=== PATIENT | female | born 1970 | race Caucasian/White ===

== ENCOUNTER 2017-01-01 22:05 | Inpatient (IN) | payer MEDICAID ==
[~2017-01-01] VITALS: Ht 149.9 cm; Wt 127.9 kg
[~2017-01-01 22:05] MED LIST: ALBU0.0912 IH; AMOX-842 PO; BENA20TA PO; HYDR-4452 PO; LEVO0.083 PO; SACC250C4 PO
[2017-01-01 22:11] VITALS: BP 152/76
--- NOTE | 2017-01-01 22:40 | NUR ---
PATIENT AMBULATED TO ER BED 3.
--- NOTE | 2017-01-01 22:57 | NUR ---
Patient being evaluated by physician at bedside.
--- NOTE | 2017-01-01 22:59 | NUR ---
46Y F BIB FAMILY C/O OF SOB. ALSO C/O OF BURNING PAIN TO CHEST THAT RADIATES TO BACK. PAIN 8/10 IN SCALE. NO DISTRESS NOTED. PT OBESE.
[2017-01-01] MEDS ORDERED: NACL 0.9% 1,000 ML IV ONE (23:05)
[2017-01-01] MEDS ORDERED: NITROGLYCERIN 2% 1 GM PKT TP ONE (23:05)
[2017-01-01] MEDS ORDERED: FUROSEMIDE 40 MG/4 ML VIAL IVP ONE (23:05)
[2017-01-01 23:40] LABS: BASOPHILS % (AUTO) 0.6 % (0.0-2.0); EOSINOPHILS # (AUTO) 0.2 K/uL (0-0.4); EOSINOPHILS % (AUTO) 2.6 % (0.0-4.0); HEMATOCRIT 31.8 % (36-48); LYMPHOCYTES # (AUTO) 1.2 K/uL (2.5-16.5); LYMPHOCYTES % (AUTO) 14.2 % (20.5-51.1); MEAN CORPUSCULAR HEMOGLOBIN 24 pg (27-31); MEAN CORPUSCULAR HGB CONC 31 g/dL (33-37); MEAN CORPUSCULAR VOLUME 76 fL (80-94); MONOCYTES # (AUTO) 0.3 K/uL (0.8-1.0); MONOCYTES % (AUTO) 3.8 % (1.7-9.3); NEUTROPHILS # (AUTO) 6.4 K/uL (1.8-7.7); NEUTROPHILS % (AUTO) 78.8 % (42.2-75.2); PLATELET COUNT (AUTO) 235 K/uL (140-450); RED BLOOD CELL COUNT(AUTO) 4.17 MIL/uL (4.20-5.40); RED CELL DISTRIBUTION WIDTH 15.9 % (11.6-13.7); WHITE BLOOD COUNT (AUTO) 8.1 K/uL (4.8-10.8)
[2017-01-01 23:48] LABS: ANION GAP 8.6 (8-16); CALCIUM 9.1 mg/dL (8.5-10.1); CARBON DIOXIDE 31.6 mmol/L (21-32); CREATININE 0.7 mg/dL (0.6-1.3); POTASSIUM 4.2 mmol/L (3.5-5.1)
[2017-01-01 23:54] LABS: ALBUMIN 3.2 g/dL (3.4-5.0); TOTAL BILIRUBIN 0.3 mg/dL (0.0-1.0); TOTAL PROTEIN, SERUM 7.7 g/dL (6.4-8.2)
[2017-01-02] VITALS (7 sets, daily range): BP systolic 113–143; BP diastolic 58–90
[2017-01-02] MEDS ORDERED: ALBUTEROL SULFATE/IPRATROPIU 3 ML SOL IH ONE
[2017-01-02 00:01] LABS: INR 1.1 (0.8-1.2); PARTIAL THROMBOPLASTIN TIME 24.4 secs (22-35.6); PROTHROMBIN TIME 10.4 secs (10.8-13.4)
[2017-01-02 00:03] LABS: LACTIC ACID 1.3 mmol/L (0.4-2.0)
[2017-01-02 01:15] LABS: APPEARANCE,URINE CLEAR (CLEAR); BILIRUBIN,URINE NEGATIVE (NEGATIVE); BLOOD, URINE NEGATIVE (NEGATIVE); COLOR,URINE YELLOW (YELLOW); LEUKOCYTE ESTERASE ,URINE NEGATIVE (NEGATIVE); NITRITE, URINE NEGATIVE (NEGATIVE); PH,URINE 6.5 (5.0-9.0); PROTEIN,URINE NEGATIVE (NEGATIVE); UGLUCOSE NEGATIVE (NEGATIVE); UROBILINOGEN,URINE 0.2 EU/dL (0.2 - 1)
[2017-01-02 01:23] LABS: BACTERIA,URINE OCCASSIONAL /HPF (None Seen); RBC,URINE 0-5 (RARE) /HPF (0-5); SQUAMOUS EPITHELIAL CELL,UR 4-10 (MOD) /LPF (0-3 (FEW)); WBC,URINE 0-5 (RARE) /HPF (0-5)
[2017-01-02] MEDS ORDERED: NACL 0.9% 1,000 ML IV SCH (01:47)
[2017-01-02] MEDS ORDERED: LORazepam 1 MG TAB PO PRN (01:50)
[2017-01-02] MEDS ORDERED: HYDROcodone/APAP 5/325 MG 1 TAB TAB PO PRN (01:50)
[2017-01-02] MEDS ORDERED: ALBUTEROL SULFATE/IPRATROPIU 3 ML SOL IH PRN (02:00)
[2017-01-02 02:36] LABS: FREE T4 (FREE THYROXINE) 1.22 ng/dL (0.76-1.46); MAGNESIUM 2.1 mg/dL (1.8-2.4); PHOSPHORUS 3.8 mg/dL (2.5-4.9); THYROID STIMULATING HORMONE 4.37 uIU/mL (0.34-3.76)
[2017-01-02 02:37] LABS: CREATINE KINASE MB 0.5 ng/mL (0-3.6)
--- NOTE | 2017-01-02 02:49 | NUR ---
Patient will be admitted to care of DR VALDEZ. Admited to TELE . Will go to room ICU ROOM. Belongings list completed. Report to EARLE RICKS.
--- NOTE | 2017-01-02 02:55 | NUR ---
RECEIVED PT FROM ER VIA [facility] ACCOMPANIED BY RN AND EMT. PT AAOX4, ABLE TO MOVE FROM GURNEY TO BED WITH ASSIST. ON O2 AT 3LPM VIA NASAL CANNULA, ATTACHED TO CARE ASSISTANT AND PULSE OXIMETER. IV ACCESS AT RIGHT HAND 22G, PATENT AND INTACT, ON SALINE LOCK AT THIS TIME. PT ABLE TO VOID FREELY. MRSA SWAB DONE. NOTED TO HAVE PITTING EDEMA +1 BOTH LOWER EXTREMITIES. PT PLACED COMFORTABLY ON BED, RESTING COMFORTABLY, BED IN LOW POSITION. SAFETY MEASURE ENSURE. WILL CONTINUE TO MONITOR.
[2017-01-02] MEDS: ONDANSETRON 4 MG/2 ML VIAL IVP PRN ×2 (03:26→09:11)
[2017-01-02] MEDS: MORPHINE SULFATE 2 MG/ML SYR IVP PRN ×3 (03:26→21:39)
--- NOTE | 2017-01-02 04:10 | NUR ---
PT RESTING, ASLEEP AT THIS TIME. NO SIGNS OF DISTRESS/ SOB NOTED. WILL CONTINUE TO MONITOR.
[2017-01-02] MEDS: ALBUTEROL SULFATE/IPRATROPIU 3 ML SOL IH SCH ×3 (06:00→19:30)
--- NOTE | 2017-01-02 07:02 | NUR ---
PATIENT HAS BEEN SCREENED AND CATEGORIZED HIGH NUTRITION RISK. PATIENT WILL BE SEEN WITHIN 1-2 DAYS OF ADMISSION. 01/02/17-01/03/17 ANNIA SALES MS, RDN
--- NOTE | 2017-01-02 07:30 | NUR ---
REPORT GIVEN TO MILLICENT MICHAELS FOR CONTINUITY OF CARE. STABLE CONDITION AT THIS TIME.
--- NOTE | 2017-01-02 07:55 | NUR ---
PT ALERT AND ORIENTED X4. VERBALLY RESPONSIVE. NO C/O PAIN. NO C/O SOB. REPORT GIVEN BY MILLICENT OG TO TELEMETRY NURSE ADELAIDE. TRANSPORT PT ON MONITOR AND ON O2 3 L. PT AMBULATE FROM RCREEDE TO BED. ECG PORTABLE IN PLACE. O2 STARTED. CONTINUED IV FLUID. NO S/SX OF DISTRESS NOTED. RESIDENT IS STABLE.
--- NOTE | 2017-01-02 08:05 | NUR ---
RECEIVED PT AWAKE ON A GURNEY AAOX4 WITH O2 AT 3LPM VIA NC, NO S/S OF DISTRESS NOTED, PT WITH CANE, ABLE TO AMBULATE WITH CANE AND ASSISTANCE. SKIN IS INTACT. WITH IV ACCESS AT RIGHT HAND 22G INFUSING FLUIDS WELL. DISCUSSED PLAN OF CARE, PT VERBALIZED UNDERSTANDING. CALL LIGHT WITHIN REACH, WILL CONTINUE TO MONITOR.
--- NOTE | 2017-01-02 09:22 | NUR ---
ABG WAS ATTEMPTED TWICE UNABLE TO GET DRAW AT THIS TIME, PT IS IN PAIN AND WANTED HER PAIN MEDS WILL TRY LATER MILLICENT BRYSON NOTIFIED
[2017-01-02] MEDS ORDERED: HYDROcodone/APAP 10/325 MG 1 TAB TAB PO PRN (09:50)
[2017-01-02] MEDS ORDERED: methylPREDNISolone SS 125 MG/2 ML VIAL IVP SCH (09:55)
[2017-01-02] MEDS ORDERED: LEVOTHYROXINE 0.088 MG TAB PO SCH (10:00)
[2017-01-02] MEDS ORDERED: FAMOTIDINE 20 MG TAB PO SCH (10:00)
[2017-01-02] MEDS ORDERED: LORATADINE 10 MG TAB PO SCH (10:00)
[2017-01-02] MEDS ORDERED: BENAZEPRIL 20 MG TAB PO SCH (10:00)
--- NOTE | 2017-01-02 10:18 | NUR ---
PT ASLEEP, STILL WITH O2 AT 3LPM. ALL NEEDS ATTENDED, WILL CONTINUE TO MONITOR.
--- NOTE | 2017-01-02 10:38 | NUR ---
01/02/17 RD INITIAL ASSESSMENT COMPLETED PLEASE REFER TO NUTRITION ASSESSMENT UNDER CARE ACTIVITY FOR ESTIMATED NUTRITIONAL NEEDS. RD RECOMMENDATIONS: 1. CONTINUE CARDIAC DIET APPROPRIATE. 2. RD WILL F/U 5-7 DAYS; LOW RISK. ANNIA SALES MS, RDN
[2017-01-02] MEDS: methylPREDNISolone SS 125 MG/2 ML VIAL IVP SCH ×2 (10:44→18:01)
[2017-01-02 11:29] LABS: AMYLASE 16 U/L (25-115); LIPASE 68 U/L (73-393)
--- NOTE | 2017-01-02 12:30 | NUR ---
ASSISTED PT IN GETTING UP, ABLE TO AMBULATE TO RESTROOM WITH CANE. GOOD APPETITE FOR LUNCH. WITH DAUGHTER AT BEDSIDE. WILL CONTINUE TO MONITOR.
[2017-01-02 14:42] LABS: BLOOD GAS PH 7.299 (7.35-7.45)
[2017-01-02 14:43] LABS: BLOOD GAS BASE EXCESS 0.3 mmol/L (-2.0-2.0); BLOOD GAS HCO3 27.5 mmol/L; BLOOD GAS PCO2 57.4 mmHg (20-50); BLOOD GAS PO2 78.1 mmHg
[2017-01-02 14:44] LABS: BLOOD GAS O2 SAT% 94.2 % (92.0-98.5)
--- NOTE | 2017-01-02 14:50 | NUR ---
ABG REPORTED TO DR MANJEET GÓMEZ TO BE ORDERED
--- NOTE | 2017-01-02 15:01 | NUR ---
PLACED PT ON V60 ON ST 12\5 RR14 FIO2 28 ALARMS ARE ON AND FUNCTIONAL PT WEARING F\F MASK SIZE LG GEL UNDER MASK BS DIMINISHED CARDIO CONT. POX PLACED BIPAP AND POX PLUGGED INTO RED OUTLET PT IS AWAKE\SLEEPY
--- NOTE | 2017-01-02 15:09 | NUR ---
PT PUT ON BIPAP MACHINE PRN D/T INCREASED CO2 LEVELS,WITH THE FOLLOWING SETTINGS: IPAP 12, EPAP 5, O2 CONCENTRATION 28%, RATE 14BPM
--- NOTE | 2017-01-02 15:15 | NUR ---
PT COMPLAINED OF BEING SUFFOCATED WHILE ON BIPAP, REQUESTED FOR IT TO BE REMOVED. RT AND DR BURROUGHS NOTIFIED.
--- NOTE | 2017-01-02 15:20 | NUR ---
DR BURROUGHS AT BEDSIDE TALKING TO PT RE: BIPAP. PER PT SHE WILL BRING HER OWN MACHINE WHERE SHE USES NASAL CPAP INSTEAD SO SHE WOULD NOT FEEL AGITATED. PER DR BURROUGHS, OK FOR PT TO BRING OWN CPAP MACHINE BUT HAS TO USE BIPAP UNTIL IT ARRIVES. PT AGREED AND IS NOW ON BIPAP AGAIN WHILE SITTING ON THE CHAIR
--- NOTE | 2017-01-02 15:30 | NUR ---
DR BURROUGHS INFORMED RE: PT REQUEST FOR INFORMATION ON ADVANCE DIRECTIVE. PER MD HE WILL PUT IN SS REQUEST BUT WILL NOT BE SEEN BY SS TILL WEDNESDAY. PT INFORMED, VERBALIZED UNDERSTANDING.
--- NOTE | 2017-01-02 15:50 | NUR ---
PT HAD REMOVED BIPAP PLACED ON N/C BY RN RT BIPAP CHECK 1550 BS DIMINISHED PT BENJAMÍN OMALLEY ORDER FOR PT TO BRING HOME CPAP
--- NOTE | 2017-01-02 17:09 | NUR ---
BIPAP CHECK BS DIMINISHED ABG DRAWN WITHOUT INCIDENT
[2017-01-02] MEDS: MONTELUKAST SODIUM 10 MG TAB PO SCH (17:16)
[2017-01-02 17:25] LABS: BLOOD GAS PH 7.312 (7.35-7.45)
[2017-01-02 17:26] LABS: BLOOD GAS BASE EXCESS -0.1 mmol/L (-2.0-2.0); BLOOD GAS HCO3 26.7 mmol/L; BLOOD GAS PO2 66.9 mmHg
--- NOTE | 2017-01-02 17:29 | NUR ---
PT SITTING ON CHAIR WITH BIPAP ON WHILE WATCHING TV. ALL NEEDS ATTENDED. SPOKE TO DAUGHTER ON THE PHONE TO BRING CPAP OVER.
--- NOTE | 2017-01-02 17:41 | NUR ---
G REPORTED TO DR BURROUGHS NO CHANGES MADE
--- NOTE | 2017-01-02 17:55 | NUR ---
REMOVED BIPAP TO FACILITATE EATING DINNER. PT SITTING ON CHAIR. O2 2LPM APPLIED VIA NC. SPO2 AT 97%
--- NOTE | 2017-01-02 18:44 | NUR ---
DR MATHEW AT BEDSIDE, PER MD PT NEEDS TO USE FACILITY BIPAP MACHINE AND NOT OWN CPAP MACHINE. PT VERBALIZED UNDERSTANDING. IV FLUIDS DISCONTINUED.
[2017-01-02] MEDS ORDERED: LEVOFLOXACIN 500 MG/D5W PREMIX 100 ML IV SCH (18:50)
[2017-01-02] MEDS ORDERED: FUROSEMIDE 20 MG/2 ML VIAL IVP SCH (18:55)
--- NOTE | 2017-01-02 19:37 | NUR ---
PT ENDORSED TO NIGHT NURSE IN STABLE CONDITION FOR CONTINUITY OF CARE
--- NOTE | 2017-01-02 19:38 | NUR ---
RECEIVED REPORT FROM ADELAIDE RICKS FOR CONTINUITY OF CARE. PATIENT IS A&OX4, DISCUSSED PLAN OF CARE WITH PT, VERBALIZED UNDERSTANDING. SHIFT ASSESSMENT DONE, VS TAKEN , IN STABLE CONDITION. PT ON BIPAP, O2 SAT 97%, DENIES SHORTNESS OF BREATH. PATIENT DENIES PAIN AT THIS TIME. IV TO RT HAND 22 GAUGE PATENT AND INFUSING ANTIBIOTICS. PT SITTING IN CHAIR AT BEDSIDE, AMBULATED TO RESTROOM. PROVIDED BEDSIDE COMMODE PER PT REQUEST. SAFETY/ FALL PRECAUTIONS ENFORCED. CALL LIGHT WITHIN REACH. WILL CONTINUE TO MONITOR.
--- NOTE | 2017-01-02 21:39 | NUR ---
PT RETURNED TO BED AND MADE COMFORTABLE. PT C/O PAIN, MEDICATED PER MD ORDER. CALL LIGHT PLACED WITHIN REACH.
[2017-01-02] MEDS: LORazepam 2 MG/ML VIAL IVP PRN (22:52)
--- NOTE | 2017-01-02 22:52 | NUR ---
PT STATES SHE IS ANXIOUS HAVING THE BIPAP ON, EDUCATED OF IMPORTANCE TO KEEP ON. REQUESTED ANXIETY MEDICATION, MEDICATED PER MD ORDER. VS STABLE. WILL CONTINUE TO MONITOR.
[2017-01-03] VITALS: BP 102/59
--- NOTE | 2017-01-03 01:32 | NUR ---
ASSISTED PT TO CHAIR AT BEDSIDE. BIPAP IN PLACE. CALL LIGHT PLACED WITHIN REACH.
[2017-01-03 02:34] LABS: CREATINE KINASE MB 0.6 ng/mL (0-3.6)
[2017-01-03] MEDS: methylPREDNISolone SS 125 MG/2 ML VIAL IVP SCH ×3 (03:45→18:25)
[2017-01-03 04:00] VITALS: BP 118/70
--- NOTE | 2017-01-03 04:05 | NUR ---
VS TAKEN, STABLE. PT IS NOW ASLEEP, NO S/S OF DISTRESS NOTED.
[2017-01-03] MEDS: LEVOTHYROXINE 0.088 MG TAB PO SCH (05:52)
--- NOTE | 2017-01-03 05:52 | NUR ---
DUE MEDICATIONS ADMINISTERED, TOLERATED WELL. PATIENT ASSISTED TO BEDSIDE COMMODE, VOIDED.
[2017-01-03] MEDS: ALBUTEROL SULFATE/IPRATROPIU 3 ML SOL IH SCH ×3 (06:43→18:45)
--- NOTE | 2017-01-03 06:43 | NUR ---
RECEIVED PT ON PHILLI[S V60 ON ST 12\5 RR 14 FIO2 28 ALARMS ARE ON AND FUNCTIONAL PT WEARING F\F MASK SIZE LG IN HF ASLEEP BS DIMINISHED CONT. POX IN PLACE BIPAP POX PLUGGED INTO RED OUTLET HHN GIVEN I\L WITH 3 MG DUONEB
[2017-01-03 06:50] LABS: BASOPHILS % (AUTO) 0.3 % (0.0-2.0); EOSINOPHILS # (AUTO) 0.2 K/uL (0-0.4); EOSINOPHILS % (AUTO) 1.4 % (0.0-4.0); HEMATOCRIT 32.8 % (36-48); HEMOGLOBIN 10.4 g/dL (12.0-16.0); LYMPHOCYTES # (AUTO) 0.7 K/uL (2.5-16.5); LYMPHOCYTES % (AUTO) 6.5 % (20.5-51.1); MEAN CORPUSCULAR HEMOGLOBIN 24 pg (27-31); MEAN CORPUSCULAR HGB CONC 32 g/dL (33-37); MEAN CORPUSCULAR VOLUME 77 fL (80-94); MONOCYTES # (AUTO) 0.3 K/uL (0.8-1.0); MONOCYTES % (AUTO) 2.8 % (1.7-9.3); NEUTROPHILS # (AUTO) 10.2 K/uL (1.8-7.7); PLATELET COUNT (AUTO) 274 K/uL (140-450); RED BLOOD CELL COUNT(AUTO) 4.25 MIL/uL (4.20-5.40); RED CELL DISTRIBUTION WIDTH 15.6 % (11.6-13.7); WHITE BLOOD COUNT (AUTO) 11.4 K/uL (4.8-10.8)
[2017-01-03 07:15] LABS: ALBUMIN 3.4 g/dL (3.4-5.0); CALCIUM 8.8 mg/dL (8.5-10.1); CARBON DIOXIDE 33.5 mmol/L (21-32); CREATININE 0.8 mg/dL (0.6-1.3); MAGNESIUM 2.2 mg/dL (1.8-2.4); PHOSPHORUS 3.9 mg/dL (2.5-4.9); POTASSIUM 4.5 mmol/L (3.5-5.1); TOTAL BILIRUBIN 0.3 mg/dL (0.0-1.0); TOTAL PROTEIN, SERUM 8.2 g/dL (6.4-8.2)
--- NOTE | 2017-01-03 07:16 | NUR ---
ENDORSED PATIENT TO DAY RN FOR CONTINUITY OF CARE, PATIENT IS IN STABLE CONDITION.
[2017-01-03 07:17] LABS: ANION GAP 9.1 (8-16); CALCIUM 8.9 mg/dL (8.5-10.1); CARBON DIOXIDE 33.4 mmol/L (21-32); CREATININE 0.7 mg/dL (0.6-1.3); POTASSIUM 4.5 mmol/L (3.5-5.1)
--- NOTE | 2017-01-03 07:20 | NUR ---
RECEIVED REPORT FROM MILLICENT KANG. PT IS A/OX4, PT IS ON BIPAP, SKIN IS INTACT, IV ON RT HAND, SL, PATENT, INTACT, FLUSHING WELL, NO S/S OF RESPIRATORY DISTRESS OR DISCOMFORT NOTED, SAFETY/FALL PRECAUTIONS ARE IN REACH, DISCUSSED PLAN OF CARE WITH PT, PT VERBALIZED UNDERSTANDING, CALL LIGHT IS WITHIN REACH, WILL CONTINUE TO MONITOR.
[2017-01-03 08:00] VITALS: BP 146/85
[2017-01-03] MEDS: FAMOTIDINE 20 MG TAB PO SCH (08:57)
[2017-01-03] MEDS: BENAZEPRIL 20 MG TAB PO SCH (08:57)
[2017-01-03] MEDS: LORATADINE 10 MG TAB PO SCH (08:58)
[2017-01-03] MEDS: FUROSEMIDE 40 MG/4 ML VIAL IVP SCH (08:59)
[2017-01-03 09:06] LABS: T4 (THYROXINE) 9.3 ug/dL (4.5-12.0)
[2017-01-03] MEDS: LORazepam 2 MG/ML VIAL IVP PRN ×2 (09:31→19:49)
[2017-01-03 10:03] LABS: BLOOD GAS PH 7.338 (7.35-7.45)
[2017-01-03 10:04] LABS: BLOOD GAS BASE EXCESS 1.8 mmol/L (-2.0-2.0); BLOOD GAS HCO3 28.4 mmol/L; BLOOD GAS O2 SAT% 92.7 % (92.0-98.5); BLOOD GAS PCO2 54.1 mmHg (20-50); BLOOD GAS PO2 68.6 mmHg
--- NOTE | 2017-01-03 10:05 | NUR ---
ABG REPORTED TO DR BURROUGHS PT SITTING IN CHAIR ALERT WEARING 2L N/C
[2017-01-03] MEDS ORDERED: NACL 0.9% 1,000 ML IV SCH (10:25)
[2017-01-03] MEDS: ONDANSETRON 4 MG/2 ML VIAL IVP PRN (11:46)
[2017-01-03] MEDS: MORPHINE SULFATE 2 MG/ML SYR IVP PRN ×2 (11:47→22:22)
[2017-01-03 12:00] VITALS: BP 123/71
[2017-01-03] MEDS ORDERED: APAP/BUTAL/CAFF 325/50/40 MG 1 TAB PO SCH (12:00)
[2017-01-03 13:04] LABS: HEMOGLOBIN A1C 6.1 % (4.8-5.6)
[2017-01-03 16:00] VITALS: BP 106/59
[2017-01-03] MEDS: MONTELUKAST SODIUM 10 MG TAB PO SCH (17:24)
--- NOTE | 2017-01-03 19:15 | NUR ---
ENDORSED PT TO MILLICENT HOFFMAN. FOR CONTINUITY OF CARE, PT STABLE AT THIS TIME.
--- NOTE | 2017-01-03 19:16 | NUR ---
RECEIVED PT IN STABLE CONDITION FROM MILLICENT DONALDSON. NO SOB, NO SIGNS OF DISTRESS. PT IS AOX4, AMBULATES WITH CANE ASSIST. PT ON 3L O2 NC. VS STABLE. IV TO RT HAND 22G PATENT, ASYMPTOMATIC, INTACT, SALINE LOCKED. PT C/O ANXIETY, WILL MEDICATE PER MD ORDER. PT STATES PAIN IS TOLERABLE AT THIS TIME. SKIN IS INTACT. PLAN OF CARE DISCUSSED WITH PT. SAFETY MEASURES IN PLACE. CALL LIGHT WITHIN REACH. WILL CONTINUE TO MONITOR.
[2017-01-03] MEDS: APAP/BUTAL/CAFF 325/50/40 MG 1 TAB PO PRN (19:49)
[2017-01-03 20:00] VITALS: BP 128/64
[2017-01-03] MEDS: LEVOFLOXACIN 500 MG/D5W PREMIX 100 ML IV SCH (20:02)
--- NOTE | 2017-01-03 20:02 | NUR ---
PT TOLERATED MEDS WELL, MEDICATED PT FOR C/O HEADACHE AND ANXIETY PER MD ORDER. PT TOLERATED WELL. NO SOB, NO SIGNS OF DISTRESS. PT ON 3L O2 NC. IV SITE ASYMPTOMATIC, INTACT, PATENT, IVPB RUNNING. PLAN OF CARE DISCUSSED WITH PT. SAFETY MEASURES IN PLACE. CALL LIGHT WITHIN REACH. WILL CONTINUE TO MONITOR.
--- NOTE | 2017-01-03 22:22 | NUR ---
PT C/O PAIN, VS STABLE. MEDICATED PER MD ORDER. PT TOLERATED WELL. NO SOB, NO SIGNS OF DISTRESS. PT ON 3L O2 NC. IV SITE ASYMPTOMATIC, INTACT, PATENT, SALINE LOCKED. PLAN OF CARE DISCUSSED WITH PT. SAFETY MEASURES IN PLACE. CALL LIGHT WITHIN REACH. WILL CONTINUE TO MONITOR.
--- NOTE | 2017-01-03 22:55 | NUR ---
PATIENT WANTS TO HOLD OFF BEING ON BIPAP AT THIS TIME HR-74, SAO2-95% RR-20BPM, NO RESP. DISTRESS NOTED.
[2017-01-04] VITALS: BP 117/58
--- NOTE | 2017-01-04 00:13 | NUR ---
VS STABLE. NO SOB, NO SIGNS OF DISTRESS. PT ON 3L O2 NC. IV SITE ASYMPTOMATIC, INTACT, PATENT, SALINE LOCKED. PT DENIES PAIN AT THIS TIME. PLAN OF CARE DISCUSSED WITH PT. SAFETY MEASURES IN PLACE. CALL LIGHT WITHIN REACH. WILL CONTINUE TO MONITOR.
--- NOTE | 2017-01-04 02:48 | NUR ---
PT ASLEEP IN BED. NO SOB, NO SIGNS OF DISTRESS. IV SITE ASYMPTOMATIC, INTACT, SALINE LOCKED. PT ON 3L O2 NC. SAFETY MEASURES IN PLACE. CALL LIGHT WITHIN REACH. WILL CONTINUE TO MONITOR.
[2017-01-04] MEDS: methylPREDNISolone SS 125 MG/2 ML VIAL IVP SCH ×3 (03:20→18:36)
[2017-01-04 04:00] VITALS: BP 121/74
[2017-01-04 05:23] LABS: BASOPHILS % (AUTO) 0.3 % (0.0-2.0); EOSINOPHILS # (AUTO) 0.2 K/uL (0-0.4); EOSINOPHILS % (AUTO) 1.5 % (0.0-4.0); HEMATOCRIT 32.9 % (36-48); HEMOGLOBIN 10.4 g/dL (12.0-16.0); LYMPHOCYTES # (AUTO) 0.7 K/uL (2.5-16.5); LYMPHOCYTES % (AUTO) 4.9 % (20.5-51.1); MEAN CORPUSCULAR HEMOGLOBIN 25 pg (27-31); MEAN CORPUSCULAR HGB CONC 31 g/dL (33-37); MEAN CORPUSCULAR VOLUME 78 fL (80-94); MONOCYTES # (AUTO) 0.6 K/uL (0.8-1.0); MONOCYTES % (AUTO) 4.2 % (1.7-9.3); NEUTROPHILS # (AUTO) 12.6 K/uL (1.8-7.7); NEUTROPHILS % (AUTO) 89.1 % (42.2-75.2); PLATELET COUNT (AUTO) 284 K/uL (140-450); RED BLOOD CELL COUNT(AUTO) 4.22 MIL/uL (4.20-5.40); RED CELL DISTRIBUTION WIDTH 15.8 % (11.6-13.7)
[2017-01-04] MEDS: LEVOTHYROXINE 0.088 MG TAB PO SCH (05:52)
[2017-01-04] MEDS: APAP/BUTAL/CAFF 325/50/40 MG 1 TAB PO PRN (06:13)
--- NOTE | 2017-01-04 06:13 | NUR ---
PT C/O HEADACHE, MEDICATED PER MD ORDER. PT TOLERATED WELL. NO SOB, NO SIGNS OF DISTRESS. IV ISTE ASYMPTOMATIC, INTACT, SALINE LOCKED. SAFETY MEASURES IN PLACE PT ON 3L O2 NC. CALL LIGHT WITHIN REACH. WILL CONTINUE TO MONITOR.
[2017-01-04] MEDS: ALBUTEROL SULFATE/IPRATROPIU 3 ML SOL IH SCH ×3 (06:22→19:59)
[2017-01-04 06:37] LABS: ANION GAP 7.1 (8-16); CARBON DIOXIDE 34.5 mmol/L (21-32); CREATININE 0.7 mg/dL (0.6-1.3); POTASSIUM 4.6 mmol/L (3.5-5.1)
[2017-01-04 06:41] LABS: MAGNESIUM 2.3 mg/dL (1.8-2.4)
[2017-01-04 07:23] LABS: WHITE BLOOD COUNT (AUTO) 14.1 K/uL (4.8-10.8)
--- NOTE | 2017-01-04 07:30 | NUR ---
RECEIVED ON BED AAOX4. NO SOB NOTED. NO C/O PAIN AT THIS TIME. IV TO RT HAND PATENT AND INTACT. CHEST DIMINISHED AIR ENTRY TO THE BASES, RHONCHI HEARD BILATERALLY. ABDOMEN SOFT, BOWEL SOUNDS PRESENT. BLE SWELLING, +2 PITTING NOTED. INSTRUCTED PT TO CALL FOR ASSISTANCE, CALL LIGHT WITHIN REACH. PT VERBALIZED UNDERSTANDING.
--- NOTE | 2017-01-04 07:32 | NUR ---
ENDORSED PT IN STABLE CONDITION TO MILLICENT BARBOZA. ALL NEEDS HAVE BEEN MET AT THIS TIME.
[2017-01-04 08:00] VITALS: BP 107/58
[2017-01-04] MEDS: MORPHINE SULFATE 2 MG/ML SYR IVP PRN ×3 (08:13→23:33)
[2017-01-04] MEDS: LORazepam 2 MG/ML VIAL IVP PRN (08:17)
[2017-01-04] MEDS: LORATADINE 10 MG TAB PO SCH (08:20)
[2017-01-04] MEDS: FAMOTIDINE 20 MG TAB PO SCH (08:20)
[2017-01-04] MEDS: BENAZEPRIL 20 MG TAB PO SCH (09:00)
[2017-01-04] MEDS: FUROSEMIDE 40 MG/4 ML VIAL IVP SCH ×2 (09:00→13:32)
--- NOTE | 2017-01-04 09:30 | NUR ---
pt able to transfer from bed to bedside commode with minimal assist. activity tolerated well. no SOB noted.
--- NOTE | 2017-01-04 10:25 | NUR ---
CM NOTE PER LOAN REVIEWER KARYNA EXT [phone], REVIEWS SHOULD BE SENT TO [facility] AND [facility]. INITIAL REVEIW SENT TO [facility] FAX# [phone] PH# [phone] AND TO [facility] FAX# [phone] PH# [phone] ANGELA EXT [phone]
[2017-01-04 12:00] VITALS: BP 130/77
--- NOTE | 2017-01-04 12:20 | NUR ---
PT TOLERATED FULL LIQUID DIET WELL. NO C/O NAUSEA AND VOMITING.
[2017-01-04 16:00] VITALS: BP 127/68
[2017-01-04] MEDS: MONTELUKAST SODIUM 10 MG TAB PO SCH (17:33)
--- NOTE | 2017-01-04 18:30 | NUR ---
PT TOLERATED CARDIAC DIET WELL. NO N&V NOTED.
--- NOTE | 2017-01-04 19:20 | NUR ---
RECEIVED REPORT FROM MILLICENT BARBOZA AT BEDSIDE. INITIAL ASSESSMENT COMPLETED. PT AAOX4. PT'S SKIN IS INTACT. PT IS RECEIVING O2 3L NC. PT HAS IV TO RIGHT HAND G22 INFUSING FLUIDS WELL. ORIENTED PT TO ROOM AND SURROUNDINGS AND USE OF CALL LIGHT. EXPLAINED PLAN OF CARE TO PT AND SHE VERBALIZES UNDERSTANDING. WILL CONTINUE TO MONITOR PT.
--- NOTE | 2017-01-04 19:23 | NUR ---
PT RESTING, NO SOB NOTED. NO COMPLAINTS MADE. WILL ENDORSE TO NEXT SHIFT NURSE FOR CONTINUITY OF CARE.
[2017-01-04 20:00] VITALS: BP 138/78
[2017-01-04] MEDS: LEVOFLOXACIN 500 MG/D5W PREMIX 100 ML IV SCH (21:08)
--- NOTE | 2017-01-04 21:09 | NUR ---
2100 LEVAQUIN INFUSING AT THIS TIME. PT STABLE, RESTING IN BED. CALL LIGHT WITHIN REACH.
--- NOTE | 2017-01-04 22:05 | NUR ---
PT COMPLAINING OF IV HURTING. IV DISCONTINUED WITH TIP INTACT. NEW IV STARTED ON LEFT HAND G 22; ASYMPTOMATIC, PATENT AND INTACT INFUSING FLUIDS WELL. PT TOLERATED IT WELL. CALL LIGHT WITHIN REACH.
--- NOTE | 2017-01-04 23:31 | NUR ---
PT COMPLAINING OF BACK PAIN 04/15. VS STABLE, WILL MEDICATE ORDERED.
[2017-01-05] VITALS: BP 131/75
--- NOTE | 2017-01-05 01:40 | NUR ---
PT SLEEPING AT THIS TIME, NO SIGNS OF DISTRESS OR DISCOMFORT NOTED. WILL CONTINUE TO MONITOR PT.
[2017-01-05] MEDS: methylPREDNISolone SS 125 MG/2 ML VIAL IVP SCH ×2 (03:18→10:26)
--- NOTE | 2017-01-05 03:22 | NUR ---
PT TOLERATED 0300 MED WELL. PT STABLE, WILL CONTINUE TO MONITOR PT.
[2017-01-05 04:00] VITALS: BP 138/77
--- NOTE | 2017-01-05 04:42 | NUR ---
PT AMBULATED TO THE RESTROOM. PT BACK IN BED IN STABLE CONDITION. PT TOLERATING OXYGEN WELL.WILL CONTINUE TO MONITOR PT.
[2017-01-05 06:08] LABS: BASOPHILS % (AUTO) 0.1 % (0.0-2.0); EOSINOPHILS # (AUTO) 0.2 K/uL (0-0.4); EOSINOPHILS % (AUTO) 1.4 % (0.0-4.0); HEMATOCRIT 31.9 % (36-48); HEMOGLOBIN 9.9 g/dL (12.0-16.0); LYMPHOCYTES # (AUTO) 0.6 K/uL (2.5-16.5); LYMPHOCYTES % (AUTO) 5.4 % (20.5-51.1); MEAN CORPUSCULAR HEMOGLOBIN 24 pg (27-31); MEAN CORPUSCULAR HGB CONC 31 g/dL (33-37); MEAN CORPUSCULAR VOLUME 77 fL (80-94); MONOCYTES # (AUTO) 0.5 K/uL (0.8-1.0); MONOCYTES % (AUTO) 4.2 % (1.7-9.3); NEUTROPHILS # (AUTO) 9.6 K/uL (1.8-7.7); NEUTROPHILS % (AUTO) 88.9 % (42.2-75.2); PLATELET COUNT (AUTO) 273 K/uL (140-450); RED BLOOD CELL COUNT(AUTO) 4.12 MIL/uL (4.20-5.40); RED CELL DISTRIBUTION WIDTH 15.5 % (11.6-13.7); WHITE BLOOD COUNT (AUTO) 10.9 K/uL (4.8-10.8)
[2017-01-05 06:21] LABS: FOLIC ACID 6.7 ng/mL (>3.0)
[2017-01-05] MEDS: LEVOTHYROXINE 0.088 MG TAB PO SCH (06:25)
--- NOTE | 2017-01-05 06:32 | NUR ---
PT TOLERATED 0630MED WELL. PT STABLE, WILL CONTINUE TO MONITOR PT.
[2017-01-05 06:34] LABS: ANION GAP 11.1 (8-16); CALCIUM 8.9 mg/dL (8.5-10.1); CARBON DIOXIDE 33.5 mmol/L (21-32); CREATININE 0.8 mg/dL (0.6-1.3); POTASSIUM 4.6 mmol/L (3.5-5.1)
[2017-01-05 06:38] LABS: MAGNESIUM 2.3 mg/dL (1.8-2.4); PHOSPHORUS 3.5 mg/dL (2.5-4.9)
[2017-01-05] MEDS: ALBUTEROL SULFATE/IPRATROPIU 3 ML SOL IH SCH ×2 (06:45→13:19)
--- NOTE | 2017-01-05 07:15 | NUR ---
ENDORSED PLAN OF CARE TO DAY SHIFT NURSE. PT IN STABLE CONDITION.
[2017-01-05 08:00] VITALS: BP 144/71
--- NOTE | 2017-01-05 08:47 | NUR ---
CM NOTE CONCURRENT REVIEW SENT TO [facility] FAX# [phone] PH# [phone] AND TO [facility], [place] FAX# [phone] PH# [phone] ANGELA HARRISON 6895
[2017-01-05] MEDS ORDERED: FUROSEMIDE 40 MG/4 ML VIAL IVP SCH (09:00)
[2017-01-05] MEDS: FUROSEMIDE 40 MG/4 ML VIAL IVP SCH ×2 (09:00→10:17)
[2017-01-05] MEDS ORDERED: ESCITALOPRAM 20 MG TAB PO SCH (09:00)
[2017-01-05] MEDS: LORATADINE 10 MG TAB PO SCH (09:03)
[2017-01-05] MEDS: FAMOTIDINE 20 MG TAB PO SCH (09:03)
[2017-01-05] MEDS: MORPHINE SULFATE 2 MG/ML SYR IVP PRN (09:04)
[2017-01-05] MEDS: BENAZEPRIL 20 MG TAB PO SCH (09:04)
--- NOTE | 2017-01-05 09:17 | NUR ---
PT REQUESTED TO TAKE LASIX LATER IN THE DAY BECAUSE PT "DOES NOT WANT TO PEE AT LOT WHILE ON MORPHINE BECAUSE I GET DIZZY." CONDITION STABLE. PT DENIES SOB, OR S/S OF ACUTE DISTRESS. REMAINING DUE MEDICATIONS ADMINISTERED WITH EDUCATION. PT C/O PAIN. SEE PAIN ASSESSMENT. SAFETY MEASURES ENSURED. CALL LIGHT WITHIN REACH. WILL CONTINUE TO MONITOR.
--- NOTE | 2017-01-05 10:13 | NUR ---
DECREASED FIO2 TO 2L SPO2 93
--- NOTE | 2017-01-05 10:27 | NUR ---
PT REQUESTING LASIX NOW. ADMINISTERED DUE MEDICATIONS WITH EDUCATION, PT VERBALIZES UNDERSTANDING. PT TOLERATED WELL.
[2017-01-05 12:00] VITALS: BP 144/70
[2017-01-05] MEDS ORDERED: FAMO20TA13 PO (12:51)
[2017-01-05] MEDS ORDERED: MONT10TA35 PO (12:51)
[2017-01-05] MEDS ORDERED: LORA10TA19 PO (12:51)
[2017-01-05] MEDS ORDERED: ESCI20TA47 PO (12:51)
[2017-01-05] MEDS ORDERED: ROB PO (12:56)
[2017-01-05] MEDS ORDERED: METH4TAB1 PO (13:09)
[2017-01-05] MEDS ORDERED: ALBU0.0912 IH (13:21)
[2017-01-05] MEDS ORDERED: FURO-572 PO (13:29)
[2017-01-05 13:32] VITALS: BP 144/70
--- NOTE | 2017-01-05 15:28 | NUR ---
REVIEWED AND DISCUSSED DISCHARGE INSTRUCTIONS WITH PT AND PT'S CAREGIVER AT BEDSIDE. PT VERBALIZES UNDERSTANDING. IV ACCESS REMOVED, CANNULA INTACT. PT TOLERATED WELL. PUBLISHING MANAGER REMOVED. PT REQUESTING A DOCTOR'S NOTE REGARDING PT'S ACTIVITY RESTRICTION. WILL CONTACT
--- NOTE | 2017-01-05 15:42 | NUR ---
PT DISCHARGED THROUGH WHEELCHAIR BY ELECTRIC FAN ASSEMBLER, ACCOMPANIED BY PT'S CAREGIVER. BELONGINGS CHECKED. CONDITION STABLE.
--- NOTE | 2017-01-05 16:17 | NUR ---
DR SOTOMAYOR IN TO SEE PT. DOCTOR'S NOTE FOR ACTIVITY RESTRICTION GIVEN TO PT. PT VERBALIZES UNDERSTANDING. Addendum: 01/05/17 at 1618 by Zoltan Osorio RN WRONG TIME CORRECT TIME: 01/05/17 1534
== END 2017-01-05 15:47 | disposition home or self-care (01) | DRG 137 ==
LOC: MED 22:05 → MIC 01-02 02:00 → MTU 01-02 08:28
PROVIDERS: ADMIT Family Medicine; ATTEND Family Medicine
PROC: 5A09357 Assistance with Respiratory Ventilation, Less than 24 Consecutive Hours, Continuous Positive Airway Pressure (ICD-10-PCS; principal; 2017-01-02)
DX: J69.0 Pneumonitis due to inhalation of food and vomit (principal); J96.21 Acute and chronic respiratory failure with hypoxia; E43 Unspecified severe protein-calorie malnutrition; I50.43 Acute on chronic combined systolic (congestive) and diastolic (congestive) heart failure; E66.2 Morbid (severe) obesity with alveolar hypoventilation; E03.9 Hypothyroidism, unspecified; J96.22 Acute and chronic respiratory failure with hypercapnia; I11.0 Hypertensive heart disease with heart failure; D50.9 Iron deficiency anemia, unspecified; Z79.899 Other long term (current) drug therapy; Z90.49 Acquired absence of other specified parts of digestive tract; Z83.3 Family history of diabetes mellitus; Z82.5 Family history of asthma and other chronic lower respiratory diseases; Z68.43 Body mass index [BMI] 50.0-59.9, adult; Z71.3 Dietary counseling and surveillance; Z82.3 Family history of stroke; Z82.49 Family history of ischemic heart disease and other diseases of the circulatory system
CPT/HCPCS: 36415; 36600; 71010; 71020; 80048; 80053; 81001; 82150; 82550; 82553; 82607; 82728; 82746; 82803; 83036; 83540; 83605; 83690; 83735; 83880; 84100; 84436; 84439; 84443; 84479; 84484; 85025; 85045; 85379; 85610; 85730; 87040; 87081; 87086; 93005; 94640; 94660; 96374; 99285; J1940; J1956; J2060; J2270; J2405; J2930; J7030; J7620; Q0092

== ENCOUNTER 2017-02-21 21:56 | Inpatient (IN) | payer MEDICAID ==
[~2017-02-21] VITALS: Ht 149.9 cm; Wt 167.4 kg
[~2017-02-21 21:56] MED LIST changes: -AMOX-842 PO; +ESCI20TA47 PO; +FAMO20TA13 PO; +FURO-572 PO; +LORA10TA19 PO; +METH4TAB1 PO; +MONT10TA35 PO; +ROB PO
[2017-02-21 22:01] VITALS: BP 132/66
--- NOTE | 2017-02-21 22:28 | NUR ---
PT TAKEN TO OF2
--- NOTE | 2017-02-21 22:34 | NUR ---
Dr. Radford evaluating patient
--- NOTE | 2017-02-21 22:39 | NUR ---
PT TAKEN TO BED 8
[2017-02-21] MEDS ORDERED: IPRATROPIUM 0.02% 0.5 MG/2.5 ML NEBU INH ONE (22:50)
[2017-02-21] MEDS ORDERED: methylPREDNISolone SS 125 MG in WATER STERILE 2 ML IV ONE (22:50)
--- NOTE | 2017-02-21 23:04 | NUR ---
RT AT BEDSIDE.
[2017-02-21] MEDS ORDERED: ALBUTEROL 0.083% 2.5 MG/3 ML NEBU INH ONE (23:11)
[2017-02-21] MEDS ORDERED: FUROSEMIDE 100 MG/10 ML VIAL IVP ONE (23:15)
[2017-02-21] MEDS ORDERED: ONDANSETRON 4 MG/2 ML VIAL IVP ONE (23:25)
[2017-02-21 23:29] LABS: BLOOD GAS BASE EXCESS 4.2 mmol/L (-2.0-2.0); BLOOD GAS HCO3 29.8 mmol/L; BLOOD GAS O2 SAT% 96.9 % (92.0-98.5); BLOOD GAS PCO2 49.2 mmHg (20-50); BLOOD GAS PO2 88.8 mmHg
[2017-02-21 23:46] LABS: APPEARANCE,URINE HAZY (CLEAR); BILIRUBIN,URINE NEGATIVE (NEGATIVE); BLOOD, URINE NEGATIVE (NEGATIVE); COLOR,URINE YELLOW (YELLOW); LEUKOCYTE ESTERASE ,URINE TRACE (NEGATIVE); NITRITE, URINE NEGATIVE (NEGATIVE); PROTEIN,URINE TRACE (NEGATIVE); UGLUCOSE NEGATIVE (NEGATIVE)
[2017-02-21 23:53] LABS: BASOPHILS % (AUTO) 0.2 % (0.0-2.0); EOSINOPHILS # (AUTO) 0.2 K/uL (0-0.4); EOSINOPHILS % (AUTO) 1.8 % (0.0-4.0); HEMATOCRIT 31.6 % (36-48); LYMPHOCYTES # (AUTO) 1.1 K/uL (2.5-16.5); LYMPHOCYTES % (AUTO) 9.1 % (20.5-51.1); MEAN CORPUSCULAR HEMOGLOBIN 25 pg (27-31); MEAN CORPUSCULAR HGB CONC 32 g/dL (33-37); MEAN CORPUSCULAR VOLUME 78 fL (80-94); MONOCYTES # (AUTO) 0.7 K/uL (0.8-1.0); MONOCYTES % (AUTO) 5.6 % (1.7-9.3); PLATELET COUNT (AUTO) 257 K/uL (140-450); RED BLOOD CELL COUNT(AUTO) 4.06 MIL/uL (4.20-5.40); RED CELL DISTRIBUTION WIDTH 15.1 % (11.6-13.7)
[2017-02-21 23:55] LABS: ANION GAP 10.3 (8-16); CALCIUM 8.7 mg/dL (8.5-10.1); CARBON DIOXIDE 31.5 mmol/L (21-32); CREATININE 0.6 mg/dL (0.6-1.3); POTASSIUM 3.8 mmol/L (3.5-5.1)
[2017-02-21 23:59] LABS: BACTERIA,URINE OCCASSIONAL /HPF (None Seen); RBC,URINE 0-5 (RARE) /HPF (0-5)
[2017-02-22] LABS: ALBUMIN 3.3 g/dL (3.4-5.0); TOTAL BILIRUBIN 0.4 mg/dL (0.0-1.0); TOTAL PROTEIN, SERUM 7.9 g/dL (6.4-8.2)
[2017-02-22 00:04] LABS: NEUTROPHILS % (AUTO) 83.3 % (42.2-75.2)
[2017-02-22] MEDS ORDERED: cefTRIAXone 2,000 MG in DEXTROSE 5% 100 ML IV ONE (00:20)
[2017-02-22] MEDS ORDERED: cefTRIAXone 2,000 MG VIAL ONE (00:29)
[2017-02-22] MEDS ORDERED: MORPHINE SULFATE 4 MG/ML SYR IVP ONE (00:40)
[2017-02-22] MEDS ORDERED: ACETAMINOPHEN 325 MG TAB PO PRN ×2 (00:45→10:00)
[2017-02-22] MEDS ORDERED: DOCUSATE SODIUM 100 MG GELCAP PO PRN (00:45)
[2017-02-22] MEDS ORDERED: MORPHINE SULFATE 2 MG/ML SYR IVP PRN ×2 (00:45→10:00)
[2017-02-22] MEDS ORDERED: guaiFENesin 20 MG/ML UDC PO SCH (00:50)
[2017-02-22] MEDS ORDERED: HYDROcodone/APAP 10/325 MG 1 TAB TAB PO PRN (00:50)
[2017-02-22] MEDS ORDERED: ALBUTEROL HFA MDI 90 MCG/ACTUATION 8 GM INH SCH ×2 (00:50)
--- NOTE | 2017-02-22 00:54 | NUR ---
PT MOVED TO BED 4
[2017-02-22] MEDS: LEVOFLOXACIN 500 MG/D5W PREMIX 100 ML IV SCH ×2 (00:55→09:06)
[2017-02-22 01:09] LABS: INR 1.1 (0.8-1.2); PARTIAL THROMBOPLASTIN TIME 27.6 secs (22-35.6); PROTHROMBIN TIME 10.7 secs (10.8-13.4)
[2017-02-22 01:10] LABS: AMPHETAMINE, URINE NEGATIVE ng/ml (NEG <=1000); BARBITURATE, URINE NEGATIVE ng/ml (NEG <=200); BENZODIAZEPINE, URINE NEGATIVE ng/mL (NEG <=200); CANNABINOID, URINE NEGATIVE ng/mL (NEG <=50); COCAINE, URINE NEGATIVE ng/mL (NEG <=300); OPIATE, URINE NEGATIVE ng/mL (NEG <=2000); PHENCYCLIDINE SCREEN,URINE NEGATIVE ng/mL (NEG <=25)
[2017-02-22 01:31] LABS: CHOL/HDL RATIO 3.3 (1-4.5); THYROID STIMULATING HORMONE 1.75 uIU/mL (0.34-3.76)
--- NOTE | 2017-02-22 02:00 | NUR ---
NEW ORDER RECIEVED FROM DR. SULLIVAN ; LEVAQUIN 750 MG IV QD, MADE AWARE, NOT TO ADMINISTERED LEVAQUIN AT THIS TIME.
--- NOTE | 2017-02-22 03:05 | NUR ---
Patient appears to be resting comfortably in bed. Vital Signs within normal limits. Respirations even and unlabored.
[2017-02-22] MEDS: ONDANSETRON 4 MG/2 ML VIAL IVP PRN ×2 (05:22→09:09)
[2017-02-22 06:05] LABS: BASOPHILS % (AUTO) 0.2 % (0.0-2.0); EOSINOPHILS # (AUTO) 0.2 K/uL (0-0.4); EOSINOPHILS % (AUTO) 1.4 % (0.0-4.0); HEMATOCRIT 31.6 % (36-48); LYMPHOCYTES # (AUTO) 0.6 K/uL (2.5-16.5); LYMPHOCYTES % (AUTO) 4.6 % (20.5-51.1); MEAN CORPUSCULAR HEMOGLOBIN 24 pg (27-31); MEAN CORPUSCULAR HGB CONC 32 g/dL (33-37); MEAN CORPUSCULAR VOLUME 77 fL (80-94); MONOCYTES # (AUTO) 0.1 K/uL (0.8-1.0); MONOCYTES % (AUTO) 1.2 % (1.7-9.3); NEUTROPHILS # (AUTO) 11.5 K/uL (1.8-7.7); NEUTROPHILS % (AUTO) 92.6 % (42.2-75.2); PLATELET COUNT (AUTO) 240 K/uL (140-450); RED BLOOD CELL COUNT(AUTO) 4.11 MIL/uL (4.20-5.40); RED CELL DISTRIBUTION WIDTH 14.9 % (11.6-13.7); WHITE BLOOD COUNT (AUTO) 12.4 K/uL (4.8-10.8)
[2017-02-22 06:35] LABS: ANION GAP 9.8 (8-16); CALCIUM 8.6 mg/dL (8.5-10.1); CARBON DIOXIDE 32.4 mmol/L (21-32); CREATININE 0.7 mg/dL (0.6-1.3); POTASSIUM 4.2 mmol/L (3.5-5.1)
--- NOTE | 2017-02-22 07:15 | NUR ---
REPORT GIVEN TO ERYN, PT. RESTING IN BED, NO S/SX OF THIS TIME.
--- NOTE | 2017-02-22 07:48 | NUR ---
Patient will be admitted to care of DR SULLIVAN. Admited to TELE. Will go to room 120B. Belongings list completed. Report to MILLICENT BERRIOS.
--- NOTE | 2017-02-22 08:20 | NUR ---
PT BROUGHT IN FROM ER IN [facility], REPORT RECEIVED FROM RN, PT AAOX4 RESP EVEN UNLABORED ON 3L NC O2, BREATH SOUNDS DIMINISHED, NO SOB AT REST BUT REPORTS GETS SOB WITH MOVEMENTS, PT REPORTS SLIGHT NAUSEA, DENIES PAIN, MOVES ALL EXT X4, SMALL ABRASION TO RIGHT LOWER ANTERIOR EXT, AND SMALL HEALING ABRASION TO LEFT POSTERIOR LOWER EXT, NOTED OTHER SKIN INTACT, MRSA COLLECTED, PT ORIENTED TO ROOM AND FLOOR, CALL JEFFERSON WITHIN REACH, SIDE RAILS UP, BED LOCKED IN LOW POSITION, PLAN OF CARE DISCUSSED, ALL QUESTIONS ASKED AND ANSWERED, WILL CONTINUE TO MONITOR.
[2017-02-22] MEDS ORDERED: FUROSEMIDE 20 MG TAB PO SCH (09:00)
[2017-02-22] MEDS ORDERED: methylPREDNISolone 4 MG TAB PO SCH (09:00)
[2017-02-22] MEDS ORDERED: LORATADINE 10 MG TAB PO SCH (09:00)
[2017-02-22] MEDS ORDERED: BENAZEPRIL 20 MG TAB PO SCH (09:00)
[2017-02-22] MEDS ORDERED: LEVOTHYROXINE 0.088 MG TAB PO SCH (09:00)
[2017-02-22] MEDS ORDERED: FAMOTIDINE 20 MG TAB PO SCH (09:00)
[2017-02-22] MEDS ORDERED: FUROSEMIDE 40 MG/4 ML VIAL IVP SCH (09:00)
[2017-02-22] MEDS ORDERED: ESCITALOPRAM 20 MG TAB PO SCH (09:00)
--- NOTE | 2017-02-22 09:00 | NUR ---
PHARMACY IS AWARE ON RESPIRATORY DRUG (HFA LEE JOAQUINI) CORRECTION REQUIRED PER KATHI/PHARMACIST DR. EDGARD PATRICK CONTACTED
[2017-02-22] MEDS: LACTOBACILLUS RHAMNOSUS GG 1 EACH CAP PO SCH (09:09)
--- NOTE | 2017-02-22 09:15 | NUR ---
PATIENT HAS BEEN SCREENED AND CATEGORIZED HIGH NUTRITION RISK. PATIENT WILL BE SEEN WITHIN 1-2 DAYS OF ADMISSION. 02/22/17-02/23/[address]
--- NOTE | 2017-02-22 09:50 | NUR ---
AWAKE AND ALERT OBESE RESPONSIVE TO FOUNDER CEO & PRESIDENT VERBAL COMMANDS TOLERATED INCENTIVE SPIROMETRY (IS) WELL WITHOUT INCIDENT ENCOURAGED PATIENT TO USE IS EVERY 2 HOURS WHILE AWAKE
[2017-02-22] MEDS ORDERED: ALBUTEROL SULFATE/IPRATROPIU 3 ML SOL IH PRN (10:00)
[2017-02-22] MEDS ORDERED: guaiFENesin DM 200/20 MG-10 ML 10 ML UDC PO PRN (10:00)
[2017-02-22] MEDS ORDERED: HYDROcodone/APAP 5/325 MG 1 TAB TAB PO PRN (10:00)
[2017-02-22] MEDS ORDERED: BUDESONIDE 0.5 MG/2 ML NEBU INH SCH (10:20)
[2017-02-22] MEDS ORDERED: DOCUSATE SODIUM 100 MG GELCAP PO SCH (10:20)
[2017-02-22] MEDS ORDERED: MONTELUKAST SODIUM 10 MG TAB PO SCH ×2 (10:22→17:00)
[2017-02-22] MEDS: ALBUTEROL SULFATE/IPRATROPIU 3 ML SOL IH SCH ×4 (10:42→22:55)
[2017-02-22] MEDS: MORPHINE SULFATE 2 MG/ML SYR IVP PRN ×2 (11:20→20:46)
[2017-02-22 12:00] VITALS: BP 118/76
[2017-02-22] MEDS ORDERED: methylPREDNISolone SS 125 MG/2 ML VIAL IVP SCH ×2 (12:00→23:00)
[2017-02-22] MEDS: PIPER/TAZO 3.375GM/D5W PREMIX 50 ML IV SCH ×2 (12:45→17:12)
--- NOTE | 2017-02-22 12:53 | NUR ---
PT STATES PAIN IS BETTER AFTER MORPHINE, SPEAKING ON ZEINAB PHONE WITH SON/FAMILY IN NAD, PT REMAINS ON 3L NC, REMAINS ON FRAMING MILL OPERATOR HELPER, BEDSIDE COMMODE AT BEDSIDE, CALL JEFFERSON WITHIN REACH, WILL CONTINUE TO MONITOR.
--- NOTE | 2017-02-22 14:05 | NUR ---
SPOKE WITH GENTRY FROM [facility]. REVIEWS TO GO TO [facility]. FAXED INITIAL REVIEW TO [facility] [phone] PHONE XENIA [phone]
--- NOTE | 2017-02-22 15:11 | NUR ---
02/22/17 RD INITIAL ASSESSMENT COMPLETED PLEASE REFER TO NUTRITION ASSESSMENT UNDER CARE ACTIVITY FOR ESTIMATED NUTRITIONAL NEEDS. 1. CONTINUE REGULAR DIET 2. RD TO FOLLOW-UP 3-5 DAYS; MODERATE RISK SEAMUS ECHAVARRIA RD
--- NOTE | 2017-02-22 15:38 | NUR ---
AWAKE AND ALERT SITTING UP ON SIDE OF BED PATIENT C/O SOB WITH SUPPLEMEMTAL OXYGEN T 3 LPM VIA NC POST HHN THERAPY INCREASED FIO2 TO 4 LPM Addendum: 02/22/17 at 1603 by Antonio Pimentel RT YASH/MILLICENT SINGH
[2017-02-22 16:00] VITALS: BP 128/78
--- NOTE | 2017-02-22 16:19 | NUR ---
SPOKE WITH AND REGARDING ORDER FOR PT TO WEAR OWN HOME CPAP MACHINE AND THAT PER PROTOCOL PT HAS TO WEAR FACILITY MACHINE. PHYSICIANS HAVE PULMONARY CONSULT SINCE PT DOES NOT KNOW HER CPAP SETTING.
--- NOTE | 2017-02-22 17:16 | NUR ---
PT SLEEPING COMFORTABLY, RESP EVEN UNLABORED ON 4L NC, APPEARS COMFORTABLE, NO APNEA NOTED AT THIS TIME, IV ANTIBIOTIC STARTED PER ORDER, IV SITE CLEAR. WILL CONTINUE TO MONITOR.
--- NOTE | 2017-02-22 18:37 | NUR ---
PT UP TO BEDSIDE COMMODE WITHOUT ASSIST, SLIGHT SOB WITH GETTING UP, RESOLVED WHEN RETURNED TO BED, PT REMAINS ON 3L NC O2, REMAINS ON SIDE SPLITTER, DENIES PAIN, DENIES ANY IMMEDIATE NEEDS AT THIS TIME, WILL CONTINUE TO MONITOR.
[2017-02-22] MEDS: BUDESONIDE 0.5 MG/2 ML NEBU INH SCH (19:18)
--- NOTE | 2017-02-22 19:43 | NUR ---
REPORT GIVEN TO TESTING SPECIALIST, PT IN STABLE CONDITION.
--- NOTE | 2017-02-22 19:45 | NUR ---
RECEIVED REPORTS FROM DAY RN. PATIENT SITTING UP IN BED, ALERT AWAKE ORIENTED X4. IV PATENT AND INTACT. NO S/S OF ACUTE DISTRESS NOTED. PATIENT ON O2 4L NC, DENIES PAIN AT TIME. PLAN OF CARE DISCUSSED, VERBALIZED UNDERSTANDING, CALL LIGHT WITHIN REACH, SAFETY MEASURE ENSURED, WILL CONTINUE TO MONITOR
[2017-02-22 20:00] VITALS: BP 114/63
[2017-02-22] MEDS: DOCUSATE SODIUM 100 MG GELCAP PO SCH (20:46)
--- NOTE | 2017-02-22 21:00 | NUR ---
FAXED REQUEST FOR RECORDS FROM [facility] LAST WEDNESDAY.
--- NOTE | 2017-02-22 21:50 | NUR ---
DR. MATHEW WAS PAGED FOR BIPAP ORDER. MADE AWARE THAT RT GOT THE SETTING ON PT OWN CPAP MACHINE THAT DAUGHTER BROUGHT HERE. CALLED BACK AND SAID PT CAN HAVE THE SAME SETTING OF CPAP AT HOME.
--- NOTE | 2017-02-22 23:54 | NUR ---
ABLE TO TALKED TO DR. SOTOMAYOR. MADE HIM AWARE THAT THE US ARTERIAL BLE, US VENOUS BLE AND US LLE NOT DONE YET . WILL BE DONE IN AM.
[2017-02-23] VITALS: BP 105/51
[2017-02-23] MEDS: PIPER/TAZO 3.375GM/D5W PREMIX 50 ML IV SCH ×4 (00:26→18:28)
--- NOTE | 2017-02-23 01:00 | NUR ---
MADE ROUNDS. PT WANTS TO GET UP TO USE BSC. BUT AT THIS TIME PT IS ON BIPAP. PT USED BEDPAN. VOIDED . CLEANED AND KEPT DRY.
[2017-02-23] MEDS: ALBUTEROL SULFATE/IPRATROPIU 3 ML SOL IH SCH ×6 (02:31→23:32)
--- NOTE | 2017-02-23 02:44 | NUR ---
PATIENT WANTED BIPAP TO BE TAKEN OFF POST HHN AND PLACED ON 4LPM N/C. PATIENT SITTING UP IN BED AND WANT TO BRUSH HER TEETH
[2017-02-23 04:28] VITALS: BP 117/71
[2017-02-23] MEDS: ONDANSETRON 4 MG/2 ML VIAL IVP PRN ×2 (04:31→21:45)
[2017-02-23] MEDS: MORPHINE SULFATE 2 MG/ML SYR IVP PRN ×4 (04:32→21:45)
--- NOTE | 2017-02-23 04:32 | NUR ---
MORPHINE 2MG GIVEN FOR PAIN 05/16. NO S/S OF ACUTE DISTRESS NOTED, RESPIRATION EVEN AND UNLABORED, CALL LIGHT WITHIN REACH, SAFETY MEASURE ENSURED, WILL CONTINUE TO MONITOR
[2017-02-23] MEDS: LEVOTHYROXINE 0.088 MG TAB PO SCH (05:50)
[2017-02-23] MEDS: methylPREDNISolone SS 125 MG/2 ML VIAL IVP SCH ×3 (05:50→21:10)
--- NOTE | 2017-02-23 06:00 | NUR ---
SITTING ON SIDE OF BED. WITH O23-4 L/NC. NO DISTRESS NOTED. CALL LIGHT PLACED WITHIN EASY REACH.
--- NOTE | 2017-02-23 06:25 | NUR ---
PATIENT SITTING UP IN BED, NO S/S OF DISCOMFORT NOTED, CALL LIGHT WITHIN REACH , SAFETY MEASURE ENSURED, WILL CONTINUE TO MONITOR
[2017-02-23 06:28] LABS: BASOPHILS % (AUTO) 0.1 % (0.0-2.0); EOSINOPHILS # (AUTO) 0.2 K/uL (0-0.4); EOSINOPHILS % (AUTO) 1.6 % (0.0-4.0); HEMATOCRIT 31.3 % (36-48); HEMOGLOBIN 9.9 g/dL (12.0-16.0); LYMPHOCYTES # (AUTO) 0.6 K/uL (2.5-16.5); LYMPHOCYTES % (AUTO) 4.7 % (20.5-51.1); MEAN CORPUSCULAR HEMOGLOBIN 25 pg (27-31); MEAN CORPUSCULAR HGB CONC 32 g/dL (33-37); MEAN CORPUSCULAR VOLUME 78 fL (80-94); MONOCYTES # (AUTO) 0.4 K/uL (0.8-1.0); MONOCYTES % (AUTO) 3.4 % (1.7-9.3); NEUTROPHILS % (AUTO) 90.2 % (42.2-75.2); PLATELET COUNT (AUTO) 293 K/uL (140-450); RED BLOOD CELL COUNT(AUTO) 4.02 MIL/uL (4.20-5.40); RED CELL DISTRIBUTION WIDTH 15.3 % (11.6-13.7)
[2017-02-23 06:38] LABS: ANION GAP 10.8 (8-16); CALCIUM 8.9 mg/dL (8.5-10.1); CARBON DIOXIDE 32.4 mmol/L (21-32); CREATININE 0.9 mg/dL (0.6-1.3); POTASSIUM 4.2 mmol/L (3.5-5.1)
[2017-02-23 06:45] LABS: MAGNESIUM 2.1 mg/dL (1.8-2.4); PHOSPHORUS 3.1 mg/dL (2.5-4.9)
[2017-02-23] MEDS: BUDESONIDE 0.5 MG/2 ML NEBU INH SCH ×2 (06:45→19:20)
--- NOTE | 2017-02-23 07:10 | NUR ---
ENDORSED PLAN OF CARE TO DAY RN. PATIENT IS STABLE.
--- NOTE | 2017-02-23 07:20 | NUR ---
REPORT RECEIVED FROM FOOD ANALYST, PT AWAKE SITTING UP AT SIDE OF BED, RESP EVEN UNLABORED ON 4L NC O2 IN NAD, SKIN WARM DRY COLOR WNL, IVF INFUSING WELL, SITE CLEAR, PT DENIES PAIN OR DISCOMFORT, DENIES ANY IMMEDIATE NEEDS, PLAN OF CARE REVIEWED, PT REMAINS ON RECRUITMENT DIRECTOR, , CALL JEFFERSON WITHIN REACH, SIDE RAILS UP, BED LOCKED IN LOW POSITION, WILL CONTINUE TO MONITOR.
[2017-02-23 08:00] VITALS: BP 109/65
[2017-02-23 08:29] LABS: WHITE BLOOD COUNT (AUTO) 12.2 K/uL (4.8-10.8)
[2017-02-23] MEDS: FUROSEMIDE 40 MG/4 ML VIAL IVP SCH ×2 (08:29→16:40)
[2017-02-23] MEDS: DOCUSATE SODIUM 100 MG GELCAP PO SCH ×2 (08:30→21:00)
[2017-02-23] MEDS: FAMOTIDINE 20 MG TAB PO SCH (08:30)
[2017-02-23] MEDS: ESCITALOPRAM 20 MG TAB PO SCH (08:30)
[2017-02-23] MEDS: LORATADINE 10 MG TAB PO SCH (08:31)
[2017-02-23] MEDS: BENAZEPRIL 20 MG TAB PO SCH (08:31)
[2017-02-23] MEDS: LACTOBACILLUS RHAMNOSUS GG 1 EACH CAP PO SCH (08:32)
[2017-02-23] MEDS: MONTELUKAST SODIUM 10 MG TAB PO SCH (08:40)
[2017-02-23] MEDS ORDERED: LACTOBACILLUS RHAMNOSUS GG 1 EACH CAP PO SCH (09:00)
--- NOTE | 2017-02-23 09:09 | NUR ---
US AT BEDSIDE
[2017-02-23 12:00] VITALS: BP 130/76
--- NOTE | 2017-02-23 12:35 | NUR ---
PT C/O LEFT AC IV SITE, SWELING NOTED AT SIDE, IV INFILTRATED, IV DC'D, NEW IV STARTED TO LEFT POSTERIOR FA, ZOSYN INFUSION RESUMED.
--- NOTE | 2017-02-23 15:17 | NUR ---
FAXED CONCURRENT REVIEW TO [facility] [phone] PHONE XENIA [phone]
[2017-02-23 16:00] VITALS: BP 117/55
--- NOTE | 2017-02-23 16:41 | NUR ---
PT C/O LEFT LOWER ABD PAIN 05/16, MEDICATED WITH MORPHINE PER PRN ORDER, PT TALKING ON THE PHONE, RESP EVEN UNLABORED, APPEARS IN NAD, PT REMAINS ON 3L NC O2, CALL JEFFERSON AT BEDSIDE, SIDE RAILS UP, BED LOCKED IN LOW POSITION, WILL CONTINUE TO MONITOR.
--- NOTE | 2017-02-23 19:30 | NUR ---
Patient's Plan of Care was discussed and reviewed with MANUFACTURING LAB TECHNICIAN: DANILO.
--- NOTE | 2017-02-23 19:31 | NUR ---
PT WANTS TO PLACE ON BIPAP AT 2300, SHE LIKE TO WATCH TV UNTIL THEN
--- NOTE | 2017-02-23 19:46 | NUR ---
REPORT GIVEN TO VENEER SORTER NURSE, PT IN STABLE CONDITION.
--- NOTE | 2017-02-23 19:47 | NUR ---
RECD. RESTING IN BED, AWAKE, A/OX4, OBESE. NO RESPIRATORY DISTRESS NOTED BUT WITH SOB ON EXERTION. O 02 AT 4 LITERS BY N/C, 02 SAT - 93 - 94%. IV OF NS AT TKO INFUSING, LEFT FOREARM G 22. USES BSC WITH ASSISTANCE, WITH CANE AT THE BEDSIDE. PLAN OF CARE FOR THE SHIFT DISCUSSED. VERBALIZED UNDERSTANDING. DENIES PAIN 0/10.
--- NOTE | 2017-02-23 20:30 | NUR ---
COMPLAINT OF NO BM FOR 4 DAYS NOW. OFFERED PRUNE JUICE, AGREED TO TAKE IT.
--- NOTE | 2017-02-23 21:00 | NUR ---
SPONGE BATH GIVEN. AMBULATED TO BR, HAD A LARGE BM. REFUSED TO TAKE COLACE AND PRUNE JUICE.
--- NOTE | 2017-02-23 21:30 | NUR ---
COMPLAINED OF ABDOMINAL PAIN, REFUSED TO BE MEDICATED WITH NORCO. EXPLAINED SHE MIGHT HAVE MORE SOB, INSISTED ON TAKING IT, GETS UPSET.
[2017-02-23 21:41] VITALS: BP 120/60
--- NOTE | 2017-02-23 23:20 | NUR ---
PLACED PT ON BIPAP, INCREASED FIO2 TO 40% AND NOW SAT 94%, BS ARE BILAT DIMINISHED, NO DISTRESS NOTED
[2017-02-24] VITALS: BP 113/58
--- NOTE | 2017-02-24 | NUR ---
SLEEPING WITH BIPAP ON.
[2017-02-24] MEDS: PIPER/TAZO 3.375GM/D5W PREMIX 50 ML IV SCH ×4 (00:20→17:35)
[2017-02-24] MEDS: ALBUTEROL SULFATE/IPRATROPIU 3 ML SOL IH SCH ×6 (03:28→23:03)
[2017-02-24] MEDS: methylPREDNISolone SS 125 MG/2 ML VIAL IVP SCH (05:49)
[2017-02-24] MEDS: LEVOTHYROXINE 0.088 MG TAB PO SCH (05:54)
--- NOTE | 2017-02-24 06:00 | NUR ---
AWAKE, SITTING ON BED. NO SOB NOTED.
[2017-02-24 06:08] VITALS: BP 117/58
[2017-02-24] MEDS: MORPHINE SULFATE 2 MG/ML SYR IVP PRN ×4 (06:09→22:23)
--- NOTE | 2017-02-24 06:45 | NUR ---
CONDITION REMAIN STABLE. ALL NEEDS ATTENDED PROMPTLY. WILL ENDORSED TO AM NURSE FOR CONTINUITY OF CARE.
--- NOTE | 2017-02-24 07:01 | NUR ---
RECEIVED PT ON 4L N/C WITH H2O SPO2 92
[2017-02-24] MEDS: BUDESONIDE 0.5 MG/2 ML NEBU INH SCH ×2 (07:10→19:21)
--- NOTE | 2017-02-24 07:20 | NUR ---
ENDORSED TO MILLICENT BARBOZA FOR CONTINUITY OF CARE.
--- NOTE | 2017-02-24 07:21 | NUR ---
RECEIVED REPORT FROM SUPERVISOR GARAGE NURSE. PATIENT SEEN ON BED, AOX4, OBESE. NO RESPIRATORY DISTRESS NOTED BUT WITH SOB ON EXERTION. ON O2 AT 4L BY N/C. O2 SAT AT 94%. IV INFUSING OF NS AT TKO INFUSING, LEFT FOREARM G 22.USES BSC. WITH CANE BY BEDSIDE. CALL LIGHT WITHIN REACH. WILL CONTINUE TO MONITOR. DENIES PAIN AT THIS TIME.
[2017-02-24 08:00] VITALS: BP 118/62
[2017-02-24] MEDS: LACTOBACILLUS RHAMNOSUS GG 1 EACH CAP PO SCH (08:57)
[2017-02-24] MEDS: DOCUSATE SODIUM 100 MG GELCAP PO SCH ×2 (08:58→21:00)
[2017-02-24] MEDS: FAMOTIDINE 20 MG TAB PO SCH (08:58)
[2017-02-24] MEDS: ESCITALOPRAM 20 MG TAB PO SCH (08:58)
[2017-02-24] MEDS: LORATADINE 10 MG TAB PO SCH (08:58)
[2017-02-24] MEDS: FUROSEMIDE 40 MG/4 ML VIAL IVP SCH ×2 (08:59→17:35)
[2017-02-24] MEDS: BENAZEPRIL 20 MG TAB PO SCH (09:27)
[2017-02-24] MEDS: MONTELUKAST SODIUM 10 MG TAB PO SCH (09:28)
--- NOTE | 2017-02-24 09:30 | NUR ---
GAVE PT. MORNING MEDS. REQUESTED FOR PAIN MEDICINE FOR HER HEADACHE. GIVEN AND TOLERATED. WILL CONTINUE TO MONITOR. CALL LIGHT WITHIN REACH. WILL CONTINUE TO MONITOR.
--- NOTE | 2017-02-24 11:08 | NUR ---
DECREASED FIO2 TO 3 L N/C WITH H20 SPO2 92
[2017-02-24] MEDS ORDERED: DEXTROSE 50% 50 ML SYR IVP PRN (11:35)
[2017-02-24] MEDS ORDERED: ECOTRIN 81 MG TABEC PO SCH (11:51)
--- NOTE | 2017-02-24 12:42 | NUR ---
Clinical review faxed to [facility] at [phone]
[2017-02-24] MEDS: methylPREDNISolone SS 40 MG/ML VIAL IVP SCH ×2 (13:05→22:12)
--- NOTE | 2017-02-24 13:26 | NUR ---
GAVE PT. ROUTINE MEDICATIONS AND REQUESTED FOR PAIN MEDS. WILL CONTINUE TO MONITOR FOR ANY CHANGES. WILL CONTINUE TO MONITOR.
[2017-02-24 16:00] VITALS: BP 134/76
[2017-02-24] MEDS: BLOOD GLUCOSE MONITORING 1 DEV DEV FS SCH ×2 (16:30→21:00)
--- NOTE | 2017-02-24 17:36 | NUR ---
GAVE PT. ROUTINE MEDS AND REQUESTED FOR A PAIN MEDICATION. WILL CONTINUE TO MONITOR. CALL LIGHT WITHIN REACH.
[2017-02-24] MEDS: INSULIN LISPRO SLIDING SCALE 100 UNITS/ML VIAL SUBQ PRN ×2 (17:56→22:11)
--- NOTE | 2017-02-24 19:23 | NUR ---
RCV'D PT ON 3 L NC WITH HUMIDIFIER. SPO2 94% HR 65 BS DIMINISHED. PT SAID SHE DOESNT WANT BIPAP NOW AND SHE WILL LET NURSE KNOW BEFORE SHE SLEEPS TO PUT IT ON. NO SOB OR DISTRESS NOTED. HHN TX OF DUONEB AND PULMICORT GIVEN. WILL CONTINUE TO MONITOR.
--- NOTE | 2017-02-24 19:30 | NUR ---
ENDORSED TO SUPERVISOR UNLOADING NURSE FOR CONTINUITY OF CARE.
--- NOTE | 2017-02-24 19:31 | NUR ---
RECD. SITTING ON THE CHAIR, AWAKE, A/OX4. RESPIRATION EVEN AND UNLABORED. ON 02 AT 3 LITERS VIA N/C, SATURATING 92-93%. IV OF NS AT TKO INFUSING, LEFT FA G22. COMPLAINING THAT SHE IS VOIDING A LOT AFTER THE LASIX GIVEN TO HER BY NURSE. INSTRUCTED TO CALL WHENEVER NEEDING HELP FOR ASSISTANCE TO GO TO BSC, PLAN OF CARE DISCUSSED. VERBALIZED UNDERSTANDING. DENIES PAIN 0/10.
--- NOTE | 2017-02-24 21:00 | NUR ---
ASSISTED BACK TO BED, SAFETY MAINTAINED.
[2017-02-24 22:20] VITALS: BP 122/74
--- NOTE | 2017-02-24 22:23 | NUR ---
PT C/O ABDOMINAL PAIN 05/16. MORPHINE 2MG IVP ADMINISTERED PER PATIENT'S REQUEST. ENDORSED TO PRIMARY NURSE TO MONITOR AND REASSESS FOR EFFECTIVENESS. BP 122/74 HR 60.
--- NOTE | 2017-02-24 23:21 | NUR ---
PLACED PT ON BIPAP WITH SETTINGS 20/17,12,40%. SKIN IS INTACT AND PT IS AWAKE AND ALERT. BIPAP IS PLUGGED INTO RED OUTLET. ALARMS ARE FUNCTIONING AND AUDIBLE. NO SOB OR DISTRESS NOTED. HHN TX GIVEN TO PT. SPO2 95% HR 58. BS DIMINISHED CLEAR BILATERAL. WILL CONTINUE TO MONITOR.
--- NOTE | 2017-02-24 23:30 | NUR ---
SLEEPING COMFORTABLY, BIPAP ON.
--- NOTE | 2017-02-25 01:05 | NUR ---
BIPAP CHECK. PT IS ASLEEP WITH NO DISTRESS AND TOLERATING BIPAP WELL. WILL CONTINUE TO MONITOR.
[2017-02-25] MEDS: PIPER/TAZO 3.375GM/D5W PREMIX 50 ML IV SCH ×3 (02:12→11:05)
[2017-02-25] MEDS: ALBUTEROL SULFATE/IPRATROPIU 3 ML SOL IH SCH ×4 (03:07→13:39)
--- NOTE | 2017-02-25 03:14 | NUR ---
BIPAP CHECK DONE. HHN TX GIVEN INLINE WITH NIPPV. PT IS AWAKE AND ALERT. FUNERAL DIRECTOR'S ASSISTANT ASH AT BED SIDE. NO SOB OR DISTRESS NOTED WILL CONTINUE TO MONITOR.
[2017-02-25 03:50] VITALS: BP 127/69
[2017-02-25] MEDS: ONDANSETRON 4 MG/2 ML VIAL IVP PRN (04:10)
[2017-02-25] MEDS: MORPHINE SULFATE 2 MG/ML SYR IVP PRN ×3 (04:11→12:07)
[2017-02-25] MEDS: methylPREDNISolone SS 40 MG/ML VIAL IVP SCH ×2 (05:27→12:06)
--- NOTE | 2017-02-25 05:30 | NUR ---
AWAKE IN BED, OFF BIPAP. NO SOB NOTED.
[2017-02-25] MEDS: BLOOD GLUCOSE MONITORING 1 DEV DEV FS SCH ×2 (06:23→11:02)
[2017-02-25] MEDS: INSULIN LISPRO SLIDING SCALE 100 UNITS/ML VIAL SUBQ PRN ×2 (06:24→11:02)
[2017-02-25] MEDS: LEVOTHYROXINE 0.088 MG TAB PO SCH (06:26)
[2017-02-25 06:33] LABS: BASOPHILS % (AUTO) 0.4 % (0.0-2.0); EOSINOPHILS # (AUTO) 0.2 K/uL (0-0.4); EOSINOPHILS % (AUTO) 1.3 % (0.0-4.0); HEMATOCRIT 32.2 % (36-48); HEMOGLOBIN 10.4 g/dL (12.0-16.0); LYMPHOCYTES # (AUTO) 0.7 K/uL (2.5-16.5); LYMPHOCYTES % (AUTO) 6.2 % (20.5-51.1); MEAN CORPUSCULAR HEMOGLOBIN 25 pg (27-31); MEAN CORPUSCULAR HGB CONC 32 g/dL (33-37); MEAN CORPUSCULAR VOLUME 77 fL (80-94); MONOCYTES # (AUTO) 0.7 K/uL (0.8-1.0); MONOCYTES % (AUTO) 5.8 % (1.7-9.3); NEUTROPHILS # (AUTO) 10.2 K/uL (1.8-7.7); NEUTROPHILS % (AUTO) 86.3 % (42.2-75.2); PLATELET COUNT (AUTO) 270 K/uL (140-450); RED BLOOD CELL COUNT(AUTO) 4.17 MIL/uL (4.20-5.40); RED CELL DISTRIBUTION WIDTH 15.4 % (11.6-13.7); WHITE BLOOD COUNT (AUTO) 11.8 K/uL (4.8-10.8)
[2017-02-25 06:44] LABS: ANION GAP 14.2 (8-16); CARBON DIOXIDE 33.8 mmol/L (21-32); CREATININE 0.9 mg/dL (0.6-1.3)
[2017-02-25] MEDS: BUDESONIDE 0.5 MG/2 ML NEBU INH SCH (07:07)
--- NOTE | 2017-02-25 07:08 | NUR ---
AWAKE AND ALERT RESPONSIVE TO WAREHOUSE ORDER PICKER VERBAL COMMANDS BIPAP VISION AT BEDSIDE
--- NOTE | 2017-02-25 07:09 | NUR ---
PT AWAKE ALERT AND ORIENTED X4, WITH O2 AT 2L/MIN VIA NC. NO SIGNS OF ACUTE DISTRESS. SKIN IS WARM AND DRY. NO SIGNS OF ANY BOWEL/BLADDER DISCOMFORT, DENIES OF ANY PAIN AT THIS TIME. ALL NEEDS ATTENDED, SAFETY PRECAUTIONS MAINTAINED. CALL LIGHT WITHIN REACH.
[2017-02-25 08:00] VITALS: BP 145/56
[2017-02-25] MEDS: DOCUSATE SODIUM 100 MG GELCAP PO SCH (08:18)
[2017-02-25] MEDS: MONTELUKAST SODIUM 10 MG TAB PO SCH (08:19)
[2017-02-25] MEDS: BENAZEPRIL 20 MG TAB PO SCH (08:19)
[2017-02-25] MEDS: FAMOTIDINE 20 MG TAB PO SCH (08:19)
[2017-02-25] MEDS: LACTOBACILLUS RHAMNOSUS GG 1 EACH CAP PO SCH (08:19)
[2017-02-25] MEDS: LORATADINE 10 MG TAB PO SCH (08:19)
[2017-02-25] MEDS: FUROSEMIDE 40 MG/4 ML VIAL IVP SCH (08:20)
[2017-02-25] MEDS: ESCITALOPRAM 20 MG TAB PO SCH (08:20)
[2017-02-25] MEDS ORDERED: ATORVASTATIN 20 MG TAB PO SCH (09:00)
[2017-02-25] MEDS ORDERED: ECOTRIN 81 MG TABEC PO SCH ×2 (09:00)
--- NOTE | 2017-02-25 11:39 | NUR ---
WAS SEEN BY DR. ESPINO AND RECEIVED NEW ORDER, JANUARY D/C HOME TODAY. NOTED AND CARRIED OUT.
[2017-02-25] MEDS ORDERED: CLIN300C2 PO (11:48)
[2017-02-25] MEDS ORDERED: LEVO750T2 PO (11:48)
--- NOTE | 2017-02-25 11:53 | NUR ---
Clinical review faxed to [facility] at [phone]
--- NOTE | 2017-02-25 12:13 | NUR ---
spoke to Felicia from [facility] regarding issue a FWW. Felicia will check with her certified medical assistant and will give us a call back.
--- NOTE | 2017-02-25 12:28 | NUR ---
PATIENT WITH LUNCH TRAY AT THIS TIME AWAKE AND ALERT NOEVIDENCE OF SOB GANG DRILL OPERATOR TO ATTEMPT HHN THERAPY AT A LATER TIME
[2017-02-25] MEDS ORDERED: IBUP-2213 PO (12:57)
--- NOTE | 2017-02-25 13:39 | NUR ---
AWAKE AND ALERT PATINE IN THE PROCESS OF BEING DISCHARGED FROM FACILITY ON HUMIDIFIED SUPPLEMENTAL OXYGEN AT 3 LPM VIA NC PATIENT ACCEPTING HHN THERAPY PATIENT CURRENTLY ON PHONE ARGUING WITH FAMILY MEMBER PATIENT NOW REFUSING HHN THERAPY STATING THE FAMILY IS AT THE FRONT WAITING FOR PATIENT IMAN/RN AT BEDSIDE
--- NOTE | 2017-02-25 13:45 | NUR ---
ANN BRAUN RECEIVED A CALL FROM ANN MICHAELS OF [facility] [phone] AND SHE SAID THE INSURANCE IS NOT GOING TO PAY FOR ANOTHER WALKER FOR THE PATIENT BECAUSE THEY JUST PROVIDED THE PATIENT WITH A WALKER IN NOVEMBER. PIA SINGH. Addendum: 02/25/17 at 1349 by Fatmata Verdin SS I SPOKE WITH PT BEDSIDE REGARDING THE ABOVE INFORMATION. SHE STATED THAT SHE SENT BACK THAT WALKER BUT WILL FOLLOW UP WITH HER PCP TO OBTAIN A FWW.
--- NOTE | 2017-02-25 13:55 | NUR ---
PT ALERT AND RESPONSIVE, NO SIGNS OF ACUTE DISTRESS. MAY D/C HOME ORDERED. EDUCATED TO F/U WITH PCP IN 1 WEEK. REVIEWED DISCHARGE PRESCRIPTIONS INDICATIONS AND SIDE EFFECTS. PT VERBALIZED UNDERSTANDING. IV LINE AND WRIST BANDS REMOVED. PERSONAL BELONGINGS WITH PT UPON DISCHARGE. WHEELED TO FRONT LOBBY, PICKED UP BY FAMILY AND TRANSPORTED BY PRIVATE AUTO.
[2017-02-25] MEDS ORDERED: METF850T PO (13:58)
[2017-02-25] MEDS ORDERED: HYDR-4452 PO (15:14)
== END 2017-02-25 13:55 | disposition home or self-care (01) | DRG 137 ==
LOC: MED 21:56 → MTU 02-22 00:50 → OBSVTOIN 02-22 11:21
PROVIDERS: ADMIT Family Medicine; ATTEND Family Medicine
PROC: 5A09457 Assistance with Respiratory Ventilation, 24-96 Consecutive Hours, Continuous Positive Airway Pressure (ICD-10-PCS; principal; 2017-02-22)
DX: J69.0 Pneumonitis due to inhalation of food and vomit (principal); N17.0 Acute kidney failure with tubular necrosis; J96.21 Acute and chronic respiratory failure with hypoxia; I50.9 Heart failure, unspecified; I11.0 Hypertensive heart disease with heart failure; E11.65 Type 2 diabetes mellitus with hyperglycemia; E11.51 Type 2 diabetes mellitus with diabetic peripheral angiopathy without gangrene; D68.59 Other primary thrombophilia; J96.22 Acute and chronic respiratory failure with hypercapnia; J44.1 Chronic obstructive pulmonary disease with (acute) exacerbation; E44.1 Mild protein-calorie malnutrition; E66.2 Morbid (severe) obesity with alveolar hypoventilation; N39.0 Urinary tract infection, site not specified; D63.8 Anemia in other chronic diseases classified elsewhere; N83.209 Unspecified ovarian cyst, unspecified side; K76.0 Fatty (change of) liver, not elsewhere classified; E03.9 Hypothyroidism, unspecified; Z68.45 Body mass index [BMI] 70 or greater, adult; Z87.891 Personal history of nicotine dependence; Z79.899 Other long term (current) drug therapy; Z99.81 Dependence on supplemental oxygen; Z90.49 Acquired absence of other specified parts of digestive tract; Z98.51 Tubal ligation status; Z83.3 Family history of diabetes mellitus; Z82.3 Family history of stroke; Z82.49 Family history of ischemic heart disease and other diseases of the circulatory system; Z82.5 Family history of asthma and other chronic lower respiratory diseases; Z71.3 Dietary counseling and surveillance
CPT/HCPCS: 96365; 96375; 96376; 99285; G0378; 36415; 36600; 71010; 76881; 80048; 80053; 80305; 81001; 82150; 82803; 82948; 83036; 83605; 83690; 83735; 83880; 84100; 84443; 85025; 85610; 85730; 87081; 87086; 93005; 93925; 93970; 94640; 94660; 97110; 97116; 97530; J0696; J1815; J1940; J1956; J2270; J2405; J2543; J2920; J2930; J7030; J7509; J7613; J7620; J7626; J7644; Q0092

== ENCOUNTER 2017-03-31 13:07 | Emergency (ER) | payer MEDICAID ==
[~2017-03-31] VITALS: Ht 149.9 cm; Wt 165.8 kg
[~2017-03-31 13:07] MED LIST changes: +CLIN300C2 PO; +IBUP-2213 PO; +LEVO750T2 PO; +METF850T PO
[2017-03-31 13:15] VITALS: BP 130/95
--- NOTE | 2017-03-31 13:44 | NUR ---
Patient ambulated to bed 06.
--- NOTE | 2017-03-31 13:50 | NUR ---
46/F c/o left lower abdominal pain radiating to left side and "it goes up my spine." x 2 days. Also c/o nausea, vomiting x1 yesterday. Pt states "I was seen at [place] and they told me I had a cyst but when I went to my doctor they said I didn't have it." Pt describes pain as sharp, intermittent, radiating to left side and "up my spine." 06/15. Pt appears restless and c/o SOB. Pt ambulates with a cane and steady gait. No vomiting noted. Abdomen large, hypoactive bowel sounds x4 quadrants. Tender with palpation. Pt noted on home oxygen 3L at home. O2 applied via nasal canula 3L. Pt states "I had a collapsed lung that's why I use the oxygen." Lungs clear bilaterally. Pt placed in a gown, placed on radiation monitor, pulse oximetry and blood pressure monitoring.
--- NOTE | 2017-03-31 14:16 | NUR ---
Dr. Goyal evaluating patient at bedside.
[2017-03-31] MEDS ORDERED: MORPHINE SULFATE 4 MG/ML SYR IVP ONE ×2 (14:25→14:55)
--- NOTE | 2017-03-31 14:30 | NUR ---
LAB at bedside.
--- NOTE | 2017-03-31 14:32 | NUR ---
Pt instructed to drink 2 cups of water per US tech. Pt provided with water at this time and tolerating well.
[2017-03-31 14:39] LABS: BASOPHILS # (AUTO) 0.2 K/uL (0.00-0.22); BASOPHILS % (AUTO) 1.3 % (0.0-2.0); EOSINOPHILS # (AUTO) 0.2 K/uL (0-0.4); EOSINOPHILS % (AUTO) 1.4 % (0.0-4.0); HEMATOCRIT 32.3 % (36-48); HEMOGLOBIN 10.1 g/dL (12.0-16.0); LYMPHOCYTES # (AUTO) 0.9 K/uL (2.5-16.5); LYMPHOCYTES % (AUTO) 7.3 % (20.5-51.1); MEAN CORPUSCULAR HEMOGLOBIN 24 pg (27-31); MEAN CORPUSCULAR HGB CONC 31 g/dL (33-37); MEAN CORPUSCULAR VOLUME 77 fL (80-94); MONOCYTES # (AUTO) 0.6 K/uL (0.8-1.0); MONOCYTES % (AUTO) 4.9 % (1.7-9.3); NEUTROPHILS # (AUTO) 11.1 K/uL (1.8-7.7); NEUTROPHILS % (AUTO) 85.1 % (42.2-75.2); PLATELET COUNT (AUTO) 243 K/uL (140-450); RED BLOOD CELL COUNT(AUTO) 4.21 MIL/uL (4.20-5.40); RED CELL DISTRIBUTION WIDTH 15.7 % (11.6-13.7)
--- NOTE | 2017-03-31 14:45 | NUR ---
Pt provided with second cup of water.
--- NOTE | 2017-03-31 14:45 | NUR ---
Pt states "The medication took my migraine away but my stomach still hurts real bad." Dr. Goyal notified.
[2017-03-31 14:46] LABS: APPEARANCE,URINE TURBID (CLEAR); BLOOD, URINE 1+ (NEGATIVE); COLOR,URINE YELLOW (YELLOW); LEUKOCYTE ESTERASE ,URINE NEGATIVE (NEGATIVE); NITRITE, URINE NEGATIVE (NEGATIVE); PROTEIN,URINE NEGATIVE (NEGATIVE); UGLUCOSE NEGATIVE (NEGATIVE); UROBILINOGEN,URINE 0.2 EU/dL (0.2 - 1)
[2017-03-31 14:51] LABS: BILIRUBIN,URINE NEGATIVE (NEGATIVE)
[2017-03-31 14:51] LABS: ANION GAP 14.5 (8-16); CALCIUM 8.1 mg/dL (8.5-10.1); CARBON DIOXIDE 26.7 mmol/L (21-32); CREATININE 0.7 mg/dL (0.6-1.3); POTASSIUM 4.2 mmol/L (3.5-5.1)
--- NOTE | 2017-03-31 14:51 | NUR ---
US CALLED AND MADE AWARE THAT PT HAS DRANK HER TWO CUPS OF WATER.
[2017-03-31 14:52] LABS: BACTERIA,URINE FEW /HPF (None Seen); RBC,URINE 0-5 /HPF (0-5); URINE AMORPHOUS URATE 4+ /HPF (None Seen); WBC,URINE 0-5 /HPF (0-5)
[2017-03-31] MEDS ORDERED: ONDANSETRON 4 MG/2 ML VIAL IVP ONE ×2 (14:55→16:15)
--- NOTE | 2017-03-31 14:55 | NUR ---
Ultrasound at bedside.
[2017-03-31 14:56] LABS: TOTAL BILIRUBIN 0.6 mg/dL (0.0-1.0); TOTAL PROTEIN, SERUM 7.4 g/dL (6.4-8.2)
--- NOTE | 2017-03-31 16:30 | NUR ---
Pt found sitting in bed 6 and continues to c/o pain. Dr. Goyal made aware. No new orders received at this time.
--- NOTE | 2017-03-31 16:31 | NUR ---
IV removed, catheter intact and site benign. Applied folded 4x4 gauze and tape to stop bleeding.
[2017-03-31 17:09] VITALS: BP 135/72
--- NOTE | 2017-03-31 17:11 | NUR ---
Patient discharged with v/s stable. Written and verbal after care instructions given and explained. Patient alert, oriented and verbalized understanding of instructions. Wheel Chair Assisted with to car. All questions addressed prior to discharge. ID band removed. Patient advised to follow up with PMD. Rx of NORCO AND ZOFRAN given. Patient educated on indication of medication including possible reaction and side effects. Opportunity to ask questions provided and answered.
== END 2017-03-31 17:11 | disposition home or self-care (01) ==
LOC: MED 13:07
DX: N83.202 Unspecified ovarian cyst, left side (principal); J44.9 Chronic obstructive pulmonary disease, unspecified; E11.9 Type 2 diabetes mellitus without complications; I10 Essential (primary) hypertension; Z90.49 Acquired absence of other specified parts of digestive tract
CPT/HCPCS: 36415; 76770; 76856; 80053; 81001; 82948; 83690; 85025; 96374; 96375; 96376; 99285; J2270; J2405; Q0092

== ENCOUNTER 2017-04-02 14:12 | Inpatient (IN) | payer MEDICAID ==
[~2017-04-02] VITALS: Ht 149.9 cm; Wt 165.1 kg
[2017-04-02 14:21] VITALS: BP 151/88
--- NOTE | 2017-04-02 15:42 | NUR ---
Pt ambulated to bed 6.
--- NOTE | 2017-04-02 15:49 | NUR ---
46/F c/o left lower abdominal pain x 2 days. Pt was seen here two days ago and dx with a left ovarian cyst. Pt states the pain as been constant since she left, vomiting yesterday and worsening pain today. Skin warm and dry, afebrile. No vomiting noted at this time. Pt on home O2 3 L nasal canula. Pt placed on 3L nasal canula here. 98% O2 sat. Pt ambulates with a cane, steady gait. VSS. at this time. AOX4, clear speech.
--- NOTE | 2017-04-02 15:51 | NUR ---
Patient being evaluated by Dr. Padilla at bedside.
[2017-04-02] MEDS ORDERED: ONDANSETRON 4 MG/2 ML VIAL IVP ONE (16:00)
[2017-04-02] MEDS ORDERED: HYDROmorphone 1 MG/ML AMP IVP ONE ×2 (16:00→17:00)
[2017-04-02] MEDS ORDERED: NACL 0.9% 1,000 ML IV ONE (16:00)
[2017-04-02 16:34] LABS: BASOPHILS % (AUTO) 0.2 % (0.0-2.0); EOSINOPHILS # (AUTO) 0.2 K/uL (0-0.4); EOSINOPHILS % (AUTO) 1.3 % (0.0-4.0); HEMATOCRIT 31.7 % (36-48); HEMOGLOBIN 9.7 g/dL (12.0-16.0); LYMPHOCYTES # (AUTO) 1.3 K/uL (2.5-16.5); LYMPHOCYTES % (AUTO) 9.7 % (20.5-51.1); MEAN CORPUSCULAR HEMOGLOBIN 24 pg (27-31); MEAN CORPUSCULAR HGB CONC 31 g/dL (33-37); MEAN CORPUSCULAR VOLUME 78 fL (80-94); MONOCYTES # (AUTO) 0.8 K/uL (0.8-1.0); MONOCYTES % (AUTO) 5.5 % (1.7-9.3); NEUTROPHILS # (AUTO) 11.3 K/uL (1.8-7.7); NEUTROPHILS % (AUTO) 83.3 % (42.2-75.2); PLATELET COUNT (AUTO) 258 K/uL (140-450); RED BLOOD CELL COUNT(AUTO) 4.08 MIL/uL (4.20-5.40); RED CELL DISTRIBUTION WIDTH 15.9 % (11.6-13.7); WHITE BLOOD COUNT (AUTO) 13.6 K/uL (4.8-10.8)
--- NOTE | 2017-04-02 16:38 | NUR ---
Pt placed on bed jose.
[2017-04-02 16:44] LABS: ANION GAP 11.3 (8-16); CALCIUM 7.1 mg/dL (8.5-10.1); CARBON DIOXIDE 26.1 mmol/L (21-32); CREATININE 0.6 mg/dL (0.6-1.3); POTASSIUM 3.4 mmol/L (3.5-5.1)
--- NOTE | 2017-04-02 16:45 | NUR ---
medicated for pain. family at bedside.monitored
[2017-04-02 16:50] LABS: ALBUMIN 2.4 g/dL (3.4-5.0); TOTAL BILIRUBIN 0.3 mg/dL (0.0-1.0); TOTAL PROTEIN, SERUM 6.4 g/dL (6.4-8.2)
[2017-04-02 16:54] LABS: APPEARANCE,URINE HAZY (CLEAR); BILIRUBIN,URINE 1+ (NEGATIVE); BLOOD, URINE 3+ (NEGATIVE); COLOR,URINE AMBER (YELLOW); LEUKOCYTE ESTERASE ,URINE 1+ (NEGATIVE); NITRITE, URINE NEGATIVE (NEGATIVE); PROTEIN,URINE 1+ (NEGATIVE); UGLUCOSE NEGATIVE (NEGATIVE)
[2017-04-02] MEDS ORDERED: KETOROLAC 30 MG/ML VIAL IVP ONE (17:00)
[2017-04-02 17:01] LABS: ICTOTEST POSITIVE (NEGATIVE)
[2017-04-02 17:02] LABS: BACTERIA,URINE 2+ /HPF (None Seen); MUCUS,URINE 3+ /LPF (None Seen); RBC,URINE 60-80 /HPF (0-5); WBC,URINE 15-30 /HPF (0-5)
[2017-04-02] MEDS ORDERED: cefTRIAXone 1,000 MG VIAL ONE (17:31)
[2017-04-02] MEDS ORDERED: NACL 0.9% 1,000 ML IV SCH (17:36)
[2017-04-02] MEDS ORDERED: HYDROcodone/APAP 7.5/325 MG 1 TAB PO PRN (17:40)
[2017-04-02] MEDS ORDERED: LORazepam 0.5 MG TAB PO PRN (17:40)
[2017-04-02] MEDS ORDERED: DOCUSATE SODIUM 100 MG GELCAP PO PRN (17:40)
--- NOTE | 2017-04-02 17:55 | NUR ---
Patient will be admitted to care of Dr. Andujar. Admited to TELE. Will go to room 124-A. Belongings list completed. Report to Krystal RICKS.
[2017-04-02 18:03] LABS: PARTIAL THROMBOPLASTIN TIME 30.5 secs (22-35.6); PROTHROMBIN TIME 10.4 secs (10.8-13.4)
[2017-04-02 18:14] LABS: CHOL/HDL RATIO 2.8 (1-4.5); FREE T4 (FREE THYROXINE) 1.28 ng/dL (0.76-1.46); MAGNESIUM 1.7 mg/dL (1.8-2.4); THYROID STIMULATING HORMONE 1.25 uIU/mL (0.34-3.74)
--- NOTE | 2017-04-02 19:40 | NUR ---
RECEIVED REPORTS FROM DAY SHIFT CHARGE NURSE TAJ, PATIENT WAS JUST ADMITTED TO THE TELE UNIT FROM ER AROUND 1850, PATIENT RESTING IN BED, NO S/S OF ACUTE DISTRESS NOTED, PATIENT ON O2 3L NC, IV PATENT AND INTACT, INFUSING NS AT 60ML/HR. PATIENT AWAKE ALERT ORIENTED X4, PLAN OF CARE DISCUSSED, VERBALIZED UNDERSTANDING, CALL LIGHT WITHIN REACH, SAFETY MEASURE ENSURED, WILL CONTINUE TO MONITOR.
[2017-04-02] MEDS ORDERED: LACT1.4C PO (19:47)
[2017-04-02 20:00] VITALS: BP 125/76
[2017-04-02] MEDS ORDERED: POTASSIUM CHLORIDE 10 MEQ TABER PO ONE (20:00)
[2017-04-02] MEDS ORDERED: DEXTROSE 50% 50 ML SYR IVP PRN (20:00)
[2017-04-02] MEDS ORDERED: MAGNESIUM OXIDE 400 MG TAB PO ONE (20:00)
[2017-04-02] MEDS ORDERED: INSULIN LISPRO SLIDING SCALE 100 UNITS/ML VIAL SUBQ PRN (20:00)
[2017-04-02] MEDS: ONDANSETRON 4 MG/2 ML VIAL IM/IVP PRN (20:24)
[2017-04-02] MEDS ORDERED: IBUPROFEN 200 MG TAB PO PRN (20:30)
--- NOTE | 2017-04-02 20:30 | NUR ---
PATIENT STATED," I FEEL VERY NAUSEOUS." ZOFRAN GIVEN ORDERED, PATIENT TOLERATED WELL, AND STATED "THE NAUSEA IS GOING AWAY."
[2017-04-02] MEDS: BLOOD GLUCOSE MONITORING 1 DEV DEV FS SCH (21:22)
[2017-04-02 21:43] VITALS: BP 120/88
[2017-04-02] MEDS: MORPHINE SULFATE 2 MG/ML SYR IVP PRN (21:53)
[2017-04-02] MEDS: DEXT 5% / NACL 0.9% 500 ML IV SCH (22:30)
[2017-04-02 23:30] VITALS: BP 115/88
[2017-04-03] VITALS (7 sets, daily range): BP systolic 101–124; BP diastolic 45–89
--- NOTE | 2017-04-03 00:43 | NUR ---
PATIENT SLEEPING IN BED WITH C-PAP ON. NO S/S OF ACUTE DISTRESS NOTED, EASY TO AROUSE, VITAL SIGNS ARE STABLE. CALL LIGHT WITHIN REACH, SAFETY MEASURE ENSURED, WILL CONTINUE TO MONITOR.
--- NOTE | 2017-04-03 01:10 | NUR ---
SCD APPLIED TO BOTH LOWER EXTREMITIES.
[2017-04-03] MEDS: MORPHINE SULFATE 2 MG/ML SYR IVP PRN ×3 (01:18→09:13)
--- NOTE | 2017-04-03 01:24 | NUR ---
PATIENT STATED," I PULLED MYSELF WHEN I WAS TRYING TO GET OUT OF THE BED, THE PAIN IS 9/10." PATIENT WAS SITTING IN THE CHAIR, MORPHINE 2MG GIVEN ORDERED, ASSISTED PATIENT BACK TO BED, WARM BLANKET OFFERED, REPOSITIONED PATIENT WELL. PATIENT STATED," MY LEFT LEG HURTS, CAN I HAVE TYLENOL PLEASE." INFORMED DR. DEXTER, SAID,"OKAY, GIVE HER TYLENOL."
[2017-04-03] MEDS: ACETAMINOPHEN 325 MG TAB PO PRN (01:51)
--- NOTE | 2017-04-03 01:57 | NUR ---
TYLENOL GIVEN ORDERED, PATIENT REFUSED TO PUT C-PAP MASK ON, PATIENT STATED,"THE MASK DRYS MY MOUTH, I CAN'T BREATH WITH THIS THING ON." PUT PATIENT BACK ON NC O2 4L. PATIENT RESTING IN BED, NO S/S OF ACUTE DISTRESS NOTED, DIM THE LIGHTS FOR COMFORT MEASURE, CALL LIGHT WITHIN REACH, SAFETY MEASURE ENSURED, WILL CONTINUE TO MONITOR.
--- NOTE | 2017-04-03 02:20 | NUR ---
PATIENT IS SLEEPING IN BED, RESPIRATION EVEN AND UNLABORED, PATIENT ON 4L O2 NC, NO S/S OF ACUTE DISTRESS NOTED, CALL LIGHT WITHIN REACH, SIDE RAILS UPX2, BED AT THE LOWEST POSITION, HEAD OF BED ELEVATED 30 DEGREE, WILL CONTINUE TO MONITOR.
[2017-04-03] MEDS: ONDANSETRON 4 MG/2 ML VIAL IM/IVP PRN ×2 (05:44→12:07)
--- NOTE | 2017-04-03 05:45 | NUR ---
PATIENT STATED PAIN 05/16, PAIN MEDICATION GIVEN AT 0534. PATIENT STARTED TO VOMIT, ZOFRAN GIVEN AT 0544. PATIENT RESTING IN BED AT THIS TIME, CALL LIGHT WITHIN REACH, HEAD OF BED ELEVATED AT 30 DEGREE. WILL CONTINUE TO MONITOR
--- NOTE | 2017-04-03 06:41 | NUR ---
PATIENT IS SLEEPING IN BED, RESPIRATION EVEN AND UNLABORED, NO S/S OF ACUTE DISTRESS NOTED, CALL LIGHT WITHIN REACH, SIDE RAILS UPX2, BED AT THE LOWEST POSITION, HEAD OF BED ELEVATED 30 DEGREE, WILL CONTINUE TO MONITOR.
[2017-04-03] MEDS: DEXT 5% / NACL 0.9% 500 ML IV SCH ×3 (07:03→23:30)
[2017-04-03] MEDS: BLOOD GLUCOSE MONITORING 1 DEV DEV FS SCH ×4 (07:26→20:25)
--- NOTE | 2017-04-03 07:30 | NUR ---
ENDORSED PLAN OF CARE TO DAY RN, PATIENT IS IN STABLE CONDITION.
--- NOTE | 2017-04-03 07:31 | NUR ---
PT AWAKE AND ALERT, NO SIGNS OF ACUTE DISTRESS. BOWEL SOUNDS ACTIVE IN ALL 4 QUADRANTS, BOWEL AND BLADDER CONTINENCE. AMBULATORY WITH ASSIST. SKIN INTACT. PATIENT HAS PAIN 7/10M IN ABDOMEN, WILL MEDICATE. IV PATENT AND ASYMPTOMATIC. SKIN INTACT. RE-ORIENTED PATIENT TO HOSPITAL AND UNIT. PATIENT VERBALIZED UNDERSTANDING. BED IN LOW POSITION WITH BILATERAL HALF SIDE RAILS UP, CALL LIGHT WITHIN REACH.
[2017-04-03 07:39] LABS: BASOPHILS % (AUTO) 0.3 % (0.0-2.0); EOSINOPHILS # (AUTO) 0.2 K/uL (0-0.4); EOSINOPHILS % (AUTO) 1.8 % (0.0-4.0); HEMATOCRIT 29.3 % (36-48); HEMOGLOBIN 9.2 g/dL (12.0-16.0); LYMPHOCYTES # (AUTO) 0.8 K/uL (2.5-16.5); MEAN CORPUSCULAR HEMOGLOBIN 24 pg (27-31); MEAN CORPUSCULAR HGB CONC 32 g/dL (33-37); MEAN CORPUSCULAR VOLUME 77 fL (80-94); MONOCYTES # (AUTO) 0.6 K/uL (0.8-1.0); MONOCYTES % (AUTO) 5.6 % (1.7-9.3); NEUTROPHILS # (AUTO) 9.4 K/uL (1.8-7.7); NEUTROPHILS % (AUTO) 85.3 % (42.2-75.2); PLATELET COUNT (AUTO) 238 K/uL (140-450); RED BLOOD CELL COUNT(AUTO) 3.82 MIL/uL (4.20-5.40); RED CELL DISTRIBUTION WIDTH 15.6 % (11.6-13.7)
[2017-04-03 07:56] LABS: ANION GAP 8.9 (8-16); CALCIUM 7.9 mg/dL (8.5-10.1); CARBON DIOXIDE 29.7 mmol/L (21-32); CREATININE 0.7 mg/dL (0.6-1.3); POTASSIUM 4.6 mmol/L (3.5-5.1)
[2017-04-03 07:59] LABS: MAGNESIUM 2.1 mg/dL (1.8-2.4); PHOSPHORUS 3.9 mg/dL (2.5-4.9)
[2017-04-03] MEDS: methylPREDNISolone 4 MG TAB PO SCH (09:06)
[2017-04-03] MEDS: LACTOBACILLUS RHAMNOSUS GG 1 EACH CAP PO SCH (09:07)
[2017-04-03] MEDS: LEVOTHYROXINE 0.088 MG TAB PO SCH (09:07)
[2017-04-03] MEDS: ESCITALOPRAM 20 MG TAB PO SCH (09:07)
[2017-04-03] MEDS: LORATADINE 10 MG TAB PO SCH (09:07)
[2017-04-03] MEDS: FAMOTIDINE 20 MG TAB PO SCH (09:07)
[2017-04-03] MEDS: metFORMIN 850 MG TAB PO SCH (09:08)
[2017-04-03] MEDS: FUROSEMIDE 20 MG TAB PO SCH (09:08)
[2017-04-03] MEDS: BENAZEPRIL 20 MG TAB PO SCH (09:08)
[2017-04-03 09:25] LABS: T4 (THYROXINE) 11.3 ug/dL (4.5-12.0)
--- NOTE | 2017-04-03 10:15 | NUR ---
PATIENT IS CURRENTLY ON MENSTRUAL CYCLE. WILL CONTINUE TO MONITOR.
[2017-04-03] MEDS ORDERED: MORPHINE SULFATE 2 MG/ML SYR IVP PRN ×2 (10:30→12:00)
[2017-04-03] MEDS ORDERED: DOCUSATE SODIUM 250 MG GELCAP PO SCH (11:00)
--- NOTE | 2017-04-03 11:44 | NUR ---
PATIENT HAS BEEN SCREENED AND CATEGORIZED HIGH NUTRITION RISK. PATIENT WILL BE SEEN WITHIN 1-2 DAYS OF ADMISSION. 04/03/17 - 04/04/17 ADELFO CADET MBA, RD
[2017-04-03] MEDS ORDERED: DOCUSATE SODIUM 100 MG GELCAP PO SCH (12:00)
--- NOTE | 2017-04-03 12:11 | NUR ---
PATIENT VOMITED X1 APPROXIMATELY 50ML YELLOW EMESIS. GAVE ZOFRAN PRN ORDERED. INFORMED DR MCCARTY.
--- NOTE | 2017-04-03 14:15 | NUR ---
PATIENT HAS HAD 3 WATERY BOWEL MOVEMENTS. DOES NOT WANT TO TAKE COLACE ANYMORE. NOTED, WILL CONTINUE TO MONITOR.
[2017-04-03] MEDS: HYDROmorphone 1 MG/ML AMP IVP PRN ×2 (14:58→22:59)
--- NOTE | 2017-04-03 15:58 | NUR ---
RECEIVED ORDERS FOR STOOL CULTURES, NOTED WILL CARRY OUT.
--- NOTE | 2017-04-03 16:42 | NUR ---
04/03/17 RD INITIAL ASSESSMENT COMPLETED. PLEASE REFER TO NUTRITION ASSESSMENT UNDER CARE ACTIVITY FOR ESTIMATED NUTRITIONAL NEEDS. RD RECOMMENDATIONS: 1- RECOMMEND CONTINUE 60G CCHO DIET. 2- F/U 3-5 DAYS; MODERATE RISK. ADELFO CADET MBA, RD
[2017-04-03] MEDS: MONTELUKAST SODIUM 10 MG TAB PO SCH (16:55)
[2017-04-03 16:56] LABS: HEMOGLOBIN A1C 6.6 % (4.8-5.6)
[2017-04-03] MEDS ORDERED: NACL 0.9% 1,000 ML IV SCH (17:36)
--- NOTE | 2017-04-03 17:45 | NUR ---
COLLECTED STOOL CULTURE AND TOOK TO LAB, WILL CONTINUE TO MONITOR PATIENT.
--- NOTE | 2017-04-03 18:50 | NUR ---
PT SITTING UPRIGHT IN BED, NO SIGNS OF ACUTE DISTRESS. BED IN LOW POSITION WITH BILATERAL HALF SIDE RAILS UP, CALL LIGHT WITHIN REACH. SAFETY CHECKS IN PLACE. WILL CONTINUE TO MONITOR.
--- NOTE | 2017-04-03 19:28 | NUR ---
PATIENT AWAKE AND ALERT, NO SIGNS OF ACUTE DISTRESS. ENDORSED TO INSTITUTE SCIENTIST NURSE FOR CONTINUITY OF CARE.
--- NOTE | 2017-04-03 19:30 | NUR ---
RECEIVED REPORTS FROM DAY RN, PATIENT RESTING IN BED, RESPIRATION EVEN AND UNLABORED, PATIENT DENIES PAIN AT THIS TIME. IV PATENT AND INTACT, INFUSING D5NS AT 60ML/HR. SCD APPLIED ON BOTH LOWER EXTREMITIES. PATIENT IS ON MENSTRUATION. CALL LIGHT WITHIN REACH, SIDE RAILS UP X2, BED AT THE LOWEST POSITION, HEAD OF BED ELEVATED AT 30 DEGREES, ALL NEEDS ATTENDED, WILL CONTINUE TO MONITOR.
--- NOTE | 2017-04-03 20:45 | NUR ---
PATIENT RESTING IN BED, NO S/S OF ACUTE DISTRESS NOTED, RESPIRATION EVEN AND UNLABORED, PM ROCEPHIN STARTED, PATIENT TOLERATED WELL. CALL LIGHT WITHIN REACH, SIDE RAIL UP X2, BED AT LOWEST POSITION, HEAD OF BED ELEVATED 30 DEGREE, WILL CONTINUE TO MONITOR.
--- NOTE | 2017-04-03 22:38 | NUR ---
ASSISTED PATIENT TO THE BATHROOM, PATIENT REQUIRED STANDBY ASSIST WHEN SHE WAS WALKING TO THE BATHROOM AND NEEDED NURSE TO CLEAN HER AFTER VOIDING. PATIENT WAS SHORT OF BREATH WHEN SHE WAS WALKING AND MOVING AROUND. PATIENT IS RESTING IN BED, STATED PAIN 9/10, LEFT LOWER ABDOMEN. WILL MEDICATE ORDERED.
--- NOTE | 2017-04-03 23:05 | NUR ---
BP 109/73, HR 78, RR 19. DILAUDID GIVEN ORDERED, PATIENT RESTING IN BED, REPOSITIONED PATIENT, DIM THE LIGHT , NO S/S OF ACUTE DISTRESS NOTED, RESPIRATION EVEN AND UNLABORED, CALL LIGHT WITHIN REACH, SAFETY MEASURE ENSURED, WILL CONTINUE TO MONITOR.
[2017-04-04] VITALS: BP 115/73
--- NOTE | 2017-04-04 00:06 | NUR ---
VITAL SIGNS TAKEN, BP 115/73, HR 73, RR 17. PATIENT SLEEPING IN BED, RESPIRATION EVEN AND UNLABORED, STILL ON O2 4LNC, CALL LIGHT WITHIN REACH, SAFETY MEASURE ENSURED, WILL CONTINUE TO MONITOR.
--- NOTE | 2017-04-04 02:40 | NUR ---
MADE ROUNDS, PATIENT ASLEEP IN BED, NO S/S OF ACUTE DISTRESS NOTED, RESPIRATION EVEN AND UNLABORED, EASY TO AROUSE. CALL LIGHT WITHIN REACH, SAFETY MEASURE ENSURED, WILL CONTINUE TO MONITOR.
[2017-04-04] MEDS: HYDROmorphone 1 MG/ML AMP IVP PRN ×4 (03:51→23:40)
--- NOTE | 2017-04-04 03:55 | NUR ---
ASSISTED PATIENT TO THE BATHROOM. PATIENT STATED PAIN 8/10 WHEN BACK IN BED. BP 121/77, HR 75, RR 19. DILAUDID GIVEN ORDERED, WILL CONTINUE TO MONITOR.
[2017-04-04 04:00] VITALS: BP 121/77
--- NOTE | 2017-04-04 04:31 | NUR ---
PATIENT IS SLEEPING IN BED, RESPIRATION EVEN AND UNLABORED, EASY TO AROUSE, OFFERED WATER REQUESTED, CALL LIGHT WITHIN REACH, SAFETY MEASURED ENSURED, WILL CONTINUE TO MONITOR.
[2017-04-04] MEDS: DEXT 5% / NACL 0.9% 500 ML IV SCH ×2 (05:08→16:48)
[2017-04-04] MEDS: BLOOD GLUCOSE MONITORING 1 DEV DEV FS SCH ×5 (06:38→21:00)
--- NOTE | 2017-04-04 06:39 | NUR ---
PATIENT IS SLEEPING IN BED, RESPIRATION EVEN AND UNLABORED, EASY TO AROUSE, BLOOD SUGAR 127, CALL LIGHT WITHIN REACH, SAFETY MEASURED ENSURED, WILL CONTINUE TO MONITOR.
--- NOTE | 2017-04-04 07:13 | NUR ---
ENDORSED PLAN OF CARE TO DAY RN. PATIENT IS IN STABLE CONDITION.
--- NOTE | 2017-04-04 07:14 | NUR ---
RECEIVED BEDSIDE REPORT FROM IRON MOLDER HELPER RN, PATIENT AWAKE AND ALERT, NO SIGNS OF ACUTE DISTRESS. BOWEL SOUNDS ACTIVE IN ALL 4 QUADRANTS. CONTINENT TO BOWEL AND BLADDER. PATIENT AMBULATORY WITH STANDBY ASSIST. SKIN INTACT. IV PATENT AND ASYMPTOMATIC. PATIENT HAS HEADACHE 9/10 WOULD LIKE TYLENOL AFTER BREAKFAST, WILL ADMINISTER. RE-ORIENTED PATIENT TO HOSPITAL AND TO UNIT, PT VERBALIZED UNDERSTANDING. BED IN LOW POSITION WITH BILATERAL HALF SIDE RAILS UP, CALL LIGHT WITHIN REACH, SAFETY CHECKS IN PLACE.
[2017-04-04 07:42] LABS: BASOPHILS # (AUTO) 0.1 K/uL (0.00-0.22); BASOPHILS % (AUTO) 0.9 % (0.0-2.0); EOSINOPHILS # (AUTO) 0.2 K/uL (0-0.4); HEMATOCRIT 30.5 % (36-48); HEMOGLOBIN 9.5 g/dL (12.0-16.0); LYMPHOCYTES # (AUTO) 1.1 K/uL (2.5-16.5); LYMPHOCYTES % (AUTO) 10.2 % (20.5-51.1); MEAN CORPUSCULAR HEMOGLOBIN 24 pg (27-31); MEAN CORPUSCULAR HGB CONC 31 g/dL (33-37); MEAN CORPUSCULAR VOLUME 78 fL (80-94); MONOCYTES # (AUTO) 0.4 K/uL (0.8-1.0); MONOCYTES % (AUTO) 4.3 % (1.7-9.3); NEUTROPHILS # (AUTO) 8.6 K/uL (1.8-7.7); NEUTROPHILS % (AUTO) 82.6 % (42.2-75.2); PLATELET COUNT (AUTO) 251 K/uL (140-450); RED BLOOD CELL COUNT(AUTO) 3.89 MIL/uL (4.20-5.40); RED CELL DISTRIBUTION WIDTH 15.2 % (11.6-13.7); WHITE BLOOD COUNT (AUTO) 10.4 K/uL (4.8-10.8)
[2017-04-04 07:44] LABS: ANION GAP 10.7 (8-16); CALCIUM 8.4 mg/dL (8.5-10.1); CARBON DIOXIDE 27.5 mmol/L (21-32); CREATININE 0.7 mg/dL (0.6-1.3); POTASSIUM 4.2 mmol/L (3.5-5.1)
[2017-04-04 07:49] LABS: PHOSPHORUS 4.2 mg/dL (2.5-4.9)
[2017-04-04 08:00] VITALS: BP 132/78
[2017-04-04] MEDS: ESCITALOPRAM 20 MG TAB PO SCH (08:56)
[2017-04-04] MEDS: LORATADINE 10 MG TAB PO SCH (08:57)
[2017-04-04] MEDS: LACTOBACILLUS RHAMNOSUS GG 1 EACH CAP PO SCH (08:57)
[2017-04-04] MEDS: metFORMIN 850 MG TAB PO SCH (08:57)
[2017-04-04] MEDS: methylPREDNISolone 4 MG TAB PO SCH (08:57)
[2017-04-04] MEDS: BENAZEPRIL 20 MG TAB PO SCH (08:57)
[2017-04-04] MEDS: FAMOTIDINE 20 MG TAB PO SCH (08:58)
[2017-04-04] MEDS: LEVOTHYROXINE 0.088 MG TAB PO SCH (08:58)
[2017-04-04] MEDS: ACETAMINOPHEN 325 MG TAB PO PRN (08:58)
[2017-04-04] MEDS: FUROSEMIDE 20 MG TAB PO SCH (08:59)
[2017-04-04] MEDS: ASCORBIC ACID 500 MG TAB PO SCH (08:59)
[2017-04-04] MEDS ORDERED: DOCUSATE SODIUM 250 MG GELCAP PO PRN (09:00)
[2017-04-04] MEDS ORDERED: DOCUSATE SODIUM 250 MG GELCAP PO SCH (09:00)
--- NOTE | 2017-04-04 09:15 | NUR ---
PATIENT VOMITED APPROXIMATELY 25ML YELLOW EMESIS. INFORMED DR MCCARTY AND ADMINISTERED ZOFRAN PRN ORDERED. WILL CONTINUE TO MONITOR.
[2017-04-04] MEDS: ONDANSETRON 4 MG/2 ML VIAL IM/IVP PRN ×2 (09:16→14:50)
[2017-04-04 12:00] VITALS: BP 126/66
--- NOTE | 2017-04-04 12:40 | NUR ---
PATIENT SITTING UPRIGHT IN BED WITH FAMILY AT BEDSIDE. NO COMPLAINT OF PAIN AT THIS TIME. REINFORCED NPO DIET AT THIS TIME FOR POSSIBLE D&C TODAY WITH DR EUGENIO GARCIA, PATIENT VERBALIZED UNDERSTANDING. BED IN LOW POSITION WITH BILATERAL HALF SIDE RAILS UP, CALL LIGHT WITHIN REACH. WILL CONTINUE TO MONITOR PATIENT.
--- NOTE | 2017-04-04 15:30 | NUR ---
PT RESTING COMFORTABLY IN BED WITH FAMILY AT BEDSIDE. SAFETY CHECKS IN PLACE, WILL CONTINUE TO MONITOR.
[2017-04-04 16:00] VITALS: BP 126/66
[2017-04-04] MEDS: FERROUS SULFATE 325 MG TABEC PO SCH (16:31)
[2017-04-04] MEDS: MONTELUKAST SODIUM 10 MG TAB PO SCH (16:31)
--- NOTE | 2017-04-04 17:15 | NUR ---
PT TO HAVE D AND C TODAY WITH DR EUGENIO GARCIA. CONSENT SIGNED. WILL FINISH PRE-OP CHECKLIST.
--- NOTE | 2017-04-04 18:30 | NUR ---
PRE-OP CHECKLIST COMPLETED, CONSENTS SIGNED. PT TO BE PICKED UP AND TAKEN TO OR AT 1930. INFORMED PATIENT OF PROCEDURE TIME. WILL CONTINUE TO MONITOR.
--- NOTE | 2017-04-04 19:20 | NUR ---
PT AWAKE AND ALERT, NO SIGNS OF ACUTE DISTRESS. ENDORSED TO CARBON ROD INSERTER RN FOR CONTINUITY OF CARE.
--- NOTE | 2017-04-04 19:21 | NUR ---
RECEIVED REPORT FROM AM NURSE. PT AOX4, SITTING UPRIGHT ON CHAIR, NO S/S OF DISTRESS. WITH FAMILY MEMBERS AT BEDSIDE. NO COMPLAINTS OF PAIN AT THIS TIME. SKIN INTACT. FOR D&C AT 1930. IV PATENT AND INTACT. REORIENTED PT TO THE UNIT, PT VERBALIZED UNDERSTANDING. WILL CONTINUE TO MONITOR. ALL NEEDS ATTENDED. CALL LIGHT WITHIN REACH. SAFETY CHECKS IN PLACE.
[2017-04-04 19:30] VITALS: BP 142/81
--- NOTE | 2017-04-04 19:39 | NUR ---
PATIENT IN O.R. FOR PROCEDURE
[2017-04-04] MEDS ORDERED: PROPOFOL 200 MG/20 ML VIAL IV ONE (19:50)
[2017-04-04] MEDS ORDERED: MORPHINE SULFATE 4 MG/ML SYR IM/IVP PRN (19:55)
[2017-04-04] MEDS ORDERED: IBUPROFEN 800 MG TAB PO PRN (19:55)
[2017-04-04] MEDS ORDERED: ONDANSETRON 4 MG/2 ML VIAL IVP PRN ×2 (19:55→20:35)
[2017-04-04] MEDS ORDERED: ACETAMINOPHEN/CODEINE 300/30MG 1 TAB PO PRN (19:55)
[2017-04-04] MEDS ORDERED: fentaNYL 0.05 MG/ML VIAL ONE (19:58)
[2017-04-04] MEDS ORDERED: MIDAZOLAM 2 MG/2 ML VIAL ONE (19:58)
--- NOTE | 2017-04-04 20:00 | NUR ---
GOT A CALL FROM LAB IN REGARD'S TO PT'S RHOGRAM. INFORMED THE NURSE IN OR AND SAID SHE WILL INFORM THE DOCTOR.
[2017-04-04] MEDS ORDERED: LACTATED RINGERS 1,000 ML IV SCH (20:33)
[2017-04-04] MEDS ORDERED: MEPERIDINE 25 MG/ML SYR IVP PRN (20:35)
[2017-04-04] MEDS ORDERED: diphenhydrAMINE 50 MG/ML VIAL IVP PRN (20:35)
[2017-04-04] MEDS ORDERED: HYDROmorphone 1 MG/ML AMP IVP PRN (20:35)
--- NOTE | 2017-04-04 21:00 | NUR ---
PT CAME BACK FROM PACU, IN STABLE CONDITION. WILL CONTINUE TO MONITOR.
[2017-04-04] MEDS ORDERED: cefTRIAXone 500 MG VIAL ONE (21:26)
--- NOTE | 2017-04-04 22:00 | NUR ---
VITAL SIGNS STABLE: BP 110/78, P 100, R 20, T 97.8, O2 95%, PAIN 0/10. GAVE ZOLFRAN FOR NAUSEA AND VOMITING.
--- NOTE | 2017-04-04 23:43 | NUR ---
GAVE DILAUDID TO PT. WAS GOING TO ADMINISTER COLACE WITH THE MEDICATION BUT PT REFUSED. EDUCATED PT THAT SHE WILL GET CONSTIPATED, PT STILL REFUSED. WILL CONTINUE TO MONITOR.
--- NOTE | 2017-04-04 23:50 | NUR ---
PT REQUESTED TO GO TO THE BATHROOM AND MENTIONED THAT SHE PASSED STOOL AND WAS ABLE TO URINATE. WILL CONTINUE TO MONITOR. ALL NEEDS ATTENDED. CALL LIGHT WITHIN REACH. SAFETY CHECKS IN PLACE.
[2017-04-05] VITALS: BP 113/58
[2017-04-05] MEDS: DEXT 5% / NACL 0.9% 500 ML IV SCH (00:30)
--- NOTE | 2017-04-05 02:21 | NUR ---
MADE ROUNDS. PT SEEN ASLEEP. NO COMPLAINTS OF PAIN. WILL CONTINUE TO MONITOR. CALL LIGHT WITHIN REACH. SAFETY CHECKS IN PLACE.
[2017-04-05] MEDS: ACETAMINOPHEN 325 MG TAB PO PRN (03:10)
--- NOTE | 2017-04-05 03:15 | NUR ---
ASSISTED PT TO THE BATHROOM, IS ABLE TO URINATE. WILL CONTINUE TO MONITOR. ALL NEEDS ATTENDED. CALL LIGHT WITHIN REACH.
[2017-04-05 04:00] VITALS: BP 105/60
[2017-04-05] MEDS: HYDROmorphone 1 MG/ML AMP IVP PRN ×2 (04:05→09:04)
--- NOTE | 2017-04-05 04:56 | NUR ---
SPOKE TO DR. BARTHOLOMEW IN REGARDS TO CLARIFICATION OF THE IV TO BE RAN AND SAID TO FOLLOW THE DEXTROSE 5%/NACL 0.9% 500 ML ORDER. ALSO, MENTIONED TO HIM THE DIET OF THE PATIENT BECAUSE THE PATIENT WAS HUNGRY, SAID HE WILL PUT HER ON FULL LIQUID DIET UNTIL SOMEONE COMES TO SEE HER.
[2017-04-05 06:07] LABS: BASOPHILS % (AUTO) 0.3 % (0.0-2.0); EOSINOPHILS # (AUTO) 0.2 K/uL (0-0.4); EOSINOPHILS % (AUTO) 2.3 % (0.0-4.0); HEMOGLOBIN 8.7 g/dL (12.0-16.0); LYMPHOCYTES # (AUTO) 1.1 K/uL (2.5-16.5); LYMPHOCYTES % (AUTO) 10.8 % (20.5-51.1); MEAN CORPUSCULAR HEMOGLOBIN 24 pg (27-31); MEAN CORPUSCULAR HGB CONC 31 g/dL (33-37); MEAN CORPUSCULAR VOLUME 77 fL (80-94); MONOCYTES # (AUTO) 0.6 K/uL (0.8-1.0); MONOCYTES % (AUTO) 5.8 % (1.7-9.3); NEUTROPHILS # (AUTO) 8.2 K/uL (1.8-7.7); NEUTROPHILS % (AUTO) 80.8 % (42.2-75.2); PLATELET COUNT (AUTO) 256 K/uL (140-450); RED BLOOD CELL COUNT(AUTO) 3.63 MIL/uL (4.20-5.40); WHITE BLOOD COUNT (AUTO) 10.1 K/uL (4.8-10.8)
[2017-04-05 06:27] LABS: ANION GAP 7.7 (8-16); CALCIUM 8.2 mg/dL (8.5-10.1); CARBON DIOXIDE 32.4 mmol/L (21-32); CREATININE 0.6 mg/dL (0.6-1.3); POTASSIUM 4.1 mmol/L (3.5-5.1)
--- NOTE | 2017-04-05 06:30 | NUR ---
CHECKED PT'S BLOOD SUGAR. NO COVERAGE NEEDED. NO S/S OF DISTRESS. NO COMPLAINTS OF PAIN AT THIS TIME. WILL CONTINUE TO MONITOR. ALL NEEDS ATTENDED. CALL LIGHT WITHIN REACH. SAFETY CHECKS IN PLACE.
[2017-04-05] MEDS: BLOOD GLUCOSE MONITORING 1 DEV DEV FS SCH ×2 (06:39→11:14)
[2017-04-05] MEDS ORDERED: DEXT 5% /NACL 0.9% 1,000 ML IV SCH (07:07)
--- NOTE | 2017-04-05 07:07 | NUR ---
ENDORSED TO AM SHIFT FOR CONTINUITY OF CARE, IN STABLE CONDITION.
--- NOTE | 2017-04-05 07:08 | NUR ---
PT AWAKE AND ALERT, NO SIGNS OF ACUTE DISTRESS. PATIENT ON OXYGEN 4L NC. BOWEL SOUNDS ACTIVE IN ALL 4 QUADRANTS, BOWEL AND BLADDER CONTINENCE. SKIN INTACT. AMBULATORY WITH BRP. IV PATENT AND ASYMPTOMATIC. PATIENT DENIES PAIN AT THIS TIME. RE-ORIENTED TO HOSPITAL AND TO UNIT, PT VERBALIZED UNDERSTANDING. BED IN LOW POSITION WITH BILATERAL HALF SIDE RAILS UP, CALL LIGHT WITHIN REACH. WILL CONTINUE TO MONITOR.
[2017-04-05] MEDS: ALBUTEROL SULFATE/IPRATROPIU 3 ML SOL IH PRN ×2 (07:21→12:10)
--- NOTE | 2017-04-05 07:21 | NUR ---
AWAKE AND ALERT RESPONSIVE TO PSYCHOLOGIST DEVELOPMENTAL SITTING ON SIDE OF BED PATIENT C/O OF SOB ASSESSMENT DONE HHN PRN THERAPY GIVEN ORDERED [facility] V60 BIPAP AT BEDSIDE
[2017-04-05 08:00] VITALS: BP 141/84
[2017-04-05] MEDS: FERROUS SULFATE 325 MG TABEC PO SCH (08:55)
[2017-04-05] MEDS: LEVOTHYROXINE 0.088 MG TAB PO SCH (08:56)
[2017-04-05] MEDS: LORATADINE 10 MG TAB PO SCH (08:56)
[2017-04-05] MEDS: BENAZEPRIL 20 MG TAB PO SCH (08:56)
[2017-04-05] MEDS: FAMOTIDINE 20 MG TAB PO SCH (08:56)
[2017-04-05] MEDS: LACTOBACILLUS RHAMNOSUS GG 1 EACH CAP PO SCH (08:56)
[2017-04-05] MEDS: metFORMIN 850 MG TAB PO SCH (08:56)
[2017-04-05] MEDS: ESCITALOPRAM 20 MG TAB PO SCH (08:56)
[2017-04-05] MEDS: ASCORBIC ACID 500 MG TAB PO SCH (08:57)
[2017-04-05] MEDS: methylPREDNISolone 4 MG TAB PO SCH (08:57)
[2017-04-05] MEDS: FUROSEMIDE 20 MG TAB PO SCH (09:00)
--- NOTE | 2017-04-05 10:46 | NUR ---
RECEIVED NEW ORDERS FROM DR MCCARTY REGARDING OBTAINING RECORDS OF CT FROM [facility], NOTED, WILL CARRY OUT.
[2017-04-05] MEDS ORDERED: BENA20TA5 PO ×2 (11:21→11:37)
--- NOTE | 2017-04-05 11:34 | NUR ---
CM NOTE INITIAL REVIEW FAXED TO [facility] [phone] PH [phone] AND TO [facility] [phone] PH [place] [phone]
[2017-04-05 12:00] VITALS: BP 122/64
[2017-04-05] MEDS ORDERED: NITR100C7 PO (12:06)
--- NOTE | 2017-04-05 16:06 | NUR ---
PT AWAKE AND ALERT, NO SIGNS OF ACUTE DISTRESS. EDUCATED PATIENT ON DISCHARGE INSTRUCTIONS INCLUDING SIGNS AND SYMPTOMS OF WORSENING CONDITION, NEW PRESCRIPTIONS, INFORMATION ON DIAGNOSIS AND DIET, RESUMING LIGHT ACTIVITY AND FOLLOWING UP WITH PCP AND OB DOCTORS. PATIENT VERBALIZED UNDERSTANDING. CUT OFF WRIST BANDS, TOOK OUT IV AND TOOK OFF TELE MONITOR. WHEELED PATIENT OUT TO FRONT LOBBY, TO GO HOME VIA PRIVATE AUTO WITH SISTER.
[2017-04-06 09:08] LABS: TRANSFERRIN 226 mg/dL (200-370)
[2017-04-06 13:09] LABS: FERRITIN 119 ng/mL (15-150)
== END 2017-04-05 16:06 | disposition home or self-care (01) | DRG 517 ==
LOC: MED 14:12 → MTU 17:31
PROVIDERS: ADMIT Family Medicine; ATTEND Family Medicine
PROC: 0UDB7ZX Extraction of Endometrium, Via Natural or Artificial Opening, Diagnostic (ICD-10-PCS; principal; 2017-04-04 19:30)
DX: N83.292 Other ovarian cyst, left side (principal); E43 Unspecified severe protein-calorie malnutrition; N17.0 Acute kidney failure with tubular necrosis; D68.59 Other primary thrombophilia; E11.65 Type 2 diabetes mellitus with hyperglycemia; E66.2 Morbid (severe) obesity with alveolar hypoventilation; N39.0 Urinary tract infection, site not specified; Z99.81 Dependence on supplemental oxygen; E83.42 Hypomagnesemia; E87.6 Hypokalemia; J44.9 Chronic obstructive pulmonary disease, unspecified; E03.9 Hypothyroidism, unspecified; E83.51 Hypocalcemia; Z53.29 Procedure and treatment not carried out because of patient's decision for other reasons; I51.7 Cardiomegaly; N85.00 Endometrial hyperplasia, unspecified; N93.8 Other specified abnormal uterine and vaginal bleeding; D50.9 Iron deficiency anemia, unspecified; N92.1 Excessive and frequent menstruation with irregular cycle; Z68.45 Body mass index [BMI] 70 or greater, adult; Z90.49 Acquired absence of other specified parts of digestive tract; Z82.5 Family history of asthma and other chronic lower respiratory diseases; Z83.3 Family history of diabetes mellitus; Z82.49 Family history of ischemic heart disease and other diseases of the circulatory system; Z82.3 Family history of stroke; I10 Essential (primary) hypertension; Z79.84 Long term (current) use of oral hypoglycemic drugs
CPT/HCPCS: 36415; 71010; 76830; 80048; 80053; 81001; 82150; 82728; 82948; 83036; 83540; 83690; 83735; 83880; 84100; 84436; 84439; 84443; 84479; 84484; 85025; 85045; 85610; 85730; 86886; 86900; 86901; 87081; 87086; 87177; 88305; 89055; 93005; 93970; 94640; 94660; 96374; 96375; 96376; 99285; J0696; J1170; J1885; J2250; J2270; J2405; J2704; J3010; J7030; J7042; J7060; J7120; J7509; J7620; Q0092

== ENCOUNTER 2017-06-17 23:40 | Emergency (ER) | payer MEDICAID ==
[~2017-06-17] VITALS: Ht 149.9 cm; Wt 164.7 kg
[~2017-06-17 23:40] MED LIST changes: +ACET-787 PO; -BENA20TA PO; +BENA20TA5 PO; +FLOR250 PO; -HYDR-4452 PO; +LACT1.4C PO; -LEVO750T2 PO; +NITR100C7 PO; -SACC250C4 PO
[2017-06-17 23:46] VITALS: BP 148/87
--- NOTE | 2017-06-18 00:01 | NUR ---
PT TAKEN TO XRAY FROM THE LOBBY
--- NOTE | 2017-06-18 00:07 | NUR ---
PT RETURN FROM XRAY
--- NOTE | 2017-06-18 00:07 | NUR ---
PHLEB DRAWING PT LABS
[2017-06-18 00:17] LABS: BASOPHILS # (AUTO) 0.2 K/uL (0.00-0.22); BASOPHILS % (AUTO) 1.6 % (0.0-2.0); EOSINOPHILS # (AUTO) 0.2 K/uL (0-0.4); EOSINOPHILS % (AUTO) 1.7 % (0.0-4.0); HEMOGLOBIN 10.4 g/dL (12.0-16.0); LYMPHOCYTES # (AUTO) 1.4 K/uL (2.5-16.5); LYMPHOCYTES % (AUTO) 13.6 % (20.5-51.1); MEAN CORPUSCULAR HEMOGLOBIN 23 pg (27-31); MEAN CORPUSCULAR HGB CONC 31 g/dL (33-37); MEAN CORPUSCULAR VOLUME 75 fL (80-94); MONOCYTES # (AUTO) 0.5 K/uL (0.8-1.0); MONOCYTES % (AUTO) 4.7 % (1.7-9.3); NEUTROPHILS # (AUTO) 7.7 K/uL (1.8-7.7); NEUTROPHILS % (AUTO) 78.4 % (42.2-75.2); PLATELET COUNT (AUTO) 310 K/uL (140-450); RED BLOOD CELL COUNT(AUTO) 4.55 MIL/uL (4.20-5.40); RED CELL DISTRIBUTION WIDTH 15.4 % (11.6-13.7)
[2017-06-18 00:33] LABS: ANION GAP 6.8 (8-16); CARBON DIOXIDE 32.3 mmol/L (21-32); CREATININE 0.8 mg/dL (0.6-1.3); POTASSIUM 4.1 mmol/L (3.5-5.1)
[2017-06-18 00:40] LABS: PROTHROMBIN TIME 10.1 secs (10.8-13.4)
[2017-06-18 00:42] LABS: ALBUMIN 3.4 g/dL (3.4-5.0); TOTAL BILIRUBIN 0.3 mg/dL (0.0-1.0)
--- NOTE | 2017-06-18 01:23 | NUR ---
PT TAKEN TO BED 5
--- NOTE | 2017-06-18 01:32 | NUR ---
46/F c/o SOB x 10 days accompanied with a headache. Pt c/o severe headache, 04/15. Pt states "I've had trouble breathing the past 10 days and I've had to be sitting up." Pt also c/o nausea, denies vomiting. AOX4. Pt on home oxygen 3L nasal canula. Pt placed on our oxygen 3L NC, O2 sat 98% with use of oxygen. Pt w/c assisted to bed but uses a cane to ambulate. Pt placed in a gown, placed on ekg monitor tech, NSR 80, pulse oximetry and blood pressure monitoring. VSS. Family at bedside. All concerns addressed at this time.
--- NOTE | 2017-06-18 02:18 | NUR ---
Dr. Goyal evaluating patient at bedside.
[2017-06-18] MEDS ORDERED: ONDANSETRON 4 MG ODT PO ONE (02:25)
[2017-06-18] MEDS ORDERED: KETOROLAC 60 MG/2 ML VIAL IM ONE (02:25)
[2017-06-18] MEDS ORDERED: ALBUTEROL 0.083% 2.5 MG/3 ML NEBU INH ONE (03:10)
[2017-06-18] MEDS ORDERED: ALBUTEROL SULFATE/IPRATROPIU 3 ML SOL IH ONE (03:10)
[2017-06-18] MEDS ORDERED: predniSONE 20 MG TAB PO ONE (03:10)
--- NOTE | 2017-06-18 03:11 | NUR ---
Respiratory therapist at bedside for respiratory intervention.
[2017-06-18 04:06] VITALS: BP 116/56
--- NOTE | 2017-06-18 04:06 | NUR ---
Patient discharged with v/s stable. Written and verbal after care instructions given and explained. Patient alert, oriented and verbalized understanding of instructions. Ambulatory with steady gait. All questions addressed prior to discharge. ID band removed. Patient advised to follow up with PMD. Rx of Prednisone 20mg, Motrin 800mg, [place] 5mg-325mg, Zofran ODT 4mg given. Patient educated on indication of medication including possible reaction and side effects. Opportunity to ask questions provided and answered.
== END 2017-06-18 04:06 | disposition home or self-care (01) ==
LOC: MED 23:40
DX: R06.02 Shortness of breath (principal); R07.9 Chest pain, unspecified; R11.2 Nausea with vomiting, unspecified; R50.9 Fever, unspecified; J44.9 Chronic obstructive pulmonary disease, unspecified; I10 Essential (primary) hypertension
CPT/HCPCS: 36415; 71010; 80053; 81002; 83880; 84484; 85025; 85379; 85610; 85730; 93005; 94640; 96372; 99285; J1885; J7512; J7613; J7620; S0119

== ENCOUNTER 2017-07-24 19:54 | Inpatient (IN) | payer MEDICAID ==
[~2017-07-24] VITALS: Ht 149.9 cm; Wt 181.9 kg
[2017-07-24 19:57] VITALS: BP 145/80
--- NOTE | 2017-07-24 20:09 | NUR ---
PT TAKEN TO BED 7
--- NOTE | 2017-07-24 20:11 | NUR ---
46/F came in w c/o SOB x 3 days. pt reports she is on continuous oxygen at home, but states " i ran out of tanks recently". All lung sounds CBTA, 22RR even and unlabored at this time, 94% RA. 83HR even and regular. pt able to speak at full length. reports she took breathing treatment today without relief of symptoms. Pt reports chest tightness that radiates to back, c/o 9/10 sharp pain to midback. BLE noted with +2 pitting edema, redness to usha shins noted started "a few days ago". PMH: CHF, COPD, renal failure, resp. failure.
--- NOTE | 2017-07-24 20:25 | NUR ---
Narciso hercules in ED - 07/24/17 at [address] Radford evaluating patient at bedside.
--- NOTE | 2017-07-24 20:25 | NUR ---
Patient being evaluated by Dr. Radford at bedside.
[2017-07-24] MEDS ORDERED: AMPICILLIN/SULBACTAM 3 GM in NACL 0.9% 100 ML IV ONE (20:30)
[2017-07-24] MEDS ORDERED: MORPHINE SULFATE 10 MG/ML SYR IVP ONE (20:30)
--- NOTE | 2017-07-24 20:40 | NUR ---
PT DESAT TO 85% RA, 92HR. ALL LUNG SOUNDS CBTA, 22 RR EVEN AND SLIGHTLY LABORED. O2 VIA NC @ 2LPM PLACED. SATS 96%, 82 HR. PT PLACED ON HIGH FOWLERS POSITION.
[2017-07-24] MEDS ORDERED: AMPICILLIN/SULBACTAM 3 GM VIAL ONE ×2 (20:49→21:24)
[2017-07-24 21:07] LABS: BASOPHILS % (AUTO) 0.5 % (0.0-2.0); EOSINOPHILS # (AUTO) 0.2 K/uL (0-0.4); EOSINOPHILS % (AUTO) 2.4 % (0.0-4.0); HEMATOCRIT 30.7 % (36-48); HEMOGLOBIN 9.4 g/dL (12.0-16.0); LYMPHOCYTES # (AUTO) 0.9 K/uL (2.5-16.5); LYMPHOCYTES % (AUTO) 12.9 % (20.5-51.1); MEAN CORPUSCULAR HEMOGLOBIN 23 pg (27-31); MEAN CORPUSCULAR HGB CONC 30 g/dL (33-37); MEAN CORPUSCULAR VOLUME 75 fL (80-94); MONOCYTES # (AUTO) 0.4 K/uL (0.8-1.0); MONOCYTES % (AUTO) 5.9 % (1.7-9.3); NEUTROPHILS # (AUTO) 5.8 K/uL (1.8-7.7); NEUTROPHILS % (AUTO) 78.3 % (42.2-75.2); PLATELET COUNT (AUTO) 275 K/uL (140-450); RED BLOOD CELL COUNT(AUTO) 4.11 MIL/uL (4.20-5.40); RED CELL DISTRIBUTION WIDTH 16.4 % (11.6-13.7); WHITE BLOOD COUNT (AUTO) 7.3 K/uL (4.8-10.8)
[2017-07-24 21:22] LABS: ANION GAP 10.3 (8-16); CARBON DIOXIDE 33.8 mmol/L (21-32); CREATININE 0.7 mg/dL (0.6-1.3); POTASSIUM 4.1 mmol/L (3.5-5.1)
[2017-07-24 21:24] LABS: CHOL/HDL RATIO 3.5 (1-4.5)
[2017-07-24 21:34] LABS: ALBUMIN 3.1 g/dL (3.4-5.0); TOTAL BILIRUBIN 0.3 mg/dL (0.0-1.0)
[2017-07-24 21:35] LABS: CREATINE KINASE MB 0.2 ng/mL (0-3.6)
[2017-07-24] MEDS ORDERED: FUROSEMIDE 40 MG/4 ML VIAL IVP ONE (22:00)
--- NOTE | 2017-07-24 22:00 | NUR ---
VSS, SATS 96% ON 2LPMNC, PT STATES "I FEEL BETTER". ALL NEEDS MET AT THIS TIME.
[2017-07-24] MEDS ORDERED: HYDROmorphone 1 MG/ML AMP IVP ONE (22:10)
[2017-07-24] MEDS ORDERED: cefTRIAXone 2,000 MG in DEXTROSE 5% 100 ML IV ONE (22:30)
[2017-07-24] MEDS ORDERED: HYDROcodone/APAP 7.5/325 MG 1 TAB PO PRN (22:40)
[2017-07-24] MEDS ORDERED: DOCUSATE SODIUM 100 MG GELCAP PO PRN (22:40)
[2017-07-24] MEDS ORDERED: cefTRIAXone 2,000 MG VIAL ONE (22:44)
--- NOTE | 2017-07-24 23:15 | NUR ---
Patient will be admitted to care of [facility]. Admited to TELE. Will go to room 111A. Belongings list completed. Report to EARLE RICKS. PT TRANSPORTED VIA GURNEY WITH CARDIAC MONITORING. PT STABLE, VSS, IV INFUSING WITH ROCEPHIN AT 100ML/HR UPON TRANSFER TO FLOOR, EARLE RN INFORMED TO FINISH ANTIBIOTIC TREATMENT.
[2017-07-24 23:17] LABS: FREE T4 (FREE THYROXINE) 1.09 ng/dL (0.76-1.46); PHOSPHORUS 3.7 mg/dL (2.5-4.9); THYROID STIMULATING HORMONE 2.15 uIU/mL (0.34-3.74)
--- NOTE | 2017-07-24 23:20 | NUR ---
RECEIVED FROM ER PER RENETTA . ABLE TO AMBULATE FROM THE DOOR OUTSIDE OF ROOM TO BED. ROM X 4. CLEAR SPEECH. DX. OF SOB. TELEMETRY MONITORING. MORBIDLY OBESE FEMALE. CALL LIGHT WITH IN REACH. RAPID RESPONSE EXPLAINED TO PT. ORIENTED TO ROOMA AND CARE GIVERS. BILATERAL LOWER EXTREMITIES NOTED WITH CELLULITIS. AFEBRILE. PT. COMPLAINED OF NAUSEA. MEDICATED REQUESTED.
[2017-07-24 23:29] LABS: PROTHROMBIN TIME 9.9 secs (10.8-13.4)
[2017-07-24] MEDS: ONDANSETRON 4 MG/2 ML VIAL IM/IVP PRN (23:33)
[2017-07-24 23:50] VITALS: BP 130/63
[2017-07-25] MEDS: NACL 0.9% 1,000 ML IV SCH ×3 (00:27→20:52)
[2017-07-25] MEDS: METHOCARBAMOL 500 MG TAB PO SCH ×5 (01:30→20:29)
[2017-07-25] MEDS ORDERED: METHOCARBAMOL 500 MG TAB PO ONE (02:15)
--- NOTE | 2017-07-25 02:54 | NUR ---
PT. MEDICATED WITH MUSCLE RELAXANT RT COMPLAINED OF CRAMPS . PT. BEEN SITTING IN CHAIR REQUESTED FOR A WHILE. TRUCK OPERATOR TO HELP HER BACK IN BED FALL PRECAUTION. REFUSES TO HAVE SEQUENTIALS IN PLACE RT PAIN TO LOWER EXTREMITIES IF TOUCHED. DX. SOB WITH CELLULITIS TO LOWER EXTREMITIES.
[2017-07-25 03:57] VITALS: BP 128/60
--- NOTE | 2017-07-25 04:59 | NUR ---
SLEEPING WELL AT THIS TIME. TELEMETRY MONITORING. CALL LIGHT AT BEDSIDE.
[2017-07-25] MEDS: ONDANSETRON 4 MG/2 ML VIAL IM/IVP PRN ×2 (05:55→20:30)
[2017-07-25 05:56] VITALS: BP 132/64
[2017-07-25] MEDS: MORPHINE SULFATE 2 MG/ML SYR IVP PRN ×3 (05:56→20:31)
--- NOTE | 2017-07-25 06:40 | NUR ---
SLEEPING AT THIS TIME . MEDICATED WITH MORPHINE AND ZOFRAN IVP REQUESTED BY PT. EARLIER. ABLE TO VERBALIZE NEEDS WELL. TURNS SELF. TELEMETRY MONITORING.
--- NOTE | 2017-07-25 06:53 | NUR ---
PATIENT HAS BEEN SCREENED AND CATEGORIZED HIGH NUTRITION RISK. PATIENT WILL BE SEEN WITHIN 1-2 DAYS OF ADMISSION. 07/24/17-07/25/17 ANNIA SALES MS, RDN
[2017-07-25 07:24] LABS: BASOPHILS % (AUTO) 0.5 % (0.0-2.0); EOSINOPHILS # (AUTO) 0.1 K/uL (0-0.4); EOSINOPHILS % (AUTO) 1.3 % (0.0-4.0); HEMATOCRIT 30.3 % (36-48); HEMOGLOBIN 9.1 g/dL (12.0-16.0); LYMPHOCYTES # (AUTO) 0.9 K/uL (2.5-16.5); LYMPHOCYTES % (AUTO) 10.7 % (20.5-51.1); MEAN CORPUSCULAR HEMOGLOBIN 23 pg (27-31); MEAN CORPUSCULAR HGB CONC 30 g/dL (33-37); MEAN CORPUSCULAR VOLUME 75 fL (80-94); MONOCYTES # (AUTO) 0.5 K/uL (0.8-1.0); MONOCYTES % (AUTO) 6.6 % (1.7-9.3); NEUTROPHILS # (AUTO) 6.7 K/uL (1.8-7.7); NEUTROPHILS % (AUTO) 80.9 % (42.2-75.2); PLATELET COUNT (AUTO) 269 K/uL (140-450); RED BLOOD CELL COUNT(AUTO) 4.02 MIL/uL (4.20-5.40); RED CELL DISTRIBUTION WIDTH 16.3 % (11.6-13.7); WHITE BLOOD COUNT (AUTO) 8.2 K/uL (4.8-10.8)
[2017-07-25 07:25] LABS: ANION GAP 8.6 (8-16); CARBON DIOXIDE 35.7 mmol/L (21-32); CREATININE 0.7 mg/dL (0.6-1.3); POTASSIUM 4.3 mmol/L (3.5-5.1)
--- NOTE | 2017-07-25 07:25 | NUR ---
RECEIVED REPORT FROM TANNING DRUM OPERATOR RN. PATIENT IS AAOX4, ON NASAL CANNULA AT 3LPM. NO SIGNS AND SYMPTOMS OF ACUTE RESPIRATORY DISTRESS NOTED AT THIS TIME. PATIENT HAS IV NORMAL SALINE INFUSING TO RIGHT FOREARM 22G AT 60ML/HR. SITE IS CLEAN, DRY, PATENT AND INTACT. PATIENT HAS BILATERAL LOWER LEG CELLULITIS, BLISTERS NOTED ON RIGHT LEG. BED IN LOWEST POSITION, SIDERAILS UP X2, CALL LIGHT PLACED WITHIN REACH, FALL PRECAUTION PROTOCOL IN PLACE. WILL CONTINUE TO MONITOR.
[2017-07-25 07:34] LABS: MAGNESIUM 1.9 mg/dL (1.8-2.4)
[2017-07-25 08:00] VITALS: BP 136/59
[2017-07-25] MEDS ORDERED: DEXTROSE 50% 50 ML SYR IVP PRN (09:45)
[2017-07-25] MEDS ORDERED: INSULIN LISPRO SLIDING SCALE 100 UNITS/ML VIAL SUBQ PRN (09:45)
[2017-07-25] MEDS ORDERED: LEVOTHYROXINE 0.088 MG TAB PO SCH ×2 (10:20→10:35)
[2017-07-25] MEDS ORDERED: LACTOBACILLUS RHAMNOSUS GG 1 EACH CAP PO SCH (10:20)
[2017-07-25] MEDS ORDERED: FERRIC GLUCONATE 125 MG in NACL 0.9% 100 ML IV SCH (10:20)
[2017-07-25] MEDS ORDERED: LEVOFLOXACIN 750 MG/D5W PREMIX 150 ML IV SCH (10:20)
[2017-07-25] MEDS ORDERED: FUROSEMIDE 20 MG TAB PO SCH (10:30)
[2017-07-25] MEDS ORDERED: MONTELUKAST SODIUM 10 MG TAB PO SCH (10:30)
[2017-07-25] MEDS ORDERED: predniSONE 10 MG TAB PO SCH (10:30)
[2017-07-25] MEDS ORDERED: BENAZEPRIL 20 MG TAB PO SCH (10:35)
[2017-07-25] MEDS ORDERED: FAMOTIDINE 20 MG TAB PO SCH (10:35)
[2017-07-25] MEDS: ALBUTEROL 0.083% 2.5 MG/3 ML NEBU INH SCH ×4 (10:47→23:23)
--- NOTE | 2017-07-25 10:56 | NUR ---
RD RECOMMENDATIONS: 1. WHEN MEDICALLY APPROPRIATE, CONSIDER INITIATING NUTRITION OF [facility] DIET. 2. CONSULT RDN PRN. 3. RD WILL F/U 7 DAYS; LOW RISK. 5. RDN PROVIDED GENERAL HEALTHY DIET EDUCATION TO PATIENT; PT AND FAMILY ACCEPTED GENERAL HEALTH DIET EDUCATION. ANNIA SALES, , RDN
[2017-07-25] MEDS ORDERED: FOLIC ACID 1 MG TAB PO SCH (11:10)
[2017-07-25] MEDS: FUROSEMIDE 20 MG TAB PO SCH (11:17)
[2017-07-25] MEDS: BENAZEPRIL 20 MG TAB PO SCH (11:17)
[2017-07-25] MEDS: FOLIC ACID 1 MG TAB PO SCH (11:17)
[2017-07-25] MEDS: FAMOTIDINE 20 MG TAB PO SCH (11:18)
[2017-07-25] MEDS: predniSONE 10 MG TAB PO SCH (11:18)
[2017-07-25] MEDS: MONTELUKAST SODIUM 10 MG TAB PO SCH (11:18)
[2017-07-25] MEDS: BLOOD GLUCOSE MONITORING 1 DEV DEV FS SCH ×3 (11:58→20:37)
[2017-07-25 12:00] VITALS: BP 97/62
[2017-07-25] MEDS: CLINDAMYCIN 600 MG in DEXTROSE 5% 50 ML IV SCH ×2 (13:51→20:30)
[2017-07-25 16:00] VITALS: BP 109/57
[2017-07-25] MEDS: ACETAMINOPHEN 325 MG TAB PO PRN (17:16)
--- NOTE | 2017-07-25 19:30 | NUR ---
RECEIVED FROM AM RN IN BED AWAKE AND SITTING UP ON EDGE OF BED. ASSISTED TO RESTROOM. ABLE TO AMBULATE WELL WITH CANE. A/O X 4. ROM X 4. CLEAR SPEECH. TELEMETRY MONITORING. NO C/O PAIN AT THIS TIME. NO SOB.
[2017-07-25] MEDS: IPRATROPIUM 0.02% 0.5 MG/2.5 ML NEBU INH PRN (19:58)
[2017-07-25 20:06] VITALS: BP 119/65
[2017-07-25] MEDS: NYSTATIN POW 100 MU/GM 15 GM BTL TP SCH (20:31)
[2017-07-25] MEDS: LEVOFLOXACIN 750 MG/D5W PREMIX 150 ML IV SCH (21:22)
--- NOTE | 2017-07-25 22:16 | NUR ---
SLEEPING AT THIS TIME. RESPIRATORY THERAPIST PLACED PT. ON BIPAP AFTER COMPLAINT OF SOB POST BATHROOM /BM .
[2017-07-26] VITALS (8 sets, daily range): BP systolic 105–130; BP diastolic 51–93
[2017-07-26] MEDS: ACETAMINOPHEN 325 MG TAB PO PRN ×3 (01:11→19:41)
--- NOTE | 2017-07-26 01:22 | NUR ---
MEDICATED WITH TYLENOL REQUESTED RT HEADACHE. VERBALIZES WELL. PT. SAT ON CHAIR RT VERY AWAKE. CPAP TAKEN OUT OPER HER REQUEST.
--- NOTE | 2017-07-26 01:59 | NUR ---
0130 pt off cpap at this time. wants to take a break. nasal cannula on at 3lnc with humidification
[2017-07-26] MEDS: ALBUTEROL 0.083% 2.5 MG/3 ML NEBU INH SCH ×7 (03:15→22:52)
[2017-07-26] MEDS: CLINDAMYCIN 600 MG in DEXTROSE 5% 50 ML IV SCH ×3 (04:49→20:13)
[2017-07-26] MEDS: BLOOD GLUCOSE MONITORING 1 DEV DEV FS SCH ×4 (05:40→20:27)
--- NOTE | 2017-07-26 06:28 | NUR ---
SLEEPING WELL THIS SHIFT . WAKES UP WHEN TOUCHED. BLOOD SUGAR CHECK WITH IN NORMAL LIMITS. CALL LIGHT WITH IN REACH.
[2017-07-26 06:59] LABS: BASOPHILS % (AUTO) 0.4 % (0.0-2.0); EOSINOPHILS # (AUTO) 0.1 K/uL (0-0.4); EOSINOPHILS % (AUTO) 1.5 % (0.0-4.0); HEMATOCRIT 27.5 % (36-48); HEMOGLOBIN 8.5 g/dL (12.0-16.0); LYMPHOCYTES # (AUTO) 1.3 K/uL (2.5-16.5); LYMPHOCYTES % (AUTO) 16.1 % (20.5-51.1); MEAN CORPUSCULAR HEMOGLOBIN 23 pg (27-31); MEAN CORPUSCULAR HGB CONC 31 g/dL (33-37); MEAN CORPUSCULAR VOLUME 75 fL (80-94); MONOCYTES # (AUTO) 0.6 K/uL (0.8-1.0); MONOCYTES % (AUTO) 7.1 % (1.7-9.3); NEUTROPHILS % (AUTO) 74.9 % (42.2-75.2); PLATELET COUNT (AUTO) 262 K/uL (140-450); RED BLOOD CELL COUNT(AUTO) 3.68 MIL/uL (4.20-5.40); RED CELL DISTRIBUTION WIDTH 15.7 % (11.6-13.7)
--- NOTE | 2017-07-26 07:10 | NUR ---
RECEIVED REPORT FROM FIRE INVESTIGATION LIEUTENANT RN. PATIENT IS AAOX4, ON NASAL CANNULA AT 3LPM. NO SIGNS AND SYMPTOMS OF ACUTE RESPIRATORY DISTRESS NOTED AT THIS TIME. PATIENT HAS IV NORMAL SALINE INFUSING TO RIGHT FOREARM 22G AT 60ML/HR. SITE IS CLEAN, DRY, PATENT AND INTACT. PATIENT HAS BILATERAL LOWER LEG CELLULITIS, BLISTERS NOTED ON RIGHT LEG. BED IN LOWEST POSITION, SIDERAILS UP X2, CALL LIGHT PLACED WITHIN REACH, FALL PRECAUTION PROTOCOL IN PLACE. WILL CONTINUE TO MONITOR.
[2017-07-26 08:00] LABS: ANION GAP 8.4 (8-16); CARBON DIOXIDE 35.4 mmol/L (21-32); CREATININE 0.7 mg/dL (0.6-1.3); POTASSIUM 3.8 mmol/L (3.5-5.1)
[2017-07-26 08:02] LABS: MAGNESIUM 1.9 mg/dL (1.8-2.4); PHOSPHORUS 4.2 mg/dL (2.5-4.9)
[2017-07-26] MEDS: BENAZEPRIL 20 MG TAB PO SCH (09:00)
[2017-07-26] MEDS: FUROSEMIDE 20 MG TAB PO SCH (09:00)
[2017-07-26] MEDS: METHOCARBAMOL 500 MG TAB PO SCH ×4 (09:08→20:13)
[2017-07-26] MEDS: predniSONE 10 MG TAB PO SCH (09:09)
[2017-07-26] MEDS: MONTELUKAST SODIUM 10 MG TAB PO SCH (09:09)
[2017-07-26] MEDS: FAMOTIDINE 20 MG TAB PO SCH (09:10)
[2017-07-26] MEDS: FOLIC ACID 1 MG TAB PO SCH (09:10)
[2017-07-26] MEDS: LACTOBACILLUS RHAMNOSUS GG 1 EACH CAP PO SCH (09:10)
--- NOTE | 2017-07-26 09:10 | NUR ---
WOUND CARE EVALUATION NOTE: REASON FOR EVALUATION BLE WOUND COMPLETE SKIN ASSESSMENT DONE ON THIS 47 Y/O FEMALE PATIENT FROM HOME TO [facility], WITH INITIAL DIAGNOSIS OF SOB. PAST MEDICAL HISTORY INCLUDE HYPERTENSION,GERD, ASTHMA AND MORBID OBESITY. PAST SURGICAL HX: CHOLECYSTECTOMY. ALL ABOVE INFORMATION WAS OBTAINED FROM PT AND THE ADMISSION H&P. LABS ARE WBC 8.5, H/H 8.5/27.5, GLUCOSE 113, ALBUMIN 3.1, PT/INR 9.9/1.1 AND PTT 27.0. CURRENT MEDS INCLUDE LEVOTHYROXINE, PREDNISONE AND FOLIC ACID. PATIENT IS AAOX4. SKIN WARM TO TOUCH WNL, BLE +2 EDEMA, SKIN TURGOR GOOD. CAPILLARY REFILLED <3 SEC. TOENAILS ARE SHORT AND THICKENED, NO HAIR GROWTH, BILATERAL DORSAL PEDAL PULSES PRESENT. #16 F/C PATENT WITH MODERATE AMOUNT OMI COLOR URINE OUTPUT NOTICE. PLAN OF CARE DISCUSS WITH PRIMARY RN AND PT. ABLE TO VERBALIZE UNDERSTANDING AND VERIFY WITH PT. THAT DAUGHTER ABLE TO PROVIDES WOUND CARE WHEN DISCHARGE HOME. INTEGUMENTARY: ABDOMINAL MIDLINE WITH OLD HEALED SCAR ABDOMINAL AND BILATERAL BREAST FOLDS WITH INTERTRIGINOUS DERMATITIS BILATERAL LOWER EXTREMITIES -DRYNESS RLE- PRETIBIAL BLISTERS WITH DRY BROWN SCAB [id number],, NO DRAINAGE, PEBBLES WOUND ERYTHEMA 6X8 CM, IRREGULAR WOUND SHARP, PAIN LEVEL 2/10 WHEN TOUCHED, BEARABLE. LLE- CELLULITIS WITH PRETIBIAL BLISTERS, LARGEST MEASUREMENT 1X0.5 NO DRAINAGE, PEBBLES WOUND ERYTHEMA 4X7 CM, IRREGULAR WOUND SHARP RECOMMENDATIONS: -CLEANSE ABDOMINAL AND BILATERAL BREAST FOLDS WITH SOAP AND WATER , PAT DRY AND APPLY NYSTATIN POWDER QD AND PRN IF SOILING -CLEANSE BLE CELLULITIS WOUND WITH NS, PAT DRY, APPLY XEROFORM WITH DRY DRESSING AND COVER WITH KERLIX QD AND PRN IF SOILING -TURN AND REPOSITION PATIENT Q 2H -ASSESS AND MONITOR SKIN CONDITION DURING POSITION CHANGE, PLEASE PAY PARTICULAR ATTENTION HEELS -OFFLOAD BILATERAL HEELS BY PLACING PILLOWS UNDER CALVES AT ALL TIMES, UNLESS OTHERWISE CONTRAINDICATED -PRESSURE REDISTRIBUTION SURFACE THERAPY -KEEP SKIN CLEAN AND DRY AT ALL TIMES. MAY APPLY BODY LOTION TO DRYNESS AREA. RECOMMENDATIONS DISCUSSED WITH PRIMARY RN WILL FOLLOW UP PATIENT Q7- 10 DAYS AND PRN. PLEASE CONTACT WOUND CARE NURSE FOR ANY CONCERNS, QUESTIONS AND CHANGES IN SKIN CONDITION.
[2017-07-26] MEDS: NYSTATIN POW 100 MU/GM 15 GM BTL TP SCH ×2 (09:53→20:18)
[2017-07-26] MEDS ORDERED: LEVOTHYROXINE 0.088 MG TAB PO SCH (10:00)
--- NOTE | 2017-07-26 10:20 | NUR ---
PATIENT GOING TO GET CT SCAN DONE. IN STABLE CONDITION.
--- NOTE | 2017-07-26 11:13 | NUR ---
PT LEFT FOR PROCEDURE WILL ADMINISTER BREATHING TX AT A LATER TIME.
[2017-07-26] MEDS ORDERED: FERRIC GLUCONATE 125 MG in NACL 0.9% 100 ML IV SCH (12:00)
--- NOTE | 2017-07-26 13:00 | NUR ---
PATIENT SITTING AT THE BEDSIDE FOR LUNCH. TOLERATING WELL.
--- NOTE | 2017-07-26 13:37 | NUR ---
CM NOTE INITIAL REVIEW FAXED TO [facility] / FAX# [phone], ATTN: XENIA #[phone]
--- NOTE | 2017-07-26 19:20 | NUR ---
ENDORSED PATIENT TO BALANCE WHEEL FACER RN FOR CONTINUITY OF CARE. PATIENT IN STABLE CONDITION.
--- NOTE | 2017-07-26 19:30 | NUR ---
RECEIVED PT IN STABLE CONDITION FROM AM NURSE. AWAKE,ALERT AND ORIENTED X4. ON TELE MONITOR -SR. NO RESPIRATORY DISTRESS NOTED ,ON O22L/NC. PT IS OBESE. WITH IVF INFUSING WELL ON THE RT FAG#22. CLEAR AND PATENT. BLE CELLULITIS ,WITH DRESSING CLEAN AND DRY. CAN BE UP WITH ASSIST ON THE BSC. BED ON LOW POSITION. CALL LIGHT PLACED WITHIN EASY REACH. FREQUENT ROUNDS NEEDED. WILL CONTINUE TO MONITOR.
[2017-07-26] MEDS: LEVOFLOXACIN 750 MG/D5W PREMIX 150 ML IV SCH (20:13)
--- NOTE | 2017-07-26 20:27 | NUR ---
BLOOD SUGAR WAS CHECKED RESULT 137. NO INSULIN NEEDED. HAD SOME CRACKERS FOR SNACK. WILL CONTINUE TO MONITOR.
--- NOTE | 2017-07-26 23:00 | NUR ---
PT SAID SHE DID NOT WANT TO BE PUT ON THE CPAP TONIGHT. I TOLD HER TO CALL IF SHE DECIDED TO WANT TO WEAR IT. PATIENTS RESPIRATORY STATUS IS OK. SATING 98% ON THE 3L.
--- NOTE | 2017-07-26 23:03 | NUR ---
FOLLOW UP PULMONARY VQ SCAN WITH RADIOLOGY. XR TECH SAID IT WAS ALREADY DONE. HE WILL FOLLOW UP THE RESULT. DR. PRASAD,RESIDENT MADE AWARE.
[2017-07-26] MEDS: MORPHINE SULFATE 2 MG/ML SYR IVP PRN (23:34)
[2017-07-27] MEDS: NACL 0.9% 1,000 ML IV SCH (00:36)
--- NOTE | 2017-07-27 01:00 | NUR ---
ASSISTED UP TO SIT ON THE CHAIR PER PT REQUEST. NO SOB NOTED.
--- NOTE | 2017-07-27 03:00 | NUR ---
ASSISTED BACK TO BED WITH SOME DIFFICULTY DUE TO WEAKNESS ON BLE. NO SOB NOTED.
[2017-07-27] MEDS: ALBUTEROL 0.083% 2.5 MG/3 ML NEBU INH SCH ×6 (03:03→23:30)
[2017-07-27 03:44] VITALS: BP 109/67
[2017-07-27] MEDS: CLINDAMYCIN 600 MG in DEXTROSE 5% 50 ML IV SCH ×3 (04:27→21:00)
[2017-07-27] MEDS: ACETAMINOPHEN 325 MG TAB PO PRN (04:30)
[2017-07-27] MEDS: BLOOD GLUCOSE MONITORING 1 DEV DEV FS SCH ×4 (06:14→21:00)
--- NOTE | 2017-07-27 06:14 | NUR ---
BLOOD SUGAR THIS AM 123. NO INSULIN NEEDED.
[2017-07-27] MEDS: LEVOTHYROXINE 0.088 MG TAB PO SCH (06:18)
[2017-07-27] MEDS ORDERED: hePARIN / DEXT 5% PREMIX 250 ML IV SCH (07:20)
[2017-07-27] MEDS ORDERED: HEPARIN PER PHARMACY MC PRN (07:20)
--- NOTE | 2017-07-27 07:24 | NUR ---
ENDORSED PT IN STABLE CONDITION TO AM NURSE.
--- NOTE | 2017-07-27 07:30 | NUR ---
ENDORSEMENT RECEIVED FROM CODIFIER NURSE. PATIENT IS STABLE. RESPIRATION EVEN. SKIN DRY AND WARM TO THE TOUCH. CALL LIGHT WITHIN REACH. WILL CONTINUE TO MONITOR
[2017-07-27 08:00] VITALS: BP 121/60
--- NOTE | 2017-07-27 08:00 | NUR ---
PATIENT IS AWAKE, ALERT, ORIENTED x4. PUPILS EQUAL REACTIVE TO LIGHT. RESPIRATION EVEN, LUNGS SOUND CLEAR THROUGHOUT. CARDIAC WITH S1, S2 PRESENT. BOWEL SOUND ACTIVE ALL 4 QUADRANTS. IV 22 G ON RIGHT ARM WITH NS @10ML/HR, IV PATENT AND INTACT. DENIED OF PAIN AT THIS TIME. CALL LIGHT WITHIN REACH. WILL CONTINUE TO MONITOR
[2017-07-27] MEDS: FAMOTIDINE 20 MG TAB PO SCH (09:03)
[2017-07-27] MEDS: BENAZEPRIL 20 MG TAB PO SCH (09:03)
[2017-07-27] MEDS: FUROSEMIDE 20 MG TAB PO SCH (09:04)
[2017-07-27] MEDS: FOLIC ACID 1 MG TAB PO SCH (09:04)
[2017-07-27] MEDS: MONTELUKAST SODIUM 10 MG TAB PO SCH (09:04)
[2017-07-27] MEDS: predniSONE 10 MG TAB PO SCH (09:05)
[2017-07-27] MEDS: LACTOBACILLUS RHAMNOSUS GG 1 EACH CAP PO SCH (09:06)
[2017-07-27] MEDS: NYSTATIN POW 100 MU/GM 15 GM BTL TP SCH ×2 (09:10→21:00)
[2017-07-27] MEDS: METHOCARBAMOL 500 MG TAB PO SCH ×4 (09:12→21:00)
--- NOTE | 2017-07-27 10:30 | NUR ---
PATIENT WAS AWAKE, ALERT. RESPIRATION EVEN, NO DISTRESS NOTED. WOUND CARE WAS GIVEN ON BILATERAL EXTREMITIES. PATIENT TOLERATED WELL. CALL LIGHT WITHIN REACH. WILL CONTINUE TO MONITOR
--- NOTE | 2017-07-27 11:21 | NUR ---
FAXED CONCURRENT REVIEW TO [facility] [phone] PHONE XENIA [phone]
[2017-07-27 12:00] VITALS: BP 113/64
--- NOTE | 2017-07-27 12:17 | NUR ---
PATIENT IS SLEEPING COMFORTABLY. RESPIRATION EVEN, NO DISTRESS NOTED. SKIN DRY AND WARM TO THE TOUCH. CALL LIGHT WITHIN REACH. WILL CONTINUE TO MONITOR
--- NOTE | 2017-07-27 14:38 | NUR ---
PATIENT IS AWAKE, ALERT. RESPIRATION EVEN, NO DISTRESS NOTED. COMPLAINED OF PAIN ON THE BACK AND EXTREMITIES. WILL MEDICATE PER ORDER. NEWBY CATHETER WAS DRAINED. URINE AMOUNT 1200, STRAW COLOR. CALL LIGHT WITHIN REACH. WILL CONTINUE TO MONITOR.
[2017-07-27] MEDS: MORPHINE SULFATE 2 MG/ML SYR IVP PRN ×2 (14:51→22:53)
--- NOTE | 2017-07-27 15:13 | NUR ---
PT REFUSED HHN TX. NO DISTRESS NOTED.
[2017-07-27 16:00] VITALS: BP 109/49
--- NOTE | 2017-07-27 17:00 | NUR ---
DETAIL SUPERVISOR AT BEDSIDE, GIVING BED BATH. PATIENT IS STABLE, NO DISTRESS NOTED. MEDS WERE GIVEN. CALL LIGHT WITHIN REACH. WILL CONTINUE TO MONITOR Addendum: 07/27/17 at 1855 by Candi Hand RN INTERDRY WAS APPLIED UNDER BREAST FOLD AND ABDOMINAL FOLD
--- NOTE | 2017-07-27 18:30 | NUR ---
PATIENT IS SLEEP COMFORTABLY. RESPIRATION EVEN, NO DISTRESS NOTED. IV IS INFUSING NS. CALL LIGHT WITHIN REACH. WILL CONTINUE TO MONITOR
--- NOTE | 2017-07-27 19:25 | NUR ---
ENDORSEMENT GIVEN TO THE POP SINGER NURSE. PATIENT IS STABLE AT THIS TIME, NO DISTRESS NOTED
--- NOTE | 2017-07-27 19:26 | NUR ---
RECEIVED REPORT FROM DAY NURSE, PT IN STABLE CONDITION. NO S/S OF DISTRESS NOTED. PT OS AAOX4, ON 2L O2 VIA NC. IV TO R FA 22G, PATENT AND INTACT. RLL HAS DRESSING IN PLACE, DRY AND INTACT. RESPIRATIONS ARE EVEN AND UNLABORED, BOWEL SOUNDS PRESENT. SKIN IS WARM AND DRY TO TOUCH. INITIAL ASSESSMENT COMPLETED, PLAN OF CARE DISCUSSED WITH PT AT THE BEDSIDE, VERBALIZED UNDERSTANDING. ALL SAFETY PRECAUTIONS MET, CALL LIGHT WITHIN REACH, WILL CONTINUE TO MONITOR.
[2017-07-27 20:00] VITALS: BP 108/52
[2017-07-27] MEDS: LEVOFLOXACIN 750 MG/D5W PREMIX 150 ML IV SCH (22:53)
--- NOTE | 2017-07-27 23:30 | NUR ---
PT ASLEEP AND REFUSED, NO SOB.
[2017-07-28] VITALS: BP 112/68
[2017-07-28] MEDS: NACL 0.9% 1,000 ML IV SCH (00:36)
[2017-07-28] MEDS: ACETAMINOPHEN 325 MG TAB PO PRN (02:39)
[2017-07-28] MEDS: MORPHINE SULFATE 2 MG/ML SYR IVP PRN ×2 (03:24→08:53)
[2017-07-28] MEDS: IPRATROPIUM 0.02% 0.5 MG/2.5 ML NEBU INH PRN (03:32)
[2017-07-28] MEDS: ALBUTEROL 0.083% 2.5 MG/3 ML NEBU INH SCH ×4 (03:33→10:57)
[2017-07-28 04:00] VITALS: BP 118/70
[2017-07-28] MEDS: CLINDAMYCIN 600 MG in DEXTROSE 5% 50 ML IV SCH (05:41)
[2017-07-28] MEDS: LEVOTHYROXINE 0.088 MG TAB PO SCH (05:41)
[2017-07-28 07:27] LABS: ANION GAP 7.5 (8-16); CARBON DIOXIDE 35.4 mmol/L (21-32); CREATININE 0.7 mg/dL (0.6-1.3); POTASSIUM 3.9 mmol/L (3.5-5.1)
[2017-07-28 07:35] LABS: HEMATOCRIT 27.5 % (36-48); HEMOGLOBIN 8.4 g/dL (12.0-16.0); RED BLOOD CELL COUNT(AUTO) 3.66 MIL/uL (4.20-5.40); WHITE BLOOD COUNT (AUTO) 6.8 K/uL (4.8-10.8)
--- NOTE | 2017-07-28 07:35 | NUR ---
REPORT GIVEN TO DAY NURSE AT THE BEDSIDE FOR CONTINUITY OF CARE, PT IN STABLE CONDITION
--- NOTE | 2017-07-28 07:35 | NUR ---
REPORT RECEIVED FROM NIGHT RN, PT ASLEEP IN BED ON 2L O2 VIA NC, NO S/S OF ACUTE DISTRESS, IV PATENT AND INTACT, SAFETY PRECAUTIONS TAKEN, CALL LIGHT WITHIN REACH.
[2017-07-28 07:36] LABS: LYMPHOCYTES % (AUTO) 14.9 % (20.5-51.1); MEAN CORPUSCULAR HEMOGLOBIN 23 pg (27-31); MEAN CORPUSCULAR HGB CONC 30 g/dL (33-37); MEAN CORPUSCULAR VOLUME 75 fL (80-94); MONOCYTES % (AUTO) 7.1 % (1.7-9.3); NEUTROPHILS % (AUTO) 74.7 % (42.2-75.2); PLATELET COUNT (AUTO) 229 K/uL (140-450); RED CELL DISTRIBUTION WIDTH 17.5 % (11.6-13.7)
[2017-07-28 07:37] LABS: BASOPHILS % (AUTO) 0.3 % (0.0-2.0); EOSINOPHILS # (AUTO) 0.2 K/uL (0-0.4); MONOCYTES # (AUTO) 0.5 K/uL (0.8-1.0); NEUTROPHILS # (AUTO) 5.1 K/uL (1.8-7.7)
[2017-07-28 08:00] VITALS: BP 113/57
[2017-07-28] MEDS: FAMOTIDINE 20 MG TAB PO SCH (08:56)
[2017-07-28] MEDS: MONTELUKAST SODIUM 10 MG TAB PO SCH (08:57)
[2017-07-28] MEDS: METHOCARBAMOL 500 MG TAB PO SCH (08:57)
[2017-07-28] MEDS: FOLIC ACID 1 MG TAB PO SCH (08:58)
[2017-07-28] MEDS: BENAZEPRIL 20 MG TAB PO SCH (08:58)
[2017-07-28] MEDS: FUROSEMIDE 20 MG TAB PO SCH (08:58)
[2017-07-28] MEDS: NYSTATIN POW 100 MU/GM 15 GM BTL TP SCH (09:00)
[2017-07-28] MEDS: LACTOBACILLUS RHAMNOSUS GG 1 EACH CAP PO SCH (09:03)
[2017-07-28] MEDS: predniSONE 10 MG TAB PO SCH (09:03)
--- NOTE | 2017-07-28 09:05 | NUR ---
DUE MEDICATIONS GIVEN WITH EDUCATION, PT VERBALIZED UNDERSTANDING, NO S/S OF ACUTE DISTRESS, CALL LIGHT WITHIN REACH WILL CONT TO MONITOR.
--- NOTE | 2017-07-28 09:53 | NUR ---
NEWBY CATH DC, PT DENIES PAIN, NO S/S OF ACUTE DISTRESS, WILL CONT TO MONITOR.
[2017-07-28 10:15] VITALS: BP 113/57
[2017-07-28] MEDS ORDERED: ASPI-1677 PO (10:19)
--- NOTE | 2017-07-28 10:24 | NUR ---
PT WENT TO PT TO WALK
--- NOTE | 2017-07-28 10:45 | NUR ---
PT AWAKE, PHYSICAL THERAPY AT BESIDE, PT DENIES ANY PAIN, NO S/S 0F ACUTE DISTRESS, WILL CONT TO MONITOR.
--- NOTE | 2017-07-28 10:50 | NUR ---
PT BACK IN ROOM GETTING BREATHING TX
[2017-07-28] MEDS ORDERED: IBUP-2213 PO (11:02)
--- NOTE | 2017-07-28 11:59 | NUR ---
SPOKE WITH LORENZO MARIN CM FROM [facility]. FAXED INITIAL AND CONCURRENT REVIEW TO HER AT [phone] PHONE [phone] FAXED CONCURRENT REVIEW TO [facility] Addendum: 07/28/17 at 1204 by Rachel Santoyo CM [facility] FAX [phone] PHONE XENIA [phone]
--- NOTE | 2017-07-28 12:00 | NUR ---
PT READY FOR DISCHARGE, PT DENIES ANY PAIN, NO S/S OF ACUTE DISTRESS, TELE MONITOR DC, IV TAKEN OUT TIP INTACT, FAMILY AT BEDSIDE, PT DISCHARGE VIA WHEELCHAIR, PT AMBULATE TO CAR WITH ASSIST, FAMILY WAITING IN PARKING LOT, PT IN STABLE CONDITION .
[2017-07-30 15:09] LABS: FOLIC ACID 6.4 ng/mL (>3.0)
== END 2017-07-28 12:00 | disposition home or self-care (01) | DRG 133 ==
LOC: MED 19:54 → MTU 22:41
PROVIDERS: ADMIT Family Medicine Sports Medicine; ATTEND Family Medicine Sports Medicine
PROC: 5A09357 Assistance with Respiratory Ventilation, Less than 24 Consecutive Hours, Continuous Positive Airway Pressure (ICD-10-PCS; principal; 2017-07-25)
DX: J96.21 Acute and chronic respiratory failure with hypoxia (principal); J69.0 Pneumonitis due to inhalation of food and vomit; I50.43 Acute on chronic combined systolic (congestive) and diastolic (congestive) heart failure; E43 Unspecified severe protein-calorie malnutrition; D68.59 Other primary thrombophilia; E11.51 Type 2 diabetes mellitus with diabetic peripheral angiopathy without gangrene; E11.65 Type 2 diabetes mellitus with hyperglycemia; I27.81 Cor pulmonale (chronic); J45.901 Unspecified asthma with (acute) exacerbation; Z68.45 Body mass index [BMI] 70 or greater, adult; J96.22 Acute and chronic respiratory failure with hypercapnia; G47.33 Obstructive sleep apnea (adult) (pediatric); L03.115 Cellulitis of right lower limb; I11.0 Hypertensive heart disease with heart failure; D63.8 Anemia in other chronic diseases classified elsewhere; K21.9 Gastro-esophageal reflux disease without esophagitis; D64.9 Anemia, unspecified; R79.89 Other specified abnormal findings of blood chemistry; E66.01 Morbid (severe) obesity due to excess calories; M79.1 Myalgia; L03.116 Cellulitis of left lower limb; E03.9 Hypothyroidism, unspecified; Z90.49 Acquired absence of other specified parts of digestive tract; Z98.891 History of uterine scar from previous surgery; Z98.51 Tubal ligation status; Z82.49 Family history of ischemic heart disease and other diseases of the circulatory system; Z83.49 Family history of other endocrine, nutritional and metabolic diseases; Z82.5 Family history of asthma and other chronic lower respiratory diseases; Z83.3 Family history of diabetes mellitus; Z82.3 Family history of stroke
CPT/HCPCS: 36415; 51702; 71010; 80048; 80053; 82150; 82550; 82553; 82607; 82728; 82746; 82948; 83036; 83540; 83690; 83735; 83880; 84100; 84436; 84439; 84443; 84479; 84484; 85025; 85045; 85379; 85610; 85730; 87040; 87081; 93005; 93925; 93970; 94640; 94660; 96365; 96366; 96367; 96375; 97110; 97116; 97530; 99285; C1758; J0295; J0696; J1170; J1644; J1940; J1956; J2270; J2405; J2916; J3490; J7030; J7060; J7512; J7613; J7644; Q0092

== ENCOUNTER 2017-11-01 22:18 | Inpatient (IN) | payer MEDICAID ==
[~2017-11-01] VITALS: Ht 149.9 cm; Wt 166.5 kg
[~2017-11-01 22:18] MED LIST changes: +ASPI-1677 PO; -CLIN300C2 PO; -LACT1.4C PO; -METH4TAB1 PO; -NITR100C7 PO
[2017-11-01 22:23] VITALS: BP 152/88
[2017-11-01] MEDS ORDERED: ALBUTEROL SULFATE/IPRATROPIU 3 ML SOL IH ONE (23:40)
[2017-11-01] MEDS ORDERED: NACL 0.9% 1,000 ML IV ONE (23:40)
[2017-11-02 00:11] LABS: BASOPHILS # (AUTO) 0.1 K/uL (0.00-0.22); BASOPHILS % (AUTO) 0.8 % (0.0-2.0); EOSINOPHILS # (AUTO) 0.3 K/uL (0-0.4); EOSINOPHILS % (AUTO) 3.1 % (0.0-4.0); HEMATOCRIT 32.5 % (36-48); HEMOGLOBIN 10.2 g/dL (12.0-16.0); LYMPHOCYTES # (AUTO) 1.8 K/uL (2.5-16.5); LYMPHOCYTES % (AUTO) 18.9 % (20.5-51.1); MEAN CORPUSCULAR HEMOGLOBIN 24 pg (27-31); MEAN CORPUSCULAR HGB CONC 31 g/dL (33-37); MEAN CORPUSCULAR VOLUME 75 fL (80-94); MONOCYTES # (AUTO) 0.5 K/uL (0.8-1.0); MONOCYTES % (AUTO) 5.5 % (1.7-9.3); NEUTROPHILS # (AUTO) 6.8 K/uL (1.8-7.7); NEUTROPHILS % (AUTO) 71.7 % (42.2-75.2); PLATELET COUNT (AUTO) 257 K/uL (140-450); RED BLOOD CELL COUNT(AUTO) 4.32 MIL/uL (4.20-5.40); RED CELL DISTRIBUTION WIDTH 15.9 % (11.6-13.7); WHITE BLOOD COUNT (AUTO) 9.4 K/uL (4.8-10.8)
[2017-11-02 00:19] LABS: ANION GAP 10.8 (8-16); CARBON DIOXIDE 27.2 mmol/L (21-32); CREATININE 0.8 mg/dL (0.6-1.3)
[2017-11-02 00:25] LABS: ALBUMIN 3.3 g/dL (3.4-5.0); TOTAL BILIRUBIN 0.3 mg/dL (0.0-1.0)
[2017-11-02 00:30] LABS: PROTHROMBIN TIME 10.7 secs (10.8-13.4)
[2017-11-02] MEDS ORDERED: KETOROLAC 30 MG/ML VIAL IVP ONE (00:40)
[2017-11-02] MEDS ORDERED: HYDROcodone/APAP 7.5/325 MG 1 TAB PO PRN (01:50)
[2017-11-02] MEDS ORDERED: ONDANSETRON 4 MG/2 ML VIAL IVP PRN (01:50)
[2017-11-02] MEDS ORDERED: DEXTROSE 50% 50 ML SYR IVP PRN (02:25)
[2017-11-02 02:28] LABS: CHOL/HDL RATIO 3.8 (1-4.5); FREE T4 (FREE THYROXINE) 1.18 ng/dL (0.76-1.46); THYROID STIMULATING HORMONE 2.19 uIU/mL (0.34-3.74)
[2017-11-02 03:00] VITALS: BP 114/63
[2017-11-02] MEDS: BLOOD GLUCOSE MONITORING 1 DEV DEV FS SCH ×5 (03:00→20:46)
[2017-11-02] MEDS: NACL 0.9% 1,000 ML IV SCH ×2 (03:00→22:26)
[2017-11-02] MEDS ORDERED: IBUPROFEN 600 MG TAB PO SCH (03:40)
[2017-11-02] MEDS ORDERED: guaiFENesin 20 MG/ML UDC PO SCH (03:40)
[2017-11-02] MEDS ORDERED: HYDROcodone/APAP 10/325 MG 1 TAB TAB PO PRN ×2 (03:40→08:55)
[2017-11-02] MEDS ORDERED: ALBUTEROL HFA MDI 90 MCG/ACTUATION 8 GM INH SCH ×2 (03:40)
[2017-11-02] MEDS ORDERED: ALBUTEROL SULFATE/IPRATROPIU 3 ML SOL IH PRN (04:35)
[2017-11-02] MEDS ORDERED: IBUPROFEN 600 MG TAB PO PRN (04:35)
[2017-11-02] MEDS ORDERED: guaiFENesin 20 MG/ML UDC PO PRN (05:20)
[2017-11-02] MEDS: METHOCARBAMOL 500 MG TAB PO PRN ×2 (06:18→23:35)
[2017-11-02] MEDS: LEVOTHYROXINE 0.088 MG TAB PO SCH (06:30)
[2017-11-02 06:56] LABS: BASOPHILS % (AUTO) 0.7 % (0.0-2.0); EOSINOPHILS # (AUTO) 0.2 K/uL (0-0.4); EOSINOPHILS % (AUTO) 3.3 % (0.0-4.0); HEMATOCRIT 30.6 % (36-48); HEMOGLOBIN 9.9 g/dL (12.0-16.0); LYMPHOCYTES # (AUTO) 1.6 K/uL (2.5-16.5); LYMPHOCYTES % (AUTO) 23.1 % (20.5-51.1); MEAN CORPUSCULAR HEMOGLOBIN 24 pg (27-31); MEAN CORPUSCULAR HGB CONC 32 g/dL (33-37); MEAN CORPUSCULAR VOLUME 75 fL (80-94); MONOCYTES # (AUTO) 0.5 K/uL (0.8-1.0); MONOCYTES % (AUTO) 6.7 % (1.7-9.3); NEUTROPHILS # (AUTO) 4.8 K/uL (1.8-7.7); NEUTROPHILS % (AUTO) 66.2 % (42.2-75.2); PLATELET COUNT (AUTO) 232 K/uL (140-450); RED BLOOD CELL COUNT(AUTO) 4.11 MIL/uL (4.20-5.40); RED CELL DISTRIBUTION WIDTH 15.8 % (11.6-13.7); WHITE BLOOD COUNT (AUTO) 7.1 K/uL (4.8-10.8)
[2017-11-02 07:21] LABS: ANION GAP 12.4 (8-16); CARBON DIOXIDE 28.6 mmol/L (21-32); CREATININE 0.8 mg/dL (0.6-1.3)
[2017-11-02 07:32] LABS: PHOSPHORUS 4.9 mg/dL (2.5-4.9)
[2017-11-02] MEDS: ALBUTEROL SULFATE/IPRATROPIU 3 ML SOL IH PRN ×4 (07:37→23:26)
[2017-11-02 08:00] VITALS: BP 129/72
[2017-11-02] MEDS: FAMOTIDINE 20 MG TAB PO SCH (09:31)
[2017-11-02] MEDS: FUROSEMIDE 20 MG TAB PO SCH (09:31)
[2017-11-02] MEDS: ESCITALOPRAM 20 MG TAB PO SCH (09:32)
[2017-11-02] MEDS: ASPIRIN 81 MG TAB.CHEW PO SCH (09:32)
[2017-11-02] MEDS: LORATADINE 10 MG TAB PO SCH (09:32)
[2017-11-02] MEDS: DOCUSATE SODIUM 100 MG GELCAP PO SCH ×2 (09:32→21:34)
[2017-11-02] MEDS: BENAZEPRIL 20 MG TAB PO SCH (09:33)
[2017-11-02 10:21] LABS: APPEARANCE,URINE CLEAR (CLEAR); BILIRUBIN,URINE 1+ (NEGATIVE); BLOOD, URINE TRACE-I (NEGATIVE); LEUKOCYTE ESTERASE ,URINE NEGATIVE (NEGATIVE); NITRITE, URINE NEGATIVE (NEGATIVE); PH,URINE 5.5 (5.0-9.0); UGLUCOSE NEGATIVE (NEGATIVE)
[2017-11-02 10:23] LABS: BARBITURATE, URINE NEG. ng/ml (NEG <=200); BENZODIAZEPINE, URINE NEG. ng/mL (NEG <=200); CANNABINOID, URINE NEG. ng/mL (NEG <=50); COCAINE, URINE NEG. ng/mL (NEG <=300); OPIATE, URINE NEG. ng/mL (NEG <=2000); PHENCYCLIDINE SCREEN,URINE NEG. ng/mL (NEG <=25)
[2017-11-02 10:47] LABS: COLOR,URINE AMBER (YELLOW)
[2017-11-02 10:49] LABS: RBC,URINE NONE SEEN /HPF (0-5); WBC,URINE 0-5 (RARE) /HPF (0-5)
[2017-11-02 10:50] LABS: CALCIUM OXALATE CRYSTALS,UR 0-10 /HPF (None Seen)
[2017-11-02] MEDS: ACETAMINOPHEN 325 MG TAB PO PRN ×2 (11:46→18:08)
[2017-11-02 12:00] VITALS: BP 133/74
[2017-11-02 16:00] VITALS: BP 101/48
[2017-11-02 19:56] VITALS: BP 134/58
[2017-11-02] MEDS: INSULIN LISPRO SLIDING SCALE 100 UNITS/ML VIAL SUBQ PRN (21:31)
[2017-11-03 00:47] VITALS: BP 113/57
[2017-11-03] MEDS: ACETAMINOPHEN 325 MG TAB PO PRN ×4 (02:45→21:48)
[2017-11-03 04:41] VITALS: BP 133/64
[2017-11-03] MEDS: BLOOD GLUCOSE MONITORING 1 DEV DEV FS SCH ×4 (06:01→21:55)
[2017-11-03] MEDS: LEVOTHYROXINE 0.088 MG TAB PO SCH (06:05)
[2017-11-03] MEDS: INSULIN LISPRO SLIDING SCALE 100 UNITS/ML VIAL SUBQ PRN ×2 (06:06→12:30)
[2017-11-03 06:19] LABS: ANION GAP 10.6 (8-16); CARBON DIOXIDE 29.5 mmol/L (21-32); CREATININE 0.7 mg/dL (0.6-1.3); POTASSIUM 4.1 mmol/L (3.5-5.1)
[2017-11-03 06:23] LABS: MAGNESIUM 2.1 mg/dL (1.8-2.4); PHOSPHORUS 4.5 mg/dL (2.5-4.9)
[2017-11-03 06:24] LABS: BASOPHILS # (AUTO) 0.1 K/uL (0.00-0.22); BASOPHILS % (AUTO) 0.7 % (0.0-2.0); EOSINOPHILS # (AUTO) 0.3 K/uL (0-0.4); EOSINOPHILS % (AUTO) 2.9 % (0.0-4.0); HEMATOCRIT 30.1 % (36-48); HEMOGLOBIN 9.6 g/dL (12.0-16.0); LYMPHOCYTES # (AUTO) 1.4 K/uL (2.5-16.5); LYMPHOCYTES % (AUTO) 15.9 % (20.5-51.1); MEAN CORPUSCULAR HEMOGLOBIN 24 pg (27-31); MEAN CORPUSCULAR HGB CONC 32 g/dL (33-37); MEAN CORPUSCULAR VOLUME 76 fL (80-94); MONOCYTES # (AUTO) 0.5 K/uL (0.8-1.0); MONOCYTES % (AUTO) 6.1 % (1.7-9.3); NEUTROPHILS # (AUTO) 6.4 K/uL (1.8-7.7); NEUTROPHILS % (AUTO) 74.4 % (42.2-75.2); PLATELET COUNT (AUTO) 240 K/uL (140-450); RED BLOOD CELL COUNT(AUTO) 3.99 MIL/uL (4.20-5.40); RED CELL DISTRIBUTION WIDTH 15.5 % (11.6-13.7); WHITE BLOOD COUNT (AUTO) 8.7 K/uL (4.8-10.8)
[2017-11-03] MEDS: ALBUTEROL SULFATE/IPRATROPIU 3 ML SOL IH PRN ×2 (07:32→11:14)
[2017-11-03 08:00] VITALS: BP 124/73
[2017-11-03] MEDS: ESCITALOPRAM 20 MG TAB PO SCH (08:48)
[2017-11-03] MEDS: LORATADINE 10 MG TAB PO SCH (08:48)
[2017-11-03] MEDS: FAMOTIDINE 20 MG TAB PO SCH (08:48)
[2017-11-03] MEDS: BENAZEPRIL 20 MG TAB PO SCH (08:49)
[2017-11-03] MEDS: DOCUSATE SODIUM 100 MG GELCAP PO SCH ×2 (08:49→21:48)
[2017-11-03] MEDS: ASPIRIN 81 MG TAB.CHEW PO SCH (08:49)
[2017-11-03] MEDS: FUROSEMIDE 20 MG TAB PO SCH (08:49)
[2017-11-03 12:35] VITALS: BP 125/70
[2017-11-03 15:10] LABS: FOLIC ACID 7.6 ng/mL (>3.0)
[2017-11-03 16:00] VITALS: BP 118/67
[2017-11-03 20:00] VITALS: BP 112/58
[2017-11-03] MEDS: NACL 0.9% 1,000 ML IV SCH (21:46)
[2017-11-03] MEDS: METHOCARBAMOL 500 MG TAB PO PRN (21:48)
[2017-11-04] VITALS: BP 132/66
[2017-11-04 04:00] VITALS: BP 100/46
[2017-11-04] MEDS: ACETAMINOPHEN 325 MG TAB PO PRN (05:16)
[2017-11-04 05:55] LABS: BASOPHILS % (AUTO) 0.6 % (0.0-2.0); EOSINOPHILS # (AUTO) 0.3 K/uL (0-0.4); EOSINOPHILS % (AUTO) 4.2 % (0.0-4.0); HEMATOCRIT 32.9 % (36-48); HEMOGLOBIN 10.4 g/dL (12.0-16.0); LYMPHOCYTES # (AUTO) 1.4 K/uL (2.5-16.5); LYMPHOCYTES % (AUTO) 18.9 % (20.5-51.1); MEAN CORPUSCULAR HEMOGLOBIN 24 pg (27-31); MEAN CORPUSCULAR HGB CONC 32 g/dL (33-37); MEAN CORPUSCULAR VOLUME 76 fL (80-94); MONOCYTES # (AUTO) 0.4 K/uL (0.8-1.0); MONOCYTES % (AUTO) 6.1 % (1.7-9.3); NEUTROPHILS # (AUTO) 5.1 K/uL (1.8-7.7); NEUTROPHILS % (AUTO) 70.2 % (42.2-75.2); PLATELET COUNT (AUTO) 247 K/uL (140-450); RED BLOOD CELL COUNT(AUTO) 4.32 MIL/uL (4.20-5.40); RED CELL DISTRIBUTION WIDTH 15.8 % (11.6-13.7); WHITE BLOOD COUNT (AUTO) 7.2 K/uL (4.8-10.8)
[2017-11-04] MEDS: LEVOTHYROXINE 0.088 MG TAB PO SCH (06:06)
[2017-11-04 06:38] LABS: CARBON DIOXIDE 30.2 mmol/L (21-32); POTASSIUM 4.2 mmol/L (3.5-5.1)
[2017-11-04 06:39] LABS: CREATININE 0.7 mg/dL (0.6-1.3)
[2017-11-04 06:44] LABS: PHOSPHORUS 4.3 mg/dL (2.5-4.9)
[2017-11-04] MEDS: BLOOD GLUCOSE MONITORING 1 DEV DEV FS SCH (06:54)
[2017-11-04] MEDS: ALBUTEROL SULFATE/IPRATROPIU 3 ML SOL IH PRN (07:01)
[2017-11-04] MEDS ORDERED: guaiFENesin 20 MG/ML UDC PO PRN (07:20)
[2017-11-04 08:00] VITALS: BP 111/57
[2017-11-04] MEDS ORDERED: ROB PO (10:09)
[2017-11-04] MEDS ORDERED: LORA10TA19 PO (10:09)
[2017-11-04] MEDS ORDERED: ACET-787 PO (10:09)
[2017-11-04] MEDS: DOCUSATE SODIUM 100 MG GELCAP PO SCH (10:10)
[2017-11-04] MEDS: ESCITALOPRAM 20 MG TAB PO SCH (10:10)
[2017-11-04] MEDS: ASPIRIN 81 MG TAB.CHEW PO SCH (10:10)
[2017-11-04] MEDS: LORATADINE 10 MG TAB PO SCH (10:11)
[2017-11-04] MEDS: FAMOTIDINE 20 MG TAB PO SCH (10:11)
[2017-11-04] MEDS: FUROSEMIDE 20 MG TAB PO SCH (10:11)
[2017-11-04] MEDS ORDERED: METHOCARBAMOL 500 MG TAB PO PRN (12:12)
== END 2017-11-04 12:05 | disposition home or self-care (01) | DRG 133 ==
LOC: MED 22:18 → CANBEDREQ 11-02 01:21 → MMU 11-02 01:54 → MTU 11-03 16:49
PROVIDERS: ADMIT Family Medicine Sports Medicine; ATTEND Family Medicine Sports Medicine
DX: J96.21 Acute and chronic respiratory failure with hypoxia (principal); N17.0 Acute kidney failure with tubular necrosis; E43 Unspecified severe protein-calorie malnutrition; I50.43 Acute on chronic combined systolic (congestive) and diastolic (congestive) heart failure; D68.59 Other primary thrombophilia; E11.22 Type 2 diabetes mellitus with diabetic chronic kidney disease; E11.51 Type 2 diabetes mellitus with diabetic peripheral angiopathy without gangrene; E66.2 Morbid (severe) obesity with alveolar hypoventilation; J44.9 Chronic obstructive pulmonary disease, unspecified; K21.9 Gastro-esophageal reflux disease without esophagitis; E03.9 Hypothyroidism, unspecified; I13.0 Hypertensive heart and chronic kidney disease with heart failure and stage 1 through stage 4 chronic kidney disease, or unspecified chronic kidney disease; D50.9 Iron deficiency anemia, unspecified; I25.10 Atherosclerotic heart disease of native coronary artery without angina pectoris; F41.8 Other specified anxiety disorders; I27.81 Cor pulmonale (chronic); E11.65 Type 2 diabetes mellitus with hyperglycemia; Z68.45 Body mass index [BMI] 70 or greater, adult; Z79.84 Long term (current) use of oral hypoglycemic drugs; Z79.1 Long term (current) use of non-steroidal anti-inflammatories (NSAID); Z79.82 Long term (current) use of aspirin; Z79.899 Other long term (current) drug therapy; Z86.718 Personal history of other venous thrombosis and embolism; Z90.49 Acquired absence of other specified parts of digestive tract; Z98.51 Tubal ligation status; Z82.5 Family history of asthma and other chronic lower respiratory diseases; Z82.3 Family history of stroke; Z82.49 Family history of ischemic heart disease and other diseases of the circulatory system; Z83.3 Family history of diabetes mellitus; Z99.81 Dependence on supplemental oxygen
CPT/HCPCS: 36415; 36600; 71045; 78582; 80048; 80053; 80305; 81001; 82150; 82607; 82728; 82746; 82803; 82948; 83036; 83540; 83605; 83690; 83735; 83880; 84100; 84439; 84443; 84484; 85025; 85045; 85379; 85610; 85730; 87040; 87081; 87086; 93005; 93970; 94640; 96361; 96374; 99285; J1644; J1815; J1885; J2405; J7030; J7620; Q0092

== ENCOUNTER 2018-01-22 19:55 | Emergency (ER) | payer MEDICAID ==
[~2018-01-22] VITALS: Ht 149.9 cm; Wt 158.8 kg
[~2018-01-22 19:55] MED LIST changes: -FLOR250 PO; -METF850T PO; -MONT10TA35 PO
[2018-01-22 20:05] VITALS: BP 159/96
--- NOTE | 2018-01-22 20:05 | NUR ---
PT.AMBULATED TO SEEMA GRIFFITHS. DR. BERRY MADE AWARE OF PT. STATUS
--- NOTE | 2018-01-22 20:29 | NUR ---
SADIA VIA W/C TO XRAY
--- NOTE | 2018-01-22 20:34 | NUR ---
PT. BIB TO ER BED 7
--- NOTE | 2018-01-22 20:56 | NUR ---
PT C/O INCREASED SOB WITH EXERTION WORSENING TODAY. HX OF COPD. PT ON STRETCHER IN NO ACUTE DISTRESS WILL CONTINUE TO MONITOR CLOSELY.
[2018-01-22] MEDS ORDERED: ONDANSETRON 4 MG ODT PO ONE (21:05)
[2018-01-22] MEDS ORDERED: MORPHINE SULFATE 4 MG/ML SYR IVP ONE (21:05)
[2018-01-22 21:54] LABS: BASOPHILS % (AUTO) 0.4 % (0.0-2.0); EOSINOPHILS # (AUTO) 0.3 K/uL (0-0.4); HEMOGLOBIN 10.7 g/dL (12.0-16.0); MONOCYTES # (AUTO) 0.4 K/uL (0.8-1.0)
[2018-01-22 21:59] LABS: HEMATOCRIT 34.1 % (36-48); LYMPHOCYTES # (AUTO) 1.1 K/uL (2.5-16.5); LYMPHOCYTES % (AUTO) 12.7 % (20.5-51.1); MEAN CORPUSCULAR HEMOGLOBIN 24 pg (27-31); MEAN CORPUSCULAR HGB CONC 31 g/dL (33-37); MEAN CORPUSCULAR VOLUME 77.8 fL (80-94); MONOCYTES % (AUTO) 4.3 % (1.7-9.3); NEUTROPHILS # (AUTO) 7.2 K/uL (1.8-7.7); NEUTROPHILS % (AUTO) 79.6 % (42.2-75.2); PLATELET COUNT (AUTO) 253 K/uL (140-450); RED BLOOD CELL COUNT(AUTO) 4.39 MIL/uL (4.20-5.40); RED CELL DISTRIBUTION WIDTH 16.4 % (11.6-13.7)
--- NOTE | 2018-01-22 22:02 | NUR ---
PT ASSISTED TO BATHROOM WITH JAN MENDEZ
[2018-01-22 22:13] LABS: CARBON DIOXIDE 30.2 mmol/L (21-32); CREATININE 0.9 mg/dL (0.6-1.3); POTASSIUM 4.2 mmol/L (3.5-5.1)
[2018-01-22 22:19] LABS: ALBUMIN 3.5 g/dL (3.4-5.0); TOTAL BILIRUBIN 0.4 mg/dL (0.0-1.0)
[2018-01-22 23:17] VITALS: BP 121/63
--- NOTE | 2018-01-22 23:17 | NUR ---
Patient discharged with v/s stable. Written and verbal after care instructions given and explained. Patient alert, oriented and verbalized understanding of instructions. Ambulatory with steady gait. All questions addressed prior to discharge. ID band removed. Patient advised to follow up with PMD. Rx of TOBRAMYCIN, GUAIATUSSIN, AZITHROMYCIN given. Patient educated on indication of medication including possible reaction and side effects. Opportunity to ask questions provided and answered.
== END 2018-01-22 22:59 | disposition home or self-care (01) ==
LOC: MED 19:55
DX: H10.9 Unspecified conjunctivitis (principal); J40 Bronchitis, not specified as acute or chronic; J44.9 Chronic obstructive pulmonary disease, unspecified; E11.9 Type 2 diabetes mellitus without complications; I10 Essential (primary) hypertension; E07.9 Disorder of thyroid, unspecified; Z79.899 Other long term (current) drug therapy
CPT/HCPCS: 36415; 36600; 71045; 80053; 82550; 82553; 82803; 83605; 83690; 83880; 84484; 85025; 87040; 93005; 96374; 99285; J2270; S0119

== ENCOUNTER 2018-02-24 18:39 | Inpatient (IN) | payer MEDICAID ==
[~2018-02-24] VITALS: Ht 144.8 cm; Wt 185.5 kg
[2018-02-24 19:03] VITALS: BP 159/90
--- NOTE | 2018-02-24 19:18 | NUR ---
PT TAKEN TO BED 4
--- NOTE | 2018-02-24 19:20 | NUR ---
47/F CAME IN W C/O SOB X 1 WEEK. PER PT WAS SEEN BY PMD TODAY AND WAS TOLD TO GO TO [facility]. PT NOTED WITH INCREASED WOB, UNABLE TO SPEAK FULL SENTENCES, 28RR EVEN AND LABORED, LUNG SOUNDS DIMINISHED AT BASES. PT ON O2 AT HOME NC 3LPM. HOB ELEVATED, GIVEN 3LPM NC, SATS 95%. PMH: COPD, CAD, ASTHMA, HTN, THYROID
--- NOTE | 2018-02-24 20:06 | NUR ---
Dr. Adame evaluating patient at bedside.
--- NOTE | 2018-02-24 20:27 | NUR ---
IV 20 GA RT FOREARM.
[2018-02-24] MEDS ORDERED: NITROGLYCERIN 2% 1 GM PKT TP ONE (20:40)
[2018-02-24] MEDS ORDERED: ALBUTEROL 0.083% 2.5 MG/3 ML NEBU INH ONE (20:40)
[2018-02-24] MEDS ORDERED: ENALAPRILAT 2.5 MG/2 ML VIAL IVP ONE (20:40)
[2018-02-24] MEDS ORDERED: FUROSEMIDE 100 MG/10 ML VIAL IVP ONE (20:40)
[2018-02-24] MEDS ORDERED: MAGNESIUM SULFATE 50% 1,000 MG in NACL 0.9% 50 ML IV ONE (20:40)
[2018-02-24] MEDS ORDERED: IPRATROPIUM 0.02% 0.5 MG/2.5 ML NEBU INH ONE (20:40)
[2018-02-24] MEDS ORDERED: MAGNESIUM SULFATE 50% 1000 MG/2 ML VIAL IV ONE (20:48)
--- NOTE | 2018-02-24 20:50 | NUR ---
Respiratory Therapist at bedside for respiratory intervention.
--- NOTE | 2018-02-24 21:00 | NUR ---
BREATHING TREATMENT COMPLETED, PT GIOVANNI WELL. ALL LUNG SOUNDS CBTA, DIMINISHED AT BASES, SATS 98% ON 3LPMNC. PT REPORTS FEELING BETTER. ABLE TO SPEAK FULL SENTENCES WITHOUT DIFFICULTIES.
--- NOTE | 2018-02-24 21:52 | NUR ---
PHLEB AT BEDSIDE FOR LAB DRAWS
[2018-02-24 22:15] LABS: BASOPHILS # (AUTO) 0.1 K/uL (0.00-0.22); BASOPHILS % (AUTO) 0.5 % (0.0-2.0); EOSINOPHILS # (AUTO) 0.2 K/uL (0-0.4); EOSINOPHILS % (AUTO) 1.8 % (0.0-4.0); HEMATOCRIT 33.8 % (36-48); HEMOGLOBIN 10.6 g/dL (12.0-16.0); LYMPHOCYTES # (AUTO) 1.6 K/uL (2.5-16.5); LYMPHOCYTES % (AUTO) 15.3 % (20.5-51.1); MEAN CORPUSCULAR HEMOGLOBIN 24 pg (27-31); MEAN CORPUSCULAR HGB CONC 31 g/dL (33-37); MEAN CORPUSCULAR VOLUME 76.6 fL (80-94); MONOCYTES # (AUTO) 0.4 K/uL (0.8-1.0); MONOCYTES % (AUTO) 3.9 % (1.7-9.3); NEUTROPHILS # (AUTO) 8.2 K/uL (1.8-7.7); NEUTROPHILS % (AUTO) 78.5 % (42.2-75.2); PLATELET COUNT (AUTO) 286 K/uL (140-450); RED BLOOD CELL COUNT(AUTO) 4.41 MIL/uL (4.20-5.40); RED CELL DISTRIBUTION WIDTH 16.4 % (11.6-13.7); WHITE BLOOD COUNT (AUTO) 10.5 K/uL (4.8-10.8)
[2018-02-24 22:31] LABS: ANION GAP 11.7 (8-16); CARBON DIOXIDE 31.5 mmol/L (21-32); CREATININE 0.9 mg/dL (0.6-1.3); POTASSIUM 4.2 mmol/L (3.5-5.1)
[2018-02-24 22:37] LABS: ALBUMIN 3.6 g/dL (3.4-5.0); TOTAL BILIRUBIN 0.5 mg/dL (0.0-1.0)
[2018-02-24] MEDS ORDERED: ONDANSETRON 4 MG/2 ML VIAL IVP ONE (22:40)
[2018-02-24] MEDS ORDERED: MORPHINE SULFATE 2 MG/ML SYR IVP ONE (22:40)
--- NOTE | 2018-02-24 23:24 | NUR ---
Narciso hercules in [facility] - 02/25/18 at 0010 by MEDRJJ Pt transferred to [facility] via BED WITH MILLICENT FOSTER .
[2018-02-24] MEDS: NACL 0.9% 1,000 ML IV SCH (23:52)
[2018-02-24] MEDS ORDERED: HYDROcodone/APAP 7.5/325 MG 1 TAB PO PRN (23:55)
--- NOTE | 2018-02-24 23:56 | NUR ---
Ultrasound at bedside.
--- NOTE | 2018-02-24 23:57 | NUR ---
PT ON DELAY TO MST D/T ULTRASOUND AT BEDSIDE
[2018-02-25] MEDS ORDERED: ALBUTEROL SULFATE/IPRATROPIU 3 ML SOL IH PRN
[2018-02-25] MEDS ORDERED: HYDROcodone/APAP 10/325 MG 1 TAB TAB PO PRN (00:10)
[2018-02-25] MEDS ORDERED: ALBUTEROL HFA MDI 90 MCG/ACTUATION 8 GM INH SCH ×2 (00:10)
[2018-02-25] MEDS ORDERED: guaiFENesin 20 MG/ML UDC PO SCH (00:10)
[2018-02-25] MEDS ORDERED: IBUPROFEN 600 MG TAB PO SCH (00:10)
[2018-02-25] MEDS ORDERED: DEXTROSE 50% 50 ML SYR IVP PRN (00:10)
--- NOTE | 2018-02-25 00:25 | NUR ---
Patient will be admitted to care of [facility]. Admited to TELE. Will go to room 111A. Belongings list completed. Report to VANNA RICKS.
--- NOTE | 2018-02-25 00:30 | NUR ---
RECEIVED REPORT FROM BEBE MOTORCYCLE RACER NURSE AT BEDSIDE FOR TRANSFER OF CARE FROM ER TO MS/T. PT IN STABLE CONDITION. SHE IS AOX4 AND SHE IS SITTING UP WITH HOB 45 DEGREE AND SIDE RAILS UP X 2 . PT SKIN INTACT EXCEPT FOR BLE HAS SOME SLIGHT SWELLING AND SHINNY REDDNESS WITH A FEW CLOSED BLISTERS NOTED. PEDAL PULSES FELT. FEET AND ANKLES HAVE +2 PITTING EDEMA. PT IN 3 LITERS VIA N/C PT HAS IV SITE R F/A 20 G SALINE LOCKED. PT PLACED ON TELE MONITORING AND HAS NSR. CALL JEFFERSON PLACED IN REACH.
[2018-02-25 00:33] VITALS: BP 104/56
--- NOTE | 2018-02-25 01:00 | NUR ---
RESPIRATORY IN ROOM SETTING UP CPAP FOR PT. PT HAD C/O OF 5/10 PAIN AND WAS GIVEN TYLENOL FOR HEAD ACHE AND MUSCLE CRAMPS. PT ALSO REQUESTED A SMALL SNACK WHICH WAS GIVEN TO PT WHO REMAINS ON A CARDIAC DIET. PT EXPRESSED DESIRE FOR THE PN SHOT AND A CONSULT WITH FNS TO HELP WITH WT LOSS. PT COOPERATIVE AND PLEASANT.
[2018-02-25] MEDS: ACETAMINOPHEN 325 MG TAB PO PRN ×2 (01:22→11:58)
[2018-02-25 02:25] LABS: CHOL/HDL RATIO 3.2 (1-4.5); FREE T4 (FREE THYROXINE) 1.11 ng/dL (0.76-1.46); THYROID STIMULATING HORMONE 1.83 uIU/mL (0.34-3.74)
[2018-02-25 04:00] VITALS: BP 93/51
[2018-02-25] MEDS ORDERED: methylPREDNISolone SS 125 MG/2 ML VIAL IVP SCH (04:00)
[2018-02-25] MEDS ORDERED: guaiFENesin DM SUGAR FREE 100 MG/5 ML UDBTL PO PRN (05:00)
[2018-02-25 05:15] LABS: BASOPHILS % (AUTO) 0.3 % (0.0-2.0); EOSINOPHILS # (AUTO) 0.2 K/uL (0-0.4); EOSINOPHILS % (AUTO) 2.4 % (0.0-4.0); HEMATOCRIT 29.5 % (36-48); HEMOGLOBIN 9.3 g/dL (12.0-16.0); LYMPHOCYTES # (AUTO) 1.2 K/uL (2.5-16.5); LYMPHOCYTES % (AUTO) 15.1 % (20.5-51.1); MEAN CORPUSCULAR HEMOGLOBIN 24 pg (27-31); MEAN CORPUSCULAR HGB CONC 32 g/dL (33-37); MEAN CORPUSCULAR VOLUME 76.6 fL (80-94); MONOCYTES # (AUTO) 0.5 K/uL (0.8-1.0); MONOCYTES % (AUTO) 5.8 % (1.7-9.3); NEUTROPHILS # (AUTO) 5.9 K/uL (1.8-7.7); NEUTROPHILS % (AUTO) 76.4 % (42.2-75.2); PLATELET COUNT (AUTO) 226 K/uL (140-450); RED BLOOD CELL COUNT(AUTO) 3.85 MIL/uL (4.20-5.40); RED CELL DISTRIBUTION WIDTH 16.3 % (11.6-13.7); WHITE BLOOD COUNT (AUTO) 7.7 K/uL (4.8-10.8)
[2018-02-25 05:35] LABS: PROTHROMBIN TIME 11.1 secs (10.8-13.4)
[2018-02-25] MEDS ORDERED: methylPREDNISolone SS 125 MG/2 ML VIAL ONE (05:37)
[2018-02-25] MEDS ORDERED: CLINDAMYCIN 600 MG/4 ML VIAL ONE (05:38)
[2018-02-25 05:45] LABS: ANION GAP 9.1 (8-16); CARBON DIOXIDE 33.9 mmol/L (21-32); CREATININE 0.8 mg/dL (0.6-1.3)
[2018-02-25 05:48] LABS: PHOSPHORUS 4.6 mg/dL (2.5-4.9)
[2018-02-25] MEDS: LEVOFLOXACIN 500 MG/D5W PREMIX 100 ML IV SCH (05:59)
[2018-02-25] MEDS ORDERED: ALBUTEROL SULFATE/IPRATROPIU 3 ML SOL IH SCH (06:00)
[2018-02-25] MEDS ORDERED: CLINDAMYCIN 600 MG in DEXTROSE 5% 50 ML IV SCH (06:00)
--- NOTE | 2018-02-25 07:22 | NUR ---
RECEIVED REPORT FROM NIGHTSHIFT NURSE AT BEDSIDE. PATIENT IS ALERT AND ORIENTED X4. NO DISTRESS NOTED. PATIENT HAS AN IV NOTED ON HER RIGHT FOREARM 22 G SALINE LOCK. PATIENT ON 3LITERS O2 VIA NC. PATIENT HAD REDNESS NOTED ON BOTH LEGS. PATIENT SAYS THERE IS SOME PAIN AT BOTH SITES. CALL LIGHT PLACED WITHIN REACH OF PATIENT. LOWERED PATIENT'S BED TO LOWEST SETTING. APPROPRIATE SIGNS PLACED OUTSIDE OF PATIENTS ROOM. WILL CONTINUE TO MONITOR PATIENT.
[2018-02-25] MEDS: INSULIN LISPRO SLIDING SCALE 100 UNITS/ML VIAL SUBQ PRN ×4 (07:58→21:51)
[2018-02-25] MEDS: BLOOD GLUCOSE MONITORING 1 DEV DEV FS SCH ×4 (07:59→21:48)
[2018-02-25 08:00] VITALS: BP 117/62
--- NOTE | 2018-02-25 08:37 | NUR ---
PATIENT HAS BEEN SCREENED AND CATEGORIZED HIGH NUTRITION RISK. PATIENT WILL BE SEEN WITHIN 1-2 DAYS OF ADMISSION. 02/25/18 02/26/[address]
[2018-02-25] MEDS ORDERED: FUROSEMIDE 20 MG TAB PO SCH ×2 (09:00)
[2018-02-25] MEDS: LORATADINE 10 MG TAB PO SCH (09:00)
[2018-02-25] MEDS ORDERED: FUROSEMIDE 40 MG TAB PO SCH (09:00)
--- NOTE | 2018-02-25 09:19 | NUR ---
FAXED INITIAL REVIEW TO [facility] [phone] PHONE XENIA [phone]
[2018-02-25] MEDS: DOCUSATE SODIUM 100 MG GELCAP PO SCH ×2 (09:20→21:00)
[2018-02-25] MEDS: LACTOBACILLUS RHAMNOSUS GG 1 EACH CAP PO SCH (09:20)
[2018-02-25] MEDS: BENAZEPRIL 20 MG TAB PO SCH (09:20)
[2018-02-25] MEDS: ESCITALOPRAM 20 MG TAB PO SCH (09:20)
[2018-02-25] MEDS: FAMOTIDINE 20 MG TAB PO SCH (09:21)
[2018-02-25] MEDS: ECOTRIN 81 MG TABEC PO SCH (09:21)
[2018-02-25] MEDS: FUROSEMIDE 40 MG TAB PO SCH ×2 (09:21→17:51)
[2018-02-25] MEDS: LEVOTHYROXINE 0.088 MG TAB PO SCH (09:22)
--- NOTE | 2018-02-25 09:33 | NUR ---
PATIENT TOOK ALL AM MEDICATIONS. PATIENT TOLERATED WELL. WILL CONTINUE TO MONITOR PATIENT.
--- NOTE | 2018-02-25 09:33 | NUR ---
PATIENT REFUSED MEDICATION CLARITIN. PATIENT SAYS, "I DO NOT TAKE THAT ANYMORE. ONLY DURING ALLERGY SEASON". HELD MEDICATION FROM PATIENT.
--- NOTE | 2018-02-25 11:58 | NUR ---
PATIENT COMPLAINS OF HEADACHE. ADMINISTERED TYLENOL TO PATIENT. WILL CONTINUE TO MONITOR PATIENT.
[2018-02-25 12:00] VITALS: BP 127/71
[2018-02-25] MEDS: CLINDAMYCIN PHOS 600MG/D5W PM 50 ML IV SCH ×2 (12:29→18:12)
[2018-02-25] MEDS ORDERED: ONDANSETRON 4 MG TAB PO PRN (13:30)
--- NOTE | 2018-02-25 13:30 | NUR ---
PATIENT RESTING AT THIS TIME. NO DISTRESS NOTED. WILL CONTINUE TO MONITOR PATIENT.
[2018-02-25] MEDS: ALBUTEROL SULFATE/IPRATROPIU 3 ML SOL IH SCH ×2 (13:45→19:10)
[2018-02-25] MEDS: methylPREDNISolone SS 125 MG/2 ML VIAL IVP SCH ×2 (13:53→21:00)
--- NOTE | 2018-02-25 14:23 | NUR ---
02/25/18 RD INITIAL ASSESSMENT COMPLETED PLEASE REFER TO NUTRITION ASSESSMENT UNDER CARE ACTIVITY FOR ESTIMATED NUTRITIONAL NEEDS. 1. CONTINUE CARDIAC CCHO 60 GM DIET TOLERATED 2. PROVIDED WEIGHT LOSS NUTRITION EDUCATION 3. RD TO FOLLOW-UP 2-3 DAYS, HIGH RISK SUZANNE JACK, RD
--- NOTE | 2018-02-25 15:00 | NUR ---
PATIENT IS RESTING AT THIS TIME. NO DISTRESS NOTED.
[2018-02-25 16:00] VITALS: BP 122/63
[2018-02-25 16:51] LABS: APPEARANCE,URINE CLEAR (CLEAR); BILIRUBIN,URINE NEGATIVE (NEGATIVE); BLOOD, URINE 3+ (NEGATIVE); COLOR,URINE YELLOW (YELLOW); LEUKOCYTE ESTERASE ,URINE NEGATIVE (NEGATIVE); NITRITE, URINE NEGATIVE (NEGATIVE); PH,URINE 5.5 (5.0-9.0); UGLUCOSE NEGATIVE (NEGATIVE)
[2018-02-25 16:59] LABS: BARBITURATE, URINE NEG. ng/ml (NEG <=200); BENZODIAZEPINE, URINE NEG. ng/mL (NEG <=200); CANNABINOID, URINE NEG. ng/mL (NEG <=50); COCAINE, URINE NEG. ng/mL (NEG <=300); OPIATE, URINE NEG. ng/mL (NEG <=2000); PHENCYCLIDINE SCREEN,URINE NEG. ng/mL (NEG <=25)
[2018-02-25 17:02] LABS: RBC,URINE 50-80 /HPF (0-5); WBC,URINE 0-5 (RARE) /HPF (0-5)
--- NOTE | 2018-02-25 17:50 | NUR ---
NO COMPLAINTS OF PAIN AT HIS TIME. FAMILY MEMBERS AT BEDSIDE. WILL CONTINUE TO MONITOR PATIENT.
[2018-02-25] MEDS: MONTELUKAST SODIUM 10 MG TAB PO SCH (17:52)
--- NOTE | 2018-02-25 19:15 | NUR ---
GAVE REPORT TO NIGHTSHIFT NURSE AT BEDSIDE. PATIENT IN STABLE CONDITION.
--- NOTE | 2018-02-25 19:20 | NUR ---
RECEIVED REPORT AT BEDSIDE FROM ALEXANDR RICKS , DAYSHIFT NURSE, PT IN BED WITH SIDE RAILS UP AND N A LOW BED. FALLS PRECAUTIONS IN PLACE AND CALL JEFFERSON IN REACH. PT HAS N/C AT 4 L AND HER IV SITE ON R F/A IS PATENT AND INTACT. NS RUNNING AT 10MLS/HR. PT HAS NO C/O VOICED AT THIS TIME. VS FOLLOWS: T 97.7 P 82 R 20 B/P 96/48 02 IS 91 WITH 4 L VIA N/C.
[2018-02-25 20:00] VITALS: BP 96/48
[2018-02-25] MEDS ORDERED: DIPH25TA53 PO (22:53)
[2018-02-25] MEDS: NACL 0.9% 1,000 ML IV SCH (23:52)
[2018-02-26] VITALS: BP 108/52
[2018-02-26] MEDS: ACETAMINOPHEN 325 MG TAB PO PRN ×2 (00:30→12:14)
[2018-02-26] MEDS: CLINDAMYCIN PHOS 600MG/D5W PM 50 ML IV SCH ×5 (00:52→23:39)
--- NOTE | 2018-02-26 01:00 | NUR ---
PT REQUESTED TYLENOL FOR H/A AND BENADRYL TO KEEP HER FROM ITCHING LOWER LEGS, ALL MEDS WERE GIVEN AND POSITIVE EFFECT NOTED.
--- NOTE | 2018-02-26 02:30 | NUR ---
PT PLACED ON CPAP LATE DUE TO RT BEING NEEDED IN ER DEPARTMENT. PT WAS STATING IN THE 91-93% WITH 4 LITERS VIA N/C.
--- NOTE | 2018-02-26 05:00 | NUR ---
PT SLEEPING WITH HOB ELEVATED AND CPAP MASK ON, NO S/S OF PAIN OR DISTRESS NOTED PT IN LOW BED WITH CALL JEFFERSON IN REACH.
[2018-02-26] MEDS: LEVOFLOXACIN 500 MG/D5W PREMIX 100 ML IV SCH (05:43)
[2018-02-26] MEDS: methylPREDNISolone SS 125 MG/2 ML VIAL IVP SCH (05:47)
[2018-02-26] MEDS: LEVOTHYROXINE 0.088 MG TAB PO SCH (06:44)
[2018-02-26] MEDS: BLOOD GLUCOSE MONITORING 1 DEV DEV FS SCH ×4 (06:46→21:57)
[2018-02-26] MEDS: INSULIN LISPRO SLIDING SCALE 100 UNITS/ML VIAL SUBQ PRN ×4 (06:49→22:02)
[2018-02-26 07:15] LABS: HEMATOCRIT 30.9 % (36-48); HEMOGLOBIN 9.8 g/dL (12.0-16.0); MEAN CORPUSCULAR HEMOGLOBIN 25 pg (27-31); MEAN CORPUSCULAR HGB CONC 32 g/dL (33-37); MEAN CORPUSCULAR VOLUME 77.3 fL (80-94); PLATELET COUNT (AUTO) 243 K/uL (140-450); RED BLOOD CELL COUNT(AUTO) 3.99 MIL/uL (4.20-5.40); RED CELL DISTRIBUTION WIDTH 16.3 % (11.6-13.7); WHITE BLOOD COUNT (AUTO) 8.8 K/uL (4.8-10.8)
[2018-02-26] MEDS: ALBUTEROL SULFATE/IPRATROPIU 3 ML SOL IH SCH ×3 (07:29→19:57)
[2018-02-26 07:34] LABS: ANION GAP 9.6 (8-16); CARBON DIOXIDE 32.9 mmol/L (21-32); CREATININE 0.7 mg/dL (0.6-1.3); POTASSIUM 4.5 mmol/L (3.5-5.1)
[2018-02-26 07:35] LABS: MAGNESIUM 2.2 mg/dL (1.8-2.4); PHOSPHORUS 4.1 mg/dL (2.5-4.9)
[2018-02-26 08:00] VITALS: BP 109/57
--- NOTE | 2018-02-26 08:00 | NUR ---
RECEIVED REPORT FROM PM NURSE, PT AWAKE, ALERT. ON O2 NC 4L/MIN. LUNG SOUND DIMINISHED. LARGE ABDOMEN NOTED. NEWBY CATH IN PLACE, PT ABLE TO AMBULATE. IV TO RIGHT ARM RUNNING NS AT 10 MLS/HR, IV SITE INFILTRATED, STOPPED IV. INSERTED A NEW IV TO RIGHT HAND #22. POC EXPLAINED TO PT, PT C/O HEADACHE, WILL NOTIFY MD.CALL LIGHT IN REACH, WILL CONTINUE TO MONITOR.
[2018-02-26] MEDS ORDERED: KETOROLAC 30 MG/ML VIAL IVP SCH (08:15)
[2018-02-26] MEDS: ESCITALOPRAM 20 MG TAB PO SCH (08:48)
[2018-02-26] MEDS: LACTOBACILLUS RHAMNOSUS GG 1 EACH CAP PO SCH (08:48)
[2018-02-26] MEDS: FAMOTIDINE 20 MG TAB PO SCH (08:48)
[2018-02-26] MEDS: BENAZEPRIL 20 MG TAB PO SCH (08:50)
[2018-02-26] MEDS: FUROSEMIDE 40 MG TAB PO SCH ×2 (08:50→17:09)
[2018-02-26 08:51] LABS: EOSINOPHILS % (MANUAL) 1 % (0-4); MONOCYTES % (MANUAL) 4 % (5-12)
[2018-02-26] MEDS: ECOTRIN 81 MG TABEC PO SCH (08:51)
[2018-02-26] MEDS: DOCUSATE SODIUM 100 MG GELCAP PO SCH ×2 (08:51→21:00)
[2018-02-26 08:52] LABS: LYMPHOCYTES % (MANUAL) 14 % (20-46)
[2018-02-26] MEDS: LORATADINE 10 MG TAB PO SCH (08:52)
--- NOTE | 2018-02-26 09:30 | NUR ---
PT STATED PAIN RELIVED AFTER TAKING TORADOL 30MG, SITTING AT BEDSIDE AT THIS MOMENT.
[2018-02-26 12:00] VITALS: BP 121/58
--- NOTE | 2018-02-26 12:35 | NUR ---
PT SITTING AT BEDSIDE, NO S/S OF RESPIRATORY DISTRESS NOTED.
[2018-02-26] MEDS ORDERED: ATORVASTATIN 20 MG TAB PO SCH (13:13)
[2018-02-26] MEDS: methylPREDNISolone SS 40 MG/ML VIAL IVP SCH ×2 (13:21→21:46)
[2018-02-26 16:00] VITALS: BP 125/57
[2018-02-26] MEDS: MONTELUKAST SODIUM 10 MG TAB PO SCH (17:09)
--- NOTE | 2018-02-26 18:00 | NUR ---
NOTIFIED BLOODY URINE NOTED IN PT'S NEWBY CATH.
--- NOTE | 2018-02-26 18:30 | NUR ---
IN TO SEE PT, NOTIFIED HIM PT HAS BLOODY URINE, WILL FOLLOW UP.
--- NOTE | 2018-02-26 19:30 | NUR ---
REPORT RECEIVED FROM AM NURSE. PT IN STABLE CONDITION.
--- NOTE | 2018-02-26 19:45 | NUR ---
HEART SOUNDS NORMAL. LUNGS SOUNDS CLEAR BILATERALLY. BOWEL SOUNDS PRESENT X4 QUADRANTS. AAOX4. INTRODUCED SELF AND BOARD UPDATED. IV SITE PATENT AND INTACT. SKIN WARM, DRY, AND NOT INTACT DUE TO REDNESS IN BILATERAL LOWER EXTREMITIES. PROTOCOL IN PLACE FOR REDNESS. NEWBY PRESENT INTACT AND DRAINING WELL. BED LOCKED IN LOW POSITION. CALL JEFFERSON WITHIN REACH. WILL CONTINUE TO MONITOR.
[2018-02-26 20:00] VITALS: BP 136/56
--- NOTE | 2018-02-26 21:45 | NUR ---
PM MEDS GIVEN. PT TOLERATED WELL.
[2018-02-26] MEDS: KETOROLAC 15 MG/ML VIAL IVP PRN (22:38)
[2018-02-26] MEDS: NACL 0.9% 1,000 ML IV SCH (23:42)
--- NOTE | 2018-02-26 23:45 | NUR ---
PT ASLEEP WITH BIPAP ON BUT AROUSABLE WHEN VS WERE TAKEN. PT NOT IN ANY ACUTE DISTRESS. WILL CONTINUE TO MONITOR.
[2018-02-27] VITALS: BP 125/67
[2018-02-27] MEDS ORDERED: KETOROLAC 15 MG/ML VIAL IVP SCH
--- NOTE | 2018-02-27 02:00 | NUR ---
PT ASLEEP SUPINE WITH BIPAP ON. PT NOT IN ANY ACUTE DISTRESS. WILL CONTINUE TO MONITOR.
[2018-02-27 04:00] VITALS: BP 125/64
--- NOTE | 2018-02-27 04:30 | NUR ---
PT ASLEEP SUPINE COMFORTABLY WITH BIPAP ON. PT IS AROUSABLE DURING VS CHECK. NOT IN ANY ACUTE DISTRESS. WILL CONTINUE TO MONITOR.
[2018-02-27] MEDS: LEVOFLOXACIN 500 MG/D5W PREMIX 100 ML IV SCH (04:55)
[2018-02-27] MEDS: methylPREDNISolone SS 40 MG/ML VIAL IVP SCH (04:56)
--- NOTE | 2018-02-27 06:05 | NUR ---
SYNTHROID NOT LOADED IN [facility] IS EITHER MS OR TELE MED ROOM. PATENT DRAFTER NOTIFIED. SHE ALSO LOOKED IN ER AND THERE WAS STILL NO MEDICATION. SHE CALLED PHARMACY AND WAS TOLD TO WAIT FOR ONCOMING PHARMACIST FOR THE MEDICATION.
[2018-02-27] MEDS: CLINDAMYCIN PHOS 600MG/D5W PM 50 ML IV SCH ×2 (06:11→12:31)
[2018-02-27] MEDS: INSULIN LISPRO SLIDING SCALE 100 UNITS/ML VIAL SUBQ PRN ×3 (06:20→12:35)
--- NOTE | 2018-02-27 07:15 | NUR ---
REPORT GIVEN TO AM NURSE. PT IN STABLE CONDITION.
[2018-02-27] MEDS: ALBUTEROL SULFATE/IPRATROPIU 3 ML SOL IH SCH ×2 (07:21→13:26)
--- NOTE | 2018-02-27 07:30 | NUR ---
RECEIVED REPORT FROM PM NURSE, PT AWAKE, ALERT. ON O2 NC 3L/MIN. LUNG SOUND DIMINISHED. SITTING IN BEDSIDE CHAIR. LARGE ABDOMEN NOTED. NEWBY CATH IN PLACE WITH CLOUDY URINE IN THE BAG AND A LITTLE BIT BLOODY URINE IN THE TUBE NOTED, IV TO RIGHT ARM RUNNING NS AT 10 MLS/HR. POC EXPLAINED TO PT, CALL LIGHT IN REACH, WILL CONTINUE TO MONITOR.
[2018-02-27 08:00] VITALS: BP 135/77
[2018-02-27] MEDS ORDERED: PNEUMOCOCCAL VACCINE 23 MCG/0.5 ML VIAL IMVAC SCH (08:00)
[2018-02-27] MEDS ORDERED: PSEUDOEPHEDRINE 30 MG TAB PO PRN (08:00)
[2018-02-27] MEDS: ESCITALOPRAM 20 MG TAB PO SCH (08:05)
[2018-02-27] MEDS: BENAZEPRIL 20 MG TAB PO SCH (08:06)
[2018-02-27] MEDS: ECOTRIN 81 MG TABEC PO SCH (08:06)
[2018-02-27] MEDS: FAMOTIDINE 20 MG TAB PO SCH (08:07)
[2018-02-27] MEDS: FUROSEMIDE 40 MG TAB PO SCH (08:07)
[2018-02-27] MEDS: LACTOBACILLUS RHAMNOSUS GG 1 EACH CAP PO SCH (08:08)
[2018-02-27] MEDS: BLOOD GLUCOSE MONITORING 1 DEV DEV FS SCH ×2 (08:10→11:30)
[2018-02-27] MEDS: LORATADINE 10 MG TAB PO SCH (08:15)
[2018-02-27] MEDS: DOCUSATE SODIUM 100 MG GELCAP PO SCH (08:15)
--- NOTE | 2018-02-27 08:16 | NUR ---
PT REFUSED CLARITIN AND COLACE, PT STATED SHE HAD BM YESTERDAY, SHE DOES NOT NEED IT. RISKS AND BENEFITS EXPLAINED , PT STILL REFUSED.
[2018-02-27] MEDS ORDERED: ATORVASTATIN 20 MG TAB PO SCH (09:00)
[2018-02-27] MEDS: KETOROLAC 15 MG/ML VIAL IVP PRN (09:11)
[2018-02-27] MEDS: LEVOTHYROXINE 0.088 MG TAB PO SCH (09:32)
[2018-02-27 09:40] LABS: BASOPHILS % (AUTO) 0.1 % (0.0-2.0); HEMATOCRIT 32.2 % (36-48); HEMOGLOBIN 10.3 g/dL (12.0-16.0); LYMPHOCYTES # (AUTO) 0.6 K/uL (2.5-16.5); MEAN CORPUSCULAR HEMOGLOBIN 25 pg (27-31); MEAN CORPUSCULAR HGB CONC 32 g/dL (33-37); MEAN CORPUSCULAR VOLUME 76.8 fL (80-94); MONOCYTES # (AUTO) 0.4 K/uL (0.8-1.0); MONOCYTES % (AUTO) 3.8 % (1.7-9.3); NEUTROPHILS # (AUTO) 8.9 K/uL (1.8-7.7); PLATELET COUNT (AUTO) 250 K/uL (140-450); RED CELL DISTRIBUTION WIDTH 16.6 % (11.6-13.7)
[2018-02-27 09:45] LABS: ANION GAP 12.6 (8-16); CARBON DIOXIDE 32.2 mmol/L (21-32); CREATININE 0.9 mg/dL (0.6-1.3); POTASSIUM 4.8 mmol/L (3.5-5.1)
[2018-02-27 10:00] LABS: MAGNESIUM 2.3 mg/dL (1.8-2.4)
[2018-02-27 10:44] LABS: LYMPHOCYTES % (AUTO) 6.2 % (20.5-51.1); NEUTROPHILS % (AUTO) 89.9 % (42.2-75.2)
[2018-02-27 11:08] LABS: PHOSPHORUS 4.4 mg/dL (2.5-4.9)
[2018-02-27] MEDS ORDERED: IBUP-2213 PO (11:24)
[2018-02-27] MEDS ORDERED: FURO-570 PO (11:24)
--- NOTE | 2018-02-27 11:30 | NUR ---
PT RESTING IN BED, NO S/S OF RESPIRATORY DISTRESS NOTED.
[2018-02-27 12:00] VITALS: BP 135/66
--- NOTE | 2018-02-27 13:22 | NUR ---
PNA VACCINE GIVEN ORDERED. WILL PREPARE DISCHARGE PAPER SOON, PT SITTING AT BEDSIDE CHATTING WITH FAMILY WITHOUT ANY RESPIRATORY DISTRESS OR DISCOMFORT.
--- NOTE | 2018-02-27 14:20 | NUR ---
PT AWAKE, ALERT, AND ORIENTED. ON ROOM AIR, NO S/S OF RESPIRATORY DISTRESS NOTED. O2 SATS 95%. PT STATED SHE IS OK WITH ROOM AIR AND OFF O2 FOR A WHILE. PT SIGNED DISCHARGE PAPER AND INSTRUCTION GIVEN, PRESCRIPTION GIVEN, TOLD PT TO VISIT PCP IN 3-5 DAYS, PT VERBALIZED UNDERSTANDING. IV REMOVED, CANNULA INTACT, ALL PERSONAL BELONGINGS WITH PT, PT'S DAUGHTER WILL GIVE PT A RIDE AND DAUGHTER AT BEDSIDE, ACCOMPANIED PT TO PARKING LOT BY WHEELCHAIR, PT LEFT IN STABLE CONDITION.
[2018-03-01 08:16] LABS: FOLIC ACID 6.3 ng/mL (>3.0)
== END 2018-02-27 14:20 | disposition home or self-care (01) | DRG 194 ==
LOC: MED 18:39 → MTU 23:40
PROVIDERS: ADMIT Family Medicine; ATTEND Family Medicine
PROC: 5A09357 Assistance with Respiratory Ventilation, Less than 24 Consecutive Hours, Continuous Positive Airway Pressure (ICD-10-PCS; principal; 2018-02-25)
DX: I13.0 Hypertensive heart and chronic kidney disease with heart failure and stage 1 through stage 4 chronic kidney disease, or unspecified chronic kidney disease (principal); J96.20 Acute and chronic respiratory failure, unspecified whether with hypoxia or hypercapnia; I26.99 Other pulmonary embolism without acute cor pulmonale; D68.59 Other primary thrombophilia; E11.51 Type 2 diabetes mellitus with diabetic peripheral angiopathy without gangrene; E11.65 Type 2 diabetes mellitus with hyperglycemia; E11.69 Type 2 diabetes mellitus with other specified complication; I50.43 Acute on chronic combined systolic (congestive) and diastolic (congestive) heart failure; N18.9 Chronic kidney disease, unspecified; J44.1 Chronic obstructive pulmonary disease with (acute) exacerbation; L03.115 Cellulitis of right lower limb; L03.116 Cellulitis of left lower limb; E66.01 Morbid (severe) obesity due to excess calories; K21.9 Gastro-esophageal reflux disease without esophagitis; G47.33 Obstructive sleep apnea (adult) (pediatric); F32.9 Major depressive disorder, single episode, unspecified; Z90.49 Acquired absence of other specified parts of digestive tract; Z68.45 Body mass index [BMI] 70 or greater, adult; Z83.3 Family history of diabetes mellitus; Z82.3 Family history of stroke; Z82.49 Family history of ischemic heart disease and other diseases of the circulatory system; E03.9 Hypothyroidism, unspecified; D50.9 Iron deficiency anemia, unspecified; I83.009 Varicose veins of unspecified lower extremity with ulcer of unspecified site; L97.919 Non-pressure chronic ulcer of unspecified part of right lower leg with unspecified severity; L97.929 Non-pressure chronic ulcer of unspecified part of left lower leg with unspecified severity; D63.8 Anemia in other chronic diseases classified elsewhere
CPT/HCPCS: 36415; 51702; 71045; 76536; 76705; 76881; 78582; 80048; 80053; 80305; 81001; 81025; 82150; 82607; 82728; 82746; 82948; 83036; 83540; 83690; 83735; 83880; 84100; 84439; 84443; 84484; 85025; 85045; 85379; 85610; 85730; 87040; 87081; 90732; 93925; 93971; 94640; 94660; 96365; 96366; 96375; 97110; 97140; 99285; J1644; J1815; J1885; J1940; J1956; J2270; J2405; J2920; J2930; J3475; J3490; J7030; J7060; J7613; J7620; J7644; Q0092; Q0162; Q0163

== ENCOUNTER 2019-01-10 18:34 | Emergency (ER) | payer MEDICAID ==
[~2019-01-10] VITALS: Ht 149.9 cm; Wt 164.2 kg
[~2019-01-10 18:34] MED LIST changes: -BENA20TA5 PO; +BENA20TA88 PO; +DIPH25TA53 PO; +FURO-570 PO; -FURO-572 PO
--- NOTE | 2019-01-10 18:34 | NUR ---
PT BIBA BLS TO ER BED 02
[2019-01-10 18:40] VITALS: BP 132/64
--- NOTE | 2019-01-10 19:03 | NUR ---
BIB EMS C/O SOB AND RIGHT FLANK PAIN X 0300. PT SPO2 88% ON RA AND TACHYPNEIC. SPO2 97% ON 3L O2 VIA NC. SOB EXACERBATED BY CHANGES IN POSITION, "LAYING FLAT." LUNG SOUNDS DIMINISHED BILAT. PAIN TO BILAT FEET "TIGHTNESS" "LIKE SHACKLES ON MY FEET." SR ON MONITOR. SKIN WARM, PINK, AND DRY. PT ALSO C/O RIGHT FLANK PAIN THAT RADIATES TO RIGHT LOWER BACK. PT INCONTINENT TO URINE DUE TO SENSE OF URGENCY.
--- NOTE | 2019-01-10 19:03 | NUR ---
DR. BERRY AT BEDSIDE TO EVALUATE PT.
[2019-01-10] MEDS ORDERED: KETOROLAC 60 MG/2 ML VIAL IM ONE (19:15)
--- NOTE | 2019-01-10 19:20 | NUR ---
edmd at bedside
--- NOTE | 2019-01-10 19:21 | NUR ---
report recv'd from [facility]
--- NOTE | 2019-01-10 19:21 | NUR ---
REPORT TO MILLICENT MAXWELL
[2019-01-10] MEDS ORDERED: KETOROLAC 30 MG/ML VIAL IVP ONE (19:40)
--- NOTE | 2019-01-10 19:41 | NUR ---
us at bedside
[2019-01-10 20:46] VITALS: BP 132/64
--- NOTE | 2019-01-10 20:47 | NUR ---
Patient discharged with v/s stable. Written and verbal after care instructions given and explained. Patient alert, oriented and verbalized understanding of instructions. Ambulatory with steady gait. All questions addressed prior to discharge. ID band removed. Patient advised to follow up with PMD. Rx of NAPROSYN, VALIUM given. Patient educated on indication of medication including possible reaction and side effects. Opportunity to ask questions provided and answered.
== END 2019-01-10 20:46 | disposition home or self-care (01) ==
LOC: MED 18:34
DX: R10.9 Unspecified abdominal pain (principal); R06.02 Shortness of breath; J44.9 Chronic obstructive pulmonary disease, unspecified; E11.9 Type 2 diabetes mellitus without complications; I10 Essential (primary) hypertension; E07.9 Disorder of thyroid, unspecified; I50.9 Heart failure, unspecified; Z90.49 Acquired absence of other specified parts of digestive tract; Z79.82 Long term (current) use of aspirin; Z79.899 Other long term (current) drug therapy
CPT/HCPCS: 76705; 81002; 81025; 96374; 99284; J1885; Q0092

== ENCOUNTER 2020-05-18 20:09 | Emergency (ER) | payer MEDICAID ==
[~2020-05-18] VITALS: Ht 149.9 cm; Wt 165.6 kg
[2020-05-18 20:09] VITALS: BP 143/75
[~2020-05-18 20:09] MED LIST changes: -ACET-787 PO; -ASPI-1677 PO; +ASPI-1884 PO; +HYDR-5191 PO
--- NOTE | 2020-05-18 20:15 | NUR ---
PT BIBA BLS TO ER BED 2
--- NOTE | 2020-05-18 20:15 | NUR ---
ERMD BEDSIDE EVALUATING PT
--- NOTE | 2020-05-18 20:20 | NUR ---
49 Y/O FEMALE BIBA BLS FROM HOME C/O X 4 DAYS DIFFICULTY BREATHING SECONDARY TO BIPAP/CPAP MACHINE NOT WORKING CORRECTLY; PT ON 4 L N/C WITH O2 SAT 99%; PT C/O GENERAL BODY PAIN 05/16; DENIES N/V/D; SKIN IS PINK/WARM/DRY; AAOX4 WITH EVEN AND STEADY GAIT; HR EVEN AND REGULAR; PT DENIES ANY FEVER, OR COUGH AT THIS TIME; VSS; PATIENT POSITIONED FOR COMFORT; HOB ELEVATED; BEDRAILS UP X2; BED DOWN AND LOCKED. ER MD MADE AWARE OF PT STATUS. PMH: ASTHMA/CHF/COPD/DM/HTN/HYPOTHYROID NKA
[2020-05-18] MEDS ORDERED: ASPIRIN 325 MG TAB PO ONE (20:25)
[2020-05-18] MEDS ORDERED: NITROGLYCERIN 2% 1 GM PKT TP ONE (20:25)
[2020-05-18] MEDS ORDERED: FUROSEMIDE 40 MG/4 ML VIAL IVP ONE (20:25)
--- NOTE | 2020-05-18 20:32 | NUR ---
XRAY AT BEDSIDE
--- NOTE | 2020-05-18 20:40 | NUR ---
URINE SAMPLE HANDED TO LAB
[2020-05-18 20:52] LABS: BASOPHILS % (AUTO) 0.3 % (0.0-2.0); EOSINOPHILS # (AUTO) 0.1 K/uL (0-0.4); EOSINOPHILS % (AUTO) 1.5 % (0.0-4.0); HEMATOCRIT 34.8 % (36-48); LYMPHOCYTES # (AUTO) 1.4 K/uL (2.5-16.5); LYMPHOCYTES % (AUTO) 15.8 % (20.5-51.1); MEAN CORPUSCULAR HEMOGLOBIN 26 pg (27-31); MEAN CORPUSCULAR HGB CONC 32 g/dL (33-37); MEAN CORPUSCULAR VOLUME 81.4 fL (80-94); MONOCYTES # (AUTO) 0.5 K/uL (0.8-1.0); MONOCYTES % (AUTO) 5.3 % (1.7-9.3); NEUTROPHILS # (AUTO) 6.9 K/uL (1.8-7.7); NEUTROPHILS % (AUTO) 77.1 % (42.2-75.2); PLATELET COUNT (AUTO) 225 K/uL (140-450); RED BLOOD CELL COUNT(AUTO) 4.28 MIL/uL (4.20-5.40); RED CELL DISTRIBUTION WIDTH 16.8 % (11.6-13.7)
[2020-05-18 20:54] LABS: BARBITURATE, URINE NEGATIVE ng/ml (NEG <=200); BENZODIAZEPINE, URINE NEGATIVE ng/mL (NEG <=200); CANNABINOID, URINE NEGATIVE ng/mL (NEG <=50); COCAINE, URINE NEGATIVE ng/mL (NEG <=300); OPIATE, URINE NEGATIVE ng/mL (NEG <=2000); PHENCYCLIDINE SCREEN,URINE NEGATIVE ng/mL (NEG <=25)
[2020-05-18 21:03] LABS: ALBUMIN 3.5 g/dL (3.4-5.0); CARBON DIOXIDE 31.4 mmol/L (21-32); CREATININE 1.1 mg/dL (0.6-1.3); POTASSIUM 4.4 mmol/L (3.5-5.1); TOTAL BILIRUBIN 0.4 mg/dL (0.0-1.0)
[2020-05-18] MEDS ORDERED: MORPHINE SULFATE 4 MG/ML SYR IVP ONE (21:30)
[2020-05-18] MEDS ORDERED: INSU100I7 SQ (22:16)
[2020-05-18] MEDS ORDERED: SITA100T8 PO (22:17)
[2020-05-18] MEDS ORDERED: ERTU5TAB PO (22:18)
--- NOTE | 2020-05-18 22:23 | NUR ---
PT RESTING IN CHAIR IN POSITION OF COMFORT, VSS, WILL CONTINUE TO MONITOR
--- NOTE | 2020-05-18 22:30 | NUR ---
16 MACEDONIAN NEWBY CATHETER INSERTED, PT TOLERATED WELL, URINE OUTPUT NOTED
[2020-05-18] MEDS ORDERED: ONDANSETRON 4 MG/2 ML VIAL IVP ONE (22:55)
--- NOTE | 2020-05-18 23:17 | NUR ---
PT RESTING IN BED IN POSITION OF COMFORT, BED LOW AND LOCKED, SIDERAILS UP, VSS, WILL CONTINUE TO MONITOR
--- NOTE | 2020-05-18 23:52 | NUR ---
BLOOD SUGAR 113
--- NOTE | 2020-05-19 00:29 | NUR ---
CALLED CRISTIN SCHNEIDER AT [phone] S/W MILLICENT ALVARES TO PROVIDE PT REPORT.
--- NOTE | 2020-05-19 00:48 | NUR ---
PT RESTING IN BED IN POSITION OF COMFORT, BED LOW AND LOCKED, SIDERAILS UP, VSS, WILL CONTINUE TO MONITOR
[2020-05-19 02:07] VITALS: BP 103/56
--- NOTE | 2020-05-19 02:07 | NUR ---
Patient to be transferred to [facility]. Is being transferred due to RESP FAILURE/CHEST PAIN/CHF EXACERBATION. Receiving facility has accepting physician and available space. ER physician has signed transfer form. Patient or responsible alliance party has agreed to transfer and signed form. Patient belongings inventoried and will be sent with patient. Copy of nursing notes, lab reports, EKG, Physicians Orders and X-rays to be sent with patient. Report called MILLICENT Yang at receiving facility. [facility] ambulance service has been called for transfer. ETA is 15 MINS.
== END 2020-05-19 02:07 | disposition short-term general hospital (02) ==
LOC: MED 20:09
DX: R06.03 Acute respiratory distress (principal); R07.9 Chest pain, unspecified; I50.9 Heart failure, unspecified; I10 Essential (primary) hypertension; J45.909 Unspecified asthma, uncomplicated; E03.9 Hypothyroidism, unspecified; E11.9 Type 2 diabetes mellitus without complications; J44.9 Chronic obstructive pulmonary disease, unspecified
CPT/HCPCS: 36415; 71045; 80053; 80305; 83880; 84484; 85025; 93005; 96374; 96375; 99291; J1940; J2270; J2405; Q0092; 99285

== ENCOUNTER 2021-05-02 17:56 | Inpatient (IN) | payer MEDICAID ==
[~2021-05-02] VITALS: Ht 149.9 cm; Wt 141.5 kg
[~2021-05-02 17:56] MED LIST changes: +ASPI-1749 PO; -ASPI-1884 PO; +ERTU5TAB PO; -ESCI20TA47 PO; +ESCI20TA49 PO; +INSU100I7 SQ; +SITA100T8 PO
--- NOTE | 2021-05-02 17:59 | NUR ---
PT BROUGHT TO BED 10 VIA DILSHAD GUZMAN
[2021-05-02 18:04] VITALS: BP 103/46
--- NOTE | 2021-05-02 18:04 | NUR ---
49 Y/O FEMALE BIBA FROM HOME C/O LLQ ABD PAIN XYESTERDAY. PER EMS REPORTS CHILLS, NAUSEA/VOMITING, DIARRHEA. PT STATES 8/10 CRAMPING PAIN. TOOK TYLENOL 1 HOUR AGO. ABD TENDER TOUCH. ACTIVE BOWEL SOUNDS. LUNG SOUNDS CLEAR. SKIN WARM, DIAPHORETIC. VSS. MEDHX: COLITIS, CHF, HLD, ASTHMA, DM, HTN, O2 OXYGEN DEPENDENT NKA
--- NOTE | 2021-05-02 18:34 | NUR ---
DR BOWEN AT BEDSIDE EXAMINING PT
[2021-05-02] MEDS ORDERED: MORPHINE SULFATE 4 MG/ML SYR IVP ONE (18:40)
[2021-05-02] MEDS ORDERED: NACL 0.9% 1,000 ML IV ONE ×2 (18:40)
[2021-05-02] MEDS ORDERED: VANCOMYCIN 1,000 MG in DEXTROSE 5% 250 ML IV ONE (18:40)
--- NOTE | 2021-05-02 18:57 | NUR ---
BREAKFAST HOST AT PT BEDSIDE.
--- NOTE | 2021-05-02 18:57 | NUR ---
xray bedside with pt
--- NOTE | 2021-05-02 18:59 | NUR ---
LAB AT BEDSIDE
[2021-05-02] MEDS ORDERED: ONDANSETRON 4 MG/2 ML VIAL IVP ONE (19:05)
[2021-05-02] MEDS ORDERED: VANCOMYCIN 1,000 MG VIAL ONE (19:13)
--- NOTE | 2021-05-02 19:15 | NUR ---
JESÚS SWAB COLLECTED AND HANDED TO PEPE CHOWDHURY
--- NOTE | 2021-05-02 19:26 | NUR ---
REPORT GIVEN TO CAMILA RICKS FOR CONTINUITY OF CARE
[2021-05-02 19:29] LABS: HEMATOCRIT 34.8 % (36-48); HEMOGLOBIN 11.4 g/dL (12.0-16.0); MEAN CORPUSCULAR HEMOGLOBIN 27 pg (27-31); MEAN CORPUSCULAR HGB CONC 33 g/dL (33-37); PLATELET COUNT (AUTO) 230 K/uL (140-450); RED CELL DISTRIBUTION WIDTH 15.6 % (11.6-13.7); WHITE BLOOD COUNT (AUTO) 18.9 K/uL (4.8-10.8)
--- NOTE | 2021-05-02 19:29 | NUR ---
REPORT RECEIVED FROM SYLVIA RICKS, FOR CONTINUITY OF CARE AT THIS TIME
[2021-05-02 19:51] LABS: ALBUMIN 3.1 g/dL (3.4-5.0); ANION GAP 12.9 (8-16); CARBON DIOXIDE 28.5 mmol/L (21-32); CREATININE 1.2 mg/dL (0.6-1.3); POTASSIUM 3.4 mmol/L (3.5-5.1); TOTAL BILIRUBIN 1.1 mg/dL (0.0-1.0)
[2021-05-02 20:04] LABS: LYMPHOCYTES % (MANUAL) 3 % (20-46); METAMYELOCYTES % 1 % (0-0)
[2021-05-02 20:14] LABS: APPEARANCE,URINE CLEAR (CLEAR); BILIRUBIN,URINE NEGATIVE (NEGATIVE); BLOOD, URINE NEGATIVE (NEGATIVE); COLOR,URINE YELLOW (YELLOW); LEUKOCYTE ESTERASE ,URINE NEGATIVE (NEGATIVE); NITRITE, URINE NEGATIVE (NEGATIVE); PH,URINE 5.5 (5.0-9.0); UGLUCOSE 2+ (NEGATIVE)
--- NOTE | 2021-05-02 22:52 | NUR ---
Patient will be admitted to care of DR. MANCERA. Admited to TELEMMETRY. Will go to [id number]. Belongings list completed. Report to
[2021-05-02] MEDS ORDERED: ZOLPIDEM 5 MG TAB PO PRN (23:05)
[2021-05-02] MEDS ORDERED: DOCUSATE SODIUM 100 MG GELCAP PO PRN (23:05)
[2021-05-02] MEDS ORDERED: LEVOFLOXACIN 750 MG/D5W PREMIX 150 ML IV SCH (23:05)
[2021-05-02] MEDS ORDERED: guaiFENesin DM 200/20 MG-10 ML 10 ML UDC PO PRN (23:05)
[2021-05-02] MEDS ORDERED: POTASSIUM CHLORIDE 10 MEQ TABER PO PRN (23:05)
[2021-05-02] MEDS ORDERED: POTASSIUM CHLORIDE 10 MEQ TABER PO ONE (23:10)
[2021-05-02] MEDS ORDERED: DEXTROSE 50% 50 ML SYR IVP PRN (23:10)
[2021-05-02] MEDS ORDERED: CLINDAMYCIN 600 MG/4 ML VIAL ONE (23:18)
[2021-05-02] MEDS: NACL 0.9% 1,000 ML IV SCH (23:34)
[2021-05-02 23:36] LABS: BARBITURATE, URINE NEGATIVE ng/ml (NEG <=200); BENZODIAZEPINE, URINE NEGATIVE ng/mL (NEG <=200); CANNABINOID, URINE NEGATIVE ng/mL (NEG <=50); COCAINE, URINE NEGATIVE ng/mL (NEG <=300); OPIATE, URINE POSITIVE ng/mL (NEG <=2000); PHENCYCLIDINE SCREEN,URINE NEGATIVE ng/mL (NEG <=25)
[2021-05-02 23:40] LABS: PROTHROMBIN TIME 10.5 secs (10.8-13.4)
[2021-05-02] MEDS: CLINDAMYCIN 600 MG in DEXTROSE 5% 50 ML IV SCH (23:41)
[2021-05-02 23:42] LABS: CHOL/HDL RATIO 2.8 (1-4.5); FREE T4 (FREE THYROXINE) 1.27 ng/dL (0.76-1.46); PHOSPHORUS 1.9 mg/dL (2.5-4.9); THYROID STIMULATING HORMONE 0.77 uIU/mL (0.34-3.74)
[2021-05-02] MEDS: ACETAMINOPHEN 325 MG TAB PO PRN (23:46)
[2021-05-03] VITALS: BP 112/61
[2021-05-03] MEDS: ONDANSETRON 4 MG/2 ML VIAL IM/IVP PRN ×2 (00:42→09:02)
[2021-05-03] MEDS: MORPHINE SULFATE 2 MG/ML SYR IVP PRN ×3 (00:43→18:11)
[2021-05-03] MEDS: INSULIN LISPRO SLIDING SCALE 100 UNITS/ML VIAL SUBQ PRN ×3 (00:54→21:20)
[2021-05-03] MEDS: HYDROcodone/APAP 7.5/325 MG 1 TAB PO PRN ×2 (02:13→20:47)
--- NOTE | 2021-05-03 03:31 | NUR ---
C/O FEELING LIKE HER BODY IS BURNING. PATIENT REQUEST FOR ICE COMPRESS GIVEN. JOE MANZANARES RN
[2021-05-03] MEDS: NACL 0.9% 1,000 ML IV SCH ×4 (04:15→21:43)
[2021-05-03] MEDS: CLINDAMYCIN 600 MG in DEXTROSE 5% 50 ML IV SCH ×2 (05:59→12:59)
[2021-05-03] MEDS: LEVOTHYROXINE 0.088 MG TAB PO SCH (06:45)
--- NOTE | 2021-05-03 06:45 | NUR ---
PATIENT HAS BEEN SCREENED AND CATEGORIZED MODERATE NUTRITION RISK. PATIENT WILL BE SEEN WITHIN 3-5 DAYS OF ADMISSION. 05/05/21-05/07/21 ANNIA SALES MS, RDN
--- NOTE | 2021-05-03 07:00 | NUR ---
PT SITTING UP AAOX4. NO APPARENT S/S OF ACUTE DISTRESS. BREATHING EVEN AND UNLABORED. BED IN LOW/LOCKED POSITION. CALL LIGHT WITHIN REACH. WILL ENDORSE CARE TO AM RN. ALL NEEDS MET AT THIS TIME.
--- NOTE | 2021-05-03 07:15 | NUR ---
RECEIVED REPORT FROM RANCH COOK RN. PATIENT IS RESTING IN BED. NO S/S OF DISTRESS. ALL SAFETY PRECAUTIONS IN PLACE.
[2021-05-03 07:30] LABS: BASOPHILS % (AUTO) 0.1 % (0.0-2.0); CARBON DIOXIDE 27.4 mmol/L (21-32); CREATININE 1.1 mg/dL (0.6-1.3); HEMOGLOBIN 10.7 g/dL (12.0-16.0); LYMPHOCYTES % (AUTO) 5.2 % (20.5-51.1); MEAN CORPUSCULAR HEMOGLOBIN 27 pg (27-31); MEAN CORPUSCULAR HGB CONC 33 g/dL (33-37); MEAN CORPUSCULAR VOLUME 82.9 fL (80-94); MONOCYTES # (AUTO) 0.7 K/uL (0.8-1.0); MONOCYTES % (AUTO) 3.7 % (1.7-9.3); NEUTROPHILS # (AUTO) 16.8 K/uL (1.8-7.7); PLATELET COUNT (AUTO) 194 K/uL (140-450); POTASSIUM 3.4 mmol/L (3.5-5.1); RED BLOOD CELL COUNT(AUTO) 3.98 MIL/uL (4.20-5.40); RED CELL DISTRIBUTION WIDTH 15.4 % (11.6-13.7); WHITE BLOOD COUNT (AUTO) 18.4 K/uL (4.8-10.8)
[2021-05-03] MEDS: BLOOD GLUCOSE MONITORING 1 DEV DEV FS SCH ×4 (07:30→21:13)
[2021-05-03 08:00] VITALS: BP 98/51
[2021-05-03] MEDS: ASPIRIN 81 MG TAB.CHEW PO SCH (08:59)
[2021-05-03] MEDS: LORATADINE 10 MG TAB PO SCH (08:59)
[2021-05-03] MEDS: FUROSEMIDE 40 MG TAB PO SCH (09:00)
[2021-05-03] MEDS: FAMOTIDINE 20 MG TAB PO SCH (09:00)
[2021-05-03] MEDS: PANTOPRAZOLE 40 MG TABEC PO SCH (09:00)
[2021-05-03] MEDS: KETOROLAC 30 MG/ML VIAL IM SCH ×2 (09:02→20:46)
--- NOTE | 2021-05-03 09:30 | NUR ---
DR MANCERA AT BEDSIDE DISCUSSING PLAN OF CARE WITH PATIENT. PATIENT VERBALIZED UNDERSTANDING.
[2021-05-03 12:00] VITALS: BP 94/46
--- NOTE | 2021-05-03 12:00 | NUR ---
CHECKED PATIENT'S BLOOD SUGAR. BLOOD SUGAR WAS AT 136. NO INSULIN COVERAGE NEEDED PER SLIDING SCALE. PATIENT VERBALIZED UNDERSTANDING. ALL SAFETY PRECAUTIONS IN PLACE.
--- NOTE | 2021-05-03 14:15 | NUR ---
CHECKED ON PATIENT. PATIENT IS STABLE. ALL SAFETY PRECAUTIONS IN PLACE.
[2021-05-03 16:00] VITALS: BP 106/61
--- NOTE | 2021-05-03 16:00 | NUR ---
DR. HARRIS AT PATIENT BEDSIDE FOR ASSESSMENT AND DISCUSSION OF PLAN OF CARE WITH PATIENT.
[2021-05-03] MEDS ORDERED: VANCOMYCIN PER PHARMACY MC PRN (16:10)
[2021-05-03] MEDS ORDERED: VANCOMYCIN 1,000 MG VIAL ONE (19:00)
[2021-05-03] MEDS: VANCOMYCIN 1GM/DEXT 5% PREMIX 200 ML IV SCH (19:30)
--- NOTE | 2021-05-03 19:30 | NUR ---
ENDORSED PATIENT TO LINE MOVER RN FOR CONTINUITY OF CARE. PATIENT IS STABLE.
[2021-05-03 21:40] VITALS: BP 84/50
[2021-05-04] MEDS: MORPHINE SULFATE 2 MG/ML SYR IVP PRN ×3 (00:32→20:43)
[2021-05-04 04:00] VITALS: BP 103/54
[2021-05-04] MEDS: HYDROcodone/APAP 7.5/325 MG 1 TAB PO PRN ×2 (04:09→09:38)
[2021-05-04] MEDS ORDERED: VANCOMYCIN 1,000 MG VIAL ONE (05:28)
[2021-05-04] MEDS: LEVOTHYROXINE 0.088 MG TAB PO SCH (05:43)
[2021-05-04] MEDS: VANCOMYCIN 1GM/DEXT 5% PREMIX 200 ML IV SCH (05:44)
[2021-05-04] MEDS: BLOOD GLUCOSE MONITORING 1 DEV DEV FS SCH ×4 (06:19→20:39)
[2021-05-04] MEDS: NACL 0.9% 1,000 ML IV SCH ×3 (06:19→20:15)
[2021-05-04 07:06] LABS: T4 (THYROXINE) 9.7 ug/dL (4.5-12.0)
--- NOTE | 2021-05-04 07:30 | NUR ---
RECEIVED REPORT FROM INVASIVE MANAGER RN FOR CONTINUITY OF CARE. PATIENT IS AWAKE AND ALERT IN BED.NO S/S OF DISTRESS. ALL SAFETY PRECAUTIONS IN PLACE.
[2021-05-04 07:49] LABS: BASOPHILS % (AUTO) 0.2 % (0.0-2.0); EOSINOPHILS # (AUTO) 0.2 K/uL (0-0.4); EOSINOPHILS % (AUTO) 1.3 % (0.0-4.0); HEMATOCRIT 29.6 % (36-48); HEMOGLOBIN 9.6 g/dL (12.0-16.0); LYMPHOCYTES # (AUTO) 1.1 K/uL (2.5-16.5); MEAN CORPUSCULAR HEMOGLOBIN 27 pg (27-31); MEAN CORPUSCULAR HGB CONC 32 g/dL (33-37); MEAN CORPUSCULAR VOLUME 83.7 fL (80-94); MONOCYTES # (AUTO) 0.6 K/uL (0.8-1.0); MONOCYTES % (AUTO) 4.8 % (1.7-9.3); NEUTROPHILS # (AUTO) 10.5 K/uL (1.8-7.7); PLATELET COUNT (AUTO) 168 K/uL (140-450); RED BLOOD CELL COUNT(AUTO) 3.54 MIL/uL (4.20-5.40); RED CELL DISTRIBUTION WIDTH 15.2 % (11.6-13.7); WHITE BLOOD COUNT (AUTO) 12.3 K/uL (4.8-10.8)
[2021-05-04 08:00] VITALS: BP 117/44
[2021-05-04 08:04] LABS: ANION GAP 8.7 (8-16); CARBON DIOXIDE 27.5 mmol/L (21-32); CREATININE 0.9 mg/dL (0.6-1.3); POTASSIUM 3.2 mmol/L (3.5-5.1)
[2021-05-04 08:14] LABS: LYMPHOCYTES % (AUTO) 8.6 % (20.5-51.1); NEUTROPHILS % (AUTO) 85.1 % (42.2-75.2)
[2021-05-04] MEDS: KETOROLAC 30 MG/ML VIAL IM SCH (09:18)
[2021-05-04] MEDS: FUROSEMIDE 40 MG TAB PO SCH (09:19)
[2021-05-04] MEDS: LORATADINE 10 MG TAB PO SCH (09:19)
[2021-05-04] MEDS: FAMOTIDINE 20 MG TAB PO SCH (09:20)
[2021-05-04] MEDS: ASPIRIN 81 MG TAB.CHEW PO SCH (09:21)
[2021-05-04] MEDS: PANTOPRAZOLE 40 MG TABEC PO SCH (09:23)
[2021-05-04] MEDS: ENOXAPARIN 40 MG/0.4 ML SYR SUBQ SCH (09:37)
[2021-05-04 12:00] VITALS: BP 107/59
[2021-05-04] MEDS: INSULIN LISPRO SLIDING SCALE 100 UNITS/ML VIAL SUBQ PRN ×3 (12:09→20:45)
[2021-05-04] MEDS: VANCOMYCIN 1,750 MG in DEXTROSE 5% 500 ML IV SCH (12:51)
[2021-05-04 16:00] VITALS: BP 123/73
--- NOTE | 2021-05-04 19:53 | NUR ---
RECEIVED REPORT FROM DAYSNVFT NURSE FOR CONTINUITY OF CARE.
[2021-05-04 20:00] VITALS: BP 112/54
--- NOTE | 2021-05-04 21:00 | NUR ---
ALL SCHEDULED MEDICATIONS GIVEN. PT TOLERATED WELL. NO SIGNS OF DISTRESS. 3L NC. SAFETY MEASURES IMPLEMENTED
[2021-05-04] MEDS: ALBUTEROL 0.083% 2.5 MG/3 ML NEBU INH PRN (23:52)
[2021-05-05] MEDS ORDERED: VANCOMYCIN 500 MG VIAL ONE ×2 (00:40→00:41)
[2021-05-05] MEDS ORDERED: VANCOMYCIN 1,000 MG VIAL ONE (00:40)
[2021-05-05] MEDS: VANCOMYCIN 1,750 MG in DEXTROSE 5% 500 ML IV SCH ×2 (00:53→11:42)
[2021-05-05] MEDS: NACL 0.9% 1,000 ML IV SCH ×5 (02:55→22:55)
[2021-05-05] MEDS: MORPHINE SULFATE 2 MG/ML SYR IVP PRN ×2 (03:24→10:19)
[2021-05-05] MEDS: ONDANSETRON 4 MG/2 ML VIAL IM/IVP PRN (03:24)
--- NOTE | 2021-05-05 04:00 | NUR ---
PATIENT RESTING ON BED, NO SIGNS OF DISTRESS. ON ROOM AIR, SAFETY MEASURES IMPLEMENTED. Addendum: 05/05/21 at 0645 by Shavonne Lpoez RN RN ON NC
[2021-05-05 05:56] LABS: ANION GAP 9.7 (8-16); CARBON DIOXIDE 27.5 mmol/L (21-32); POTASSIUM 3.2 mmol/L (3.5-5.1)
[2021-05-05 06:03] LABS: BASOPHILS % (AUTO) 0.4 % (0.0-2.0); EOSINOPHILS # (AUTO) 0.2 K/uL (0-0.4); EOSINOPHILS % (AUTO) 1.8 % (0.0-4.0); HEMATOCRIT 28.2 % (36-48); HEMOGLOBIN 9.2 g/dL (12.0-16.0); LYMPHOCYTES # (AUTO) 1.3 K/uL (2.5-16.5); LYMPHOCYTES % (AUTO) 11.7 % (20.5-51.1); MEAN CORPUSCULAR HEMOGLOBIN 27 pg (27-31); MEAN CORPUSCULAR HGB CONC 33 g/dL (33-37); MEAN CORPUSCULAR VOLUME 83.2 fL (80-94); MONOCYTES # (AUTO) 0.4 K/uL (0.8-1.0); MONOCYTES % (AUTO) 3.9 % (1.7-9.3); NEUTROPHILS % (AUTO) 82.2 % (42.2-75.2); PLATELET COUNT (AUTO) 176 K/uL (140-450); RED BLOOD CELL COUNT(AUTO) 3.39 MIL/uL (4.20-5.40); RED CELL DISTRIBUTION WIDTH 15.8 % (11.6-13.7); WHITE BLOOD COUNT (AUTO) 10.9 K/uL (4.8-10.8)
[2021-05-05] MEDS: LEVOTHYROXINE 0.088 MG TAB PO SCH (06:50)
[2021-05-05] MEDS: BLOOD GLUCOSE MONITORING 1 DEV DEV FS SCH ×4 (06:58→20:41)
--- NOTE | 2021-05-05 07:42 | NUR ---
ENDORSE PT TO DAYSHIFT NURSE FOR CONTINUITY OF CARE. PT STABLE
[2021-05-05 08:00] VITALS: BP 98/42
[2021-05-05] MEDS: ALBUTEROL 0.083% 2.5 MG/3 ML NEBU INH PRN (08:26)
--- NOTE | 2021-05-05 08:26 | NUR ---
Pt alert and awake, no signs of resp. distress noted at this time. Diminished bilaterally with small end exp. wheeze. PRN albuterol given with minimal improvement. Pt in pain, RN at bedside. Will continue to monitor.
[2021-05-05] MEDS: HYDROcodone/APAP 7.5/325 MG 1 TAB PO PRN ×2 (08:37→21:47)
[2021-05-05] MEDS: ASPIRIN 81 MG TAB.CHEW PO SCH (08:51)
[2021-05-05] MEDS: LORATADINE 10 MG TAB PO SCH (08:51)
[2021-05-05] MEDS: PANTOPRAZOLE 40 MG TABEC PO SCH (08:52)
[2021-05-05] MEDS: FAMOTIDINE 20 MG TAB PO SCH (08:52)
[2021-05-05] MEDS: FUROSEMIDE 40 MG TAB PO SCH (08:52)
[2021-05-05] MEDS: ENOXAPARIN 40 MG/0.4 ML SYR SUBQ SCH (09:00)
--- NOTE | 2021-05-05 09:20 | NUR ---
DUE MEDICATIONS NOT GIVEN DUE TO PT GOING TO SURGERY NPO. WILL CONITNUE TO MONITOR.
--- NOTE | 2021-05-05 09:40 | NUR ---
PT TAKEN TO SURGERY BY SURGERY RN SEAMUS.
--- NOTE | 2021-05-05 10:15 | NUR ---
PT BROUGHT BACK FROM OR PER OR TECH PROCEDURE IS DELAYED UNTIL 12PM. WILL CONTINUE TO MONITOR.
--- NOTE | 2021-05-05 10:19 | NUR ---
PT C/O PAIN, MEDICATION PER DR ORDER GIVEN, PT TOLERATED WELL, NO DISTRESS NOTED, WILL CONTINUE TO MONITOR.
--- NOTE | 2021-05-05 12:11 | NUR ---
PT RESTING, SITTING AT BEDSIDE, WILL CONTINUE TO MONITOR.
[2021-05-05 16:00] VITALS: BP 101/39
--- NOTE | 2021-05-05 16:25 | NUR ---
PT POTASSIUM 3.2, POTASSIUM CHLORIDE PO ORDERED GIVEN PER ORDER. WILL CONTINUE TO MONITOR.
[2021-05-05] MEDS: INSULIN LISPRO SLIDING SCALE 100 UNITS/ML VIAL SUBQ PRN ×2 (16:55→20:48)
--- NOTE | 2021-05-05 17:10 | NUR ---
PER DR RENE PT IS GOING TO SURGERY TOMORROW, NPO AFTER MIDNIGHT, WILL ENDORSE.
--- NOTE | 2021-05-05 19:23 | NUR ---
ENDORSED PT TO ELECTROMAGNET CRANE OPERATOR NURSE VANNA RICKS FOR CONTINUOUS OF CARE. Addendum: 05/05/21 at 1924 by Pricila Abernathy RN WRONG PT
--- NOTE | 2021-05-05 19:35 | NUR ---
ENDORSED PT TO INTERNET MANAGER NURSE LOREN RICKS FOR CONTINUOUS OF CARE.
--- NOTE | 2021-05-05 19:36 | NUR ---
RECEIVED REPORT FROM AM NURSE. PATIENT IN BED RESTING WITH O2 AT 3LPM VIA NC TOLERATING WELL. NO S/S OF RESPIRATORY DISTRESS. ALL SAFETY MEASURES ARE IN PLACE. NO COMPLAINTS OF PAIN AT THIS TIME. CALL LIGHT WITHIN REACH. WILL CONTINUE TO MONITOR.
--- NOTE | 2021-05-05 20:50 | NUR ---
NEEDS WELL ATTENDED. CALL LIGHT WITHIN REACH.
[2021-05-06] VITALS: BP 101/48
[2021-05-06] MEDS: VANCOMYCIN 1,750 MG in DEXTROSE 5% 500 ML IV SCH ×2
[2021-05-06] MEDS ORDERED: VANCOMYCIN 1,000 MG VIAL ONE (00:16)
--- NOTE | 2021-05-06 00:44 | NUR ---
SPOKE WITH [facility] AND ORDERED VANCOMYCIN TO HOLD DUE TO VANCO TROUGH IS HIGH 30.1. VANCOMYCIN 2 GM RETURNED TO [facility].
[2021-05-06] MEDS: NACL 0.9% 1,000 ML IV SCH ×3 (04:16→20:43)
[2021-05-06 06:07] LABS: ANION GAP 10.8 (8-16); CARBON DIOXIDE 28.8 mmol/L (21-32); CREATININE 0.8 mg/dL (0.6-1.3); POTASSIUM 3.6 mmol/L (3.5-5.1)
[2021-05-06 06:19] LABS: BASOPHILS % (AUTO) 0.3 % (0.0-2.0); EOSINOPHILS # (AUTO) 0.2 K/uL (0-0.4); EOSINOPHILS % (AUTO) 1.9 % (0.0-4.0); HEMATOCRIT 28.8 % (36-48); HEMOGLOBIN 9.4 g/dL (12.0-16.0); LYMPHOCYTES # (AUTO) 1.2 K/uL (2.5-16.5); LYMPHOCYTES % (AUTO) 13.7 % (20.5-51.1); MEAN CORPUSCULAR HEMOGLOBIN 27 pg (27-31); MEAN CORPUSCULAR HGB CONC 33 g/dL (33-37); MEAN CORPUSCULAR VOLUME 83.5 fL (80-94); MONOCYTES # (AUTO) 0.6 K/uL (0.8-1.0); MONOCYTES % (AUTO) 6.3 % (1.7-9.3); NEUTROPHILS # (AUTO) 6.9 K/uL (1.8-7.7); NEUTROPHILS % (AUTO) 77.8 % (42.2-75.2); PLATELET COUNT (AUTO) 178 K/uL (140-450); RED BLOOD CELL COUNT(AUTO) 3.45 MIL/uL (4.20-5.40); RED CELL DISTRIBUTION WIDTH 16.1 % (11.6-13.7); WHITE BLOOD COUNT (AUTO) 8.9 K/uL (4.8-10.8)
[2021-05-06] MEDS: LEVOTHYROXINE 0.088 MG TAB PO SCH (06:30)
[2021-05-06] MEDS: INSULIN LISPRO SLIDING SCALE 100 UNITS/ML VIAL SUBQ PRN ×3 (06:41→22:32)
[2021-05-06] MEDS: BLOOD GLUCOSE MONITORING 1 DEV DEV FS SCH ×4 (06:41→21:00)
--- NOTE | 2021-05-06 07:25 | NUR ---
ENDORSED TO AM NURSE FOR CONTINUITY OF CARE. PT IS STABLE.
[2021-05-06 08:00] VITALS: BP 100/56
[2021-05-06] MEDS: ASPIRIN 81 MG TAB.CHEW PO SCH (09:00)
[2021-05-06] MEDS: PANTOPRAZOLE 40 MG TABEC PO SCH (09:00)
[2021-05-06] MEDS: ENOXAPARIN 40 MG/0.4 ML SYR SUBQ SCH (09:00)
[2021-05-06] MEDS: FAMOTIDINE 20 MG TAB PO SCH (09:00)
[2021-05-06] MEDS: FUROSEMIDE 40 MG TAB PO SCH (09:00)
[2021-05-06] MEDS: LORATADINE 10 MG TAB PO SCH (09:00)
--- NOTE | 2021-05-06 09:00 | NUR ---
DUE MEDICATIONS HELD DUE PT NPO GOING TO SURGERY AT 1130
[2021-05-06] MEDS: MORPHINE SULFATE 2 MG/ML SYR IVP PRN ×2 (09:58→16:27)
--- NOTE | 2021-05-06 09:58 | NUR ---
PT C/O PAIN, MEDICATION ADMINISTERED PER DR ORDER, PT TOLERATED WELL, WILL CONTINUE TO MONITOR.
[2021-05-06] MEDS ORDERED: ETOMIDATE 20 MG/10 ML VIAL IVP ONE (10:33)
[2021-05-06] MEDS ORDERED: PROPOFOL 200 MG/20 ML VIAL IV ONE ×2 (10:37)
[2021-05-06] MEDS ORDERED: fentaNYL citrate 0.05 MG/ML VIAL ONE (10:40)
[2021-05-06] MEDS ORDERED: LIDOCAINE MPF 2% 100 MG/5 ML VIAL INJ ONE (10:42)
[2021-05-06] MEDS ORDERED: GLYCOPYRROLATE 0.2 MG/ML VIAL ONE (10:42)
[2021-05-06] MEDS ORDERED: ROCURONIUM 50 MG/5 ML VIAL IV ONE (10:42)
[2021-05-06] MEDS ORDERED: SUCCINYLCHOLINE CHLORIDE 200 MG/10 ML VIAL IVP ONE (10:42)
[2021-05-06] MEDS ORDERED: NEOSTIGMINE 1:1000 10 MG/10 ML VIAL ONE (10:42)
--- NOTE | 2021-05-06 10:45 | NUR ---
PT TAKEN TO OR FOR PROCEDURE, OR NURSE ACCOMPANYING PT.
[2021-05-06] MEDS ORDERED: methylPREDNISolone SS 40 MG/ML VIAL ONE (11:06)
[2021-05-06] MEDS: ALBUTEROL 0.083% 2.5 MG/3 ML NEBU INH PRN ×2 (11:07→17:06)
[2021-05-06] MEDS ORDERED: LIDOCAINE/EPI MPF 1%1:200000 30 ML VIAL INJ ONE (11:40)
[2021-05-06] MEDS ORDERED: BUPIVACAINE-MPF/EPI 0.5% 30 ML VIAL INJ ONE (11:50)
[2021-05-06] MEDS ORDERED: MEPERIDINE 25 MG/ML SYR ONE (11:50)
[2021-05-06] MEDS ORDERED: LIDOCAINE 1% 500 MG/50 ML VIAL ONE (11:50)
[2021-05-06] MEDS: VANCOMYCIN HCL 1.25 GM in DEXTROSE 5% 250 ML IV SCH (12:00)
[2021-05-06] MEDS ORDERED: METOCLOPRAMIDE 10 MG/2 ML INJ VIAL ONE (12:23)
[2021-05-06] MEDS ORDERED: ONDANSETRON 4 MG/2 ML VIAL ONE (12:23)
[2021-05-06] MEDS ORDERED: LACTATED RINGERS 1,000 ML IV SCH (12:50)
[2021-05-06] MEDS ORDERED: fentaNYL citrate 0.05 MG/ML VIAL IVP PRN (12:50)
[2021-05-06] MEDS ORDERED: ONDANSETRON 4 MG/2 ML VIAL IVP PRN (12:50)
[2021-05-06] MEDS ORDERED: BLOOD GLUCOSE MONITORING 1 DEV DEV FS SCH (12:50)
--- NOTE | 2021-05-06 13:15 | NUR ---
PT CAME BACK FROM SURGERY, TOLERATED WELL, DRESSING INTACT, WILL CONTINUE TO MONITOR.
--- NOTE | 2021-05-06 14:12 | NUR ---
DC PLANNING: ORDER RECEIVED FOR DAILY WOUND CARE FOR PATIENT, ANN REACHED OUT TO DR. DEXTER FOR CLARIFICATION, NEW ORDERS ENTERED AND FAXED TO XENIA AT [facility] FOR HOME HEALTH. ANN WILL FOLLOW FOR NEEDS. Addendum: 05/06/21 at 1556 by Tanja Wilkinson CM DC PLANNING: ANN SPOKE WITH THE PATIENT AT BEDSIDE. PATIENT IS S/P I&D OF A LEFT THIGH ABCESS. SHE LIVES ALONE IN A 1ST FLOOR APARTMENT AND HAS AN etechies.in WORKER WHO COMES 7 DAYS A WEEK FOR 8 HRS. THE PATIENT RECEIVES SSDI, AND HAS DME OF A GLUCOMETER, FWW, 3 IN 1 COMMODE, WC, SHOWER BENCH, O2 AND NEBULIZER. THE PATIENT DOES TELEHEALTH VISITS WITH HER PCP AND SKINNING MACHINE FEEDER MONTHLY. THE PATIENT IS ASKING FOR INFORMATION ON OBTAINING A HOSPITAL BED IDENTICAL TO THE ONE SHE IS USING HERE. SHE STATES THAT SHE HAS A HOSPITAL BED THAT WAS PURCHASED FOR HER BY AN MD AT [facility] BUT SHE DOESN'T USE IT BECAUSE THE MATTRESS IS VERY UNCOMFORTABLE. SHE ALSO PURCHASED A SLEEP NUMBERS BED BUT IT IS TOO HIGH AND SHE IS UNABLE TO CLIMB INTO IT. SHE HAS BEEN SLEEPING IN HER RECLINER FOR THE LAST YEAR AND STATES THAT SHE SPOKE TO [facility] AND WAS TOLD THAT SHE QUALIFIES FOR A FULLY ELECTRIC HOSPITAL BED. ANN LEFT A MESSAGE FOR ANN MICHAELS AT [facility] TO ENDORSE THE PATIENTS REQUEST. ANN ALSO ENDORSED TO THE PATIENT THAT HOME HEALTH IS BEING SET UP FOR DAILY VISITS FOR WOUND CARE TO HER LEFT THIGH, AND THAT SHE WILL NEED TO FOLLOW UP WITH THE SURGEON AND HER PCP NO LATER THAN ONE WEEK AFTER DISCHARGE FROM THE HOSPITAL. DC PLAN AT THIS TIME IS TO DISCHARGE TO HOME WITH HOME HEALTH FOR WOUND CARE. ANN WILL FOLLOW FOR NEEDS. Addendum: 05/07/21 at 0907 by Tanja Wilkinson CM DC PLANNING: ANN SPOKE WITH XENIA AT [facility], PATIENT IS AUTHORIZED WITH [employer] [facility] FOR WOUND CARE, PHONE [phone]. ORDER SENT FOR HOSPITAL MATTRESS OVERLAY TO XENIA, PATIENT HAS A NEW HEAVY DUTY HOSPITAL BED PROVIDED 04/30/21 BY [employer], PHONE [phone]. [facility] PROVIDES PATIENT RESPIRATORY EQUIPMENT, PATIENT ALSO HAS A BIPAP. ANN WILL FOLLOW FOR NEEDS. Addendum: 05/07/21 at 1307 by Tanja Wilkinson CM DC PLANNING: ANN SPOKE WITH THE PATIENT, GAVE HER THE NAME OF THE EQUIPMENT COMPANY WHO PROVIDED HER HOSPITAL BED, [employer]. ALSO ENDORSED THAT AN ORDER HAS BEEN FAXED TO HER INSURANCE FOR A MATTRESS OVERLAY. PATIENT STATES THAT SHE DOESN'T WANT TO DC TODAY, CM ENDORSED THAT HER MD MAKES THE FINAL DECISION AND THAT THE DISCUSSION HAS BEEN FOR HER TO DC TODAY. ALSO ENDORSED THAT HER HOME HEALTH HAS BEEN SET UP WITH [employer] [facility] FOR DAILY WOUND, PHONE NUMBER AND LIST OF SUPPLIES TO SEND WITH THE PATIENT GIVEN TO HER RN MIRELLA. CM ALSO SPOKE WITH [facility] AND CONFIRMED THAT START OF CARE FOR THE PATIENTS WOUND CARE WILL BE TOMORROW IN ANTICIPATION OF DC TODAY. CM WILL FOLLOW FOR NEEDS.
[2021-05-06 16:00] VITALS: BP 102/41
--- NOTE | 2021-05-06 16:27 | NUR ---
PT C/O PAIN, MEDICATION ADMINISTERED PER DR ORDER, PT TOLERATED WELL, WILL CONTINUE TO MONITOR.
--- NOTE | 2021-05-06 19:30 | NUR ---
ENDORSED PT TO PATROL SERGEANT SHERIFF'S OFFICE NURSE ASH BECKFORD, FOR CONTINUOUS OF CARE.
--- NOTE | 2021-05-06 19:31 | NUR ---
RECD. RESTING IN BED, AWAKE, A/OX4, OBESE. RESPIRATION EVEN AND UNLABORED. ON 02 A 2 LITERS VIA N/CIV OF NS AT 60 ML/HR INFUSING, RIGHT WRIST G22. SURGICAL INCISION IN THE LET INNER THIGH, COVERED WITH DRESSING, DRY AND INTACT. USES THE BEDPAN WITH ASSISTANCE BUT ALSO ABLE TO AMBULATE WITH ASSIST. MEDICATIONS FOR THE NIGHT DISCUSSED WITH PATIENT. VERBALIZED UNDERSTANDING. PAIN IN THE SITE, 09/15, TOLERABLE. WILL CONTINUE TO MONITOR AND MEDICATE PER MD ORDER.
[2021-05-06 20:00] VITALS: BP 100/47
--- NOTE | 2021-05-06 20:30 | NUR ---
ASSISTED WITH BED CALI, ABLE TO VOID MODERATE AMOUNT OF CLEAR YELLOW URINE.
--- NOTE | 2021-05-06 21:30 | NUR ---
FEELING WARM, ICE PACKS GIVEN. PATIENT PUT ONE ON EACH SIDE OF HER NECK.
[2021-05-06 22:00] VITALS: BP 100/47
[2021-05-06] MEDS: HYDROcodone/APAP 7.5/325 MG 1 TAB PO PRN (22:05)
--- NOTE | 2021-05-06 22:30 | NUR ---
ASSISTED WITH BEDPAN. VOIDED MODERATE AMOUNT OF CLEAR YELLOW URINE.
[2021-05-07] VITALS: BP 101/60
[2021-05-07] MEDS: VANCOMYCIN HCL 1.25 GM in DEXTROSE 5% 250 ML IV SCH ×3 (01:10→23:08)
--- NOTE | 2021-05-07 01:10 | NUR ---
PATIENT STILL AWAKE IN BED, WATCHING MOVIES IN HER CELLPHONE. VANCOMYCIN IVPB INFUSED BY MILLICENT ROSENBAUM.
[2021-05-07] MEDS: MORPHINE SULFATE 2 MG/ML SYR IVP PRN ×3 (01:11→17:40)
--- NOTE | 2021-05-07 02:00 | NUR ---
WITH MODERATE AMOUNT OF BLOOD SEEPING THROUGH THE DRESSING, REINFORCED WITH ABDOMINAL PAD AND KERLIX DRESSING.
--- NOTE | 2021-05-07 04:00 | NUR ---
ASSISTED WITH THE BEDPAN, ABLE TO VOID 300 ML OF CLEAR YELLOW URINE. ASSISTED WITH PERICARE.
[2021-05-07 05:50] LABS: BASOPHILS % (AUTO) 0.1 % (0.0-2.0); HEMOGLOBIN 9.1 g/dL (12.0-16.0); LYMPHOCYTES # (AUTO) 0.9 K/uL (2.5-16.5); LYMPHOCYTES % (AUTO) 7.8 % (20.5-51.1); MEAN CORPUSCULAR HEMOGLOBIN 27 pg (27-31); MEAN CORPUSCULAR HGB CONC 32 g/dL (33-37); MEAN CORPUSCULAR VOLUME 83.7 fL (80-94); MONOCYTES # (AUTO) 0.6 K/uL (0.8-1.0); MONOCYTES % (AUTO) 5.4 % (1.7-9.3); NEUTROPHILS # (AUTO) 9.5 K/uL (1.8-7.7); NEUTROPHILS % (AUTO) 86.7 % (42.2-75.2); PLATELET COUNT (AUTO) 201 K/uL (140-450); RED BLOOD CELL COUNT(AUTO) 3.35 MIL/uL (4.20-5.40); RED CELL DISTRIBUTION WIDTH 15.5 % (11.6-13.7)
--- NOTE | 2021-05-07 06:00 | NUR ---
COMPLAINT OF LEFT THIGH PAIN ATTENDED PROMPTLY, MEDICATED ORDERED. TOLERATED ALL MEDICATIONS GIVEN DURING SHIFT.
[2021-05-07 06:04] LABS: ANION GAP 10.3 (8-16); CARBON DIOXIDE 27.9 mmol/L (21-32); CREATININE 0.9 mg/dL (0.6-1.3); POTASSIUM 4.2 mmol/L (3.5-5.1)
[2021-05-07] MEDS: LEVOTHYROXINE 0.088 MG TAB PO SCH (06:11)
[2021-05-07] MEDS: HYDROcodone/APAP 7.5/325 MG 1 TAB PO PRN ×2 (06:11→11:54)
[2021-05-07] MEDS: BLOOD GLUCOSE MONITORING 1 DEV DEV FS SCH ×4 (06:19→21:00)
[2021-05-07] MEDS: INSULIN LISPRO SLIDING SCALE 100 UNITS/ML VIAL SUBQ PRN ×2 (06:21→11:54)
--- NOTE | 2021-05-07 07:20 | NUR ---
ENDORSED TO AM SHIFT NURSE FOR CONTINUITY OF CARE.
--- NOTE | 2021-05-07 07:21 | NUR ---
RECEIVED REPORT FROM MEASURING CLERK NURSE FOR CONTINUITY OF CARE, POC DISCUSSED. PT IS RESTING IN BED WITH NO ACUTE S/S OF DISTRESS, ON 2L NC WITH CHEST RISING AND FALLING EVEN AND UNLABORED. PT HAS A RIGHT WRIST 22G RUNNING NS AT 60. PT DENIES PAIN AT THIS TIME. ALL SAFETY MEASURES IN PLACE, CALL LIGHT WITHIN REACH. WILL CONTINUE TO MONITOR.
[2021-05-07 08:00] VITALS: BP 105/46
[2021-05-07] MEDS: PANTOPRAZOLE 40 MG TABEC PO SCH (09:23)
[2021-05-07] MEDS: FUROSEMIDE 40 MG TAB PO SCH (09:23)
[2021-05-07] MEDS: LORATADINE 10 MG TAB PO SCH (09:23)
[2021-05-07] MEDS: ASPIRIN 81 MG TAB.CHEW PO SCH (09:23)
[2021-05-07] MEDS: ENOXAPARIN 40 MG/0.4 ML SYR SUBQ SCH (09:24)
[2021-05-07] MEDS: FAMOTIDINE 20 MG TAB PO SCH (09:24)
--- NOTE | 2021-05-07 09:36 | NUR ---
KYM MEDICATION ADMINISTERED PER MD ORDER, PT TOLERATED ADMINISTRATION. PT REPORT 8/10 PAIN, MEDICATED PER MD ORDER. PT TOLERATED ADMINISTRATION. PT EDUCATION PROVIDED AND PT VERBALIZED UNDERSTANDING. IV IS PATENT AND INTACT. PT DRESSING IS INTACT AND NO DRAINAGE NOTED. ALL SAFETY MEASURES IN PLACE. CALL LIGHT WITHIN REACH. WILL CONTINUE TO MONITOR.
--- NOTE | 2021-05-07 11:08 | NUR ---
NIKKI, PARKS AND RECREATION WORKER, REPORTED THAT HOME HEALTH IS SET UP AND GAVE THE PT ALL THE INFORMATION NEEDED. PARKS AND RECREATION WORKER GAVE ME THE LIST OF SUPPLIES TO SEND PT HOME WITH. PENDING DISCHARGE ORDERS.
[2021-05-07] MEDS ORDERED: SEVOFLURANE 250 ML BTL INH ONE (11:15)
--- NOTE | 2021-05-07 12:00 | NUR ---
REASON FOR EVALUATION: PERINEAL CELLULITIS S/P I&D ON 05/06/21. WOUND ASSESSMENT COMPLETED ON THIS 50 Y/O FEMALE ADMITTED TO [facility] FOR PERINEAL CELLULITIS ON LEFT THIGH. PAST MEDICAL HISTORY INCLUDES CHF, HYTN, DM II, MORBID OBESITY, RECURRENT COLITIS, HYPOTHYROIDISM, COPD, CAD, ASTHMA. PATIENT IS FROM HOME. ALL ABOVE INFORMATION WAS OBTAINED FROM THE ADMISSION H&P. LABS ARE WBC 11.0, H/H 9.1/28.0, GLUCOSE 193, ALBUMIN 3.1. PATIENT IS AAOX4, CALM, APPROPRIATE AFFECT. SKIN IS WARM TO TOUCH, COLOR APPROPRIATE TO ETHNICITY. INDEPENDENT IN TURNING AND AMBULATING. PLAN OF WOUND CARE DISCUSSED WITH PATIENT, HOWEVER, PATIENT REFUSES FOR WOUND DRESSINGS TO BE CHANGED AT THIS TIME PATIENT REPORTS INSTRUMENTATION CHEMIST JUST CLEANED AND CHANGED THE WOUND. PATIENT ADMITTED WITH LEFT HIGH CLOSED CELLULITIS WITH S/P I&D ON 05/06/21 DR. DEXTER. COMORBIDITIES RELATED TO FURTHER SKIN BREAKDOWN, SUCH DM II AND MORBID OBESITY. INTEGUMENTARY: - LEFT THIGH CELLULITIS S/P I&D ON 05/06/[address] DEXTER. DRESSINGS DRY AND INTACT. PATIENT REFUSES TO HAVE WOUND ASSESSED AND DRESSINGS CHANGED AT THIS TIME PATIENT REPORTS INSTRUMENTATION CHEMIST RN ALREADY CLEANED IT AND CHANGED THE DRESSINGS. RECOMMENDATIONS: - SURGEON DR. DEXTER FOLLOWING-UP ON CASE. I&D LESS THAN 24 HOURS. WOUND DRESSING CHANGES PER DR. DEXTER RECOMMENDS. - ASSESS AND MONITOR SKIN CONDITION QSHIFT.
--- NOTE | 2021-05-07 12:09 | NUR ---
BLOOD GLUCOSE 163, 2 UNITS OF INSULIN ADMINISTERED PER MD ORDER. PT EDUCATION PROVIDED. PT VERBALIZED UNDERSTANDING. PT REPORTED BREAKTHROUGH PAIN, MEDICATED PER MD ORDER. KYM ABX ADMINISTERED PER MD ORDER. PT IV PATENT AND INTACT. ALL SAFETY MEASURES IN PLACE. CALL LIGHT WITHIN REACH. WILL CONTINUE TO MONITOR.
--- NOTE | 2021-05-07 12:54 | NUR ---
WOUND NURSE ATTEMPTED TO ASSESS AND DO DRESSING CHANGE. PT REFUSED; STATED CHEESE COOK DID IT EARLY IN THE MORNING AND SHE DOESN'T WANT IT CHANGED AGAIN TODAY. DRESSING IS DRY AND INTACT WITH NO DRAINAGE LEAKAGE NOTED. WILL CONTINUE TO MONITOR.
[2021-05-07] MEDS: NACL 0.9% 1,000 ML IV SCH (13:23)
--- NOTE | 2021-05-07 13:38 | NUR ---
05/07/21 RD INITIAL ASSESSMENT COMPLETED PLEASE REFER TO NUTRITION ASSESSMENT UNDER CARE ACTIVITY FOR ESTIMATED NUTRITIONAL NEEDS. 1. CONTINUE CCHO 60GM AND CARDIAC DIET TOLERATED 2. RD PROVIDED HEART HEALTHY AND DIABETES NUTRITION EDUCATION. PATIENT ACCEPTED. 3. RD TO FOLLOW-UP 5-7 DAYS, LOW RISK SUZANNE JACK RD
--- NOTE | 2021-05-07 14:38 | NUR ---
PT IS STABLE IN BED WITH NO ACUTE S/S OF DISTRESS.
[2021-05-07 16:00] VITALS: BP 114/52
--- NOTE | 2021-05-07 16:58 | NUR ---
BLOOD GLUCOSE 122, NO INSULIN NEEDED PER MD ORDER. PT REPORTED PAIN; MEDICATED PER MD ORDER. PT TOLERATED ADMINISTRATION. IV INTAKE. WILL REPLENISH IV FLUIDS
--- NOTE | 2021-05-07 18:08 | NUR ---
PT IS REPORTED MORE TOLERABLE PAIN. PT IS STABLE. WILL CONTINUE TO MONITOR.
--- NOTE | 2021-05-07 19:26 | NUR ---
PT ENDORSED TO WELL SHOOTER NURSE FOR CONTINUITY OF CARE, POC DISCUSSED.
--- NOTE | 2021-05-07 19:27 | NUR ---
RECD. RESTING IN BED, SLEEPING COMFORTABLY BUT EASILY AROUSABLE. A/OX4. RESPIRATION EVEN AND UNLABORED. ON 02 AT 2 LITERS VIA N/C. IV OF NS INFUSING AT 60 ML/HR, RIGHT HAND G22. LEFT LEG INCISION COVERED WITH DRESSING, DRY AND INTACT. ON IV ANTIBIOTICS. MEDICATIONS FOR THE NIGHT DISCUSSED WITH PATIENT. VERBALIZED UNDERSTANDING. PAIN IN THE LEFT LEG 09/15, WAS MEDICATED AT 1740 WITH MORPHINE BY AM NURSE. WILL CONTINUE TO MONITOR.
[2021-05-07] MEDS: ALBUTEROL 0.083% 2.5 MG/3 ML NEBU INH PRN (19:42)
--- NOTE | 2021-05-07 20:00 | NUR ---
Patient's Plan of Care was discussed and reviewed with ANALY: ANALY ALEMAN
[2021-05-07] MEDS ORDERED: FURO40TA9 PO (20:49)
[2021-05-07] MEDS ORDERED: METF-1022 PO (20:54)
[2021-05-07] MEDS ORDERED: CEPH500C16 PO (20:59)
--- NOTE | 2021-05-07 22:00 | NUR ---
SNACK FOR THE NIGHT GIVEN. REMINDED OF ADVANTAGE OF AMBULATION FOR EARLY RECOVERY.
--- NOTE | 2021-05-07 23:00 | NUR ---
ASSISTED WITH THE USE OF THE BEDPAN. ABLE TO VOID 300 ML CLEAR YELLOW URINE.
--- NOTE | 2021-05-07 23:08 | NUR ---
SCHEDULE ANTIBIOTIC IVPB GIVEN WITH EDUCATION, PATIENT VERBALIZED UNDERSTANDING. NO SIGN OF DISTRESS NOTED. PRECAUTION IN PLACE. CALL LIGHT WITHIN REACH. WILL CONTINUE TO MONITOR.
[2021-05-07] MEDS: ACETAMINOPHEN 325 MG TAB PO PRN (23:20)
--- NOTE | 2021-05-07 23:20 | NUR ---
WITH HEADACHE, 5/10, MEDICATED WITH TYLENOL PER MD ORDER.
[2021-05-08] VITALS: BP 105/60
--- NOTE | 2021-05-08 00:20 | NUR ---
VERBALIZED DECREASED HEADACHE, 10/16. STILL AAKE, WATCHING TV IN HER CELLPHONE.
[2021-05-08] MEDS: MORPHINE SULFATE 2 MG/ML SYR IVP PRN ×2 (00:35→09:45)
--- NOTE | 2021-05-08 00:35 | NUR ---
MORPHINE PRN GIVEN WITH EDUCATION FOR PATIENT COMPLAINS PAIN 8/10 ON HER THIGHS. PATIENT TOLERATED WELL. NO SIGN OF DISTRESS NOTED. PRECAUTION IN PLACE. CALL LIGHT WITHIN REACH. WILL CONTINUE TO MONITOR.
--- NOTE | 2021-05-08 03:15 | NUR ---
STILL AWAKE IN BED, UNABLE TO SLEEP. MEDICATED WITH AMBIEN PER MD ORDER.
[2021-05-08] MEDS: NACL 0.9% 1,000 ML IV SCH ×2 (03:24→06:03)
--- NOTE | 2021-05-08 04:30 | NUR ---
SLEEPING COMFORTABLY IN BED. RESPIRATION EVEN AND UNLABORED.
[2021-05-08 06:22] LABS: BASOPHILS % (AUTO) 0.4 % (0.0-2.0); EOSINOPHILS # (AUTO) 0.1 K/uL (0-0.4); EOSINOPHILS % (AUTO) 1.6 % (0.0-4.0); HEMATOCRIT 28.5 % (36-48); LYMPHOCYTES # (AUTO) 1.6 K/uL (2.5-16.5); LYMPHOCYTES % (AUTO) 16.9 % (20.5-51.1); MEAN CORPUSCULAR HEMOGLOBIN 27 pg (27-31); MEAN CORPUSCULAR HGB CONC 32 g/dL (33-37); MEAN CORPUSCULAR VOLUME 85.4 fL (80-94); MONOCYTES # (AUTO) 0.5 K/uL (0.8-1.0); MONOCYTES % (AUTO) 5.4 % (1.7-9.3); NEUTROPHILS % (AUTO) 75.7 % (42.2-75.2); PLATELET COUNT (AUTO) 210 K/uL (140-450); RED BLOOD CELL COUNT(AUTO) 3.33 MIL/uL (4.20-5.40); RED CELL DISTRIBUTION WIDTH 15.9 % (11.6-13.7); WHITE BLOOD COUNT (AUTO) 9.3 K/uL (4.8-10.8)
[2021-05-08 06:43] LABS: ANION GAP 10.1 (8-16); CARBON DIOXIDE 28.6 mmol/L (21-32); CREATININE 0.9 mg/dL (0.6-1.3); POTASSIUM 3.7 mmol/L (3.5-5.1)
[2021-05-08] MEDS: LEVOTHYROXINE 0.088 MG TAB PO SCH (06:51)
[2021-05-08] MEDS: BLOOD GLUCOSE MONITORING 1 DEV DEV FS SCH (06:51)
[2021-05-08] MEDS: HYDROcodone/APAP 7.5/325 MG 1 TAB PO PRN (06:51)
--- NOTE | 2021-05-08 07:27 | NUR ---
CONDITION REMAIN STABLE. ASSISTED TO USE THE BEDPAN FOUR TIMES. ENDORSED TO AM SHIFT NURSE FOR CONTINUITY OF CARE.
--- NOTE | 2021-05-08 07:28 | NUR ---
PT HAS BEEN ENDORSED BY ASSISTANT PROJECT MANAGER NURSE FOR CONTINUITY OF CARE, POC DISCUSSED. PT IS ASLEEP IN BED ON HER BACK ON 2L NC WITH CHEST RISING AND FALLING EVEN AND UNLABORED. PT HAS A RIGHT HAND 22G RUNNING NS AT 60 ML. ALL SAFETY MEASURES IN PLACE, CALL LIGHT WITHIN REACH. WILL CONTINUE TO MONITOR.
[2021-05-08] MEDS: PANTOPRAZOLE 40 MG TABEC PO SCH (09:43)
[2021-05-08] MEDS: FUROSEMIDE 40 MG TAB PO SCH (09:44)
[2021-05-08] MEDS: FAMOTIDINE 20 MG TAB PO SCH (09:44)
[2021-05-08] MEDS: LORATADINE 10 MG TAB PO SCH (09:44)
[2021-05-08] MEDS: ASPIRIN 81 MG TAB.CHEW PO SCH (09:44)
[2021-05-08] MEDS: ENOXAPARIN 40 MG/0.4 ML SYR SUBQ SCH (09:46)
--- NOTE | 2021-05-08 09:55 | NUR ---
PT SITTING ON BED, COMPLAINS ABOUT PAIN GOT MEDICATED PRN ORDER. PT MORNING MEDICATION ADMINISTRATED ORDER. PT TOLERATED MEDS WELL. ALL SAFETY MEASURES ON PLACE, CALLS LIGHT WITHIN REACH
[2021-05-08 10:29] VITALS: BP 103/49
[2021-05-08] MEDS ORDERED: GLIP5TAB13 PO (10:58)
--- NOTE | 2021-05-08 11:45 | NUR ---
PT SITTING ON BED , HER MECHANICAL CAR CHECKER NEXT TO HER, PT HAS NO COMPLAINS, GETTING READY FOR DISCHARGE. IV REMOVED SKIN INTACT, BLEEDING CONTROLLED. ID BAND REMOVED. PT GOT DISCHARGE EDUCATION AND DISCHARGE PACKET. PT VERBALIZE UNDERSTANDING. PT WALKED TO THE [facility] ON A WHEEL CHAIR ACCOMPANIED BY A NURSE.
--- NOTE | 2021-05-08 11:48 | NUR ---
EDUCATED ON MEDICATION; PRESCRIBED GLIPIZIDE AND SENT PRESCRIPTION TO PTS PREFERRED PHARMACY. EDUCATED ON WOUND CARE, PROVIDED 4 DAY SUPPLIES OF WOUND CARE, PROVIDED HOME HEALTH PHONE NUMBER AND PLAN CLIENT STRATEGIST SETUP. ALL QUESTIONS ANSWERED, WOUND CARE PROVIDED. PT STABLE UPON DISCHARGE.
--- NOTE | 2021-05-08 13:30 | NUR ---
FOUND PRESCRIPTION IN PT FOLDER AFTER PT HAD BEEN DISCHARGED, CALLED PT TO INFORM HER. PT STATED SHE WILL TRY TO HAVE PRESCRIPTION PICKED UP. PRESCRIPTION LABELED AND PLACED IN CHARGE NURSE AREA.
== END 2021-05-08 11:30 | disposition home health service (06) | DRG 720 ==
LOC: MED 17:56 → MTU 21:33
PROVIDERS: ADMIT Family Medicine; ATTEND Family Medicine
PROC: 0Y9D0ZZ Drainage of Left Upper Leg, Open Approach (ICD-10-PCS; principal; 2021-05-06 11:00)
DX: A41.9 Sepsis, unspecified organism (principal); J96.01 Acute respiratory failure with hypoxia; E44.1 Mild protein-calorie malnutrition; L02.416 Cutaneous abscess of left lower limb; E83.39 Other disorders of phosphorus metabolism; E87.1 Hypo-osmolality and hyponatremia; E66.2 Morbid (severe) obesity with alveolar hypoventilation; I50.9 Heart failure, unspecified; L03.115 Cellulitis of right lower limb; L03.116 Cellulitis of left lower limb; I11.0 Hypertensive heart disease with heart failure; E03.9 Hypothyroidism, unspecified; E87.6 Hypokalemia; J44.9 Chronic obstructive pulmonary disease, unspecified; R74.01 Elevation of levels of liver transaminase levels; E11.40 Type 2 diabetes mellitus with diabetic neuropathy, unspecified; Z20.822 Contact with and (suspected) exposure to COVID-19; L03.315 Cellulitis of perineum; I25.10 Atherosclerotic heart disease of native coronary artery without angina pectoris; F41.9 Anxiety disorder, unspecified; Z98.891 History of uterine scar from previous surgery; Z79.82 Long term (current) use of aspirin; Z79.899 Other long term (current) drug therapy; Z90.49 Acquired absence of other specified parts of digestive tract; Z68.44 Body mass index [BMI] 60.0-69.9, adult; Z82.5 Family history of asthma and other chronic lower respiratory diseases; Z82.49 Family history of ischemic heart disease and other diseases of the circulatory system; Z83.3 Family history of diabetes mellitus
CPT/HCPCS: 36415; 71045; 73700; 76881; 80048; 80053; 80202; 80305; 81003; 82150; 82948; 83036; 83605; 83690; 83735; 83880; 84100; 84436; 84439; 84443; 84479; 85025; 85610; 85730; 87040; 87070; 87075; 87081; 87086; 87205; 93005; 93970; 94640; 96365; 96375; 97110; 97116; 97163-GP; 97530; 99291; J0330; J1650; J1885; J1956; J2001; J2175; J2270; J2405; J2704; J2710; J2765; J2920; J3010; J3370; J3490; J7060; J7613; Q0092

== ENCOUNTER 2022-09-01 15:59 | Inpatient (IN) | payer MEDICAID ==
[~2022-09-01] VITALS: Ht 149.9 cm; Wt 131.5 kg
[~2022-09-01 15:59] MED LIST changes: -BENA20TA88 PO; +CEPH500C16 PO; -DIPH25TA53 PO; -ERTU5TAB PO; -ESCI20TA49 PO; -FURO-570 PO; +FURO40TA9 PO; +GLIP5TAB13 PO; -HYDR-5191 PO; -IBUP-2213 PO; -INSU100I7 SQ; -LORA10TA19 PO; -ROB PO; -SITA100T8 PO
[2022-09-01 16:02] VITALS: BP 145/60
[2022-09-01 16:25] LABS: BASOPHILS % (AUTO) 0.4 % (0.0-2.0); EOSINOPHILS # (AUTO) 0.1 K/uL (0-0.4); HEMOGLOBIN 9.6 g/dL (12.0-16.0); LYMPHOCYTES # (AUTO) 0.7 K/uL (2.5-16.5); LYMPHOCYTES % (AUTO) 14.1 % (20.5-51.1); MEAN CORPUSCULAR HEMOGLOBIN 27 pg (27-31); MEAN CORPUSCULAR HGB CONC 31 g/dL (33-37); MEAN CORPUSCULAR VOLUME 86.9 fL (80-94); MONOCYTES # (AUTO) 0.3 K/uL (0.8-1.0); MONOCYTES % (AUTO) 5.7 % (1.7-9.3); NEUTROPHILS # (AUTO) 3.8 K/uL (1.8-7.7); NEUTROPHILS % (AUTO) 76.8 % (42.2-75.2); PLATELET COUNT (AUTO) 182 K/uL (140-450); RED BLOOD CELL COUNT(AUTO) 3.57 MIL/uL (4.20-5.40); RED CELL DISTRIBUTION WIDTH 16.6 % (11.6-13.7); WHITE BLOOD COUNT (AUTO) 4.9 K/uL (4.8-10.8)
--- NOTE | 2022-09-01 16:30 | NUR ---
52YO FEMALE PT BIBA C/O SOB. PER [facility], PT CALLED 911 DUE TO RUNNING OUT OF OXYGEN ON HER DRIVE HOME. AT SCENE PT TACHY W/ O2 88%. PT RECEIVED ON 10L NON BREATHER W/ IMPROVEMENT AT 99% . RODRIGUEZ CLEAR LUNG SOUNDS. DRY COUGH PRESENT .STATES BEING RECOMMENDED BY PCP TODAY TO COME TO ER DUE TO "FLUIDS IN LUNGS". RODRIGUEZ LOWER EXTREMITY REDDENED +3 PITTING NOTED . DENIES N/V/D, CHEST PAIN, FEVER OR CHILLS. PT AAOX4, ON GROUND INSTRUCTOR ADVANCED. HX: ASTHMA, CHF, DIABETES, NEUROPATHY , THYROID ALLERGIES: METFORMIN
[2022-09-01 16:54] LABS: ALBUMIN 2.8 g/dL (3.4-5.0); ANION GAP 8.3 (8-16); CARBON DIOXIDE 36.9 mmol/L (21-32); CREATININE 0.6 mg/dL (0.6-1.3); POTASSIUM 4.2 mmol/L (3.5-5.1); TOTAL BILIRUBIN 0.4 mg/dL (0.0-1.0)
[2022-09-01 17:10] LABS: PHOSPHORUS 3.1 mg/dL (2.5-4.9)
[2022-09-01] MEDS ORDERED: GABAPENTIN 300 MG CAP PO ONE (17:15)
[2022-09-01] MEDS ORDERED: DOCUSATE SODIUM 100 MG GELCAP PO PRN (17:50)
[2022-09-01] MEDS ORDERED: FUROSEMIDE 100 MG/10 ML VIAL IVP ONE (17:50)
[2022-09-01] MEDS ORDERED: ONDANSETRON 4 MG/2 ML VIAL IM/IVP PRN (17:50)
[2022-09-01] MEDS ORDERED: POTASSIUM CHLORIDE 10 MEQ TABER PO PRN (17:50)
[2022-09-01] MEDS ORDERED: ZOLPIDEM 5 MG TAB PO PRN (17:50)
--- NOTE | 2022-09-01 17:50 | NUR ---
PUREWICK IN PLACE. ON HIGH CONTINUOUS SUCTION .
[2022-09-01] MEDS ORDERED: DEXTROSE 50% 50 ML SYR IVP PRN (18:00)
[2022-09-01 18:53] LABS: MAGNESIUM 2.1 mg/dL (1.8-2.4); PHOSPHORUS 3.9 mg/dL (2.5-4.9)
[2022-09-01 18:59] LABS: PROTHROMBIN TIME 10.9 secs (10.8-13.4)
--- NOTE | 2022-09-01 19:20 | NUR ---
100ML YELLOW CLEAR URINE COLLECTED FROM URINE CANISTER.
--- NOTE | 2022-09-01 19:24 | NUR ---
REPORT GIVEN TO LILY RICKS. TRANSFER OF CARE AT THIS TIME
--- NOTE | 2022-09-01 19:31 | NUR ---
Assumed care of pt and pt is in bed restging on a non-rebrather running at 7L with O2 at 97%. Removed non-rebreather and O2 lowered to 88% so placed pt on a NC running at 6L and pt is now at 96%. All other vitals stable. Bilateral leg swelling. Pt is A&Ox4. Pt has a 20g IV on right hand no infiltration noted. Pt also connected to a purewick. Pt has no c/o at this time.Belongings in bag waiting for bed to become available. Pt aware she is being admitted. Bed in low position.
--- NOTE | 2022-09-01 19:35 | NUR ---
Urine collected and sent to lab.
--- NOTE | 2022-09-01 20:07 | NUR ---
Patient will be admitted to care of Vladislav RICKS. Admited to Tele. Will go to room 121A. Belongings list completed.
--- NOTE | 2022-09-01 20:25 | NUR ---
RECEIVED PT FROM ER NURSE VIA THOMAS, PT IS AOX4. PIV 20 G ON RT HAND INTACT AND PATENT.NO SOB NOTED AT THIS TIME.
[2022-09-01] MEDS ORDERED: glipiZIDE 5 MG TAB PO SCH (21:00)
[2022-09-01] MEDS: glipiZIDE 5 MG TAB PO SCH (21:12)
[2022-09-01] MEDS: METOPROLOL 25 MG TAB PO SCH (21:14)
[2022-09-01] MEDS: BLOOD GLUCOSE MONITORING 1 DEV DEV FS SCH (21:15)
[2022-09-02] VITALS (11 sets, daily range): BP systolic 80–128; BP diastolic 30–84
--- NOTE | 2022-09-02 | NUR ---
PT COMPLAINED OF BILATERAL LOWER LEG PAIN. TEXTED DR , AWAITING RESPONSE
[2022-09-02] MEDS: guaiFENesin DM 200/20 MG-10 ML 10 ML UDC PO PRN ×2 (00:16→07:45)
[2022-09-02] MEDS: ACETAMINOPHEN 325 MG TAB PO PRN (00:18)
--- NOTE | 2022-09-02 00:20 | NUR ---
DR HAMMOND ORDERED NORCO 5/325 MG PO Q4HR PRN. NOTED AND CARRIED OUT
[2022-09-02] MEDS ORDERED: HYDROcodone/APAP 5/325 MG 1 TAB TAB PO PRN (01:05)
[2022-09-02 03:09] LABS: APPEARANCE,URINE CLEAR (CLEAR); BILIRUBIN,URINE NEGATIVE (NEGATIVE); BLOOD, URINE TRACE-I (NEGATIVE); COLOR,URINE YELLOW (YELLOW); LEUKOCYTE ESTERASE ,URINE NEGATIVE (NEGATIVE); NITRITE, URINE NEGATIVE (NEGATIVE); UGLUCOSE NEGATIVE (NEGATIVE)
[2022-09-02 03:23] LABS: RBC,URINE 0-5 /HPF (0-5); WBC,URINE 0-5 /HPF (0-5)
[2022-09-02 03:24] LABS: BARBITURATE, URINE NEGATIVE ng/ml (NEG <=200); BENZODIAZEPINE, URINE NEGATIVE ng/mL (NEG <=200); CANNABINOID, URINE NEGATIVE ng/mL (NEG <=50); COCAINE, URINE NEGATIVE ng/mL (NEG <=300); OPIATE, URINE NEGATIVE ng/mL (NEG <=2000); PHENCYCLIDINE SCREEN,URINE NEGATIVE ng/mL (NEG <=25)
[2022-09-02 06:24] LABS: ANION GAP 7.3 (8-16); CREATININE 0.5 mg/dL (0.6-1.3); POTASSIUM 4.3 mmol/L (3.5-5.1)
[2022-09-02] MEDS: LEVOTHYROXINE 0.088 MG TAB PO SCH (06:51)
[2022-09-02] MEDS: BLOOD GLUCOSE MONITORING 1 DEV DEV FS SCH ×4 (06:52→21:37)
[2022-09-02] MEDS: glipiZIDE 5 MG TAB PO SCH ×2 (06:53→16:30)
--- NOTE | 2022-09-02 07:06 | NUR ---
ENDORSED PT TO AM NURSE FOR CONTINUITY OF CARE. PT IS STABLE
--- NOTE | 2022-09-02 07:10 | NUR ---
RECIEVED PT ON 6L NC PT SATING 96% TITRATED PT TO 3L NC SATING 94%. WILL CONTINUE TO MONITOR. NO RESP DISTRESS NOTED. PT STATED SHE HAD A COUGH AND REQUESTED COUGH MEDICINE. RN AWARE.
--- NOTE | 2022-09-02 07:30 | NUR ---
RECEIVED PT CARE AND REPORT FROM SHIRLENE RICKS. PT IS RESTING IN BED HIGH FOWLERS, A&OX4, APPEARS CALM. NO VISIBLE S/S OF DISTRESS OR DISCOMFORT. COMPLAINS OF 7/10 PAIN IN BILAT LOWER EXTREMITIES, 4/10 HEADACHE AND COUGH. REQUESTING PAIN MEDICATION AND COUGH MEDICATION. ON 3L O2 VIA NC. CALL LIGHT IS WITHIN REACH, ALL NEEDS MET AT THIS TIME. WILL ADMINISTER PRN MEDICATIONS.
[2022-09-02 08:00] LABS: BASOPHILS % (AUTO) 0.5 % (0.0-2.0); EOSINOPHILS # (AUTO) 0.1 K/uL (0-0.4); EOSINOPHILS % (AUTO) 2.2 % (0.0-4.0); HEMATOCRIT 31.9 % (36-48); HEMOGLOBIN 9.7 g/dL (12.0-16.0); LYMPHOCYTES % (AUTO) 14.5 % (20.5-51.1); MEAN CORPUSCULAR HEMOGLOBIN 27 pg (27-31); MEAN CORPUSCULAR HGB CONC 31 g/dL (33-37); MEAN CORPUSCULAR VOLUME 88.7 fL (80-94); MONOCYTES # (AUTO) 0.3 K/uL (0.8-1.0); NEUTROPHILS # (AUTO) 5.1 K/uL (1.8-7.7); NEUTROPHILS % (AUTO) 77.8 % (42.2-75.2); PLATELET COUNT (AUTO) 194 K/uL (140-450); RED BLOOD CELL COUNT(AUTO) 3.59 MIL/uL (4.20-5.40); RED CELL DISTRIBUTION WIDTH 16.3 % (11.6-13.7); WHITE BLOOD COUNT (AUTO) 6.5 K/uL (4.8-10.8)
[2022-09-02 08:07] LABS: FOLIC ACID 4.5 ng/mL (>3.0)
[2022-09-02] MEDS: ATORVASTATIN 20 MG TAB PO SCH (08:31)
[2022-09-02] MEDS: FAMOTIDINE 20 MG TAB PO SCH (08:31)
[2022-09-02] MEDS: FUROSEMIDE 40 MG/4 ML VIAL IVP SCH ×2 (08:31→17:00)
[2022-09-02] MEDS: METOPROLOL 25 MG TAB PO SCH (08:32)
[2022-09-02] MEDS ORDERED: lisinopriL 5 MG TAB PO SCH (09:00)
[2022-09-02] MEDS ORDERED: ASPIRIN 81 MG TAB.CHEW PO SCH (09:00)
[2022-09-02] MEDS ORDERED: LEVOTHYROXINE 0.088 MG TAB PO SCH (09:00)
[2022-09-02] MEDS ORDERED: GABAPENTIN 300 MG CAP PO SCH (10:10)
--- NOTE | 2022-09-02 10:31 | NUR ---
PATIENT HAS BEEN SCREENED AND CATEGORIZED MODERATE NUTRITION RISK. PATIENT WILL BE SEEN WITHIN 3-5 DAYS OF ADMISSION. REVIEWED BY RINA SEWELL RD
[2022-09-02] MEDS ORDERED: GABAPENTIN 100 MG CAP PO SCH (13:00)
[2022-09-02] MEDS ORDERED: GABAPENTIN 100 MG CAP ONE ×3 (13:23→21:22)
[2022-09-02] MEDS ORDERED: GABAPENTIN 300 MG CAP ONE ×2 (13:23→21:21)
[2022-09-02] MEDS: GABAPENTIN 600 MG, GABAPENTIN 200 MG PO SCH ×4 (13:25→21:36)
[2022-09-02] MEDS: NYSTATIN CRE 100 MU/GM 15 GM TUBE TP SCH ×2 (13:30→17:00)
--- NOTE | 2022-09-02 13:35 | NUR ---
1323 NEURONTIN NOT ADMINISTERED, 1300 NEURONTIN 800MG ALREADY GIVEN.
--- NOTE | 2022-09-02 15:03 | NUR ---
P.T. NOTES P.T. EVAL COMPLETED; REFER TO EVAL FOR DETAILS.
--- NOTE | 2022-09-02 16:49 | NUR ---
PATIENT SATURATION BELOW 60%. NOTICED THAT O2 WAS TURNED OFF. O2 SET TO 3L, SPO2 RISING TO LOW 70'S. INCREASED TO 5L AND PATIENT SATURATION AT LOW 80'S. REPORTED TO RT. RT PRESENT IN ROOM AT THIS TIME.
--- NOTE | 2022-09-02 16:50 | NUR ---
RN CALLED RT DUE TO PT DESATING. RN EXPLAINED SHE FOUND PTs O2 OFF. RT AND RN WERE UNAWARE OF THIS CHANGE. RT PLACED PT ON 10L GREEN BUBBLER HIGH FLOW. PT WAS BROUGHT UP TO THE LOW 90S. PT IS ANSWERING QUESTIONS BUT HER EYES WERE CLOSED. DR LANDA WAS AT BEDSIDE ASKING QUESTIONS & CHECKING PT HEART MONITOR AT NURSES STATION. STATED PT HR SHOWING IN THE 80S. RECOMMENDED BIPAP BUT DUE TO PT VOMITING RT CANNOT PLACE PT ON AT THIS TIME. RN INFORMED DR JOINER. FLITCH HANGER IS PUTTING IN ORDER FOR STAT ABG. WILL CONTINUE TO MONITOR.
[2022-09-02] MEDS ORDERED: METOCLOPRAMIDE 10 MG/2 ML INJ VIAL IVP PRN (17:30)
[2022-09-02 17:32] LABS: BASOPHILS % (AUTO) 0.4 % (0.0-2.0); EOSINOPHILS # (AUTO) 0.1 K/uL (0-0.4); EOSINOPHILS % (AUTO) 1.4 % (0.0-4.0); HEMOGLOBIN 10.4 g/dL (12.0-16.0); LYMPHOCYTES # (AUTO) 1.3 K/uL (2.5-16.5); LYMPHOCYTES % (AUTO) 14.3 % (20.5-51.1); MEAN CORPUSCULAR HEMOGLOBIN 27 pg (27-31); MEAN CORPUSCULAR HGB CONC 31 g/dL (33-37); MEAN CORPUSCULAR VOLUME 88.2 fL (80-94); MONOCYTES # (AUTO) 0.3 K/uL (0.8-1.0); MONOCYTES % (AUTO) 3.7 % (1.7-9.3); NEUTROPHILS # (AUTO) 7.1 K/uL (1.8-7.7); NEUTROPHILS % (AUTO) 80.2 % (42.2-75.2); PLATELET COUNT (AUTO) 219 K/uL (140-450); RED BLOOD CELL COUNT(AUTO) 3.86 MIL/uL (4.20-5.40); RED CELL DISTRIBUTION WIDTH 16.6 % (11.6-13.7); WHITE BLOOD COUNT (AUTO) 8.8 K/uL (4.8-10.8)
--- NOTE | 2022-09-02 17:35 | NUR ---
DR JOINER WAS CALLED BY RT TO GIVE CRITICAL ABG RESULTS. DR JOINER GAVE VERBAL ORDER TO HAVE ER DR. RENE TO INTUBATE STELLA. RT LET ER DR KNOW AND INTUBATION IS BEING SET UP.
[2022-09-02] MEDS: INSULIN LISPRO SLIDING SCALE 100 UNITS/ML VIAL SUBQ PRN ×2 (17:42→21:38)
[2022-09-02 17:44] LABS: ANION GAP 6.7 (8-16); CREATININE 0.6 mg/dL (0.6-1.3); POTASSIUM 4.5 mmol/L (3.5-5.1)
[2022-09-02 17:47] LABS: CARBON DIOXIDE 42.8 mmol/L (21-32)
--- NOTE | 2022-09-02 17:48 | NUR ---
PT VOMITED <100ML OF CHUNKY, DARK YELLOW EMESIS WITH SCANT TRACES OF BLOOD X1. PT IS CONTINUOUSLY LETHARGIC AND DIFFICULT TO AROUSE. PT IS NOT OPENING EYES AND SLOWLY/SLUGGISHLY RESPONDING TO QUESTIONS. RT RAN ABGS AND REPORTED TO DR. JOINER. DR. JOINER ORDERED FOR PATIENT TO BE INTUBATED.
--- NOTE | 2022-09-02 17:54 | NUR ---
1630 GLUCOTROL AND 1700 LASIX AND NYSTATIN NOT ADMINISTERED. PT IS LETHARGIC AT THIS TIME AND UNABLE TO SWALLOW. 02 SAT AND HEART RATE UNSTABLE AT THIS TIME.
--- NOTE | 2022-09-02 17:59 | NUR ---
30 mg etomidate ivp, frandy 140mg. verbal chest xray, propofol and fentanyl order post intubation
[2022-09-02] MEDS ORDERED: PROPOFOL 1000 MG/100 ML PREMIX 100 ML IV ONE (18:00)
[2022-09-02] MEDS ORDERED: fentaNYL citrate 1 MG in NACL 0.9% 80 ML IV PRN (18:00)
--- NOTE | 2022-09-02 18:00 | NUR ---
PT WAS INTUBATED BY DR RENE PER DR JOINER ORDERS DUE TO CRITICAL RESULTS OF ABG FOR PT. PT WAS INTUBATED WITH 7.5 EET PLACED AT 23CM @ LL. BILATERAL BREATH SOUNDS, COLOR CHANGE OF CO2 DETECTER, CONDENSATION IN THE TUBE, XRAY CONFIRMED PLACEMENT. PT WAS PLACED ON VENT SETTINGS PC 28 RR30 +7 100%. WILL CONTINUE TO MONITOR. VENT PLUGGED INTO RED OUTLET, AMBU BAG AT BEDSIDE, AND PT AIRWAY IS SECURE AND PATENT.
--- NOTE | 2022-09-02 18:04 | NUR ---
PATIENT INTUBATED. TO BE TRANSFERRED TO ICU BED 4.
--- NOTE | 2022-09-02 18:26 | NUR ---
ATTEMPTED TO CALL MOTHER ZURI JACOB USING PHONE NUMBER PROVIDED IN CHART. PHONE NUMBER IS . AFTER CALLING, RT AND I REALIZED THAT PHONE NUMBER BELONGS TO PATIENT AND HER PHONE WS RINGING. ATTEMPTED TO CALL 2 MORE TIMES AND HER PHONE CONTINUED TO RING. WILL ENDORSE PHONE TO ICU NURSE.
--- NOTE | 2022-09-02 19:09 | NUR ---
PT ENDORSED TO [facility] ICU NURSE. TRANSFERRED WITH RT.
--- NOTE | 2022-09-02 19:45 | NUR ---
PT ALERT & ORIENTED X0. TRANSFERRED TO ICU FOR SOB. VENT SETTINGS AC/PC FI02 100% PINSP 28 RATE 30 PEEP 7. NPO DIET. SR TO BEDSIDE MONITOR. 20 GAUGE TO RIGHT HAND. FLACC 0.
[2022-09-02] MEDS: PROPOFOL 1000 MG/100 ML PREMIX 100 ML IV PRN (19:55)
--- NOTE | 2022-09-02 20:00 | NUR ---
NGT INSERTED BY MILLICENT BARNES. CHEST X-RAY CONFIRMED PLACEMENT.
--- NOTE | 2022-09-02 20:33 | NUR ---
PHONE CALL TO PTS MOTHER ZURI VILLELA ([phone]); UPDATED ON PTS PRESENT CONDITION AND PTS TRANSFER FROM TELE TO ICU.QUESTIONS ANSWERED, PER ZURI, THEY WILL COME TO THE [facility]
--- NOTE | 2022-09-02 20:43 | NUR ---
NEWBY CATHETER INSERTION SUCCESSFUL.
--- NOTE | 2022-09-02 21:18 | NUR ---
PHONE CALL FROM PTS SISTER SANKET, PER PTS MOTHER,TRUDYK, OK TO GIVE INFORMATION TO SANKET. UPDATED SANKET ON PTS PRESENT CONDITION.QUESTIONS ANSWERED.SANKET SAID SHE WILL EXPLAIN TO HER MOTHER AND BROTHER WHO ARE AT BEDSIDE WHAT'S GOING ON
--- NOTE | 2022-09-02 22:20 | NUR ---
MESSAGED DR JOINER REGARDING HIS ORDER FOR CT ANGIO CHEST WITH CONTRAST; RADIOLOGY DEPT WANTED DR'S SIGNATURE ON THE CONTRAST CONSENT, PER DR JOINER OK TO PUT TELEPHONE CONSENT UNDER HIS NAME,. PT NEEDED THE PROCEDURE TO R/O PULMONARY EMBOLISM
[2022-09-02] MEDS: fentaNYL citrate 1 MG in NACL 0.9% 80 ML IV PRN (23:00)
--- NOTE | 2022-09-02 23:10 | NUR ---
PT EXTUBATED HERSELF. NOTIFIED ER MD FOR REINTUBATION.
[2022-09-02] MEDS ORDERED: ROCURONIUM 50 MG/5 ML VIAL IV ONE (23:22)
--- NOTE | 2022-09-02 23:24 | NUR ---
RTs WERE CALLED TO BEDSIDE DUE TO SELF EXTUBATION. PT HAS PULSE, BVM WAS STARTED BY RN AND RT TOOK OVER. DR. JOHNSON CAME TO BEDSIDE AND REINTUBATED PT @ APPROXIMATELY 2324 WITH ETT SIZE 7.5 AND SECURED WITH ANCHOR-FAST 23cm @ TEETH. PT WAS RECONNECTED BACK TO VENTILATOR. WILL CONTINUE TO MONITOR PT.
--- NOTE | 2022-09-02 23:30 | NUR ---
PT REINTUBATED. 23 LIP.
[2022-09-02] MEDS ORDERED: LEVOFLOXACIN 500 MG/D5W PREMIX 100 ML IV SCH (23:45)
--- NOTE | 2022-09-02 23:45 | NUR ---
MESSAGED DR JOINER, PT WAS JUST REINTUBATED 2329, IF HE STILL WANTS CT ANGIO CHEST TO BE DONE TONIGHT, DR JOINER SAID YES, HE WANTS IT TO BE DONE TONIGHT.RT AND RD TECH AWARE
--- NOTE | 2022-09-02 23:45 | NUR ---
PT TRANSPORTED TO CT ANGIO CHEST. PT DESATTED TO 40% IN ROOM DUE TO O2 FLOW METER ERROR. ISSUE WAS RESOLVED SWIFTLY, SPO2 STABILIZED TO 100%.
[2022-09-03] VITALS (27 sets, daily range): BP systolic 86–157; BP diastolic 41–93
[2022-09-03] MEDS ORDERED: fentaNYL citrate 0.05 MG/ML VIAL ONE ×3 (00:49→06:28)
--- NOTE | 2022-09-03 00:52 | NUR ---
AT BEDSIDE, SPO2 100% ON 100% FiO2. TITRATED FiO2 FROM 100% TO 90%. SPO2 98%. PT TOLERATING WELL AT THIS TIME. WILL CONTINUE TO MONITOR.
--- NOTE | 2022-09-03 03:46 | NUR ---
PT RUNS OF V-TACH AND V-FIB FOR 19 SECONDS AND BACK TO SR. NOTIFIED MD JOHN. NO NEW ORDERS.
--- NOTE | 2022-09-03 03:50 | NUR ---
PT RUNS OF VTACH AGAIN FOR [address] JOHN. NO NEW ORDERS.
--- NOTE | 2022-09-03 04:10 | NUR ---
phone call to dr torres, relayed stat ekg result, ordered to consult dr land, utility locate technician
--- NOTE | 2022-09-03 04:20 | NUR ---
PHONE CALL AND PAGE TO DR. LANDA REGARDING NEW CONSULT FROM DR. JOHN. NO ANSWER AT THIS TIME. LEFT MESSAGE.
--- NOTE | 2022-09-03 04:25 | NUR ---
BAND BUILDER WENT TO ER AND SHOWED EKG RESULT TO ER MD DR MIRELES, PER DR MIRELES, KEEP MONITORING PT AND KEEP TRYING TO CONTACT ABRASIVE COATING MACHINE OPERATOR DR LANDA.CARLI RICKS AWARE
--- NOTE | 2022-09-03 04:50 | NUR ---
PHONE CALL TO DR LANDA, UPDATED ON PTS CONDITION, MADE AWARE RUNS OF V TACH NOTED, ALSO SENT TO DR LANDA PHOTO OF EKG.PHYSICIAN AWARE PTS BP 144/57 HR 80, ORDERS RECEIVED STAT BMP AND MAGNESIUM.CARRIED OUT
[2022-09-03 05:05] LABS: BASOPHILS % (AUTO) 0.2 % (0.0-2.0); EOSINOPHILS % (AUTO) 0.1 % (0.0-4.0); HEMATOCRIT 31.9 % (36-48); HEMOGLOBIN 10.2 g/dL (12.0-16.0); LYMPHOCYTES # (AUTO) 0.6 K/uL (2.5-16.5); LYMPHOCYTES % (AUTO) 8.2 % (20.5-51.1); MEAN CORPUSCULAR HEMOGLOBIN 28 pg (27-31); MEAN CORPUSCULAR HGB CONC 32 g/dL (33-37); MEAN CORPUSCULAR VOLUME 86.2 fL (80-94); MONOCYTES # (AUTO) 0.2 K/uL (0.8-1.0); MONOCYTES % (AUTO) 2.7 % (1.7-9.3); NEUTROPHILS # (AUTO) 6.1 K/uL (1.8-7.7); NEUTROPHILS % (AUTO) 88.8 % (42.2-75.2); PLATELET COUNT (AUTO) 188 K/uL (140-450); RED CELL DISTRIBUTION WIDTH 15.7 % (11.6-13.7); WHITE BLOOD COUNT (AUTO) 6.9 K/uL (4.8-10.8)
[2022-09-03 05:19] LABS: ANION GAP 10.1 (8-16); CARBON DIOXIDE 35.6 mmol/L (21-32); CREATININE 0.7 mg/dL (0.6-1.3); POTASSIUM 3.7 mmol/L (3.5-5.1)
--- NOTE | 2022-09-03 05:30 | NUR ---
UPDATED SISTER SANKET, ON PATIENT'S CONDITION.
[2022-09-03] MEDS ORDERED: AMIODARONE 150 MG in DEXTROSE 5% 100 ML IV ONE (05:35)
[2022-09-03] MEDS ORDERED: GABAPENTIN 100 MG CAP ONE ×4 (05:38→20:19)
[2022-09-03] MEDS ORDERED: GABAPENTIN 300 MG CAP ONE ×3 (05:39→20:18)
[2022-09-03] MEDS: GABAPENTIN 600 MG, GABAPENTIN 200 MG PO SCH ×6 (05:47→20:54)
[2022-09-03] MEDS: methylPREDNISolone SS 125 MG/2 ML VIAL IVP SCH ×4 (05:49→18:07)
[2022-09-03] MEDS: LEVOTHYROXINE 0.088 MG TAB PO SCH (05:57)
--- NOTE | 2022-09-03 05:59 | NUR ---
PHONE CALL TO DR LANDA,CINDER CREW WORKER, READ BACK STAT LAB RESULTS.NEW ORDER FOR 2 GRAM MAG RIDER AND 40MEQ POTASSIUM CHLORIDE BOTH X1 ONLY. ALSO INFORMED DR LANDA THAT ER MD CAME TO SEE PT WHEN PT BRADYCARDIA HR AT 42 WITH RUNS OF V TACH, SAW PTS MONITOR AND ORDERED AMIODARONE DRIP, PER DR LANDA DO NOT GIVE AMIODARONE AT THIS TIME, JUST GIVE THE MAGNESIUM AND POTASSIUM ORDERED.CARLI RICKS AWARE
[2022-09-03] MEDS ORDERED: MAG SULF 2000 MG/WATER PREMIX 50 ML IV SCH ×2 (06:05→18:00)
[2022-09-03] MEDS ORDERED: POTASSIUM CHLORIDE 20% 40 MEQ/15 ML UDC NG SCH (06:05)
[2022-09-03] MEDS: PROPOFOL 1000 MG/100 ML PREMIX 100 ML IV PRN ×3 (06:48→19:41)
[2022-09-03] MEDS: fentaNYL citrate 1 MG in NACL 0.9% 80 ML IV PRN ×2 (06:50→14:06)
--- NOTE | 2022-09-03 07:17 | NUR ---
REPORT GIVEN TO AM SHIFT MILLICENT VILLASENOR.
[2022-09-03] MEDS: glipiZIDE 5 MG TAB PO SCH ×2 (07:30→16:30)
[2022-09-03] MEDS: BLOOD GLUCOSE MONITORING 1 DEV DEV FS SCH ×4 (07:40→20:53)
[2022-09-03] MEDS ORDERED: AMIODARONE 150 MG in DEXTROSE 5% 100 ML IV SCH (08:00)
[2022-09-03] MEDS ORDERED: AMIODARONE 450 MG in DEXTROSE 5% 250 ML IV SCH (08:10)
[2022-09-03] MEDS: FAMOTIDINE 20 MG TAB PO SCH (09:00)
[2022-09-03] MEDS: ATORVASTATIN 20 MG TAB PO SCH (09:00)
[2022-09-03] MEDS: PANTOPRAZOLE 40 MG INJ VIAL IVP SCH (09:00)
[2022-09-03] MEDS: NYSTATIN CRE 100 MU/GM 15 GM TUBE TP SCH ×3 (09:00→17:00)
[2022-09-03] MEDS: FUROSEMIDE 40 MG/4 ML VIAL IVP SCH ×2 (09:00→17:00)
[2022-09-03] MEDS: INSULIN LISPRO SLIDING SCALE 100 UNITS/ML VIAL SUBQ PRN ×4 (10:36→20:51)
[2022-09-03] MEDS ORDERED: METOPROLOL 25 MG TAB PO SCH (11:00)
--- NOTE | 2022-09-03 12:04 | NUR ---
PT IN SUSTAINED VFIB WITHOUT A PULSE. PROVIDED 120J SHOCK X 1. 100% FIO2 ADMINISTERED. PULSES RETURNED. BP READING , HR 46. Addendum: 09/07/22 at 1851 by Siria Lowery RN VTACH, NOT VFIB
--- NOTE | 2022-09-03 12:06 | NUR ---
CALLED Lisa BAXTER TO NOTIFY OF SUSTAINED VFIB AND 120J SHOCK PROVIDED X 1. ORDERED TO DC AMIODARONE DRIP, START LIDOCAINE DRIP 1MG/KG X 1 LOADING DOSE THEN CONTINUE AT 2MG/MIN, ORDERED LEVOPHED DRIP PRN, AND STAT ABG. Addendum: 09/07/22 at 1851 by Siria Lowery RN VTACH, NOT VFIB
[2022-09-03] MEDS ORDERED: NOREPINEPHRINE 4 MG in DEXTROSE 5% 250 ML IV PRN (12:10)
[2022-09-03] MEDS ORDERED: COMMUNICATION ORDER MC SCH (12:15)
--- NOTE | 2022-09-03 12:23 | NUR ---
BP 108/41, HR 98, SPO2 97%, NORMAL SINUS RHYTHM.
--- NOTE | 2022-09-03 12:23 | NUR ---
DC PLANNIN YRS OLD FEMALE PATIENT WAS ADMITTED FROM HOME WITH A DX OF CHF EXACERBATION. PATIENT HAS A HX OF COPD AND CHF. INTUBATED SEDATED ON LEVOPHED, PROPOFOL AND FENTANYL DRIP . ADMINISTERED IV STEROIDS AND IV ABX LEVAQUIN. RAPID COVID TEST NEGATIVE. BLOOD AND SPUTUM CULTURE PENDING. CONSULTED WITH PULMO AND CARDIO. DC PLAN PER PATIENT RESPONSE TO THE TREATMENT. CM TO FOLLOW Addendum: 09/08/22 at 1529 by Krystal Clemente RN DC PLANNING: STILL INTUBATED SEDATED,FIO2 70%, ON PROPOFOL, FENTANYL AND VERSED DRIP. CONTINUED IV ABX VANCOMYCIN AND ZOSYN. CARDIO AND PULMO FOLLOWING. CM TO FOLLOW Addendum: 09/25/22 at 0919 by Krystal Clemente RN DC PLANNING: PATIENT STILL INTUBATED SEDATED FIO2 55% PEEP 8. ON PROPOFOL, FENTANYL DRIP. CONTINUED IV ABX VANCOMYCIN AND FLAGYL. UNABLE TO WEAN OFF VENT. C-DIFF POSITIVE ,ON PO VANCO . SURGERY CONSULTED DR NICHOLS FOR POSSIBLE TRACH AND PEG. CM TO FOLLOW Addendum: 10/02/22 at 1451 by Krystal Clemente RN DC PLANNING: PATIENT IS S/P TRACH AND PEG ,STILL HAVING FEVER 100.3, LOW BP 95/65 ,+ SPUTUM CULTURE FOR ACINETOBACTER. CONTINUE WITH MEDICATIONS. ID, PULMO, AND SURGEON ARE FOLLOWING. DC PLAN TO GO TO [facility] . [facility]XED TO [facility] AND [facility]. CM TO FOLLOW Addendum: 10/05/22 at 1351 by Krystal Clemente RN DC PLANNING: [facility], [facility], [facility] AND [facility] HAS NO FEMALE BED CALLED [facility] SPOKE WITH [employer] STATED WILL SUBMIT THE REQUEST TO THE CONTRACTED FACILITY. CM TO FOLLOW Addendum: 10/06/22 at 1239 by Krystal Clemente RN DC PLANNING: RECEIVED A CALL FROM [facility] [employer] SPOKE WITH HENNA STATED NO FEMALE BED, CALLED [facility] SPOKE WITH KYLE RODGERS FROM [facility] NO FEMALE BED AT THIS TIME. CM TO FOLLOW Addendum: 10/06/22 at 1531 by Krystal Clemente RN DC PLANNING: ANN MET PATIENT AND PT'S MOTHER AT THE BED SIDE DISCUSSED THE DC PLANNING TO [facility], STILL AWAITING FOR THE BED FROM THE CONTRACTED FACILITY. [facility] REQUESTING THE INFECTIOUS ORGANISM FORM TO BE FILLED OUT FAXED THE FORM TO [phone] AWAITING FOR KYLE TO RESPOND. CM TO FOLLOW Addendum: 10/08/22 at 1711 by Krystal Clemente RN DC PLANNING: PATIENT GOT ACCEPTED AT [facility] AND [facility]REFERRED [facility]. PER KYLE AT [facility] JUST CONFIRMED AND WORKING ON ACCEPTING DR AND ROOM NUMBER FAXED THE LATEST CLINICALS AND PLACE THE TRANSPORT WILL CALL. NOTIFIED ICU NURSE IF KYLE CALL TO ACTIVATE THE CALL. ARRANGED TRANSPORT WITH [facility] WILL CALL. PER ANA MARIA AT [facility] THEY DON'T RECEIVE THE LOW AIR MATTRESS AND CAN NOT ACCEPT PATIENT AT THIS TIME. CALL ZENA STATED PATIENT HAS BARIATRIC BED AND AIR LOW MATTRESS AT HOME AND HAS TO BE RETURNED. PER ANA MARIA CAN NOT ACCEPT PATIENT AT THIS TIME WILL F/U TOMORROW. CM TO FOLLOW Addendum: 10/09/22 at 1155 by Krystal Clemente RN DC PLANNING: RECEIVED A CALL FROM KYLE AT [facility] ACCEPTED PATIENT CAN GO TO ROOM 104B ACCEPTING DR ROMAN # TO GIVE REPORT [phone] EXT 275 ARRANGED TRANSPORT WITH [facility] GENERAL TIME WITH IN ONE HR BETWEEN 12:00 TO 12:30 NOTIFIED [facility]ARY CHARGE NURSE.
--- NOTE | 2022-09-03 12:25 | NUR ---
DR MATHEW MADE AWARE OF ABG RESULTS. ORDERS TO CHANGE VENT SETTINGS PER INP TO 25 AND RR TO 20. PT TOLERATING WELL. WILL CONTINUE TO MONITOR. FOLLOW UP ABG IN 1 HR
--- NOTE | 2022-09-03 12:30 | NUR ---
STAT ABG RESULTS COMMUNICATED TO DR. MATHEW. VENT SETTINGS ADJUSTED WITH RT PER MD ORDER.
[2022-09-03] MEDS ORDERED: LIDOCAINE IV PRN (13:05)
[2022-09-03] MEDS ORDERED: D5W IV PRN (13:05)
--- NOTE | 2022-09-03 14:53 | NUR ---
P.T. NOTES HOLD P.T. TX, Pt TRANSFERRED TO ICU, WILL AWAIT P.T. RE EVAL ORDER WHEN APPROPRIATE.
--- NOTE | 2022-09-03 16:05 | NUR ---
SHOCK DELIVERED AT 1550 AFTER PT WENT INTO VFIB. PULSE RETURNED, NO COMPRESSIONS OR ADDITIONAL SHOCK NEEDED. DR LANDA MADE AWARE, FAMILY NOTIFIED.
--- NOTE | 2022-09-03 17:30 | NUR ---
Blaze BAXTER. ROUNDING AT BEDSIDE. ORDERS RECEIVED.
[2022-09-03] MEDS ORDERED: POTASSIUM CHLORIDE 20% 40 MEQ/15 ML UDC PO SCH (18:00)
[2022-09-03] MEDS ORDERED: ASPIRIN 81 MG TAB.CHEW PO ONE (18:25)
[2022-09-03] MEDS: fentaNYL citrate - 50mL vial 2.5 MG in NACL 0.9% 200 ML IV PRN (19:10)
[2022-09-03] MEDS ORDERED: ROCURONIUM 50 MG/5 ML VIAL IV ONE (19:25)
--- NOTE | 2022-09-03 19:29 | NUR ---
RECEIVED REPORT FROM AM SHIFT. PATIENT WAS SEEN AND ASSESSED. PATIENT IS INTUBATED WITH ETT SIZE 7.5 AND SECURED WITH A BITING BLOCK ANCHOR-FAST 23cm @ TEETH. PATIENT IS ON VENTILATOR SUPPORT. VENTILATOR PLUGGED IN RED OUTLET. VENTILATOR ALARMS SET APPROPRIATELY AND AUDIBLE TO ENVIRONMENT. AMBU BAG AT BEDSIDE. HEAD OF BED GREATER THAN 30 DEGREES. NOTICED ADEQUATE BILATERAL CHEST RISE AND FALL. PATIENT IS IN NO RESPIRATORY DISTRESS AT THIS TIME. VENT SETTINGS: AC/PC PRESSURE SET 25, RR 20, PEEP 7, FiO2 100% WITH SPO2 OF 95%. BILATERAL BREATH SOUNDS ON AUSCULTATION;UPPER LOBES: RALES, LOWER LOBES RALES. SUCTIONED SMALL AMOUNT OF BLOODY-TINGE SECRETIONS FROM ETT. WILL CONTINUE TO MONITOR PT.
--- NOTE | 2022-09-03 19:36 | NUR ---
SBAR REPORT GIVEN TO CARLI RICKS, ALL CARES ENDORSED.
--- NOTE | 2022-09-03 19:50 | NUR ---
RECEIVED REPORT FROM AM SHIFT MILLICENT VILLASENOR. PT SEDATED.VENT SETTINGS ACPC FI02 100% RATE 20 PEEP 7. NPO DIET. NEWBY CATHETER IN PLACE AND FLOWING WELL WITH DARK YELLOW URINE. PT REPORTED TO HAVE RUNS OF V TACH AND V FIB BUT MONITOR IS SHIOWING SR AT THIS TIME. KATELYN PICC LINE. PROPOROL RUNNING AT 20 MCG/KG/MIN. FENTANYL 1 MCG/KG/HR. NO OTHER ISSUES AT THIS TIME.
--- NOTE | 2022-09-03 21:30 | NUR ---
PM MEDS GIVEN. ORAL CARE DONE.
--- NOTE | 2022-09-03 22:30 | NUR ---
PT CLEANED AND REPOSITIONED. VITALS WITHIN PERSONAL RANGE AT THIS TIME. SR TO BEDSIDE MONITOR.
--- NOTE | 2022-09-03 23:00 | NUR ---
FAMILY RELATIVES AT BEDSIDE.
[2022-09-04] VITALS (34 sets, daily range): BP systolic 99–143; BP diastolic 33–80
[2022-09-04] MEDS: PROPOFOL 1000 MG/100 ML PREMIX 100 ML IV PRN ×3 (00:23→22:16)
[2022-09-04] MEDS: methylPREDNISolone SS 125 MG/2 ML VIAL IVP SCH ×4 (00:23→17:21)
--- NOTE | 2022-09-04 01:00 | NUR ---
TEMP 100.5. APPLIED COOLING MEASURES AND ADMINISTERED PRN TYLENOL 650 MG VIA NGT.
[2022-09-04] MEDS: ACETAMINOPHEN 325 MG TAB PO PRN (02:15)
[2022-09-04] MEDS ORDERED: GABAPENTIN 100 MG CAP ONE ×4 (05:28→20:40)
[2022-09-04] MEDS ORDERED: GABAPENTIN 300 MG CAP ONE ×4 (05:28→20:40)
--- NOTE | 2022-09-04 05:30 | NUR ---
ORAL CARE AND SUCTIONING DONE THROUGHOUT THE SHIFT NEEDED. LATEST TEMP 99.8.
[2022-09-04] MEDS: LEVOTHYROXINE 0.088 MG TAB PO SCH (05:32)
[2022-09-04] MEDS: GABAPENTIN 600 MG, GABAPENTIN 200 MG PO SCH ×6 (05:33→21:44)
[2022-09-04 05:51] LABS: BASOPHILS % (AUTO) 0.1 % (0.0-2.0); HEMATOCRIT 29.8 % (36-48); HEMOGLOBIN 9.8 g/dL (12.0-16.0); LYMPHOCYTES # (AUTO) 0.6 K/uL (2.5-16.5); LYMPHOCYTES % (AUTO) 9.9 % (20.5-51.1); MEAN CORPUSCULAR HEMOGLOBIN 28 pg (27-31); MEAN CORPUSCULAR HGB CONC 33 g/dL (33-37); MEAN CORPUSCULAR VOLUME 84.5 fL (80-94); MONOCYTES # (AUTO) 0.3 K/uL (0.8-1.0); MONOCYTES % (AUTO) 5.7 % (1.7-9.3); NEUTROPHILS # (AUTO) 4.7 K/uL (1.8-7.7); NEUTROPHILS % (AUTO) 84.3 % (42.2-75.2); PLATELET COUNT (AUTO) 201 K/uL (140-450); RED BLOOD CELL COUNT(AUTO) 3.53 MIL/uL (4.20-5.40); RED CELL DISTRIBUTION WIDTH 16.9 % (11.6-13.7); WHITE BLOOD COUNT (AUTO) 5.6 K/uL (4.8-10.8)
[2022-09-04 06:24] LABS: CARBON DIOXIDE 33.5 mmol/L (21-32); POTASSIUM 3.5 mmol/L (3.5-5.1)
--- NOTE | 2022-09-04 07:18 | NUR ---
REPORT GIVEN TO AM SHIFT MILLICENT VILLASENOR.
--- NOTE | 2022-09-04 07:20 | NUR ---
RECEIVED PT ON PC 25, RR20, +7,100%. VENT WHEELS ARE LOCKED, PLUGGED INTO RED OUTLET, ALARMS ARE SET AND AUDIBLE, AMBUBAG AT BEDSIDE. EQUAL CHEST RISE, SATURATION 97%. WILL CONTINUE TO MONITOR.
[2022-09-04] MEDS: BLOOD GLUCOSE MONITORING 1 DEV DEV FS SCH ×3 (08:05→17:21)
[2022-09-04] MEDS: NYSTATIN CRE 100 MU/GM 15 GM TUBE TP SCH ×3 (08:06→17:21)
[2022-09-04] MEDS: glipiZIDE 5 MG TAB PO SCH ×2 (08:10→17:21)
[2022-09-04] MEDS: FUROSEMIDE 40 MG/4 ML VIAL IVP SCH (08:11)
[2022-09-04] MEDS: FAMOTIDINE 20 MG TAB PO SCH (08:11)
[2022-09-04] MEDS: PANTOPRAZOLE 40 MG INJ VIAL IVP SCH (08:11)
[2022-09-04] MEDS: ASPIRIN 81 MG TAB.CHEW PO SCH (08:11)
[2022-09-04] MEDS: INSULIN LISPRO SLIDING SCALE 100 UNITS/ML VIAL SUBQ PRN (08:13)
[2022-09-04] MEDS: ATORVASTATIN 20 MG TAB PO SCH (08:27)
--- NOTE | 2022-09-04 10:28 | NUR ---
PT. WITH LOW JERI SCALE AT HIGH RISK, CONTINUE TO FOLLOW PRESSURE INJURY PREVENTION INTERVENTIONS. PT. ADMITTED WITH INTERTRIGO TO BREAST FOLDS AND ABDOMINAL FOLDS. RECOMMEND APPLY INTER DRY CLOTH AND CHANGE WEEKLY AND PRN IF SOILING. -POSITIONING: TURN AND REPOSITION PATIENT Q 2H OR SOONER USE PILLOWS TO KEEP BONY PROMINENCES FROM DIRECT CONTACT WITH SURFACES USE REPOSITIONING WEDGES TO PROVIDE 30-DEGREE ANGLE FOR SIDE LYING POSITIONS OFFLOADING OR FOAM DRESSING TO ALL TUBING TO PREVENT MEDICAL DEVICES RELATED PRESSURE INJURY -RE-EVALUATING AND MANAGING INCONTINENCE MONITOR SKIN CONDITION DURING POSITION CHANGE DO NOT MASSAGE REDNESS, BONY PROMINENCES FREQUENT PEBBLES-CARE AND PROVIDE BARRIER CREAMS PRN IF SOILING MOISTURE CONTROL BY OFFER BED CALI/URINAL /ABSORBENT PAD TO WICK AND HOLD MOISTURE KEEP SKIN DRY AND PROTECT FROM FRICTION -MANAGE FRICTION/SHEAR/MOBILITY KEEP HOB AT THE LOWEST LEVEL OF ELEVATION NO MORE THAN 30 DEGREE UNLESS OTHERWISE CONTRAINDICATED USE LIFT SHEET OR TRANSFER DEVICE TO MOVE PATIENT AND PREVENT LATERAL SHEER. PROTECT HEELS, ELBOWS BONY PROMINENCES WITH SKIN BERRIES OR FOAM DRESSING IF EXPOSED TO FRICTION OFFLOAD BILATERAL HEELS BY PLACING PILLOWS UNDER CALVES AT ALL TIMES, UNLESS OTHERWISE CONTRAINDICATED -PRESSURE REDISTRIBUTION SURFACE THERAPY JORGE ISOFLEX MATTRESS -NUTRITION: PLEASE FOLLOW RD RECOMMENDATIONS AND OFFER NUTRITION SUPPLEMENTS IF ORDERED. PLEASE CONTACT WOUND CARE NURSE FOR ANY QUESTION AND CHANGE OF WOUND CONDITION.
[2022-09-04] MEDS: fentaNYL citrate - 50mL vial 2.5 MG in NACL 0.9% 200 ML IV PRN ×2 (13:31→23:46)
[2022-09-04] MEDS ORDERED: POTASSIUM CHLORIDE 20% 40 MEQ/15 ML UDC NG SCH (14:00)
[2022-09-04] MEDS ORDERED: KCL 20 MEQ/WATER INJ PREMIX 200 ML IV SCH (14:00)
--- NOTE | 2022-09-04 15:00 | NUR ---
DISCHARGE PLANNING PATIENT IS A 52 YEAR OLD FEMALE ADMITTED TO THE [facility]/ED ON 09/01/2023 DUE TO CONGESTIVE HEART FAILURE. SW MEET WITH PATIENT AND HER MOTHER AT BEDSIDE ZURI VILLELA , TO DISCUSS AND GATHER HER COLLATERAL INFORMATION. PATIENT WAS NOT AWAKE AND ABLE TO PROVIDE HER OWN INFORMATION; PATIENT IS INTUBATED. THEREFORE; HER MOTHER PROVIDED HER INF. PER PATIENT'S MOTHER SHE LIVES HOME WITH HER DAUGTHER IN [facility]. MOTHER ALSO LIVES IN THE APARTMENT NEXT TO HER AND ASSIST WITH PATIENT'S CARE AND HER NEEDS WHEN SHE CAN. PER PATIENT'S MOTHER PATIENT GOT SICK WITH COVID OVER THE THANKS GIVING HOLIDAYS AND HAS NOT GO BETTER SINCE THEN SHE HAD A COUGH THAT GOT PROGRESSIVELY WORSE AND NOW SHE IS HERE. PER MOTHER SHE IS HER EMERGENCY CONTACT AND MEDICAL DECISIONS MAKER. PATIENT DO NOT HAVE ADVANCE DIRECTIVES IN PLACE. AND PATIENT'S MOTHER DECLINED INF. FORMS PROVIDED BY SW. PER PATIENT'S MOTHER PCP IS JOLIE MILLER AND IS NOT SURE HOW LONG AGO PATIENT LAST VISIT WITH PCP IT CAN BE ABOUT 3 WEEKS AGO. SW DISCUSSED WITH PATIENT'S MOTHER OF THE IMPORTANCE OF MAKING A FOLLOW UP APPOINTMENT SHE AGREED. SW DISCUSS ABOUT PATIENT'S CARE AT HOME AND PATIENT'S MOTHER STATED THAT SHE HAS NO ISSUES WITH MEDICATIONS ANDS THEY GET THEM FROM [facility] IN [place]. PATIENT'S DAUGTHER ALSO REPORTED THAT PATIENT HAS NO DME AT HOME. AND THAT HER DAUGTHER IS TRYING TO GET IHSS SERVICES WITH [facility], STATED THAT SHE ALREADY APPLY. SW THANKED PATIENT'S MOTHER FOR ALL THE INFORMATION PROVIDED AND ENDED THE VISIT. PIA/ANN WILL FOLLOW UP NEEDED.
--- NOTE | 2022-09-04 15:14 | NUR ---
09/04/22 RD INITIAL ASSESSMENT COMPLETED PLEASE REFER TO NUTRITION ASSESSMENT UNDER CARE ACTIVITY FOR ESTIMATED NUTRITIONAL NEEDS. 1. IF/WHEN MEDICALLY APPROPRIATE, RECOMMEND GLUCERNA @ 45 ML/HR GOAL RATE, FWF 125 ML Q4H TOLERATED. - WITH CURRENT PROPOFOL RATE, PROVIDES 1080 ML TOTAL VOLUME, 1734 KCAL, 65 GM PROTEIN AND 1620 ML FREE WATER DAILY MEETING 100% ESTIMATED KCAL NEEDS AND 82% ESTIMATED PROTEIN NEEDS; ADEQUATE - START TF AT 1O ML/HR INCREASE BY 1O ML Q4H UNTIL GOAL IS REACHED - CONSIDER INCREASING TF GOAL RATE IF PROPOFOL RATE IS DECREASED 2. MONITOR GI SYMPTOMS AND NUTRITION RELATED LAB VALUES 3. CONSULT RN PRN 4. RD TO FOLLOW-UP 2-3 DAYS, HIGH RISK REVIEWED BY RINA SEWELL RD
[2022-09-04] MEDS ORDERED: KCL 20 MEQ/WATER INJ PREMIX 100 ML IV SCH (18:10)
[2022-09-04] MEDS: ALBUTEROL SULFATE/IPRATROPIU 3 ML SOL IH PRN (19:10)
--- NOTE | 2022-09-04 19:31 | NUR ---
SBAR REPORT GIVEN TO LAINA RICKS, ALL CARES ENDORSED.
--- NOTE | 2022-09-04 19:35 | NUR ---
TRANSFER OF CARE FROM DAY SHIFT, RECEIVED REPORT FROM PEPE. PATIENT RECEIVED INTUBATED AND SEDATED IN BED. ETT TO VENT WITH THE FOLLOWING CURRENT SETTINGS: MODE (AC/PC), RATE (20), PISNP (19), FIO2 (100), AND PEEP (7). CURRENT VITALS ARE FOLLOWS, BP (137/74), R (20),O2 (98), HR (54), AND TEMP (97.4F {TEMPORAL}. PATIENT HAS THE FOLLOWING CURRENT INFUSIONS: FENTANYL (1.5MCG/KG/HR), PROPOFOL (30MCG/KG/MIN), AND K-RIDER (50ML/HR). PATIENT HAS NEWBY IN PLACE. WILL CONTINUE TO MONITOR THIS PATIENT
[2022-09-04] MEDS ORDERED: BLOOD GLUCOSE MONITORING 1 DEV DEV FS SCH (21:00)
--- NOTE | 2022-09-04 21:18 | NUR ---
PHONE CALL PLACED TO PHARMACY ([phone]) AND SPOKE [facility] REGARDING NEW ORDER FOR GLUCOSE CHECKS EVERY 6 HOURS. RUDDY MADE EDITS IN PATIENT'S EMAR TO DISPLAY NEW ORDER
--- NOTE | 2022-09-04 21:30 | NUR ---
PHONE CALL FROM PATIENT'S MOTHER ZURI VILLELA ([phone]). PROVIDED UPDATE ON PATIENT'S CURRENT STATUS, ALL QUESTIONS ANSWERED.
[2022-09-04] MEDS ORDERED: PROPOFOL 1000 MG/100 ML PREMIX 100 ML IV ONE (22:02)
--- NOTE | 2022-09-04 22:02 | NUR ---
MESSAGE SENT TO DR JOHN TO ASK FOR NEW ORDERS FOR PROPOFOL, PATIETNT CURRENTLY AT 30MCG/KG/MIN AND REQUIRES RASS (-3). MD HAINES FOR CONTINUATION OF MEDICAITON, NEW ORDER CREATED AND SUBMITTED FOR PHARMACY TO APPROVE.
--- NOTE | 2022-09-04 22:10 | NUR ---
PATIENT'S NIECE AT BEDSIDE, PROVIDED UPDATE ON CURRENT STATUS, ALL QUESTIONS ANSWERED.
--- NOTE | 2022-09-04 22:30 | NUR ---
PHONE CALL FROM PATEINT'S MOTHER ZURI, PROVIDED 2ND UPDATE ON PATIENT'S CURRENT STATUS. MOTHER STATES THAT SHE IS GOING TO TRY AND COME VISIT [facility] IF SHE CAN FIND A RIDE
--- NOTE | 2022-09-04 22:43 | NUR ---
PHONE CALL FROM PATIENT'S MOTHER ZURI, SHE IS SENDING HER DAUGHTER LORENZO TO THE HOSPITAL TO COME AND SEE PATIENT.
--- NOTE | 2022-09-04 23:20 | NUR ---
PATIENT'S SISTER AT BEDSIDE, PROVIDED UPDATED ON CURRENT STATUS. ALL QUESTIONS ANSWERED
--- NOTE | 2022-09-04 23:45 | NUR ---
MOTHER IS REQUESTING THAT SHE BE CONTACTED WITH ANY CHANGE OF CONDITION
[2022-09-05] VITALS (30 sets, daily range): BP systolic 106–142; BP diastolic 53–87
[2022-09-05] MEDS: BLOOD GLUCOSE MONITORING 1 DEV DEV FS SCH ×5 (00:01→23:19)
[2022-09-05] MEDS: INSULIN LISPRO SLIDING SCALE 100 UNITS/ML VIAL SUBQ PRN ×4 (00:08→23:22)
[2022-09-05] MEDS: methylPREDNISolone SS 125 MG/2 ML VIAL IVP SCH ×3 (00:54→12:39)
[2022-09-05] MEDS: PROPOFOL 1000 MG/100 ML PREMIX 100 ML IV PRN ×6 (01:49→23:13)
--- NOTE | 2022-09-05 03:20 | NUR ---
RECEIVED PHONE CALL FROM PATIENT'S SISTER SANKET; PROVIDED UPDATE ON PATIENT'S CURRENT STATUS, ALL QUESTIONS ANSWERED
--- NOTE | 2022-09-05 04:19 | NUR ---
0405 PATIENTS SATS WERE DROPPING 84% ON 90% FIO2. INCREASED FIO2 TO 100%. ALSO TIDAL VOLUMES WERE IN THE LOW 300'S. INCREASED PRESSURE TO 25CM. POST DOING THAT TIDAL VOLUMES IMPROVED TO HIGH 400,S AND SATS IMPROVED TO 92 93%. WILL INDORSE TO DAY SHIFT OF CHANGES
[2022-09-05] MEDS: INTERDRY CLOTH TP SCH (05:13)
[2022-09-05 05:26] LABS: HEMATOCRIT 30.4 % (36-48); HEMOGLOBIN 9.7 g/dL (12.0-16.0); LYMPHOCYTES # (AUTO) 0.3 K/uL (2.5-16.5); LYMPHOCYTES % (AUTO) 6.5 % (20.5-51.1); MEAN CORPUSCULAR HEMOGLOBIN 27 pg (27-31); MEAN CORPUSCULAR HGB CONC 32 g/dL (33-37); MONOCYTES # (AUTO) 0.3 K/uL (0.8-1.0); NEUTROPHILS # (AUTO) 4.4 K/uL (1.8-7.7); NEUTROPHILS % (AUTO) 87.5 % (42.2-75.2); PLATELET COUNT (AUTO) 197 K/uL (140-450); RED BLOOD CELL COUNT(AUTO) 3.58 MIL/uL (4.20-5.40); RED CELL DISTRIBUTION WIDTH 16.6 % (11.6-13.7)
[2022-09-05] MEDS ORDERED: GABAPENTIN 100 MG CAP ONE ×3 (05:26→20:15)
[2022-09-05] MEDS ORDERED: GABAPENTIN 300 MG CAP ONE ×4 (05:27→20:23)
[2022-09-05] MEDS: GABAPENTIN 600 MG, GABAPENTIN 200 MG PO SCH ×6 (05:39→20:53)
[2022-09-05] MEDS: LEVOTHYROXINE 0.088 MG TAB PO SCH (05:41)
[2022-09-05 06:08] LABS: ANION GAP 9.1 (8-16); CARBON DIOXIDE 33.2 mmol/L (21-32); CREATININE 0.8 mg/dL (0.6-1.3); POTASSIUM 4.3 mmol/L (3.5-5.1)
[2022-09-05] MEDS: glipiZIDE 5 MG TAB PO SCH ×2 (07:02→17:16)
--- NOTE | 2022-09-05 07:17 | NUR ---
CARE OF PATIENT ENDORSED TO ABY, REPORT GIVEN TO PEPE Foy RN
--- NOTE | 2022-09-05 07:22 | NUR ---
SBAR REPORT RECEIVED FROM LAINA RICKS, ALL CARES ASSUMED.
[2022-09-05] MEDS: FAMOTIDINE 20 MG TAB PO SCH (08:52)
[2022-09-05] MEDS: ASPIRIN 81 MG TAB.CHEW PO SCH (08:52)
[2022-09-05] MEDS: ATORVASTATIN 20 MG TAB PO SCH (08:52)
[2022-09-05] MEDS: PANTOPRAZOLE 40 MG INJ VIAL IVP SCH (08:53)
[2022-09-05] MEDS: NYSTATIN CRE 100 MU/GM 15 GM TUBE TP SCH ×3 (08:55→17:16)
[2022-09-05] MEDS ORDERED: FUROSEMIDE 40 MG/4 ML VIAL IVP SCH (09:00)
[2022-09-05] MEDS: PIPERACILLIN/TAZOBACTAM 3.375 GM in DEXTROSE 5% 50 ML IV SCH ×3 (12:42→23:24)
[2022-09-05] MEDS: fentaNYL citrate - 50mL vial 2.5 MG in NACL 0.9% 200 ML IV PRN (12:55)
[2022-09-05] MEDS: ALBUTEROL SULFATE/IPRATROPIU 3 ML SOL IH PRN (15:32)
--- NOTE | 2022-09-05 19:20 | NUR ---
RECEIED REPORT [facility] FOR CONTINUITY OF CARE PT IS AT A RASS -2 ON 40MG PROPOFOL AND1.5MCG OF FENTANYL. SHE IS LYING SUPINE WITH HER HEAD ELEVATED 35 DEGREES. HER HEART RATE IS IN THE HIGH 40'S SHE IS SINUS CARSON. ETTOTO VENT WITH SETTING AC/PC FIO2 100%, RATE 20, AND PEEP 7. SHE HAS AN NGT IN HER RIGHT NARE AND SHE'S RECEIVING GLUCERNA AT 10CC WITH FREE WATER FLUSH AT 125C Q6PPNIN. PT HAS A NEWBY CATH AND SHE PUT OUT 1700CC ON THE DAY SHIFT BUT NO BOWEL MOVEMENT. .
--- NOTE | 2022-09-05 19:44 | NUR ---
SBAR REPORT GIVEN TO YURIY RICKS. ALL CARES ENDORSED.
[2022-09-05] MEDS: methylPREDNISolone SS 40 MG/ML VIAL IVP SCH (20:53)
[2022-09-06] VITALS (27 sets, daily range): BP systolic 108–132; BP diastolic 55–77
[2022-09-06] MEDS: fentaNYL citrate - 50mL vial 2.5 MG in NACL 0.9% 200 ML IV PRN ×3 (00:24→23:30)
[2022-09-06] MEDS: PROPOFOL 1000 MG/100 ML PREMIX 100 ML IV PRN ×8 (02:10→23:30)
[2022-09-06] MEDS ORDERED: GABAPENTIN 100 MG CAP ONE ×4 (04:55→20:03)
[2022-09-06] MEDS ORDERED: GABAPENTIN 300 MG CAP ONE ×4 (04:55→20:03)
[2022-09-06] MEDS: GABAPENTIN 600 MG, GABAPENTIN 200 MG PO SCH ×6 (05:00→20:05)
[2022-09-06] MEDS: BLOOD GLUCOSE MONITORING 1 DEV DEV FS SCH ×3 (05:56→18:11)
[2022-09-06] MEDS: PIPERACILLIN/TAZOBACTAM 3.375 GM in DEXTROSE 5% 50 ML IV SCH ×3 (05:57→18:17)
--- NOTE | 2022-09-06 06:00 | NUR ---
PT HAD AN UNEVRNTFUL NIGHT. HER MOTHER AND SISTER CALL TO INQUIRE AND WAS SATISFIED WHEN THE UPDATE WAS NO CHANGE.
[2022-09-06] MEDS: INSULIN LISPRO SLIDING SCALE 100 UNITS/ML VIAL SUBQ PRN ×2 (06:02→12:54)
[2022-09-06] MEDS: LEVOTHYROXINE 0.088 MG TAB PO SCH (06:06)
[2022-09-06 06:32] LABS: HEMATOCRIT 28.4 % (36-48); HEMOGLOBIN 10.7 g/dL (12.0-16.0); MEAN CORPUSCULAR HEMOGLOBIN 32 pg (27-31); MEAN CORPUSCULAR HGB CONC 38 g/dL (33-37); MEAN CORPUSCULAR VOLUME 85.4 fL (80-94); PLATELET COUNT (AUTO) 169 K/uL (140-450); RED BLOOD CELL COUNT(AUTO) 3.33 MIL/uL (4.20-5.40); RED CELL DISTRIBUTION WIDTH 16.8 % (11.6-13.7); WHITE BLOOD COUNT (AUTO) 3.9 K/uL (4.8-10.8)
--- NOTE | 2022-09-06 07:20 | NUR ---
REPORT GIVEN TO PEPE RICKS FOR CONTINUITY OF CARE.
[2022-09-06] MEDS: FUROSEMIDE 40 MG/4 ML VIAL IVP SCH ×3 (07:25→18:17)
--- NOTE | 2022-09-06 07:30 | NUR ---
SBAR REPORT RECEIVED FROM YURIY RICKS, ALL CARES ASSUMED.
[2022-09-06] MEDS: glipiZIDE 5 MG TAB PO SCH ×2 (08:03→16:22)
[2022-09-06] MEDS: ASPIRIN 81 MG TAB.CHEW PO SCH (08:03)
[2022-09-06] MEDS: FAMOTIDINE 20 MG TAB PO SCH (08:03)
[2022-09-06] MEDS: ATORVASTATIN 20 MG TAB PO SCH (08:03)
[2022-09-06] MEDS: PANTOPRAZOLE 40 MG INJ VIAL IVP SCH (08:04)
[2022-09-06] MEDS: methylPREDNISolone SS 40 MG/ML VIAL IVP SCH ×2 (08:04→20:06)
[2022-09-06] MEDS: NYSTATIN CRE 100 MU/GM 15 GM TUBE TP SCH ×2 (08:05→13:09)
[2022-09-06 09:17] LABS: LYMPHOCYTES % (MANUAL) 8 % (20-46)
[2022-09-06 09:18] LABS: MONOCYTES % (MANUAL) 8 % (5-12)
[2022-09-06 10:06] LABS: APPEARANCE,URINE SL CLOUDY (CLEAR); BILIRUBIN,URINE NEGATIVE (NEGATIVE); BLOOD, URINE 3+ (NEGATIVE); COLOR,URINE DARK YELLOW (YELLOW); LEUKOCYTE ESTERASE ,URINE 1+ (NEGATIVE); NITRITE, URINE NEGATIVE (NEGATIVE); UGLUCOSE NEGATIVE (NEGATIVE)
[2022-09-06 10:35] LABS: RBC,URINE TOO NUMEROUS TO COUN /HPF (0-5); WBC,URINE TOO MANY TO COUNT /HPF (0-5)
[2022-09-06 10:36] LABS: TRICHOMONAS,URINE None Seen /HPF (None Seen); YEAST,URINE None Seen /HPF (None Seen)
[2022-09-06 13:31] LABS: ANION GAP 14.8 (8-16); CARBON DIOXIDE 28.5 mmol/L (21-32); CREATININE 0.8 mg/dL (0.6-1.3); POTASSIUM 3.3 mmol/L (3.5-5.1)
[2022-09-06] MEDS ORDERED: MIDAZOLAM MDV 50 MG in NACL 0.9% 40 ML IV PRN (14:00)
[2022-09-06] MEDS ORDERED: POTASSIUM CHLORIDE 20% 40 MEQ/15 ML UDC GT SCH (14:15)
[2022-09-06] MEDS ORDERED: KCL 20 MEQ/WATER INJ PREMIX 200 ML IV ONE (14:16)
[2022-09-06] MEDS: MIDAZOLAM MDV 100 MG in NACL 0.9% 80 ML IV PRN (14:43)
--- NOTE | 2022-09-06 16:00 | NUR ---
BED BATH DONE. LINENS AND GOWN CHANGED. PT TOLERATED TURNING. VSS.
--- NOTE | 2022-09-06 16:28 | NUR ---
09/06/21 RD FOLLOW UP COMPLETED. PLEASE REFER TO NUTRITION ASSESSMENT UNDER CARE ACTIVITY FOR ESTIMATED NUTRITIONAL NEEDS. 1.CONTINUE TO GRADUALLY INCREASE TF RATE UNTIL GOAL RATE OF @ 45 ML/HR IS REACHED -FWF 125 ML Q4H TOLERATED. -THIS WILL PROVIDE 1080 ML TOTAL VOLUME, 2532 KCAL (WITH PROPOFOL AT CURRENT RATE OF 46.8ML/HR), 65 GM PROTEIN AND 869 ML FREE WATER DAILY MEETING >100% ESTIMATED KCAL NEEDS AND 82% PROTEIN NEEDS; ADEQUATE - CONSIDER INCREASING TF GOAL RATE IF PROPOFOL RATE IS DECREASED TO BELOW 20ML/HR 2. MONITOR GI SYMPTOMS AND NUTRITION RELATED LAB VALUES 3. CONSULT RN PRN 4. RD TO FOLLOW-UP 2-3 DAYS, HIGH RISK SHIRLENE ALMAZAN RD
--- NOTE | 2022-09-06 17:18 | NUR ---
SEDATED STABLE GOOD CHEST RISE AIRWAY PATENT INCREASED PEEP TO [id number] (ARDS PROTOCOL) IMPROVE SATURATION PEPE/RN NOTIFIED
--- NOTE | 2022-09-06 19:11 | NUR ---
SBAR REPORT GIVEN TO CARLI RICKS, ALL CARES ENDORSED.
--- NOTE | 2022-09-06 19:20 | NUR ---
PT ALERT AND ORIENTED X0. VENT SETTINGS ACPC FI02 85% RATE 20 PEEP 14. GLUCERNA NGT TUBE FEED 20 ML/HR 125 Q4HR FLUSH. NEWBY CATHETER INTACT AND FLOWING WELL. SR ON BEDSIDE MONITOR. PICC LINE KATELYN. PROP DRIP 30 MCG/KG/MIN. FENTANYL 1.2 MCG/KG/HR. VERCED 1MG/HR. FLACC 0.
[2022-09-06] MEDS: NYSTATIN POW 100 MU/GM 15 GM BTL TP SCH (20:10)
[2022-09-06] MEDS ORDERED: NYSTATIN POW 100 MU/GM 15 GM BTL TP SCH (21:00)
--- NOTE | 2022-09-06 23:00 | NUR ---
APPROX [address] ON 100% PT DESAT ONCE ON CT TABLE AND WAS BAGGED SPO2 CLIMBED TO 100% AND CT WAS PERFORMED PT WAS TRANSPORTED BACK FROM CT AND REPLACED ON VENT W/ SAME SETTINGS OTHER THEN FIO2 (100%) VENT ALARMS REMAIN ON AND AUDIBLE VENT PLUGGED INTO RED OUTLET AMBU REPLACED AT BEDSIDE WILL CONTINUE TO MONITOR AND TITRATE TOLERATED
--- NOTE | 2022-09-06 23:45 | NUR ---
CT SCAN OF THE HEAD DONE.
[2022-09-07] VITALS (32 sets, daily range): BP systolic 108–154; BP diastolic 47–79
[2022-09-07] MEDS: BLOOD GLUCOSE MONITORING 1 DEV DEV FS SCH ×5 (00:08→23:51)
[2022-09-07] MEDS: FUROSEMIDE 40 MG/4 ML VIAL IVP SCH ×5 (00:08→23:41)
[2022-09-07] MEDS: PIPERACILLIN/TAZOBACTAM 3.375 GM in DEXTROSE 5% 50 ML IV SCH ×5 (00:08→23:41)
--- NOTE | 2022-09-07 02:00 | NUR ---
AIRCRAFT SKIN BURNISHER PAGED FOR CONTINUOUS BIGEMY ECG RHYTHM.
[2022-09-07] MEDS: PROPOFOL 1000 MG/100 ML PREMIX 100 ML IV PRN ×7 (02:04→22:26)
--- NOTE | 2022-09-07 02:58 | NUR ---
MD DR. LATIF CALLED BACK REGARDING BIGEMINY RHYTHM. STATED IT IS NOT A PROBLEM. NO NEW ORDERS.
[2022-09-07] MEDS: INSULIN LISPRO SLIDING SCALE 100 UNITS/ML VIAL SUBQ PRN ×3 (05:35→12:30)
[2022-09-07] MEDS ORDERED: GABAPENTIN 100 MG CAP ONE ×3 (05:36→20:55)
[2022-09-07] MEDS ORDERED: GABAPENTIN 300 MG CAP ONE ×3 (05:36→20:55)
[2022-09-07] MEDS: LEVOTHYROXINE 0.088 MG TAB PO SCH (05:40)
[2022-09-07] MEDS: GABAPENTIN 600 MG, GABAPENTIN 200 MG PO SCH ×6 (05:40→21:01)
[2022-09-07 06:06] LABS: BASOPHILS % (AUTO) 0.2 % (0.0-2.0); HEMATOCRIT 35.1 % (36-48); LYMPHOCYTES # (AUTO) 0.5 K/uL (2.5-16.5); LYMPHOCYTES % (AUTO) 4.6 % (20.5-51.1); MEAN CORPUSCULAR HEMOGLOBIN 27 pg (27-31); MEAN CORPUSCULAR HGB CONC 31 g/dL (33-37); MONOCYTES # (AUTO) 0.7 K/uL (0.8-1.0); MONOCYTES % (AUTO) 6.6 % (1.7-9.3); NEUTROPHILS # (AUTO) 9.2 K/uL (1.8-7.7); NEUTROPHILS % (AUTO) 88.6 % (42.2-75.2); PLATELET COUNT (AUTO) 197 K/uL (140-450); RED BLOOD CELL COUNT(AUTO) 4.08 MIL/uL (4.20-5.40); RED CELL DISTRIBUTION WIDTH 16.4 % (11.6-13.7); WHITE BLOOD COUNT (AUTO) 10.3 K/uL (4.8-10.8)
--- NOTE | 2022-09-07 07:15 | NUR ---
REPORT GIVEN TO AM SHIFT MILLICENT ACOSTA.
--- NOTE | 2022-09-07 07:16 | NUR ---
RECEIVED BEDSIDE REPORT FROM CARLI HAND TACKER RN, FOR CONTINUITY OF CARE. PT A/OX0, SEDATED. PUPILS 2MM, SLOW RESPONSE TO LIGHT. ETT TO VENT AC/PC FIO2 90%/R 20/PEEP 14. SR ON MONITOR WITH INTERMITTENT BIGEMINY. PICC TO KATELYN INFUSING PROPOFOL AT 40 MCG/KG/MIN, FENTANYL AT 1.3 MCG/KG/HR, VERSED AT 1 MCG/HR, AND NS TKO 5 ML/HR. NGT TO R NARE INFUSING GLUCERNA TUBE FEEDING AT 30 ML/HR. F/C TO GRAVITY. GENERALIZED WEAKNESS. BILATERAL SOFT WRIST RESTRAINTS IN PLACE FOR SAFETY, NO S/SX OF INJURY. CONTACT PRECAUTION FOR MRSA. BED LOCKED AND IN LOWEST POSITION.
[2022-09-07] MEDS: glipiZIDE 5 MG TAB PO SCH ×2 (07:29→17:09)
[2022-09-07] MEDS: ALBUTEROL SULFATE/IPRATROPIU 3 ML SOL IH PRN ×2 (07:34→14:02)
--- NOTE | 2022-09-07 07:34 | NUR ---
RECEIVED ON A MENA360 R860 VENTILATOR PLUGGED INTO RED OUTLET TOLERATING WELL WITHOUT ADVERSE REACTIONS NOTED TO AN ENDOTRACHEAL TUBE #7.5 SECURED AT 23cm TEETH/GUM LINE WITH AN ANCHOR FAST CUFF PRESSURE CHECKED NOTED AMBU BAG AT BEDSIDE PRESSURE CONTROL MODE NO LONGER REQUIRED PEAK PRESSURE LESS THAN [id number] CHANGED MODE TO PRVC NOTED STABLE NO RESPIRATORY DISTRESS NOTED EQUAL CHEST RISE ENDOTRACHEAL SUCTION FOR MODERATE SCATTERED THICK YELLOW WITH BLOOD TINGE SECRETIONS NOTED AIRWAY PATENT HHN PRN THERAPY GIVEN AT THIS TIME SATURATION 98% ON FIO2 OF 90% PEEP [id number] POST HHN THERAPY TITRATED FIO2 TO 80% LILIAM/RN NOTIFIED OF CHANGE IN VENTILATOR SETTINGS
[2022-09-07 08:04] LABS: ANION GAP 11.1 (8-16); POTASSIUM 3.1 mmol/L (3.5-5.1)
[2022-09-07] MEDS: ASPIRIN 81 MG TAB.CHEW PO SCH (08:04)
[2022-09-07] MEDS: PANTOPRAZOLE 40 MG INJ VIAL IVP SCH (08:04)
[2022-09-07] MEDS: methylPREDNISolone SS 40 MG/ML VIAL IVP SCH ×2 (08:04→21:04)
[2022-09-07] MEDS: FAMOTIDINE 20 MG TAB PO SCH (08:04)
[2022-09-07] MEDS: ATORVASTATIN 20 MG TAB PO SCH (08:04)
[2022-09-07] MEDS: MUPIROCIN CA NASAL 2% 1GM TUBE NS SCH (08:04)
[2022-09-07] MEDS: CHLORHEXADINE GLUC 2% CLOTH TP SCH (08:06)
--- NOTE | 2022-09-07 08:30 | NUR ---
NGT RESIDUAL 5 ML. INCREASED TUBE FEEDING RATE TO 40 ML/HR.
--- NOTE | 2022-09-07 08:30 | NUR ---
SANKET (SISTER) CALLED, UPDATED ON PT STATUS AND POC. NO FURTHER QUESTIONS AT THIS TIME.
[2022-09-07] MEDS ORDERED: KCL 20 MEQ/WATER INJ PREMIX 200 ML IV ONE (08:41)
[2022-09-07] MEDS: NYSTATIN POW 100 MU/GM 15 GM BTL TP SCH ×2 (08:42→21:04)
--- NOTE | 2022-09-07 08:46 | NUR ---
ADMINISTERED 40MEQ K RIDER PER DR. JOHN ORDER FOR K+ 3.1.
[2022-09-07] MEDS ORDERED: VANCOMYCIN PER PHARMACY MC PRN (09:25)
--- NOTE | 2022-09-07 11:05 | NUR ---
SEDATED RESTING COMFORTABLY NO APPARENT RESPIRATORY DISTRESS NOTED EQUAL CHEST RISE AIRWAY PATENT
--- NOTE | 2022-09-07 11:10 | NUR ---
COMMUNICATED ELEVATED PHOSPHORUS RESULTS TO DR. HUNTER, NO NEW ORDERS.
[2022-09-07] MEDS: VANCOMYCIN 1,000 MG in NACL 0.9% 250 ML IV SCH ×2 (11:20→22:27)
[2022-09-07] MEDS: ACETAMINOPHEN 325 MG TAB PO PRN (12:30)
[2022-09-07] MEDS: fentaNYL citrate - 50mL vial 2.5 MG in NACL 0.9% 200 ML IV PRN (12:40)
--- NOTE | 2022-09-07 12:40 | NUR ---
TEMP 100.5, ADMINISTERED PRN TYLENOL 650 MG AND ICE PACKS TO AXILLA AND CHEST.
--- NOTE | 2022-09-07 13:53 | NUR ---
ZURI (MOTHER) AT BEDSIDE. UPDATED ON PT STATUS AND POC.
--- NOTE | 2022-09-07 14:02 | NUR ---
SEDATED RESTING COMFORTABLY GOOD CHEST RISE ENDOTRACHEAL SUCTION FOR MODERATE SEMI THICK YELLOW WITH BLOOD TINGE SECRETIONS AIRWAY PATENT
--- NOTE | 2022-09-07 16:00 | NUR ---
TEMP NOW 99.9, COOLING MEASURES STILL IN USE.
--- NOTE | 2022-09-07 18:00 | NUR ---
SEEN AND EXAMINED BY DR. LANDA, NO NEW ORDERS OF NOW.
--- NOTE | 2022-09-07 19:15 | NUR ---
ENDORSED BEDSIDE REPORT TO STEPHANIE YAN RN, FOR CONTINUITY OF CARE.
--- NOTE | 2022-09-07 19:20 | NUR ---
RECEIVED REPORT FROM LILIAM RICKS FOR CONTINUITY OF CARE. PT IS LYING SUPINE WITH A 35 DEGREE HEAD ELEVATION. SHE IS RASS -3 GIVING THE SEDATION SHE IS RECEIVING. PROPOFOL 35MCG, VERSED 1MG AND FENTANYL 1.279MCCG ALL INFUSING IN A RIGHT UPPER ARM PIOO LINE. ORAL CARE GIVEN ANS SHE HAD A LOT O ORAL SECRETION. SHE IS ETT TO VENT CURRENT SETTINGS ARE VO/PRVC FIO2 70%, TV350, RATE 18 AND PEEP 14.SHE'S NO LONGER FEBRILE. CURRENT TEMP96.4 TEMPORAL. SHE'S RECEIVING GLUCERNA TUBE FEEDING VIA NGT INSERTED IN THE RIGHT NARE. RESIDUAL 10CC. SHE TOLERATING THE FEEDING WELL. SHE HAS A NEWBY CATH THAT WAS INSERTED ON 09/02/22 DRAINING CLEAR LIGHT YELLOW URINE. PT HAS GOOD PULSES THROUGHOUT. NO SIGHS OF DITRESS NOTED
--- NOTE | 2022-09-07 22:00 | NUR ---
PT BLEEDING FROM THE HEPARIN INJECTION SITE . PLATELET COUNT WAS 197.
[2022-09-08] VITALS (29 sets, daily range): BP systolic 98–146; BP diastolic 56–117
[2022-09-08] MEDS: PROPOFOL 1000 MG/100 ML PREMIX 100 ML IV PRN ×8 (01:15→20:47)
[2022-09-08] MEDS: fentaNYL citrate - 50mL vial 2.5 MG in NACL 0.9% 200 ML IV PRN ×2 (01:17→16:12)
[2022-09-08] MEDS: ACETAMINOPHEN 325 MG TAB PO PRN (03:41)
[2022-09-08] MEDS ORDERED: GABAPENTIN 100 MG CAP ONE ×3 (05:27→20:39)
[2022-09-08] MEDS ORDERED: GABAPENTIN 300 MG CAP ONE ×3 (05:27→20:39)
[2022-09-08] MEDS: GABAPENTIN 600 MG, GABAPENTIN 200 MG PO SCH ×6 (05:45→20:48)
[2022-09-08] MEDS: BLOOD GLUCOSE MONITORING 1 DEV DEV FS SCH ×3 (05:49→18:05)
[2022-09-08] MEDS: INSULIN LISPRO SLIDING SCALE 100 UNITS/ML VIAL SUBQ PRN (05:51)
[2022-09-08] MEDS: LEVOTHYROXINE 0.088 MG TAB PO SCH (05:53)
[2022-09-08] MEDS: FUROSEMIDE 40 MG/4 ML VIAL IVP SCH ×3 (05:53→17:57)
[2022-09-08] MEDS: PIPERACILLIN/TAZOBACTAM 3.375 GM in DEXTROSE 5% 50 ML IV SCH ×3 (05:53→17:53)
[2022-09-08 06:05] LABS: BASOPHILS % (AUTO) 0.4 % (0.0-2.0); EOSINOPHILS % (AUTO) 0.1 % (0.0-4.0); HEMATOCRIT 31.5 % (36-48); HEMOGLOBIN 10.4 g/dL (12.0-16.0); LYMPHOCYTES # (AUTO) 0.5 K/uL (2.5-16.5); LYMPHOCYTES % (AUTO) 5.5 % (20.5-51.1); MEAN CORPUSCULAR HEMOGLOBIN 28 pg (27-31); MEAN CORPUSCULAR HGB CONC 33 g/dL (33-37); MEAN CORPUSCULAR VOLUME 85.5 fL (80-94); MONOCYTES # (AUTO) 0.5 K/uL (0.8-1.0); MONOCYTES % (AUTO) 5.2 % (1.7-9.3); NEUTROPHILS # (AUTO) 8.1 K/uL (1.8-7.7); NEUTROPHILS % (AUTO) 88.8 % (42.2-75.2); PLATELET COUNT (AUTO) 157 K/uL (140-450); RED BLOOD CELL COUNT(AUTO) 3.68 MIL/uL (4.20-5.40); RED CELL DISTRIBUTION WIDTH 16.1 % (11.6-13.7); WHITE BLOOD COUNT (AUTO) 9.1 K/uL (4.8-10.8)
--- NOTE | 2022-09-08 06:55 | NUR ---
PT REQUIRED INSULIN COVERAGE BOTH BLOOD GLUCOSE CHECKS.
--- NOTE | 2022-09-08 07:20 | NUR ---
RECEIVED BEDSIDE REPORT FROM STEPHANIE YAN ENVIRONMENTAL RESOURCE SPECIALIST RN, FOR CONTINUITY OF CARE. PT A/OX0, SEDATED. ETT TO VENT AC/PRVC FIO2 70%/VT 350/R 18/PEEP 14. SR ON MONITOR WITH INTERMITTENT PVC'S. PICC TO KATELYN INFUSING PROPOFOL AT 35 MCG/KG/MIN, FENTANYL AT 1.3 MCG/KG/HR, VERSED AT 1 MCG/HR, AND NS TKO 5 ML/HR. NGT TO R NARE INFUSING GLUCERNA TUBE FEEDING AT 45 ML/HR WITH 125 ML FWF Q4H. F/C TO GRAVITY. GENERALIZED WEAKNESS. BILATERAL SOFT WRIST RESTRAINTS IN PLACE FOR SAFETY, NO S/SX OF INJURY. HEEL PROTECTION BOOTS IN PLACE, PRESSURE OFFLOADED WITH PILLOWS. CONTACT PRECAUTION FOR MRSA. BED LOCKED AND IN LOWEST POSITION.
[2022-09-08] MEDS: methylPREDNISolone SS 40 MG/ML VIAL IVP SCH ×2 (08:03→20:47)
[2022-09-08] MEDS: PANTOPRAZOLE 40 MG INJ VIAL IVP SCH (08:03)
[2022-09-08] MEDS: MUPIROCIN CA NASAL 2% 1GM TUBE NS SCH (08:03)
[2022-09-08] MEDS: ASPIRIN 81 MG TAB.CHEW PO SCH (08:03)
[2022-09-08] MEDS: FAMOTIDINE 20 MG TAB PO SCH (08:04)
[2022-09-08] MEDS: ATORVASTATIN 20 MG TAB PO SCH (08:04)
[2022-09-08] MEDS: glipiZIDE 5 MG TAB PO SCH ×2 (08:04→16:11)
[2022-09-08] MEDS: CHLORHEXADINE GLUC 2% CLOTH TP SCH (08:08)
[2022-09-08] MEDS: NYSTATIN POW 100 MU/GM 15 GM BTL TP SCH ×2 (08:08→21:00)
[2022-09-08 08:36] LABS: MAGNESIUM 2.2 mg/dL (1.8-2.4); PHOSPHORUS 3.8 mg/dL (2.5-4.9)
[2022-09-08 08:39] LABS: ANION GAP 9.3 (8-16); POTASSIUM 3.1 mmol/L (3.5-5.1)
[2022-09-08 08:40] LABS: CREATININE 0.7 mg/dL (0.6-1.3)
[2022-09-08 08:42] LABS: CARBON DIOXIDE 40.8 mmol/L (21-32)
[2022-09-08] MEDS: POTASSIUM CHLORIDE 20% 40 MEQ/15 ML UDC GT PRN (09:52)
--- NOTE | 2022-09-08 10:00 | NUR ---
ADMINISTERED 40 MEQ K ELIXIR VIA NGT FOR K+ LEVEL 3.1. DR. FIORDALIZA FLANNERY AT BEDSIDE, MADE AWARE. NO NEW ORDERS.
[2022-09-08] MEDS: VANCOMYCIN 1,000 MG in NACL 0.9% 250 ML IV SCH (11:15)
--- NOTE | 2022-09-08 15:23 | NUR ---
09/08/22 RD FOLLOW UP COMPLETED PLEASE REFER TO NUTRITION ASSESSMENT UNDER CARE ACTIVITY FOR ESTIMATED NUTRITIONAL NEEDS. 1.CONTINUE GLUCERNA 1.2 AT GOAL RATE OF 45 ML/HR TOLERATED, FWF 125 ML Q4H TOLERATED. - RECOMMEND KORINA BID FOR LOW JERI SUPPORT - PROVIDES 160 KCAL AND 5 GM PROTEIN DAILY -WITH KORINA BID, PROVIDES 1080 ML TOTAL VOLUME, 2318 KCAL (WITH PROPOFOL AT CURRENT RATE OF 32.67ML/HR), 70 GM PROTEIN AND 1619 ML FREE WATER DAILY MEETING >100% ESTIMATED KCAL NEEDS AND 90% ESTIMATED PROTEIN NEEDS; ADEQUATE - CONSIDER INCREASING TF GOAL RATE IF PROPOFOL RATE IS DECREASED TO BELOW 20ML/HR 2. MONITOR GI SYMPTOMS AND NUTRITION RELATED LAB VALUES 3. CONSULT RD PRN 4. RD TO FOLLOW-UP 3-5 DAYS, MODERATE RISK REVIEWED BY RINA SEWELL RD
[2022-09-08] MEDS: MIDAZOLAM MDV 100 MG in NACL 0.9% 80 ML IV PRN ×2 (17:05→20:24)
--- NOTE | 2022-09-08 18:00 | NUR ---
COMPLETE BED BATH AND LINEN CHANGE DONE. PT DESATTED TO HIGH 70'S, REPOSITIONED AND O2 SAT RETURNED TO MID 90'S.
--- NOTE | 2022-09-08 19:13 | NUR ---
ENDORSED BEDSIDE REPORT TO EDDIE DATA SUPPORT ANALYST GROUP CONTROLLER, FOR CONTINUITY OF CARE. VSS. SR ON MONITOR.
[2022-09-08] MEDS ORDERED: MIDAZOLAM MDV 50 MG/10 ML VIAL IV ONE (20:22)
[2022-09-08] MEDS: FLUCONAZOLE 200 MG/NS PREMIX 100 ML IV SCH (21:00)
[2022-09-08] MEDS: VANCOMYCIN 1,500 MG in NACL 0.9% 500 ML IV SCH (23:07)
[2022-09-09] VITALS (25 sets, daily range): BP systolic 101–138; BP diastolic 54–72
[2022-09-09] MEDS: PROPOFOL 1000 MG/100 ML PREMIX 100 ML IV PRN ×5 (00:14→22:53)
[2022-09-09] MEDS: PIPERACILLIN/TAZOBACTAM 3.375 GM in DEXTROSE 5% 50 ML IV SCH ×4 (00:24→17:15)
[2022-09-09] MEDS: FUROSEMIDE 40 MG/4 ML VIAL IVP SCH ×4 (00:24→17:31)
[2022-09-09] MEDS: BLOOD GLUCOSE MONITORING 1 DEV DEV FS SCH ×6 (00:26→17:13)
[2022-09-09] MEDS: fentaNYL citrate - 50mL vial 2.5 MG in NACL 0.9% 200 ML IV PRN ×2 (01:46→17:20)
--- NOTE | 2022-09-09 03:06 | NUR ---
PATIENT STABLE VITALS SIGNS IN NORMAL LIMITS SR 78 ON MONITOR SEDATED VENT FIO2 100 % R 18 WE DID CHANGE THE NEWBY PATIENT ALSO HVE BM WAS CLEANING ALONG WITH ORAL CARE
[2022-09-09] MEDS ORDERED: GABAPENTIN 100 MG CAP ONE ×3 (04:01→20:44)
[2022-09-09] MEDS ORDERED: GABAPENTIN 300 MG CAP ONE ×3 (04:01→20:45)
[2022-09-09] MEDS: GABAPENTIN 600 MG, GABAPENTIN 200 MG PO SCH ×6 (04:09→21:01)
[2022-09-09 05:46] LABS: EOSINOPHILS # (AUTO) 0.1 K/uL (0-0.4); HEMATOCRIT 33.7 % (36-48); HEMOGLOBIN 10.5 g/dL (12.0-16.0); LYMPHOCYTES # (AUTO) 0.8 K/uL (2.5-16.5); MEAN CORPUSCULAR HEMOGLOBIN 27 pg (27-31); MEAN CORPUSCULAR HGB CONC 31 g/dL (33-37); MEAN CORPUSCULAR VOLUME 85.2 fL (80-94); MONOCYTES # (AUTO) 0.9 K/uL (0.8-1.0); MONOCYTES % (AUTO) 6.4 % (1.7-9.3); NEUTROPHILS # (AUTO) 11.9 K/uL (1.8-7.7); NEUTROPHILS % (AUTO) 86.6 % (42.2-75.2); PLATELET COUNT (AUTO) 176 K/uL (140-450); RED BLOOD CELL COUNT(AUTO) 3.96 MIL/uL (4.20-5.40); RED CELL DISTRIBUTION WIDTH 16.5 % (11.6-13.7); WHITE BLOOD COUNT (AUTO) 13.7 K/uL (4.8-10.8)
[2022-09-09] MEDS: LEVOTHYROXINE 0.088 MG TAB PO SCH (05:52)
[2022-09-09] MEDS: glipiZIDE 5 MG TAB PO SCH ×2 (06:03→15:45)
--- NOTE | 2022-09-09 06:24 | NUR ---
PATIENT STABLE VITALS SIGNS IN NORMAL LIMITS SR 78 ON MONITOR SPO2 100 % BATH AND ORAL CARE WAS DONE I AM HOLDING THE FEEDING TUBE BECAUSE RESIDUALS 300 ML
--- NOTE | 2022-09-09 07:15 | NUR ---
RECEIVED PT ON PRVC 350,RR18, +13, 60%. VENT WHEELS ARE LOCKED, PLUGGED INTO RED OUTLET, AMBUBAG AT BEDSIDE, ALARMS ARE SET AND AUDIBLE. WILL CONTINUE MONITOR.
[2022-09-09 07:20] LABS: ALBUMIN 2.8 g/dL (3.4-5.0); ANION GAP 11.2 (8-16); CARBON DIOXIDE 39.6 mmol/L (21-32); CREATININE 0.7 mg/dL (0.6-1.3); TOTAL BILIRUBIN 0.8 mg/dL (0.0-1.0)
--- NOTE | 2022-09-09 07:30 | NUR ---
Received report on pt. Pt intubated to vent, sedated with diprivan, fentanyl, and versed drips. Pt in no signs of acute pain or distress. NGT with tube feeding, no residual noted, resumed tube feeding that was off from previous shift. Laura with cirilo urine draining to gravity. Bilateral soft wrist restraints in place for safety, no skin breakdown noted, pulses present bilaterally. Heels offloaded with pillow with heel protector boots.
--- NOTE | 2022-09-09 08:00 | NUR ---
Noted pt with desaturation to SpO2 80s despite replacing pulse oximeter and suctioning, FiO2 increased to 80% by RT.
[2022-09-09 08:09] LABS: POTASSIUM 2.8 mmol/L (3.5-5.1)
--- NOTE | 2022-09-09 08:15 | NUR ---
Pt's sister at bedside, updated on pt plan of care. Questions answered.
[2022-09-09] MEDS: PANTOPRAZOLE 40 MG INJ VIAL IVP SCH (09:11)
[2022-09-09] MEDS: MUPIROCIN CA NASAL 2% 1GM TUBE NS SCH (09:12)
[2022-09-09] MEDS: methylPREDNISolone SS 40 MG/ML VIAL IVP SCH ×2 (09:12→20:48)
[2022-09-09] MEDS: ASPIRIN 81 MG TAB.CHEW PO SCH (09:13)
[2022-09-09] MEDS: ATORVASTATIN 20 MG TAB PO SCH (09:13)
[2022-09-09] MEDS: FAMOTIDINE 20 MG TAB PO SCH (09:14)
[2022-09-09] MEDS: CHLORHEXADINE GLUC 2% CLOTH TP SCH (09:15)
[2022-09-09] MEDS: NYSTATIN POW 100 MU/GM 15 GM BTL TP SCH ×2 (09:15→21:03)
[2022-09-09] MEDS ORDERED: KCL 20 MEQ/WATER INJ PREMIX 200 ML IV SCH (10:42)
[2022-09-09] MEDS: VANCOMYCIN 1,500 MG in NACL 0.9% 500 ML IV SCH ×2 (11:30→22:54)
[2022-09-09] MEDS: INSULIN LISPRO SLIDING SCALE 100 UNITS/ML VIAL SUBQ PRN ×2 (11:36→17:21)
[2022-09-09] MEDS: POTASSIUM CHLORIDE 20% 40 MEQ/15 ML UDC GT PRN (12:45)
[2022-09-09] MEDS: ACETAMINOPHEN 325 MG TAB PO PRN (12:46)
--- NOTE | 2022-09-09 13:25 | NUR ---
Pt's sister Monie at bedside, updated on pt's current condition requiring more FiO2 and unstable when turning. Monie requests MD to call her mother, Isha, regarding pt updates but also states she is "aware that not much has changed, the pt's unstable condition may be the same, and the doctors may give the same answer as the others because they work collaboratively." Informed Monie that a doctor will be informed to contact them for updates.
--- NOTE | 2022-09-09 15:45 | NUR ---
Pt's mother Isha at bedside. CNO, bathhouse attendant, staff nurse, and charge nurse discussing with Isha visitor situation and Isha will remain the main contact for pt.
--- NOTE | 2022-09-09 17:56 | NUR ---
Dr. Gutierrez rounding on pt and spoke with pt's mother Isha on phone, witnessed by staff and charge RNs. Pt's mother updated with pt's status and plan of care.
--- NOTE | 2022-09-09 18:56 | NUR ---
Pt remains intubated and sedated with fentanyl, versed, and propofol drips. Pt received K Lexa 40 mEq IVPB and potassium 40 mEq via NGT per MD order. Bilateral soft wrist restraints in place for safety. Will endorse plan of care to RN.
--- NOTE | 2022-09-09 19:14 | NUR ---
RECEIVED REPORT FROM AM SHIFT. PATIENT WAS SEEN AND ASSESSED. PATIENT IS INTUBATED WITH ETT SIZE 7.5 AND SECURED WITH A BITING BLOCK ANCHOR-FAST 23cm @ TEETH. PATIENT IS ON VENTILATOR SUPPORT. VENTILATOR PLUGGED IN RED OUTLET. VENTILATOR ALARMS SET APPROPRIATELY AND AUDIBLE TO ENVIRONMENT. AMBU BAG AT BEDSIDE. HEAD OF BED GREATER THAN 30 DEGREES. NOTICED ADEQUATE BILATERAL CHEST RISE AND FALL. PATIENT IS IN NO RESPIRATORY DISTRESS AT THIS TIME. VENT SETTINGS: AC/PRVC RR 20, TARGETED VT 450, PEEP 13, FiO2 80% WITH SPO2 OF 95%. BILATERAL BREATH SOUNDS ON AUSCULTATION;UPPER LOBES: DIMINISHED, LOWER LOBES DIMINISHED. SUCTIONED SMALL AMOUNT OF WHITE THIN SECRETIONS FROM ETT. WILL CONTINUE TO MONITOR PT.
[2022-09-09] MEDS: FLUCONAZOLE 200 MG/NS PREMIX 100 ML IV SCH (21:02)
--- NOTE | 2022-09-09 21:53 | NUR ---
PATIENT STABLE VITALS SIGNS IN NORMAL LIMITS SR 78 ON MONITOR PATIENT HAVE BM WE CLEANED AND GIVE ORAL CARE WELL
[2022-09-10] VITALS (30 sets, daily range): BP systolic 97–125; BP diastolic 54–76
[2022-09-10] MEDS: FUROSEMIDE 40 MG/4 ML VIAL IVP SCH ×5 (00:06→23:14)
[2022-09-10] MEDS: PIPERACILLIN/TAZOBACTAM 3.375 GM in DEXTROSE 5% 50 ML IV SCH ×5 (00:06→23:15)
--- NOTE | 2022-09-10 00:29 | NUR ---
PATIENT STABLE VITALS SIGNS IN NORMAL LIMITS SR 67 ON MONITOR NOT BM AT THIS TIME VENT R 20 T 450 PEEP 13 FIO2 80
[2022-09-10] MEDS: PROPOFOL 1000 MG/100 ML PREMIX 100 ML IV PRN ×6 (03:25→22:10)
[2022-09-10] MEDS: fentaNYL citrate - 50mL vial 2.5 MG in NACL 0.9% 200 ML IV PRN ×2 (03:32→17:11)
[2022-09-10] MEDS ORDERED: GABAPENTIN 100 MG CAP ONE ×3 (04:38→20:08)
[2022-09-10] MEDS ORDERED: GABAPENTIN 300 MG CAP ONE ×3 (04:38→20:08)
[2022-09-10] MEDS: GABAPENTIN 600 MG, GABAPENTIN 200 MG PO SCH ×6 (04:42→20:26)
[2022-09-10] MEDS: LEVOTHYROXINE 0.088 MG TAB PO SCH (04:45)
[2022-09-10] MEDS: BLOOD GLUCOSE MONITORING 1 DEV DEV FS SCH ×2 (05:58→17:18)
[2022-09-10] MEDS: glipiZIDE 5 MG TAB PO SCH ×2 (06:00→16:34)
[2022-09-10 06:31] LABS: CARBON DIOXIDE 37.2 mmol/L (21-32); CREATININE 0.7 mg/dL (0.6-1.3); POTASSIUM 3.2 mmol/L (3.5-5.1)
--- NOTE | 2022-09-10 06:52 | NUR ---
PATIENT STABLE NOT COMPLAINING OF PAIN VITALS SIGNS IN NORMAL LIMITS HAS 5 TIMES BM AND NOW SHE HAS ANOTHER ONE A LOT OF DIARRHEA BATHH AND ORAL CARE WAS PERFORMED
--- NOTE | 2022-09-10 07:15 | NUR ---
RECEIVED BEDSIDE REPORT FROM AUTOMOBILE BODY WORKER EDDIE RICKS. PT IS SEDATED. SR ON MONITOR. NGT TO RT NARE, RUNNING JEVITY @ 45MLS/H. FWF 50MLS Q6H. PICC LINE TO RUP, RUNNING PROPOFOL@ 25MCG/KG/MIN, FENTANYL @1.279 MCG/KG/H, VERSED @ 1 MG/HR. BILAT RESTRAINTS IN PLACE. NEWBY IN PLACE. BED TO LOWEST POSITION, CALL LIGHT WITHIN REACH, WILL CONTINUE TO MONITOR. Addendum: 09/10/22 at 0813 by Marc Delaney RN ETT TO VENT, AC PRVC FIO2 78%, VT 450, RR 20, PEEP 13.
[2022-09-10] MEDS: ATORVASTATIN 20 MG TAB PO SCH (08:41)
[2022-09-10] MEDS: PANTOPRAZOLE 40 MG INJ VIAL IVP SCH (08:41)
[2022-09-10] MEDS: methylPREDNISolone SS 40 MG/ML VIAL IVP SCH ×2 (08:41→20:34)
[2022-09-10] MEDS: FAMOTIDINE 20 MG TAB PO SCH (08:42)
[2022-09-10] MEDS: ASPIRIN 81 MG TAB.CHEW PO SCH (08:43)
[2022-09-10] MEDS: CHLORHEXADINE GLUC 2% CLOTH TP SCH (08:44)
[2022-09-10] MEDS: NYSTATIN POW 100 MU/GM 15 GM BTL TP SCH ×2 (08:45→20:39)
--- NOTE | 2022-09-10 08:57 | NUR ---
DR DORA FLANNERY AT BEDSIDE. UPDATED PT INFORMATION.
[2022-09-10 09:13] LABS: BASOPHILS % (AUTO) 0.1 % (0.0-2.0); EOSINOPHILS # (AUTO) 0.1 K/uL (0-0.4); EOSINOPHILS % (AUTO) 1.4 % (0.0-4.0); HEMATOCRIT 31.4 % (36-48); HEMOGLOBIN 9.9 g/dL (12.0-16.0); LYMPHOCYTES % (AUTO) 10.6 % (20.5-51.1); MEAN CORPUSCULAR HEMOGLOBIN 27 pg (27-31); MEAN CORPUSCULAR HGB CONC 32 g/dL (33-37); MEAN CORPUSCULAR VOLUME 84.7 fL (80-94); MONOCYTES # (AUTO) 0.7 K/uL (0.8-1.0); NEUTROPHILS # (AUTO) 7.5 K/uL (1.8-7.7); NEUTROPHILS % (AUTO) 80.9 % (42.2-75.2); PLATELET COUNT (AUTO) 187 K/uL (140-450); RED BLOOD CELL COUNT(AUTO) 3.71 MIL/uL (4.20-5.40); RED CELL DISTRIBUTION WIDTH 15.9 % (11.6-13.7); WHITE BLOOD COUNT (AUTO) 9.3 K/uL (4.8-10.8)
[2022-09-10] MEDS ORDERED: MAG SULF 2000 MG/WATER PREMIX 50 ML IV SCH (09:13)
[2022-09-10] MEDS: POTASSIUM CHLORIDE 20% 40 MEQ/15 ML UDC GT PRN (09:14)
[2022-09-10] MEDS: MUPIROCIN CA NASAL 2% 1GM TUBE NS SCH (09:37)
[2022-09-10] MEDS: VANCOMYCIN 1,500 MG in NACL 0.9% 500 ML IV SCH ×2 (11:20→23:13)
--- NOTE | 2022-09-10 13:30 | NUR ---
REPOSITIONED AND CLEANED PT WITH ASSISTANCE. PT TOLERATED WELL.
--- NOTE | 2022-09-10 15:00 | NUR ---
FAMILY/SISTER AT BEDSIDE. UPDATED PT INFORMATION. SECURITY BRING IN A UPDATED VISITORS NAME LIST.
[2022-09-10] MEDS: INSULIN LISPRO SLIDING SCALE 100 UNITS/ML VIAL SUBQ PRN (17:21)
--- NOTE | 2022-09-10 18:05 | NUR ---
DR HARRIS ROUNDING AT BEDSIDE. UPDATED PT INFORMATION. ALL QUESTIONS ANSWERED.
--- NOTE | 2022-09-10 18:25 | NUR ---
RECEIVED PHONE CALL FROM FAMILY/MOM. UPDATED PT INFORMATION. ALL QUESTIONS ANSWERED.
--- NOTE | 2022-09-10 18:35 | NUR ---
SEEN AND EXAMINED BY DR HUNTER. UPDATED PT INFORMATION.
--- NOTE | 2022-09-10 19:22 | NUR ---
ENDORSED TO MEDICAL OPERATIONS SUPERVISOR LINSEY RN FOR CONTINUITY OF CARE. ALL QUESTIONS ANSWERED.
--- NOTE | 2022-09-10 19:58 | NUR ---
RECEIVED REPORT FROM AM SHIFT. PATIENT WAS SEEN AND ASSESSED. PATIENT IS INTUBATED WITH ETT SIZE 7.5 AND SECURED WITH A BITING BLOCK ANCHOR-FAST 23cm @ TEETH. PATIENT IS ON VENTILATOR SUPPORT. VENTILATOR PLUGGED IN RED OUTLET. VENTILATOR ALARMS SET APPROPRIATELY AND AUDIBLE TO ENVIRONMENT. AMBU BAG AT BEDSIDE. HEAD OF BED GREATER THAN 30 DEGREES. NOTICED ADEQUATE BILATERAL CHEST RISE AND FALL. PATIENT IS IN NO RESPIRATORY DISTRESS AT THIS TIME. VENT SETTINGS: AC/PRVC RR 20, TARGETED VT 450, PEEP 13, FiO2 80% WITH SPO2 OF 93%. BILATERAL BREATH SOUNDS ON AUSCULTATION;UPPER LOBES: DIMINISHED, LOWER LOBES DIMINISHED. SUCTIONED SMALL AMOUNT OF WHITE THIN SECRETIONS FROM ETT. WILL CONTINUE TO MONITOR PT.
--- NOTE | 2022-09-10 20:00 | NUR ---
PATIENT NOTED ALERT AND CAN OPEN EYES AND ABLE TO FOLLOW SIMPLE COMMANDS ON [id number] VERSED 1MG AND FENTANYL AT 1.2 MCG VENT SETTINGS AC/PRVC 20 ,FIO2 80%,TV 450 PEEP 5WITH GOOD O2 SATURATION AND NO EPISODE OF RESPIRATORY DISTRESS.JEVITY TUBE FEEDING IN PROGRESS WITH NO DIARRHEA AT THIS TIME.RECTAL TUBE PATENT AND intact.NEWBY IN PLACE WITH ADEQUATE URINE OUTPUt
[2022-09-10] MEDS: FLUCONAZOLE 200 MG/NS PREMIX 100 ML IV SCH (20:32)
[2022-09-10] MEDS: MIDAZOLAM MDV 100 MG in NACL 0.9% 80 ML IV PRN (21:45)
[2022-09-11] VITALS (32 sets, daily range): BP systolic 105–151; BP diastolic 55–82
[2022-09-11] MEDS: INSULIN LISPRO SLIDING SCALE 100 UNITS/ML VIAL SUBQ PRN ×3 (00:25→17:21)
[2022-09-11] MEDS: BLOOD GLUCOSE MONITORING 1 DEV DEV FS SCH ×5 (00:27→23:54)
[2022-09-11] MEDS: PROPOFOL 1000 MG/100 ML PREMIX 100 ML IV PRN ×6 (02:01→23:57)
[2022-09-11] MEDS ORDERED: GABAPENTIN 100 MG CAP ONE ×3 (05:23→20:22)
[2022-09-11] MEDS ORDERED: GABAPENTIN 300 MG CAP ONE ×4 (05:24→20:23)
[2022-09-11] MEDS: fentaNYL citrate - 50mL vial 2.5 MG in NACL 0.9% 200 ML IV PRN ×2 (05:42→18:07)
[2022-09-11] MEDS: GABAPENTIN 600 MG, GABAPENTIN 200 MG PO SCH ×6 (05:50→20:47)
--- NOTE | 2022-09-11 06:00 | NUR ---
ENDORSE TO RONI.
[2022-09-11] MEDS: FUROSEMIDE 40 MG/4 ML VIAL IVP SCH ×4 (06:06→23:35)
[2022-09-11] MEDS: LEVOTHYROXINE 0.088 MG TAB PO SCH (06:06)
[2022-09-11] MEDS: PIPERACILLIN/TAZOBACTAM 3.375 GM in DEXTROSE 5% 50 ML IV SCH ×4 (06:06→23:34)
--- NOTE | 2022-09-11 07:15 | NUR ---
RECEIVED BEDSIDE REPORT FROM PILE HEADER LINSEY RICKS. PT IS SEDATED. SR ON MONITOR. ETT TO VENT. AC PRVC FIO2 80%, VT 450, RR 20, PEEP 13. NGT TO RT NARE, RUNNING JEVITY @ 45MLS/H. FWF 50MLS Q6H. PICC LINE TO RUP, RUNNING PROPOFOL@ 23MCG/KG/MIN, FENTANYL @1.279 MCG/KG/H, VERSED @ 1 MG/HR. BILAT RESTRAINTS IN PLACE. NEWBY IN PLACE. BED TO LOWEST POSITION, CALL LIGHT WITHIN REACH, WILL CONTINUE TO MONITOR.
[2022-09-11] MEDS: glipiZIDE 5 MG TAB PO SCH ×2 (07:41→16:19)
[2022-09-11 07:50] LABS: BASOPHILS % (AUTO) 0.4 % (0.0-2.0); HEMATOCRIT 30.2 % (36-48); HEMOGLOBIN 9.6 g/dL (12.0-16.0); LYMPHOCYTES # (AUTO) 0.4 K/uL (2.5-16.5); LYMPHOCYTES % (AUTO) 7.1 % (20.5-51.1); MEAN CORPUSCULAR HEMOGLOBIN 27 pg (27-31); MEAN CORPUSCULAR HGB CONC 32 g/dL (33-37); MEAN CORPUSCULAR VOLUME 84.7 fL (80-94); MONOCYTES # (AUTO) 0.4 K/uL (0.8-1.0); MONOCYTES % (AUTO) 7.2 % (1.7-9.3); NEUTROPHILS # (AUTO) 4.7 K/uL (1.8-7.7); NEUTROPHILS % (AUTO) 85.3 % (42.2-75.2); PLATELET COUNT (AUTO) 188 K/uL (140-450); RED BLOOD CELL COUNT(AUTO) 3.57 MIL/uL (4.20-5.40); RED CELL DISTRIBUTION WIDTH 15.4 % (11.6-13.7); WHITE BLOOD COUNT (AUTO) 5.5 K/uL (4.8-10.8)
[2022-09-11 07:56] LABS: ANION GAP 10.6 (8-16); CREATININE 0.6 mg/dL (0.6-1.3); POTASSIUM 3.6 mmol/L (3.5-5.1)
--- NOTE | 2022-09-11 08:00 | NUR ---
DR DORA FLANNERY AT BEDSIDE. UPDATED PT INFORMATION.
[2022-09-11] MEDS: methylPREDNISolone SS 40 MG/ML VIAL IVP SCH ×2 (08:39→20:39)
[2022-09-11] MEDS: PANTOPRAZOLE 40 MG INJ VIAL IVP SCH (08:39)
[2022-09-11] MEDS: ATORVASTATIN 20 MG TAB PO SCH (08:40)
[2022-09-11] MEDS: ASPIRIN 81 MG TAB.CHEW PO SCH (08:40)
[2022-09-11] MEDS: CHLORHEXADINE GLUC 2% CLOTH TP SCH (08:41)
[2022-09-11] MEDS: MUPIROCIN CA NASAL 2% 1GM TUBE NS SCH (08:41)
[2022-09-11] MEDS: FAMOTIDINE 20 MG TAB PO SCH (08:41)
[2022-09-11] MEDS: NYSTATIN POW 100 MU/GM 15 GM BTL TP SCH ×2 (08:42→20:48)
[2022-09-11] MEDS: INTERDRY CLOTH TP SCH (09:58)
[2022-09-11] MEDS: VANCOMYCIN 1,500 MG in NACL 0.9% 500 ML IV SCH ×2 (11:16→22:27)
--- NOTE | 2022-09-11 11:25 | NUR ---
POC DISCUSSED WITH PRIMARY RN, SKIN CARE AND PREVENTION MEASUREMENTS REVIEWED. PT. IS AT HIGH RISK PER JERI SCALE.
--- NOTE | 2022-09-11 16:00 | NUR ---
CHANGED AND REPOSITIONED PT. PT TOLERATED WELL. VS STABLE.
--- NOTE | 2022-09-11 19:15 | NUR ---
ENDORSED TO MEDICAL SCRIBE LINSEY RN FOR CONTINUITY OF CARE. ALL QUESTION ANSWERED. PT VS STABLE.
[2022-09-11] MEDS: ALBUTEROL SULFATE/IPRATROPIU 3 ML SOL IH PRN (19:40)
--- NOTE | 2022-09-11 20:00 | NUR ---
ASSUMED CARE OF THIS PATIENT AND ASSESSMENT DONE AND COMPLETED.AWAKE,OPEN EYES AND ABLE TO FOLLOW SIMPLE COMMANDS.FENTANYL,VERSED AND PROPOFOL FOR SEDATION IN PROGRESS.JEVITY 1.2 FEEDING ONGOING AT 45 ML/HOUR.AND TOLERATED FAIRLY WELL.NO VOMITING AT THIIS TIME.GTUBE.REMAINS ON VENTILATOR SUPPORT AND RESTRAINTS TO PREVENT FROM PULLING OUT VITAL LINESWILL CONTINUE TO CLOSE MONITORING.
[2022-09-11] MEDS: FLUCONAZOLE 200 MG/NS PREMIX 100 ML IV SCH (20:45)
[2022-09-12] VITALS (30 sets, daily range): BP systolic 113–155; BP diastolic 54–85
[2022-09-12] MEDS: PROPOFOL 1000 MG/100 ML PREMIX 100 ML IV PRN ×6 (04:37→21:45)
[2022-09-12] MEDS ORDERED: GABAPENTIN 300 MG CAP ONE ×4 (05:35→20:15)
[2022-09-12] MEDS ORDERED: GABAPENTIN 100 MG CAP ONE ×4 (05:35→20:14)
[2022-09-12] MEDS: GABAPENTIN 600 MG, GABAPENTIN 200 MG PO SCH ×6 (05:44→20:31)
[2022-09-12] MEDS: FUROSEMIDE 40 MG/4 ML VIAL IVP SCH ×4 (05:46→23:25)
[2022-09-12] MEDS: PIPERACILLIN/TAZOBACTAM 3.375 GM in DEXTROSE 5% 50 ML IV SCH ×4 (05:47→23:24)
[2022-09-12] MEDS: LEVOTHYROXINE 0.088 MG TAB PO SCH (05:53)
[2022-09-12] MEDS: INSULIN LISPRO SLIDING SCALE 100 UNITS/ML VIAL SUBQ PRN ×3 (06:00→17:41)
[2022-09-12] MEDS: BLOOD GLUCOSE MONITORING 1 DEV DEV FS SCH ×4 (06:06→23:22)
--- NOTE | 2022-09-12 07:00 | NUR ---
ENDORSED TO ZURI RICKS.
[2022-09-12] MEDS: glipiZIDE 5 MG TAB PO SCH ×2 (07:30→16:17)
--- NOTE | 2022-09-12 07:30 | NUR ---
RECEIVED PATIENT FROM NIGHT MILLICENT Foy PATIENT INTUBATED ORALLY WITH SIZE 7.5, AC/PRVC RATE 20, 450 MLS, 80% O2, +13. TUBE FEEDING BY RIGHT NGT GLUCERNA 1.2 45 MLS/HR +FWF +KORINA BID. NEWBY CATHETER IN SITU, FLEXISEAL, LOOSE YELLOW STOOL PROPOFOL 22 MCG/KG/MIN, PT. AWAKE BUT AGITATED, RESTRAINED BOTH WRISTS WITH SOFT RESTRAINTS, HR 59-60/MINUTE, DECREASED PROPOFOL TO 20 MCG/KG/MIN. FENTANYL AT 1 MCG/KG/HR. VERSED AT 1 MG/HR.
--- NOTE | 2022-09-12 07:30 | NUR ---
RECEIVED PT ON PRVC 450, 16,+13,80%. VENT WHEELS ARE LOCKED, PLUGGED INTO RED OUTLET, AMBUBAG AT BEDSIDE, ALARMS ARE SET AND AUDIBLE. WILL CONTINUE TO MONITOR.
[2022-09-12] MEDS: PANTOPRAZOLE 40 MG INJ VIAL IVP SCH (08:53)
[2022-09-12] MEDS: MUPIROCIN CA NASAL 2% 1GM TUBE NS SCH (08:54)
[2022-09-12] MEDS: ASPIRIN 81 MG TAB.CHEW PO SCH (08:54)
[2022-09-12] MEDS: ATORVASTATIN 20 MG TAB PO SCH (08:54)
[2022-09-12] MEDS: methylPREDNISolone SS 40 MG/ML VIAL IVP SCH ×2 (08:54→20:22)
[2022-09-12] MEDS: FAMOTIDINE 20 MG TAB PO SCH (08:55)
[2022-09-12] MEDS: CHLORHEXADINE GLUC 2% CLOTH TP SCH (08:55)
[2022-09-12] MEDS: NYSTATIN POW 100 MU/GM 15 GM BTL TP SCH ×2 (08:56→21:40)
[2022-09-12 09:34] LABS: BASOPHILS % (AUTO) 0.3 % (0.0-2.0); HEMATOCRIT 31.7 % (36-48); LYMPHOCYTES # (AUTO) 0.4 K/uL (2.5-16.5); LYMPHOCYTES % (AUTO) 7.6 % (20.5-51.1); MEAN CORPUSCULAR HEMOGLOBIN 27 pg (27-31); MEAN CORPUSCULAR HGB CONC 32 g/dL (33-37); MEAN CORPUSCULAR VOLUME 84.1 fL (80-94); MONOCYTES # (AUTO) 0.4 K/uL (0.8-1.0); MONOCYTES % (AUTO) 8.3 % (1.7-9.3); NEUTROPHILS # (AUTO) 4.5 K/uL (1.8-7.7); NEUTROPHILS % (AUTO) 83.8 % (42.2-75.2); PLATELET COUNT (AUTO) 216 K/uL (140-450); RED BLOOD CELL COUNT(AUTO) 3.77 MIL/uL (4.20-5.40); RED CELL DISTRIBUTION WIDTH 15.3 % (11.6-13.7); WHITE BLOOD COUNT (AUTO) 5.4 K/uL (4.8-10.8)
[2022-09-12 09:43] LABS: ANION GAP 7.9 (8-16); CARBON DIOXIDE 37.4 mmol/L (21-32); CREATININE 0.8 mg/dL (0.6-1.3); POTASSIUM 3.3 mmol/L (3.5-5.1)
[2022-09-12] MEDS: VANCOMYCIN 1,500 MG in NACL 0.9% 500 ML IV SCH ×2 (11:44→22:25)
--- NOTE | 2022-09-12 13:30 | NUR ---
POTASSIUM 3.[address] RICHARD ABOUT THAT AND NO PRN ORDERED. [address] RICHARD ORDERED FOR THE 40 mEq I.V. X 1 REPLACEMENT.
[2022-09-12] MEDS: fentaNYL citrate - 50mL vial 2.5 MG in NACL 0.9% 200 ML IV PRN (13:48)
[2022-09-12] MEDS ORDERED: KCL 20 MEQ/WATER INJ PREMIX 200 ML IV SCH (15:30)
--- NOTE | 2022-09-12 17:30 | NUR ---
DR. HUNTER CAME AND NOTED THAT THE PATIENT IS O 80%, PEEP +5, SpO2 AT 90-92% ONLY. PT. STILL GETS LASIX. HR AT 46-50s/MINUTE.
--- NOTE | 2022-09-12 17:30 | NUR ---
DR. LANDA (CARDIO) CAME AND NOTED THAT THE HR 46-50s, ON VERSED AT 1 MG/HR, PROPOFOL 30 MCG/KG/MIN. NO TACHYCARDIA.
--- NOTE | 2022-09-12 19:30 | NUR ---
ASSUMED CARE OF THIS PATIENT ANS ASSESSMENT DONE AND COMPLETED.ON SEDATION OF VERSED 1MG,PROPOFOL 20 MCG AND FENTANYL 1MCG.AWAKE ,ABLE TO OPEN EYES AND FOLLOW SIMPLE COMMANDS.STILL ON VENTILATOR SUPPORT WITH SAME SETTINGS AC/PRVC 20,TV 450,FIO2 805,PEEP 13.NGT FEEDING OF GLUCERNA AT 45ML/HOUR IN PROGRESS.FLEXISEAL IN PLACE.NEWBY STILL INTACT AND DRAINIG ADEQUATE AMOUNT OF URINE.WILL PROCEED WITH PLAN OF CARE.
[2022-09-12] MEDS: FLUCONAZOLE 200 MG/NS PREMIX 100 ML IV SCH (20:27)
[2022-09-13] VITALS (31 sets, daily range): BP systolic 106–148; BP diastolic 7–82
--- NOTE | 2022-09-13 | NUR ---
PICC LINE DRESSING,SITE WITH NO S/S OF INFECTION.
--- NOTE | 2022-09-13 00:30 | NUR ---
PICC LINE DRESSING DONE.
[2022-09-13] MEDS: PROPOFOL 1000 MG/100 ML PREMIX 100 ML IV PRN ×5 (03:04→20:30)
[2022-09-13] MEDS ORDERED: GABAPENTIN 300 MG CAP ONE ×7 (04:36→20:09)
[2022-09-13] MEDS ORDERED: GABAPENTIN 100 MG CAP ONE ×4 (04:36→20:09)
[2022-09-13] MEDS: GABAPENTIN 600 MG, GABAPENTIN 200 MG PO SCH ×6 (04:46→20:21)
[2022-09-13] MEDS: PIPERACILLIN/TAZOBACTAM 3.375 GM in DEXTROSE 5% 50 ML IV SCH ×3 (05:23→18:17)
[2022-09-13] MEDS: FUROSEMIDE 40 MG/4 ML VIAL IVP SCH ×3 (05:25→18:17)
[2022-09-13] MEDS: INSULIN LISPRO SLIDING SCALE 100 UNITS/ML VIAL SUBQ PRN ×3 (05:27→18:16)
[2022-09-13] MEDS: fentaNYL citrate - 50mL vial 2.5 MG in NACL 0.9% 200 ML IV PRN ×2 (05:32→20:30)
[2022-09-13] MEDS: LEVOTHYROXINE 0.088 MG TAB PO SCH (05:41)
[2022-09-13] MEDS: BLOOD GLUCOSE MONITORING 1 DEV DEV FS SCH ×3 (05:42→18:17)
[2022-09-13 06:22] LABS: ANION GAP 12.6 (8-16); CREATININE 0.8 mg/dL (0.6-1.3); POTASSIUM 3.6 mmol/L (3.5-5.1)
--- NOTE | 2022-09-13 07:20 | NUR ---
RECEIVED PATIENT FROM NIGHT MILLICENT Foy PATIENT INTUBATED ORALLY AC/PRVC f20, 450 MLS, 85%, +13. SEDATED , PROPOFOL 20 MCG/KG/MIN., VERSED 1 MG/HR, FENTANYL 1 MCG/KG/HR. RIGHT NGT FEEDING GLUCERNA 1.2 45 MLS/HR +FWF + KORINA BID. NEWBY CATHETER, FLEXISEAL RECTAL TUBE. SINUS BRADYCARDIC AT 50s/MINUTE. PT. AWAKE, MOVING ARMS AND LEGS. RESTRAINED BOTH WRISTS (SOFT). MORBIDLY OBESE.
[2022-09-13] MEDS: PANTOPRAZOLE 40 MG INJ VIAL IVP SCH (08:15)
[2022-09-13] MEDS: glipiZIDE 5 MG TAB PO SCH ×2 (08:15→16:50)
[2022-09-13] MEDS: ASPIRIN 81 MG TAB.CHEW PO SCH (08:16)
[2022-09-13] MEDS: ATORVASTATIN 20 MG TAB PO SCH (08:16)
[2022-09-13] MEDS: methylPREDNISolone SS 40 MG/ML VIAL IVP SCH ×2 (08:16→20:20)
[2022-09-13] MEDS: MUPIROCIN CA NASAL 2% 1GM TUBE NS SCH (08:16)
[2022-09-13] MEDS: NYSTATIN POW 100 MU/GM 15 GM BTL TP SCH ×2 (08:17→20:26)
[2022-09-13] MEDS: FAMOTIDINE 20 MG TAB PO SCH (08:17)
--- NOTE | 2022-09-13 12:00 | NUR ---
DR. RICHARD CAME AND NOTED PATIENT ON 85% FiO2, SAME PEEP +13. NO NEW ORDERS.
[2022-09-13] MEDS: ACETAMINOPHEN 325 MG TAB PO PRN (12:11)
--- NOTE | 2022-09-13 13:00 | NUR ---
SISTER SANKET CAME AND NOTED THAT THE PATIENT IS AWAKE WITH SEDATION. TALKED TO THE PATIENT. PT. WAS AGITATED, WAS TRYING TO SAY A LOT OF THINGS EVEN WITH THE ORAL ETT. WANTS TO WRITE BUT UNABLE TO HOLD THE PEN PROPERLY, AND UNABLE TO POINT TO LETTERS WRITTEN ON A WHITE PAPER.
[2022-09-13] MEDS: Z-GUARD PASTE TP SCH (14:45)
--- NOTE | 2022-09-13 15:00 | NUR ---
VANCO DOSE AT 1100 AM NOT GIVEN, VANCO TROUGH WAS PENDING WAS A SEND OUT TO [facility], [facility].MACHINE IS NOT WORKING. PHARMACIST KATHI SAID THAT WE WILL JUST WAIT FOR THE RESULT AND NOT TO GIVE DOSE UNTIL RESULT WAS GIVE. MESSAGED DR. HARRIS (I&D). LAST TROUGH 17.2. [address] HUNTER ALSO.
--- NOTE | 2022-09-13 15:30 | NUR ---
PATIENT'S MOM ZURI AND DAD CAME AND ASKED ABOUT PATIENT CONDITION, SEDATION, IF HOW SHE IS DOING. INFORMED THAT PT.STILL SEDATED MINIMALLY, TRYING TO TALK/MOUTHED WORDS BUT UNABLE TO EXPRESS SELF, EVEN WITH THE WRITTEN ALPHABET, UNABLE TO POINT THE LETTERS AND/OR WRITE. PATIENT'S BROTHER CAME ALSO TO SEE PATIENT.
--- NOTE | 2022-09-13 16:00 | NUR ---
DR. LANDA (CARDIO) CAME, NOTED SAME SINUS BRADYCARDIA 40-50s, SAME SEDATION PROPOFOL 25 MCG, VERSED 1 MG., FENTANYL 1MCG/KG/HR, K+ 3.6, VENT.SETTINGS AC/PRVC 75%, 450 MLS, f20, +5. NO NEW ORDERS.
--- NOTE | 2022-09-13 17:31 | NUR ---
09/13/22 RD FOLLOW UP COMPLETED. PLEASE REFER TO NUTRITION ASSESSMENT UNDER CARE ACTIVITY FOR ESTIMATED NUTRITIONAL NEEDS. 1.CONTINUE GLUCERNA 1.2 AT GOAL RATE OF 45 ML/HR TOLERATED -FWF 125 ML Q4H OR PER MD. --PROVIDES 1080 ML VOLUME, 1322 KCAL, AND 65 G PROTEIN - CONTINUE WITH KORINA BID FOR LOW JERI SUPPORT - WITH PROPOFOL AT 23.337ML/HR AND KORINA BID, THIS WILL PROVIDE 1482 KCAL AND 70 GRAMS OF PROTEIN, MEETING 96% OF ESTIMATED KCAL AND 90% OF ESTIMATED PROTEIN NEEDS; ADEQUATE - CONSIDER INCREASING TF GOAL RATE IF PROPOFOL RATE IS DECREASED TO BELOW 8 ML/HR 2. MONITOR GI SYMPTOMS AND NUTRITION RELATED LAB VALUES 3. CONSULT RD PRN 4.RD TO FOLLOW-UP IN 3-5 DAYS PATIENT IS MODERATE RISK. SHIRLENE ALMAZAN RD
--- NOTE | 2022-09-13 17:45 | NUR ---
DR. HUNTER ROUNDS, FiO2 DECREASED TO 65%.
[2022-09-13] MEDS: VANCOMYCIN 1,500 MG in NACL 0.9% 500 ML IV SCH (18:50)
--- NOTE | 2022-09-13 18:53 | NUR ---
VANCOMYCIN TROUGH CAME BACK 26.6, HELD DOSE. ACCEPTABLE LEVEL IS UP TO 15.
--- NOTE | 2022-09-13 19:15 | NUR ---
PATIENT HANDED OVER TO NIGHT RN CARLI. PTSmith RESTING, AT PROPOFOL 25 MCG/KG/MIN, FENTANYL 1 MCG/KG/HR, VERSED 1 MG/HR. FiO2 AT 65%.
--- NOTE | 2022-09-13 20:00 | NUR ---
PT SEDATED. ETT TO VENT SETTINGS FI02 65% VT 450 PEEP 12 RATE 20. NGT TUBE FEEDING GLUCERNA 45 ML/HR 125 ML Q4HR FLUSH.NEWBY CATHETER INTACT AND FLOWING WELL. SR/SB TO BEDSIDE MONITOR. KATELYN PICC LINE. PROPOFOL 25 MCG/KG/MIN. FENTANYL 1MCG/KG/HR. FLEXISEAL INTAT. FLACC 0.
[2022-09-13] MEDS: FLUCONAZOLE 200 MG/NS PREMIX 100 ML IV SCH (20:21)
[2022-09-14] VITALS (28 sets, daily range): BP systolic 103–146; BP diastolic 50–85
[2022-09-14] MEDS: PROPOFOL 1000 MG/100 ML PREMIX 100 ML IV PRN ×11 (00:18→23:06)
[2022-09-14] MEDS: BLOOD GLUCOSE MONITORING 1 DEV DEV FS SCH ×5 (00:57→23:50)
[2022-09-14] MEDS: INSULIN LISPRO SLIDING SCALE 100 UNITS/ML VIAL SUBQ PRN ×5 (00:58→23:52)
[2022-09-14] MEDS ORDERED: GABAPENTIN 300 MG CAP ONE ×3 (05:07→20:14)
[2022-09-14] MEDS ORDERED: GABAPENTIN 100 MG CAP ONE ×3 (05:07→20:14)
[2022-09-14] MEDS: GABAPENTIN 600 MG, GABAPENTIN 200 MG PO SCH ×6 (05:54→20:18)
[2022-09-14] MEDS: LEVOTHYROXINE 0.088 MG TAB PO SCH (05:57)
[2022-09-14] MEDS: FUROSEMIDE 40 MG/4 ML VIAL IVP SCH ×5 (05:57→23:59)
[2022-09-14] MEDS: PIPERACILLIN/TAZOBACTAM 3.375 GM in DEXTROSE 5% 50 ML IV SCH ×6 (05:57→23:51)
--- NOTE | 2022-09-14 07:13 | NUR ---
REPORT GIVEN TO AM SHIFT MILLICENT KEATING.
--- NOTE | 2022-09-14 07:15 | NUR ---
PATIENT RECEIVED FROM NIGHT MILLICENT BOYCE. INTUBATED SEDATED, PROPOFOL 35 MCG/KG/MIN, VERSED 2 MG/HR FENTANYL 1 MCG/KG/HR. TUBE FEEDING + FREE WATER FLUSH + KORINA BID. NEWBY CATHETER IN SITU, FLEXISEAL IN SITU, LIQUID STOOL.
--- NOTE | 2022-09-14 07:28 | NUR ---
PT PEEP TITRATED FROM 12 TO 10. PT TOLERATING OK. SPO2 92% WILL CONTINUE TO MONITOR.
[2022-09-14 07:44] LABS: CARBON DIOXIDE 36.3 mmol/L (21-32); CREATININE 0.8 mg/dL (0.6-1.3); POTASSIUM 3.3 mmol/L (3.5-5.1)
[2022-09-14] MEDS: methylPREDNISolone SS 40 MG/ML VIAL IVP SCH ×2 (08:13→20:19)
[2022-09-14] MEDS: ATORVASTATIN 20 MG TAB PO SCH (08:14)
[2022-09-14] MEDS: MUPIROCIN CA NASAL 2% 1GM TUBE NS SCH (08:14)
[2022-09-14] MEDS: ASPIRIN 81 MG TAB.CHEW PO SCH (08:14)
[2022-09-14] MEDS: PANTOPRAZOLE 40 MG INJ VIAL IVP SCH (08:14)
[2022-09-14] MEDS: glipiZIDE 5 MG TAB PO SCH ×2 (08:14→16:24)
[2022-09-14] MEDS: FAMOTIDINE 20 MG TAB PO SCH (08:15)
[2022-09-14] MEDS: NYSTATIN POW 100 MU/GM 15 GM BTL TP SCH ×2 (08:15→21:48)
[2022-09-14] MEDS: Z-GUARD PASTE TP SCH (08:17)
[2022-09-14] MEDS: VANCOMYCIN 1,000 MG in DEXTROSE 5% 250 ML IV SCH ×2 (08:25→21:48)
--- NOTE | 2022-09-14 11:00 | NUR ---
DR. ESTRADA CAME, NOTED VENT. SETTINGS AC/PRVC f20, 450 MLS, +10, FiO2 65%. INFORMED K+ 3.3 THIS MORNING. NO PRN. WILL ORDER. 1230PM: ASKED PHARMACY TO RELEASE I.V. 40 mEq KCL, AND PHARMACIST ASKED TO CLARIFY PARAMETERS FOR P.O. & I.V. MESSAGED DR. ESTRADA. Addendum: 09/14/22 at 1923 by Agency Nurse 15, RN RN DR. ESTRADA AWARE OF THE SKIN MAROON RASH ON RIGHT LOWER QUADRANT, DID WOUND CONSULT.
--- NOTE | 2022-09-14 12:00 | NUR ---
GLASS CALIBRATOR CATRACHITA CAME NOTED ABOUT THE RIGHT LOWER QUADRANT RASH, REDNESS ON BOTH LOWER EXTREMITIES. PEBBLES REDNESS FROM LEAKING OF FLEXISEAL. NOTED, PATIENT CLEANED WITH NYSTATIN POWDER ON SKIN FOLDS AND INTERDRY CLOTH UNDER LOWER ABDOMEN.
--- NOTE | 2022-09-14 12:05 | NUR ---
WOUND CARE NOTE: PT. SKIN ASSESSMENT DONE WITH PRIMARY RN ZURI, INTERTRIGO TO BILATERAL BREAST FOLDS AND ABDOMINAL FOLD REMAIN SAME, MOIST RED IN COLOR, NO SKIN BREAKS. PER PRIMARY RN INTER-DRY CLOTH SOMETIMES NOT IN SUPPLY AND CHANGED ORDER TO NYSTATIN POWDERS. PT. IS ON F/C MODERATE AMOUNT CLOUDY YELLOW URINE OBSERVED AND FLEX SEAL PATENT WITH LOOSE BM OBSERVED. PENDING C-DIFF RESULT.PT. KEPT DRY AND CLEAN, TURN AND REPOSITION Q2H. BILATERAL HEELS OFFLOADS WITH HEEL PROTECTORS IN PLACE. POC DISCUSSED WITH PRIMARY RN AND DR. ESTRADA.
[2022-09-14 12:07] LABS: BASOPHILS % (AUTO) 0.2 % (0.0-2.0); HEMATOCRIT 33.5 % (36-48); HEMOGLOBIN 10.9 g/dL (12.0-16.0); LYMPHOCYTES # (AUTO) 0.6 K/uL (2.5-16.5); LYMPHOCYTES % (AUTO) 6.8 % (20.5-51.1); MEAN CORPUSCULAR HEMOGLOBIN 28 pg (27-31); MEAN CORPUSCULAR HGB CONC 33 g/dL (33-37); MEAN CORPUSCULAR VOLUME 84.8 fL (80-94); MONOCYTES # (AUTO) 0.5 K/uL (0.8-1.0); MONOCYTES % (AUTO) 5.6 % (1.7-9.3); NEUTROPHILS # (AUTO) 7.5 K/uL (1.8-7.7); NEUTROPHILS % (AUTO) 87.4 % (42.2-75.2); PLATELET COUNT (AUTO) 214 K/uL (140-450); RED BLOOD CELL COUNT(AUTO) 3.95 MIL/uL (4.20-5.40); RED CELL DISTRIBUTION WIDTH 15.3 % (11.6-13.7); WHITE BLOOD COUNT (AUTO) 8.5 K/uL (4.8-10.8)
--- NOTE | 2022-09-14 12:15 | NUR ---
DR. HUNTER ([facility]) CAME, NOTED PATIENT'S AGITATION, PROPOFOL INCREASED TO 70 MCG/KG/MIN, VERSED 5 MG/HOUR. MD ORDERED TO DECREASE FiO2 FIRST, BEFORE DECREASING PEEP (CURRENTLY AT +10 FROM +12 THIS MORNING). JEF WAS INFORMED BY MD OVER THE PHONE. SEDATION LEVEL-MENA, KEEP RASS (-)3, HR AT 40s TO 50s LONG THE BP IS STABLE. Addendum: 09/14/22 at 1549 by Agency Nurse MILLICENT Srivastava RN PAGED DR. HUNTER ABOUT ABG DONE AT 60%, PEEP +12, AND NO ORDER FOR CHANGES ON VENT. SETTINGS. Addendum: 09/14/22 at 1924 by Agency Nurse MILLICENT Srivastava RN DR. HUNTER NOTED RIGHT LOWER QUADRANT MAROON RASH ON RIGHT LOWER QUADRANT, AVOID INJECTING ON DISCOLORED AREAS.
--- NOTE | 2022-09-14 12:20 | NUR ---
DR. HUNTER INFORMED ME SHE WOULD LIKE FIO2 TO BE DECREASED TO 60% FROM 65% AND TITRATE PEEP FROM 10 TO 12. PT IS TOLERATING OKAY. ABG ORDERED FROM WILL CONTINUE TO MONITOR.
[2022-09-14] MEDS: POTASSIUM CHLORIDE 40 MEQ, LIDOCAINE 1% 25 MG in NACL 0.9% 250 ML IV PRN (12:51)
--- NOTE | 2022-09-14 13:20 | NUR ---
PT ABG RESULTS CALLED TO DR HUNTER. NO NEW ORDERS . WILL CONTINUE TO MONITOR.
[2022-09-14] MEDS: fentaNYL citrate - 50mL vial 2.5 MG in NACL 0.9% 200 ML IV PRN (15:07)
[2022-09-14] MEDS: MIDAZOLAM MDV 100 MG in NACL 0.9% 80 ML IV PRN (15:19)
--- NOTE | 2022-09-14 15:47 | NUR ---
DR. HARRIS ( I AND D) CAME, DISCONTINUE MUPIROCIN MRSA TREATMENT NASAL OINTMENT. NO RE-TESTING NEEDED FOR MRSA.
--- NOTE | 2022-09-14 16:50 | NUR ---
DR. HARGROVE (SAME WITH DR. IBARRA'S SERVICE) CAME & INFORMED OF THE DAUGHTER KAVIN'S CONCERN ABOUT THE PREBIOTIC, NOT HAPPY WITH LACTOBACILLUS ALONE, SHE SAID THAT PREBIOTIC AND PROBIOTIC SHOULD GO HAND IN HAND. INFORMED OF THE REQUEST OF DAUGHTER TO TALK TO DR. IBARRA ABOUT THE [id number] LIGHT MACHINE . INFORMED THAT DR. GALVAN DOES NOT WANT TO ORDER THE MACHINE. GIVEN THE DAUGHTER'S CELL PHONE NUMBER [phone]. PATIENT'S AT THE BEDSIDE ASKED WHY IS THE ARMS, LEGS SWOLLEN. EXPLAINED THAT THE PATIENT IS LYING DOWN, NOT MOVING, SWELLING IS LIKELY TO HAPPEN WITH LOW ALBUMIN EVEN IF THE PATIENT IS GETTING KORINA BID AND TUBE FEEDING. INSISTING ON TELLING THE MD. DR. HARGROVE WAS INFORMED. Addendum: 09/14/22 at 1702 by Agency Nurse 15, RN RN WRONG ENTRY.
--- NOTE | 2022-09-14 19:20 | NUR ---
TRANSFER OF CARE FROM DAY SHIFT, REPORT RECEIVED FROM MILLICENT KEATING. PATIENT RECEIVED IN BED, SEDATED, AND DOES NOT APPEAR TO BE IN DISTRESS. PATIENT IS INTUBATED (ETT TO VENT) WITH THE CURRENT SETTINGS: AC/PRVC, FIO2=60, WB=167, RATE=20, AND PEEP=12. PATIENT HAS THE FOLLOWING MEDICATIONS CURRENTLY INFUSING: PROPOFOL 1000MG AT A RATE OF 70MCG/KG/MIN, FENTANYL 2500MCG AT A RATE OF 1MG/KG/HR, VERSED 100MG AT A RATE OF 5MG/HR AND NORMAL SALINE AT A RATE OF 3ML/HR. CURRENT VITALS AT START OF SHIFT: TEMP=97.4F, HR=63, O2 SAT=99%, MZ=604/63, R=21. PATIENT HAS NG TUBE TO THE RIGHT NARE WITH FEEDING. CURRENTLY RECEIVING GLUCERNA 1.2 AT 45ML/HR. HAS NEWBY IN PLACE, PATIENT HAS FLEXI-SEAL IN PLACE. WILL CONTINUE TO MONITOR PATIENT
[2022-09-14] MEDS: FLUCONAZOLE 200 MG/NS PREMIX 100 ML IV SCH (20:16)
[2022-09-15] VITALS (27 sets, daily range): BP systolic 99–128; BP diastolic 52–70
[2022-09-15] MEDS: PROPOFOL 1000 MG/100 ML PREMIX 100 ML IV PRN ×11 (00:41→21:42)
[2022-09-15] MEDS: GABAPENTIN 600 MG, GABAPENTIN 200 MG PO SCH ×6 (04:03→21:45)
[2022-09-15] MEDS ORDERED: GABAPENTIN 100 MG CAP ONE ×3 (04:03→21:35)
[2022-09-15] MEDS ORDERED: GABAPENTIN 300 MG CAP ONE ×3 (04:03→21:35)
[2022-09-15 05:26] LABS: BASOPHILS % (AUTO) 0.4 % (0.0-2.0); EOSINOPHILS % (AUTO) 0.1 % (0.0-4.0); HEMATOCRIT 32.2 % (36-48); HEMOGLOBIN 10.6 g/dL (12.0-16.0); LYMPHOCYTES # (AUTO) 0.5 K/uL (2.5-16.5); LYMPHOCYTES % (AUTO) 7.3 % (20.5-51.1); MEAN CORPUSCULAR HEMOGLOBIN 27 pg (27-31); MEAN CORPUSCULAR HGB CONC 33 g/dL (33-37); MEAN CORPUSCULAR VOLUME 81.4 fL (80-94); MONOCYTES # (AUTO) 0.3 K/uL (0.8-1.0); MONOCYTES % (AUTO) 3.9 % (1.7-9.3); NEUTROPHILS # (AUTO) 6.2 K/uL (1.8-7.7); NEUTROPHILS % (AUTO) 88.3 % (42.2-75.2); PLATELET COUNT (AUTO) 196 K/uL (140-450); RED BLOOD CELL COUNT(AUTO) 3.96 MIL/uL (4.20-5.40); RED CELL DISTRIBUTION WIDTH 15.4 % (11.6-13.7)
[2022-09-15] MEDS: BLOOD GLUCOSE MONITORING 1 DEV DEV FS SCH ×3 (05:31→17:40)
[2022-09-15] MEDS: FUROSEMIDE 40 MG/4 ML VIAL IVP SCH ×3 (05:31→17:40)
[2022-09-15] MEDS: PIPERACILLIN/TAZOBACTAM 3.375 GM in DEXTROSE 5% 50 ML IV SCH ×3 (05:32→17:40)
[2022-09-15] MEDS: LEVOTHYROXINE 0.088 MG TAB PO SCH (06:04)
[2022-09-15 06:18] LABS: ANION GAP 14.2 (8-16); CARBON DIOXIDE 35.5 mmol/L (21-32); CREATININE 0.7 mg/dL (0.6-1.3); POTASSIUM 3.7 mmol/L (3.5-5.1)
[2022-09-15 06:23] LABS: MAGNESIUM 2.3 mg/dL (1.8-2.4); PHOSPHORUS 4.8 mg/dL (2.5-4.9)
[2022-09-15] MEDS: INSULIN LISPRO SLIDING SCALE 100 UNITS/ML VIAL SUBQ PRN ×3 (07:00→17:39)
--- NOTE | 2022-09-15 07:15 | NUR ---
RECEIVED PATIENT FROM NIGHT MILLICENT Foy PATIENT ORALLY INTUBATED AC/PRVC F20, 450 MLS, 60%, +12. SEDATED PROPOFOL, VERSED & FENTANYL. RIGHT NGT FOR TUBE FEEDING GLUCERNA 1.2 + FWF + KORINA BID. NEWBY CATHETER, FLEXISEAL RECTAL TUBE.
--- NOTE | 2022-09-15 07:19 | NUR ---
TRANSFER OF CARE TO DAY SHIFT, ENDORSED TO MILLICENT KEATING
--- NOTE | 2022-09-15 07:30 | NUR ---
RECEIVED PATIENT FROM NIGHT MILLICENT MARINA. INTUBATED SEDATED WITH PROPOFOL AT 62 MCG, FENTANYL 1 MCG/KG/HR, VERSED 5 MG/HR. NOT IN PAIN. TUBE FEEDING. ON AC/PRVC RATE 20 450 MLS. +12 60% O2. FLEXISEAL.
[2022-09-15] MEDS: glipiZIDE 5 MG TAB PO SCH ×2 (08:26→17:03)
[2022-09-15] MEDS: ASPIRIN 81 MG TAB.CHEW PO SCH (08:26)
[2022-09-15] MEDS: ATORVASTATIN 20 MG TAB PO SCH (08:26)
[2022-09-15] MEDS: FAMOTIDINE 20 MG TAB PO SCH (08:27)
[2022-09-15] MEDS: PANTOPRAZOLE 40 MG INJ VIAL IVP SCH (08:27)
[2022-09-15] MEDS: methylPREDNISolone SS 40 MG/ML VIAL IVP SCH ×2 (08:27→21:45)
[2022-09-15] MEDS: NYSTATIN POW 100 MU/GM 15 GM BTL TP SCH ×2 (08:28→21:56)
[2022-09-15] MEDS: VANCOMYCIN 1,000 MG in DEXTROSE 5% 250 ML IV SCH ×2 (08:29→21:58)
[2022-09-15] MEDS: Z-GUARD PASTE TP SCH (08:33)
[2022-09-15] MEDS: fentaNYL citrate - 50mL vial 2.5 MG in NACL 0.9% 200 ML IV PRN (10:07)
[2022-09-15] MEDS: MIDAZOLAM MDV 100 MG in NACL 0.9% 80 ML IV PRN (10:12)
--- NOTE | 2022-09-15 13:00 | NUR ---
DR. ESTRADA CAME AND NOTED VENT. SETTINGS. ORDERED FOR DR. LLANOS CONSULT FOR POSSIBLE TRACHEOSTOMY.
--- NOTE | 2022-09-15 14:00 | NUR ---
DR. HUNTER ([id number]) CAME AND NOTED SEDATION. TITRATE PROPOFOL FIRST BEFORE VERSED. WILL DO TRIGLYCERIDES IN THE MORNING. KEEP SEDATED UNTIL PEEP +12 IS LOWERED.
--- NOTE | 2022-09-15 19:15 | NUR ---
PATIENT HANDED OVER TO NIGHT RN KIMBER. PATIENT SEDATED, TITRATED PROPOFOL AT 35 MCG. VERSED AT 3MG/HR. FENTANYL SAME AT 1 MCG/KG/HR. REGULAR, FREQUENT ORAL SUCTIONING. LEAKING FLEXISEAL, SMALL AMOUNT. SISTER SANKET AND MOM ZURI CALLED. ANOTHER SISTER MISS GRAVES CAME. SISTER SANKET ASKED ABOUT THE C.DIFF. RESULT, CALLED UP RACHEL. OF LAB. AND HE SAID THAT THE TEST WAS HELD BY [facility]67 (INFECTION CONTROL). CALLED [facility] AND LEFT A MESSAGE.
[2022-09-15] MEDS: FLUCONAZOLE 200 MG/NS PREMIX 100 ML IV SCH (21:54)
[2022-09-16] VITALS (22 sets, daily range): BP systolic 112–134; BP diastolic 57–88
[2022-09-16] MEDS: FUROSEMIDE 40 MG/4 ML VIAL IVP SCH ×5 (00:11→23:41)
[2022-09-16] MEDS: BLOOD GLUCOSE MONITORING 1 DEV DEV FS SCH ×4 (00:16→17:45)
[2022-09-16] MEDS: PROPOFOL 1000 MG/100 ML PREMIX 100 ML IV PRN ×6 (00:20→20:51)
[2022-09-16] MEDS: fentaNYL citrate - 50mL vial 2.5 MG in NACL 0.9% 200 ML IV PRN ×2 (00:30→17:48)
[2022-09-16] MEDS: INSULIN LISPRO SLIDING SCALE 100 UNITS/ML VIAL SUBQ PRN ×2 (05:17→12:39)
[2022-09-16] MEDS ORDERED: GABAPENTIN 100 MG CAP ONE ×3 (05:21→20:34)
[2022-09-16] MEDS ORDERED: GABAPENTIN 300 MG CAP ONE ×3 (05:21→20:34)
[2022-09-16] MEDS: GABAPENTIN 600 MG, GABAPENTIN 200 MG PO SCH ×6 (05:22→20:55)
[2022-09-16 05:46] LABS: BASOPHILS % (AUTO) 0.5 % (0.0-2.0); EOSINOPHILS % (AUTO) 0.1 % (0.0-4.0); HEMATOCRIT 31.5 % (36-48); HEMOGLOBIN 10.7 g/dL (12.0-16.0); LYMPHOCYTES # (AUTO) 0.5 K/uL (2.5-16.5); MEAN CORPUSCULAR HEMOGLOBIN 28 pg (27-31); MEAN CORPUSCULAR HGB CONC 34 g/dL (33-37); MEAN CORPUSCULAR VOLUME 81.9 fL (80-94); MONOCYTES # (AUTO) 0.2 K/uL (0.8-1.0); MONOCYTES % (AUTO) 2.7 % (1.7-9.3); NEUTROPHILS # (AUTO) 6.4 K/uL (1.8-7.7); NEUTROPHILS % (AUTO) 89.7 % (42.2-75.2); PLATELET COUNT (AUTO) 180 K/uL (140-450); RED BLOOD CELL COUNT(AUTO) 3.84 MIL/uL (4.20-5.40); RED CELL DISTRIBUTION WIDTH 15.7 % (11.6-13.7); WHITE BLOOD COUNT (AUTO) 7.2 K/uL (4.8-10.8)
[2022-09-16 06:41] LABS: MAGNESIUM 2.4 mg/dL (1.8-2.4); PHOSPHORUS 4.1 mg/dL (2.5-4.9)
[2022-09-16] MEDS: LEVOTHYROXINE 0.088 MG TAB PO SCH (06:41)
[2022-09-16 06:44] LABS: ANION GAP 14.3 (8-16); CARBON DIOXIDE 34.4 mmol/L (21-32); CREATININE 0.7 mg/dL (0.6-1.3); POTASSIUM 3.7 mmol/L (3.5-5.1)
[2022-09-16] MEDS: glipiZIDE 5 MG TAB PO SCH ×2 (06:52→17:00)
--- NOTE | 2022-09-16 07:44 | NUR ---
RECEIVED PATIENT FROM NIGHT RN. PATIENT ETT TO VENT WITH FIO2 OF 60%. SEDATED , PROPOFOL 35 MCG/KG/MIN., VERSED 1 MG/HR, FENTANYL 1 MCG/KG/HR. RIGHT NGT FEEDING GLUCERNA 1.2 45 MLS/HR +FWF + KORINA BID. NEWBY CATHETER, FLEXISEAL RECTAL TUBE. SINUS BRADYCARDIC AT 50s/MINUTE. PT. AWAKE, MOVING ARMS AND LEGS. RESTRAINED BOTH WRISTS (SOFT).
--- NOTE | 2022-09-16 08:30 | NUR ---
DUE MEDS GIVEN. ORAL CARE AND NEWBY CARE DONE. TURNED AND REPOSITIONED
[2022-09-16] MEDS: ASPIRIN 81 MG TAB.CHEW PO SCH (08:47)
[2022-09-16] MEDS: PANTOPRAZOLE 40 MG INJ VIAL IVP SCH (08:47)
[2022-09-16] MEDS: ATORVASTATIN 20 MG TAB PO SCH (08:47)
[2022-09-16] MEDS: FAMOTIDINE 20 MG TAB PO SCH (08:47)
[2022-09-16] MEDS: methylPREDNISolone SS 40 MG/ML VIAL IVP SCH ×2 (08:47→20:55)
[2022-09-16] MEDS: NYSTATIN POW 100 MU/GM 15 GM BTL TP SCH ×2 (08:48→20:56)
[2022-09-16] MEDS: Z-GUARD PASTE TP SCH (08:48)
--- NOTE | 2022-09-16 13:30 | NUR ---
mother ana at bedside, update given
--- NOTE | 2022-09-16 15:00 | NUR ---
SEEN AND EXAMINED BY GURINDER MUKHERJEE NOTED Addendum: 09/16/22 at 1637 by Art Blackburn RN DISREGARD [place] BRAUN
--- NOTE | 2022-09-16 15:30 | NUR ---
CALLED PT'S DAUGHTER TO OBTAIN CONSENT FOR EGD, NO RESPONSE. LEFT VOICE MAIL Addendum: 09/16/22 at 1638 by Art Blackburn RN DISREGARD ABOVE NOTE
--- NOTE | 2022-09-16 17:00 | NUR ---
PEBBLES CARE DONE, TURNED AND REPOSITIONED
--- NOTE | 2022-09-16 17:30 | NUR ---
SPO2 IN THE MID 80s, NOTIFIED RT. INCREASED FIO2 TO 55%
[2022-09-16] MEDS: MIDAZOLAM MDV 100 MG in NACL 0.9% 80 ML IV PRN (17:57)
--- NOTE | 2022-09-16 21:25 | NUR ---
REPORT GIVEN TO LINSEY RICKS
--- NOTE | 2022-09-16 21:30 | NUR ---
RECEIVED REPORT FROL CAEMRON /AFEBRI;Suyapa POSADAS ON SEDATION OFF ENTANYL,VERSED AND PROPOFOL SAME RATE.,ALSO ON VEMTILATOR SUPPORT SAME SETTINGS.GLUCERNA AT 45 ML/HOUR INFUSING AND TOLERATING FAIRLY WELL.WILL CONTINUE TO PROCEED WITH PLAN OF CARE.
[2022-09-17] VITALS (25 sets, daily range): BP systolic 112–141; BP diastolic 57–78
[2022-09-17] MEDS: INSULIN LISPRO SLIDING SCALE 100 UNITS/ML VIAL SUBQ PRN ×4 (00:06→17:40)
[2022-09-17] MEDS: BLOOD GLUCOSE MONITORING 1 DEV DEV FS SCH ×5 (00:07→23:12)
[2022-09-17] MEDS: PROPOFOL 1000 MG/100 ML PREMIX 100 ML IV PRN ×7 (00:12→22:19)
[2022-09-17 05:33] LABS: BASOPHILS # (AUTO) 0.1 K/uL (0.00-0.22); BASOPHILS % (AUTO) 0.8 % (0.0-2.0); EOSINOPHILS % (AUTO) 0.1 % (0.0-4.0); HEMATOCRIT 33.8 % (36-48); HEMOGLOBIN 11.4 g/dL (12.0-16.0); LYMPHOCYTES # (AUTO) 0.6 K/uL (2.5-16.5); LYMPHOCYTES % (AUTO) 7.7 % (20.5-51.1); MEAN CORPUSCULAR HEMOGLOBIN 28 pg (27-31); MEAN CORPUSCULAR HGB CONC 34 g/dL (33-37); MONOCYTES # (AUTO) 0.2 K/uL (0.8-1.0); NEUTROPHILS # (AUTO) 6.6 K/uL (1.8-7.7); NEUTROPHILS % (AUTO) 88.4 % (42.2-75.2); PLATELET COUNT (AUTO) 181 K/uL (140-450); RED BLOOD CELL COUNT(AUTO) 4.12 MIL/uL (4.20-5.40); RED CELL DISTRIBUTION WIDTH 15.7 % (11.6-13.7); WHITE BLOOD COUNT (AUTO) 7.5 K/uL (4.8-10.8)
[2022-09-17] MEDS ORDERED: GABAPENTIN 300 MG CAP ONE ×5 (05:40→20:25)
[2022-09-17] MEDS ORDERED: GABAPENTIN 100 MG CAP ONE ×5 (05:40→20:25)
[2022-09-17] MEDS: FUROSEMIDE 40 MG/4 ML VIAL IVP SCH ×4 (05:49→23:13)
[2022-09-17] MEDS: GABAPENTIN 600 MG, GABAPENTIN 200 MG PO SCH ×6 (05:51→21:19)
[2022-09-17] MEDS: LEVOTHYROXINE 0.088 MG TAB PO SCH (05:54)
[2022-09-17 06:08] LABS: MAGNESIUM 2.4 mg/dL (1.8-2.4); PHOSPHORUS 4.2 mg/dL (2.5-4.9)
[2022-09-17 06:12] LABS: ANION GAP 12.3 (8-16); CARBON DIOXIDE 36.4 mmol/L (21-32); CREATININE 0.7 mg/dL (0.6-1.3); POTASSIUM 3.7 mmol/L (3.5-5.1)
--- NOTE | 2022-09-17 07:12 | NUR ---
received report from endorsing night filler RN for continuity of care, patient lying on bed on propofol @ 30 mcg/kg/min, Fentanyl @ 1 mcg/kg/hr, Versed @ 3 mg/hr.Vent setting Ac rate of 20, tidal volume of 450, 55% and PEEP of 8. Laura catheter in place, cirilo urine in color draining to gravity, rectal tube in place.no signs of acute distress noted at this time, will continue to monitor.
[2022-09-17] MEDS: glipiZIDE 5 MG TAB PO SCH ×2 (08:18→16:39)
[2022-09-17] MEDS: ATORVASTATIN 20 MG TAB PO SCH (08:31)
[2022-09-17] MEDS: ASPIRIN 81 MG TAB.CHEW PO SCH (08:32)
[2022-09-17] MEDS: FAMOTIDINE 20 MG TAB PO SCH (08:32)
[2022-09-17] MEDS: methylPREDNISolone SS 40 MG/ML VIAL IVP SCH ×2 (08:33→21:15)
[2022-09-17] MEDS: PANTOPRAZOLE 40 MG INJ VIAL IVP SCH (08:33)
[2022-09-17] MEDS: fentaNYL citrate - 50mL vial 2.5 MG in NACL 0.9% 200 ML IV PRN (09:15)
[2022-09-17] MEDS: Z-GUARD PASTE TP SCH (09:35)
[2022-09-17] MEDS: NYSTATIN POW 100 MU/GM 15 GM BTL TP SCH ×2 (09:36→21:21)
--- NOTE | 2022-09-17 11:09 | NUR ---
Dr. Gutierrez is at the bedside assessing the patient , Propofol is @ 25 mcg/kg/min.ordered Chest X ray and ABG tomorrow.
--- NOTE | 2022-09-17 15:29 | NUR ---
partial bed bath given,bed linen changed and bedside care rendered
--- NOTE | 2022-09-17 19:29 | NUR ---
ASSUMED CARE AT THIS TIME. PT TRACH TO VENT. SETTINGS FI02 30% VT 475 RATE 35 PEEP 5. GLUCERNA TUBE FEEDING 60 ML/HR 180ML Q6H. NEWBY CATHETER INTACT AND FLOWING WELL. KATELYN PICC LINE. VERCED 2MG/HR. NS 5ML/HR TKO. PT SEEMS COMFORTABLE AT THIS TIME. FLACC 0. Addendum: 09/17/22 at 1936 by Jay Griffin RN WRONG PATIENT.
--- NOTE | 2022-09-17 19:30 | NUR ---
RECEIVED PATIENT STILL SEDATED ON PROPOFOL,FENTANYL 1MCG AND VERSED MG.ABLE TO OPEN EYES AND FOLLOW SIMPLE COMMANDS ,STILL ON VENTILATOR WITH SAME SETTINGS.GLUCERNA AT 45 ML/HOUR INFUSING WELL,NO VOMITING OS DIARRHEA NOTED.SKIN COMPROMISED ,PLEASR REFER TO SKIN SHEET.WILL CONTINUE TO PROCEED WITH PROGRESS OF PLAN OF CARE.
--- NOTE | 2022-09-17 20:26 | NUR ---
PHONE CALL FROM DR NICHOLS, SURGEON, HE ASKED WHEN THE LAST TIME PT RECEIVED ASPIRIN, IT WAS ADMINISTERED TODAY AT 0832, PER PHYSICIAN, TO CANCEL TOMORROWS SURGERY, PEG PLACEMENT AND TRACHEOSTOMY AND DR NICHOLS ALSO SAID HE DC'D ASPIRIN, OK TO GIVE HEPARIN
--- NOTE | 2022-09-17 20:49 | NUR ---
PHONE CALL TO PTS MOTHER ZURI ([phone]); UPDATED ON PTS PRESENT CONDITION.MADE AWARE THAT DR NICHOLS, SURGEON CANCELLED THE PROCEDURE FOR TOMORROW.ZURI VERBALIZED UNDERSTANDING
[2022-09-17] MEDS: MIDAZOLAM MDV 100 MG in NACL 0.9% 80 ML IV PRN (22:23)
--- NOTE | 2022-09-17 23:30 | NUR ---
PHONE CALL TO ZURI, PTS MOTHER, FELICITAS,PTS DAUGHTER IS HERE TO VISIT THE PT WITH ANOTHER PERSON NOT ON THE LIST OF VISITORS ALLOWED TO VISIT THE PT.PER ZURI, SHE ALREADY TOLD THE SHOT PEEN OPERATOR THAT ANYONE CAN NOW VISIT THE PT.
[2022-09-17] MEDS: ACETAMINOPHEN 325 MG TAB PO PRN (23:48)
[2022-09-18] VITALS (22 sets, daily range): BP systolic 111–132; BP diastolic 65–78
[2022-09-18] MEDS: fentaNYL citrate - 50mL vial 2.5 MG in NACL 0.9% 200 ML IV PRN (00:41)
[2022-09-18] MEDS: PROPOFOL 1000 MG/100 ML PREMIX 100 ML IV PRN ×6 (02:32→23:27)
[2022-09-18] MEDS ORDERED: GABAPENTIN 300 MG CAP ONE ×4 (04:23→20:33)
[2022-09-18] MEDS ORDERED: GABAPENTIN 100 MG CAP ONE ×4 (04:23→20:33)
[2022-09-18] MEDS: GABAPENTIN 600 MG, GABAPENTIN 200 MG PO SCH ×6 (05:03→20:44)
[2022-09-18] MEDS: FUROSEMIDE 40 MG/4 ML VIAL IVP SCH ×4 (05:05→23:38)
[2022-09-18] MEDS: BLOOD GLUCOSE MONITORING 1 DEV DEV FS SCH ×4 (05:16→23:56)
[2022-09-18] MEDS: INSULIN LISPRO SLIDING SCALE 100 UNITS/ML VIAL SUBQ PRN ×4 (05:18→23:53)
[2022-09-18] MEDS: LEVOTHYROXINE 0.088 MG TAB PO SCH (05:30)
[2022-09-18 06:03] LABS: BASOPHILS # (AUTO) 0.1 K/uL (0.00-0.22); BASOPHILS % (AUTO) 0.8 % (0.0-2.0); EOSINOPHILS % (AUTO) 0.4 % (0.0-4.0); HEMATOCRIT 34.1 % (36-48); HEMOGLOBIN 11.4 g/dL (12.0-16.0); LYMPHOCYTES % (AUTO) 13.1 % (20.5-51.1); MEAN CORPUSCULAR HEMOGLOBIN 27 pg (27-31); MEAN CORPUSCULAR HGB CONC 33 g/dL (33-37); MONOCYTES # (AUTO) 0.4 K/uL (0.8-1.0); MONOCYTES % (AUTO) 5.5 % (1.7-9.3); NEUTROPHILS # (AUTO) 6.2 K/uL (1.8-7.7); NEUTROPHILS % (AUTO) 80.2 % (42.2-75.2); PLATELET COUNT (AUTO) 150 K/uL (140-450); RED BLOOD CELL COUNT(AUTO) 4.16 MIL/uL (4.20-5.40); RED CELL DISTRIBUTION WIDTH 15.9 % (11.6-13.7); WHITE BLOOD COUNT (AUTO) 7.7 K/uL (4.8-10.8)
[2022-09-18 06:57] LABS: ANION GAP 14.9 (8-16); CARBON DIOXIDE 34.4 mmol/L (21-32); CREATININE 0.7 mg/dL (0.6-1.3); POTASSIUM 3.3 mmol/L (3.5-5.1)
--- NOTE | 2022-09-18 07:00 | NUR ---
ENDORSED TO GONZALEZ RODRIGUEZ AND REPORT GIVEN
[2022-09-18 07:22] LABS: MAGNESIUM 2.4 mg/dL (1.8-2.4)
[2022-09-18] MEDS: glipiZIDE 5 MG TAB PO SCH ×2 (08:00→15:38)
[2022-09-18] MEDS: FAMOTIDINE 20 MG TAB PO SCH (08:40)
[2022-09-18] MEDS: methylPREDNISolone SS 40 MG/ML VIAL IVP SCH ×2 (08:40→20:42)
[2022-09-18] MEDS: ATORVASTATIN 20 MG TAB PO SCH (08:40)
[2022-09-18] MEDS: PANTOPRAZOLE 40 MG INJ VIAL IVP SCH (08:41)
[2022-09-18] MEDS: Z-GUARD PASTE TP SCH (08:45)
--- NOTE | 2022-09-18 09:45 | NUR ---
WOUND CARE NOTE: INTERTRIGO TO BILATERAL BREAST FOLDS AND ABDOMINAL FOLDS IMPROVING, RESPONDING TO CURRENT TX. NO NEW SKIN BREAKS. PER DR. NICHOLS'S NOTE MAY HAVE TRACHEOSTOMY NEXT WEEK. PER PRIMARY RN, PT. STILL HAVE FEVER ON-OFF. POC DISCUSSED WITH PRIMARY RN.
[2022-09-18] MEDS: ACETAMINOPHEN 325 MG TAB PO PRN ×2 (13:22→20:54)
[2022-09-18] MEDS ORDERED: fentaNYL citrate 1 MG in NACL 0.9% 80 ML IV PRN (15:00)
--- NOTE | 2022-09-18 15:59 | NUR ---
09/18/22 RD FOLLOW UP COMPLETED PLEASE REFER TO NUTRITION ASSESSMENT UNDER CARE ACTIVITY FOR ESTIMATED NUTRITIONAL NEEDS. 1. RECOMMEND DECREASE GLUCERNA 1.2 GOAL RATE TO 35 ML/HR TOLERATED D/T PROPOFOL @ 23.337 ML/HR, FWF 125 ML Q4H TOLERATED 2. REPLACE KORINA BID WITH PROSOURCE BID TO BETTER OPTIMIZE NUTRITIONAL NEEDS FOR LOW JERI SUPPORT (PROSOURCE BID PROVIDES 120 KCAL AND 30 GM PROTEIN DAILY) - WITH PROPOFOL AT 23.337ML/HR AND KORINA BID, THIS WILL PROVIDE 840 ML TOTAL VOLUME, 1735 KCAL, 81 GM PROTEIN, AND 1426 ML FREE WATER DAILY, MEETING 100% OF ESTIMATED KCAL AND PROTEIN NEEDS; ADEQUATE - CONSIDER INCREASING TF GOAL RATE IF PROPOFOL RATE IS DECREASED TO BELOW 10 ML/HR 3. MONITOR GI SYMPTOMS AND NUTRITION RELATED LAB VALUES 4. CONSULT RD PRN 5. RD TO FOLLOW-UP 2-3 DAYS, HIGH RISK REVIEWED BY RINA SEWELL RD
--- NOTE | 2022-09-18 19:30 | NUR ---
ASSUMED CARE OF THIS PATIENT AND ASSESSMENT DONE AND COMPLETEDABLE TO OPEN EYES AND FOLLOW SIMPLE COMMANDS.TEMT 100.8 SR ON MONITOR.AND WILL COVER WITH TYLENOL..ON GLUCERNA TUBE FEEDING AT 45ML/HOUT WITH WATER FLUSH OF 125ML EVERY [address]UBE IN [address] PATENT AND INTACT DRAINING SMALL AMOUNT OF STOOL.ON VENTILATOR WITH WITH SETTINGS ASACPC RATE 20 FIO2 70 AND PPEP 8.SUCTIONING OF MODERATE AMOUNT OF SECRETIONS ORALLY AND VIA ETT.FOLET IN PLACE DRAING INCREASE URINE OUTPUT SECONDARY TO LASIX.WILL CONTINUE TO PROCEED WITH CARE.
[2022-09-19] VITALS (23 sets, daily range): BP systolic 112–129; BP diastolic 52–78
[2022-09-19] MEDS: fentaNYL citrate - 50mL vial 2.5 MG in NACL 0.9% 200 ML IV PRN ×2 (00:49→19:09)
[2022-09-19] MEDS: PROPOFOL 1000 MG/100 ML PREMIX 100 ML IV PRN ×5 (03:09→22:59)
[2022-09-19] MEDS ORDERED: GABAPENTIN 300 MG CAP ONE ×5 (04:51→20:26)
[2022-09-19] MEDS ORDERED: GABAPENTIN 100 MG CAP ONE ×4 (04:51→20:26)
[2022-09-19] MEDS: GABAPENTIN 600 MG, GABAPENTIN 200 MG PO SCH ×6 (05:45→20:57)
[2022-09-19] MEDS: LEVOTHYROXINE 0.088 MG TAB PO SCH (05:45)
[2022-09-19] MEDS: BLOOD GLUCOSE MONITORING 1 DEV DEV FS SCH ×4 (05:46→23:47)
[2022-09-19] MEDS: FUROSEMIDE 40 MG/4 ML VIAL IVP SCH ×4 (05:54→23:30)
[2022-09-19] MEDS: INSULIN LISPRO SLIDING SCALE 100 UNITS/ML VIAL SUBQ PRN ×4 (05:56→23:46)
[2022-09-19 06:08] LABS: BASOPHILS # (AUTO) 0.1 K/uL (0.00-0.22); BASOPHILS % (AUTO) 0.7 % (0.0-2.0); HEMATOCRIT 35.1 % (36-48); HEMOGLOBIN 11.8 g/dL (12.0-16.0); LYMPHOCYTES # (AUTO) 0.8 K/uL (2.5-16.5); LYMPHOCYTES % (AUTO) 8.7 % (20.5-51.1); MEAN CORPUSCULAR HEMOGLOBIN 28 pg (27-31); MEAN CORPUSCULAR HGB CONC 34 g/dL (33-37); MEAN CORPUSCULAR VOLUME 82.1 fL (80-94); MONOCYTES # (AUTO) 0.4 K/uL (0.8-1.0); NEUTROPHILS # (AUTO) 8.3 K/uL (1.8-7.7); NEUTROPHILS % (AUTO) 86.6 % (42.2-75.2); PLATELET COUNT (AUTO) 120 K/uL (140-450); RED BLOOD CELL COUNT(AUTO) 4.28 MIL/uL (4.20-5.40); RED CELL DISTRIBUTION WIDTH 15.7 % (11.6-13.7); WHITE BLOOD COUNT (AUTO) 9.6 K/uL (4.8-10.8)
[2022-09-19 06:41] LABS: ANION GAP 15.8 (8-16); CARBON DIOXIDE 33.5 mmol/L (21-32); CREATININE 0.8 mg/dL (0.6-1.3); POTASSIUM 3.3 mmol/L (3.5-5.1)
[2022-09-19 06:51] LABS: MAGNESIUM 2.5 mg/dL (1.8-2.4); PHOSPHORUS 3.4 mg/dL (2.5-4.9)
[2022-09-19] MEDS: glipiZIDE 5 MG TAB PO SCH ×2 (07:30→16:13)
--- NOTE | 2022-09-19 07:30 | NUR ---
RECEIVED ON A [employer] R860
--- NOTE | 2022-09-19 07:30 | NUR ---
RECEIVED ON A Keraderm R860 VENTILATOR PLUGGED INTO RED OUTLET TOLERATING WELL WITHOUT ADVERSE REACTIONS NOTED TO AN ENDOTRACHEAL TUBE #7.5 SECURED AT 23cm TEETH/GUM LINE WITH AN ANCHOR FAST CUFF PRESSURE CHECKED NOTED AMBU BAG AT BEDSIDE RESTING COMFORTABLY NO DISTRESS NOTED GOOD CHEST RISE ENDOTRACHEAL SUCTION FOR COPIOUS THIN YELLOW/HAZY SECRETIONS AIRWAY PATENT Addendum: 09/19/22 at 0937 by Antonio Pimentel RT SATURATION 100% ON FIO2 OF 70% PEEP 8cmH2O POST HHN THERAPY TITRATED FIO2 TO 60% ISI/CO DIRECTOR NOTIFIED Addendum: 09/19/22 at 1142 by Antonio Pimentel RT ISI=LUL
[2022-09-19] MEDS: ALBUTEROL SULFATE/IPRATROPIU 3 ML SOL IH PRN (08:23)
[2022-09-19] MEDS: POTASSIUM CHLORIDE 20% 40 MEQ/15 ML UDC GT PRN (08:48)
[2022-09-19] MEDS ORDERED: VANCOMYCIN PER PHARMACY MC PRN (09:15)
[2022-09-19] MEDS: Z-GUARD PASTE TP SCH (09:33)
[2022-09-19] MEDS: PANTOPRAZOLE 40 MG INJ VIAL IVP SCH (09:35)
[2022-09-19] MEDS: methylPREDNISolone SS 40 MG/ML VIAL IVP SCH ×2 (09:36→20:54)
[2022-09-19] MEDS: ATORVASTATIN 20 MG TAB PO SCH (09:36)
[2022-09-19] MEDS: FAMOTIDINE 20 MG TAB PO SCH (09:37)
[2022-09-19] MEDS: CEFEPIME 1,000 MG in DEXTROSE 5% 50 ML IV SCH (10:00)
--- NOTE | 2022-09-19 10:30 | NUR ---
STABLE EQUAL CHEST RISE ENDOTRACHEAL SUCTION FOR MODERATE THIN YELLOW SECRETIONS AIRWAY PATENT CHANGED MODE TO PRVC; PRESSURE CONTROL NO LONGER REQUIRED PEAK PRESSURES LESS THAN 37rnW2C; SATURATION 97% ON FIO2 OF 60% PEEP 8cmH2O TITRATED FIO2 TO 50% LUL/AIR DRIER NOTIFIED
[2022-09-19] MEDS: VANCOMYCIN HCL 1.25 GM in DEXTROSE 5% 250 ML IV SCH ×2 (11:41→23:00)
[2022-09-19] MEDS: ALBUTEROL SULFATE/IPRATROPIU 3 ML SOL IH SCH ×2 (13:44→19:48)
--- NOTE | 2022-09-19 13:45 | NUR ---
STABLE NO APPARENT DISTRESS NOTED GOOD CHEST RISE SATURATION 89% ON FIO2 OF 50% PEEP 8cmH2O ENDOTRACHEAL SUCTION FOR MODERATE THIN YELLOW SECRETIONS AIRWAY PATENT POST HHN THERAPY INCREASED FIO2 TO 55% AND PEEP TO 04sqW2K (ARDS PROTOCOL) TO MAINTAIN SATURATION GREATER THAN 90%
--- NOTE | 2022-09-19 16:08 | NUR ---
STABLE EQUAL CHEST RISE GOOD CHEST RISE AND AERATION THROUGHOUT BILATERAL LUNG WILKERSON AIRWAY PATENT
--- NOTE | 2022-09-19 19:30 | NUR ---
RECEICED PATIENT STILL SEDATED ON FENTANYL AT 25MCG AND PROPOFOL AT 1MCG .ABLE TO OPEN EYES AT TIMES REMAINS ON VENTILATOR AT ACPRVC AT RATE 20 TV 450 FIIO2 55 PEEP10 APPARENTLY FREE OF PAIN AND DISCOMFORT..GLUCERNA TUBE FEEDING INFUSING AT 45 ML/HOUR RECTAL TUBE IN PLACE AND DRAING WELL. AND TOLERATED FAIRLY WELL NEWBY AT BEDSIDE WITH INCREAS URINE OUTPUT SECONDARY TO LASIX.WILL CONTINUE TO MONITOR ALL VITALS.
[2022-09-20] VITALS (22 sets, daily range): BP systolic 95–130; BP diastolic 53–78
[2022-09-20] MEDS: ACETAMINOPHEN 325 MG TAB PO PRN ×3 (00:24→16:14)
[2022-09-20] MEDS: PROPOFOL 1000 MG/100 ML PREMIX 100 ML IV PRN ×6 (02:44→23:37)
[2022-09-20] MEDS ORDERED: GABAPENTIN 100 MG CAP ONE ×4 (05:41→21:16)
[2022-09-20] MEDS ORDERED: GABAPENTIN 300 MG CAP ONE ×4 (05:42→21:16)
[2022-09-20] MEDS: GABAPENTIN 600 MG, GABAPENTIN 200 MG PO SCH ×6 (05:54→21:18)
[2022-09-20] MEDS: FUROSEMIDE 40 MG/4 ML VIAL IVP SCH ×4 (05:54→23:47)
[2022-09-20] MEDS: LEVOTHYROXINE 0.088 MG TAB PO SCH (05:55)
[2022-09-20] MEDS: INSULIN LISPRO SLIDING SCALE 100 UNITS/ML VIAL SUBQ PRN ×3 (06:24→18:07)
[2022-09-20] MEDS: BLOOD GLUCOSE MONITORING 1 DEV DEV FS SCH ×4 (06:34→23:44)
--- NOTE | 2022-09-20 07:00 | NUR ---
REPORT GIVEN AND ENDORSED TO ISI RICKS.
[2022-09-20] MEDS: ALBUTEROL SULFATE/IPRATROPIU 3 ML SOL IH SCH ×3 (07:13→19:00)
[2022-09-20] MEDS: glipiZIDE 5 MG TAB PO SCH ×2 (07:47→16:13)
[2022-09-20 08:15] LABS: BASOPHILS # (AUTO) 0.1 K/uL (0.00-0.22); HEMATOCRIT 36.3 % (36-48); HEMOGLOBIN 11.8 g/dL (12.0-16.0); LYMPHOCYTES # (AUTO) 1.5 K/uL (2.5-16.5); LYMPHOCYTES % (AUTO) 14.1 % (20.5-51.1); MEAN CORPUSCULAR HEMOGLOBIN 27 pg (27-31); MEAN CORPUSCULAR HGB CONC 33 g/dL (33-37); MEAN CORPUSCULAR VOLUME 82.6 fL (80-94); MONOCYTES # (AUTO) 0.5 K/uL (0.8-1.0); MONOCYTES % (AUTO) 4.7 % (1.7-9.3); NEUTROPHILS # (AUTO) 8.4 K/uL (1.8-7.7); NEUTROPHILS % (AUTO) 80.2 % (42.2-75.2); PLATELET COUNT (AUTO) 95 K/uL (140-450); RED CELL DISTRIBUTION WIDTH 15.9 % (11.6-13.7); WHITE BLOOD COUNT (AUTO) 10.5 K/uL (4.8-10.8)
[2022-09-20 08:29] LABS: ANION GAP 17.7 (8-16); CREATININE 0.8 mg/dL (0.6-1.3); POTASSIUM 3.7 mmol/L (3.5-5.1)
[2022-09-20] MEDS: FAMOTIDINE 20 MG TAB PO SCH (08:51)
[2022-09-20] MEDS: ATORVASTATIN 20 MG TAB PO SCH (08:51)
[2022-09-20] MEDS: methylPREDNISolone SS 40 MG/ML VIAL IVP SCH ×2 (08:56→21:18)
[2022-09-20] MEDS: PANTOPRAZOLE 40 MG INJ VIAL IVP SCH (08:56)
[2022-09-20] MEDS: Z-GUARD PASTE TP SCH (08:56)
[2022-09-20] MEDS: CEFEPIME 1,000 MG in DEXTROSE 5% 50 ML IV SCH (09:53)
[2022-09-20] MEDS: VANCOMYCIN HCL 1.25 GM in DEXTROSE 5% 250 ML IV SCH (10:59)
[2022-09-20] MEDS: fentaNYL citrate - 50mL vial 2.5 MG in NACL 0.9% 200 ML IV PRN (12:07)
--- NOTE | 2022-09-20 13:13 | NUR ---
09/20/22 RD FOLLOW UP COMPLETED. PLEASE REFER TO NUTRITION ASSESSMENT UNDER CARE ACTIVITY FOR ESTIMATED NUTRITIONAL NEEDS. 1.RECOMMEND DECREASING GLUCERNA 1.2 TO 35 ML/HR TOLERATED D/T PROPOFOL @ 23.4ML/HR; FWF 125ML Q4H OR PER MD. -THIS WILL PROVIDE 840 ML VOLUME, 1008 KCAL, AND 50 GRAMS PROTEIN. WITH PROPOFOL @23.4ML/HR (618 KCAL) AND PROSOURCE BID (120 KCAL AND 30 GM PROTEIN), THIS WILL MEET 100% OF ESTIMATED ENERGY NEEDS; ADEQUATE. 2.RECOMMEND PROSOURCE BID RECOMMENDED BY RD 09/18/22 TO BETTER OPTIMIZE NUTRITIONAL NEEDS FOR LOW JERI SUPPORT. -IF GLUCERNA TUBE FEEDING NO LONGER AVAILABLE D/T SHORTAGE, RECOMMEND VITAL AF 1.2 @35 ML/HR; FWF 125 ML Q4H OR PER MD. -START 20 ML/HR AND INCREASE BY 20 ML Q4H UNTIL GOAL RATE IS REACHED PT TOLERATES. THIS PROVIDES 840 ML VOLUME, 1008 KCAL, AND 63 GRAMS OF PROTEIN. WITH PROPOFOL @23.4ML/HR AND PROSOURCE BID, THIS MEETS 100% OF ESTIMATED ENERGY NEEDS. 3. MONITOR GI SYMPTOMS AND NUTRITION RELATED LAB VALUES 4. CONSULT RD PRN 5. RD TO FOLLOW-UP 2-3 DAYS, HIGH RISK SHIRLENE ALMAZAN RD
--- NOTE | 2022-09-20 16:03 | NUR ---
SEEN BY DR. NICHOLS. PER DR. NICHOLS, VENT SETTINGS ARE STILL TOO HIGH AND PT WILL PROBABLY NOT HAVE TRACHEOSTOMY PLACED TOMORROW MORNING, BUT HOLD ASPIRIN AND MAKE NPO AT MIDNIGHT IN CASE VENT SETTINGS ARE TITRATED DOWN AND TOLERATED.
[2022-09-20] MEDS: VANCOMYCIN 500 MG VIAL NG SCH ×2 (17:37→23:37)
[2022-09-20] MEDS: VANCOMYCIN HCL 25 MG/ML SOLN GT SCH ×2 (18:11→23:46)
--- NOTE | 2022-09-20 20:20 | NUR ---
PATIENT STABLE NOT COMPLAINING OF PAIN VITALS SIGNS IN NORMAL LIMITS SR 83 ON MONITORS ORAL CARE WAS PERFORMED
--- NOTE | 2022-09-20 22:25 | NUR ---
VANCO TROUGH LEVEL IS 25.5 AND PHARMACIST NEO TO HOLD OR STOP VANCO IV BUT CONTINUE THE VANCO THRU NGT.
[2022-09-20] MEDS ORDERED: VANCOMYCIN PER PHARMACY MC PRN (23:20)
[2022-09-20] MEDS ORDERED: VANCOMYCIN 1GM/DEXT 5% PREMIX 200 ML IV SCH (23:30)
[2022-09-21] VITALS (26 sets, daily range): BP systolic 100–126; BP diastolic 58–80
--- NOTE | 2022-09-21 | NUR ---
PATIENT STABLE VITALS SIGNS IN NORMAL LIMUITS SR 86 ON MONITOR WE HOLD VANCO IV BUT GAVE PO TROUF LELEL 25.5 THIS DECISION WAS MADE BY PHARMACIST NEO AFTER WE INFORMED IT
[2022-09-21] MEDS: PROPOFOL 1000 MG/100 ML PREMIX 100 ML IV PRN ×4 (03:47→19:37)
[2022-09-21] MEDS: BLOOD GLUCOSE MONITORING 1 DEV DEV FS SCH ×3 (05:09→18:45)
[2022-09-21] MEDS: VANCOMYCIN HCL 25 MG/ML SOLN GT SCH ×3 (05:09→17:46)
[2022-09-21] MEDS ORDERED: GABAPENTIN 100 MG CAP ONE ×3 (05:12→22:01)
[2022-09-21] MEDS ORDERED: GABAPENTIN 300 MG CAP ONE ×4 (05:12→22:02)
[2022-09-21] MEDS: FUROSEMIDE 40 MG/4 ML VIAL IVP SCH ×3 (05:13→17:46)
[2022-09-21] MEDS: GABAPENTIN 600 MG, GABAPENTIN 200 MG PO SCH ×6 (05:14→22:04)
[2022-09-21] MEDS: VANCOMYCIN 500 MG VIAL NG SCH (05:17)
[2022-09-21] MEDS: LEVOTHYROXINE 0.088 MG TAB PO SCH (05:20)
[2022-09-21] MEDS: glipiZIDE 5 MG TAB PO SCH ×2 (05:21→16:16)
[2022-09-21] MEDS: fentaNYL citrate - 50mL vial 2.5 MG in NACL 0.9% 200 ML IV PRN ×2 (05:45→22:47)
[2022-09-21 05:53] LABS: BASOPHILS % (AUTO) 0.3 % (0.0-2.0); EOSINOPHILS % (AUTO) 0.2 % (0.0-4.0); HEMATOCRIT 33.6 % (36-48); LYMPHOCYTES # (AUTO) 1.5 K/uL (2.5-16.5); LYMPHOCYTES % (AUTO) 16.4 % (20.5-51.1); MEAN CORPUSCULAR HEMOGLOBIN 27 pg (27-31); MEAN CORPUSCULAR HGB CONC 33 g/dL (33-37); MEAN CORPUSCULAR VOLUME 82.4 fL (80-94); MONOCYTES # (AUTO) 0.4 K/uL (0.8-1.0); MONOCYTES % (AUTO) 4.3 % (1.7-9.3); NEUTROPHILS # (AUTO) 7.2 K/uL (1.8-7.7); NEUTROPHILS % (AUTO) 78.8 % (42.2-75.2); PLATELET COUNT (AUTO) 100 K/uL (140-450); RED BLOOD CELL COUNT(AUTO) 4.08 MIL/uL (4.20-5.40); RED CELL DISTRIBUTION WIDTH 15.9 % (11.6-13.7); WHITE BLOOD COUNT (AUTO) 9.2 K/uL (4.8-10.8)
[2022-09-21 06:13] LABS: ANION GAP 13.9 (8-16); CARBON DIOXIDE 35.1 mmol/L (21-32); CREATININE 0.7 mg/dL (0.6-1.3)
--- NOTE | 2022-09-21 06:49 | NUR ---
PATIENT STABLE VITALS SIGNS IN NORMAL LIMITS SR 80 ON MONITOR BATH WAS DONE ALONG WITH ORAL CARE NOT COMPLAINING OF PAIN AT THIS TIME
[2022-09-21] MEDS: methylPREDNISolone SS 40 MG/ML VIAL IVP SCH ×2 (08:51→21:58)
[2022-09-21] MEDS: PANTOPRAZOLE 40 MG INJ VIAL IVP SCH (08:51)
[2022-09-21] MEDS: ATORVASTATIN 20 MG TAB PO SCH (08:52)
[2022-09-21] MEDS: FAMOTIDINE 20 MG TAB PO SCH (08:52)
[2022-09-21] MEDS: ACETAMINOPHEN 325 MG TAB PO PRN (08:58)
[2022-09-21] MEDS: POTASSIUM CHLORIDE 20% 40 MEQ/15 ML UDC GT PRN (09:00)
[2022-09-21] MEDS: POTASSIUM CHLORIDE 40 MEQ, LIDOCAINE 1% 25 MG in NACL 0.9% 250 ML IV PRN (11:21)
[2022-09-21] MEDS: CEFEPIME 1,000 MG in DEXTROSE 5% 50 ML IV SCH (11:24)
[2022-09-21] MEDS: Z-GUARD PASTE TP SCH (11:29)
[2022-09-21] MEDS: VANCOMYCIN 750 MG in NACL 0.9% 250 ML IV SCH ×3 (11:34→22:44)
[2022-09-21] MEDS: INSULIN LISPRO SLIDING SCALE 100 UNITS/ML VIAL SUBQ PRN ×2 (13:27→17:47)
--- NOTE | 2022-09-21 18:36 | NUR ---
Assumed care of patient at 0700 am. Remained intubated and on vent support. On Propofol and fentanyl for sedation and pain management. Febrile with temp of 102.6. MD Notified. On antibiotic coverage. Tellez cultured yesterday. Tylenol and cold packs given. Vitals stable. Fio2 weaned down to 50%, Satting between 92-94% Still at 8 of PEEP. Plans for possible trach tomorrow if PEEP weaned down. NPO post midnight. Updated family on patient status. Please call mom abt the timing of Trach tomorrow as she wants to be with the patient before taking to OR. KCL 40 meq given over 4 hours. PM Care given with CHG bath.
[2022-09-21] MEDS: MEROPENEM 1,000 MG in NACL 0.9% 50 ML IV SCH (21:58)
[2022-09-22] VITALS (27 sets, daily range): BP systolic 94–126; BP diastolic 55–77
[2022-09-22] MEDS: PROPOFOL 1000 MG/100 ML PREMIX 100 ML IV PRN ×8 (00:05→22:22)
[2022-09-22] MEDS: MEROPENEM 1,000 MG in NACL 0.9% 50 ML IV SCH ×3 (04:52→20:38)
[2022-09-22] MEDS: GABAPENTIN 600 MG, GABAPENTIN 200 MG PO SCH ×6 (04:55→20:40)
[2022-09-22 05:50] LABS: BASOPHILS % (AUTO) 0.3 % (0.0-2.0); HEMATOCRIT 34.3 % (36-48); HEMOGLOBIN 11.1 g/dL (12.0-16.0); LYMPHOCYTES # (AUTO) 0.5 K/uL (2.5-16.5); LYMPHOCYTES % (AUTO) 5.4 % (20.5-51.1); MEAN CORPUSCULAR HEMOGLOBIN 27 pg (27-31); MEAN CORPUSCULAR HGB CONC 32 g/dL (33-37); MEAN CORPUSCULAR VOLUME 83.2 fL (80-94); MONOCYTES # (AUTO) 0.2 K/uL (0.8-1.0); MONOCYTES % (AUTO) 2.7 % (1.7-9.3); NEUTROPHILS # (AUTO) 7.7 K/uL (1.8-7.7); NEUTROPHILS % (AUTO) 91.6 % (42.2-75.2); PLATELET COUNT (AUTO) 92 K/uL (140-450); RED BLOOD CELL COUNT(AUTO) 4.12 MIL/uL (4.20-5.40); WHITE BLOOD COUNT (AUTO) 8.4 K/uL (4.8-10.8)
[2022-09-22] MEDS: BLOOD GLUCOSE MONITORING 1 DEV DEV FS SCH ×5 (06:00→23:56)
[2022-09-22] MEDS: VANCOMYCIN HCL 25 MG/ML SOLN GT SCH ×5 (06:00→23:54)
--- NOTE | 2022-09-22 06:00 | NUR ---
[id number]-CR CONT. WITH ETT TO VENT. PT HAS DISPO FOR TRACH AND PEG. CONSENT IS IN THE CHART. PT OPENS EYES ONLY. PT ON SOFT RESTRAINTS INTACT/TO PREVENT PT FROM PULLING LINES AND TUBES. IV I/P VIA RIGHT ARM PICC-LINE. PT HAS BEEN IN SR/NO ECTOPY. PT CONT. ON DIPRIVAN AND FENT. DRIPS FOR SEDATION. PT IS AROUSABLE BUT DOESN'T FOLLOW SIMPLE COMDS. F/C I/P-URINE 1800CC/URINE LOOKS BLOOD TINGED WITH SEDIMENT. PT HAS RECTAL T. INTACT-100CC OUT. PT HAS NGT I/P. PT HAD T.FEEDG OF GLUCERNA AND HAS BEEN NPO AFTER MN. BATH AND LINEN CHANGE DONE. SKIN CARE AND WOUND CARE GIVEN. PT SPIKED TEMP UP TO 102F. COOLING EDWARD. GIVEN AND TYLENOL 650MG GIVEN PER NGT. AM LABS DONE. PT ENDORSED TO DAY SHIFT MILLICENT CHAN. GEN. COND. HAS BEEN STABLE/GUARDED. JIMENEZ RICKS
[2022-09-22] MEDS: LEVOTHYROXINE 0.088 MG TAB PO SCH (06:30)
[2022-09-22] MEDS: FUROSEMIDE 40 MG/4 ML VIAL IVP SCH ×5 (06:44→23:52)
[2022-09-22 06:49] LABS: ANION GAP 13.5 (8-16); CARBON DIOXIDE 32.4 mmol/L (21-32); CREATININE 0.7 mg/dL (0.6-1.3); POTASSIUM 3.9 mmol/L (3.5-5.1)
--- NOTE | 2022-09-22 07:15 | NUR ---
RECEIVED REPORT FROM ENDORSING REHABILITATION THERAPY AIDE rN FOR CONTINUITY OF CARE, PATIENT VENT SETTING AC RATE OF 20, FIO2 45%, TIDAL VOLUME 450 AND pEEP OF 8,, PATIENT ON SOFT RESTRAINTS INTACT TO PREVENT PULLING LINES AND TUBES,ON PROPOFOL @ 35MCG/KG/MIN , FENTANYL 1 MG/KG/HR, PATIENT IS AROUSABLE BUT DOESNT FOLLOW COMMANDS, NEWBY CATHETER IN PLACE, URINE BLOOD TINGED WITH SEDIMENTS NOTED, PATIENT HAS RECTAL TUBE,NO SIGNS OF ACUTE DISTRESS NOTED AT THIS TIME WILL CONTINUE TO MONITOR.
--- NOTE | 2022-09-22 09:06 | NUR ---
PATIENT FAMILY IS AT THE BEDSIDE, UPDATE PATIENT STATUS.
[2022-09-22] MEDS: glipiZIDE 5 MG TAB PO SCH ×2 (09:46→16:50)
[2022-09-22] MEDS: ATORVASTATIN 20 MG TAB PO SCH (09:47)
[2022-09-22] MEDS: methylPREDNISolone SS 40 MG/ML VIAL IVP SCH ×2 (09:47→20:34)
[2022-09-22] MEDS: PANTOPRAZOLE 40 MG INJ VIAL IVP SCH (10:05)
[2022-09-22] MEDS: Z-GUARD PASTE TP SCH (10:11)
[2022-09-22] MEDS: ALBUTEROL SULFATE/IPRATROPIU 3 ML SOL IH SCH ×3 (10:15→19:00)
--- NOTE | 2022-09-22 10:54 | NUR ---
DR. RIGGS IS AT THE BEDSIDE ASSESSING THE PATIENT.NOTIFY ABOUT THE PATIENT TEMPERATURE AND PLATELET COUNT.NEW ORDERS RECEIVED , WILL CONTINUE TO MONITOR.
[2022-09-22] MEDS: ACETAMINOPHEN 325 MG TAB PO PRN ×2 (11:16→18:13)
--- NOTE | 2022-09-22 11:16 | NUR ---
PATIENT TEMPERATURE 100.4, TYLENOL GIVEN @ 1116. WILL CONTINUE TO MONITOR.
[2022-09-22] MEDS: INSULIN LISPRO SLIDING SCALE 100 UNITS/ML VIAL SUBQ PRN ×3 (12:58→23:55)
[2022-09-22] MEDS ORDERED: GABAPENTIN 100 MG CAP ONE ×2 (13:02→20:08)
[2022-09-22] MEDS ORDERED: GABAPENTIN 300 MG CAP ONE (13:02)
[2022-09-22] MEDS: fentaNYL citrate - 50mL vial 2.5 MG in NACL 0.9% 200 ML IV PRN (15:54)
--- NOTE | 2022-09-22 16:08 | NUR ---
ORAL CARE AND BEDSIDE CARE RENDERED.CHANGED BED LINEN AND WOUND DRESSING.
--- NOTE | 2022-09-22 19:23 | NUR ---
DEE DEE REPORT GIVEN TO BUSINESS DEVELOPMENT MANAGER RN FOR CONTINUITY OF CARE.
--- NOTE | 2022-09-22 20:00 | NUR ---
1899: RECEIVED REPORT FROM ENDORSING AM SHIFT RN FOR THE CONTINUITY OF CARE, PATIENT VENT SETTING AC RATE OF 20, FIO2 45%, TIDAL VOLUME 450 AND pEEP OF 8,, PATIENT ON SOFT RESTRAINTS INTACT TO PREVENT PULLING LINES AND TUBES,ON PROPOFOL @ 30MCG/KG/MIN , FENTANYL 1 MG/KG/HR, INFUSING ON THE KATELYN PICCLINE PATENT AND INTACT. PATIENT IS AROUSABLE BUT DOESNT FOLLOW COMMANDS, NEWBY CATHETER IN PLACE, URINE BLOOD TINGED WITH SEDIMENTS NOTED, PATIENT HAS RECTAL TUBE,NO SIGNS OF ACUTE DISTRESS NOTED AT THIS TIME WILL CONTINUE TO MONITOR. ON COOLING MEASURE DUE ELEVATED TEMP 102, WAS GIVEN TYLENOL. STABLE VITAL SIGNS. 1999: SHIFT ASSESSMENT DONE .PT'S OBESE, HAS STAGE 2 ON THE SACRAL AND REDNESS ON THE ABD FOLDS. HOLD PEG AND TRACH DUE TO ELEVATED TEMP PER REPORT. TURNED AND REPOSITIONED CONTINUE COOLING MEASURES SAFETY AND SKIN PROTOCOL ON PROGRESS. CONTINUE MONITOR
--- NOTE | 2022-09-22 21:00 | NUR ---
2040: sap basis administratorMILLICENT Burns called and clarified with Dr. Mayen about heparin subQ with 92 platelet. order to HOLD.
[2022-09-22] MEDS: VANCOMYCIN 750 MG in NACL 0.9% 250 ML IV SCH (22:24)
[2022-09-23] VITALS (21 sets, daily range): BP systolic 91–114; BP diastolic 53–73
[2022-09-23] MEDS: ACETAMINOPHEN 325 MG TAB PO PRN ×2 (00:35→17:14)
[2022-09-23] MEDS: PROPOFOL 1000 MG/100 ML PREMIX 100 ML IV PRN ×8 (01:46→23:16)
[2022-09-23] MEDS: MEROPENEM 1,000 MG in NACL 0.9% 50 ML IV SCH ×2 (04:08→12:33)
[2022-09-23] MEDS: VANCOMYCIN HCL 25 MG/ML SOLN GT SCH ×4 (04:09→23:20)
[2022-09-23] MEDS ORDERED: GABAPENTIN 300 MG CAP ONE ×3 (04:12→21:19)
[2022-09-23] MEDS ORDERED: GABAPENTIN 100 MG CAP ONE ×3 (04:12→21:19)
[2022-09-23] MEDS: GABAPENTIN 600 MG, GABAPENTIN 200 MG PO SCH ×6 (04:14→21:24)
[2022-09-23] MEDS: FUROSEMIDE 40 MG/4 ML VIAL IVP SCH ×4 (05:01→23:25)
[2022-09-23] MEDS: INSULIN LISPRO SLIDING SCALE 100 UNITS/ML VIAL SUBQ PRN ×4 (05:02→23:43)
[2022-09-23] MEDS: BLOOD GLUCOSE MONITORING 1 DEV DEV FS SCH ×4 (05:05→23:37)
[2022-09-23] MEDS: fentaNYL citrate - 50mL vial 2.5 MG in NACL 0.9% 200 ML IV PRN ×2 (05:07→23:19)
[2022-09-23] MEDS: LEVOTHYROXINE 0.088 MG TAB PO SCH (05:38)
[2022-09-23 06:19] LABS: BASOPHILS # (AUTO) 0.1 K/uL (0.00-0.22); BASOPHILS % (AUTO) 0.9 % (0.0-2.0); EOSINOPHILS % (AUTO) 0.2 % (0.0-4.0); HEMOGLOBIN 11.1 g/dL (12.0-16.0); LYMPHOCYTES # (AUTO) 1.4 K/uL (2.5-16.5); LYMPHOCYTES % (AUTO) 14.7 % (20.5-51.1); MEAN CORPUSCULAR HEMOGLOBIN 29 pg (27-31); MEAN CORPUSCULAR HGB CONC 34 g/dL (33-37); MEAN CORPUSCULAR VOLUME 84.9 fL (80-94); MONOCYTES # (AUTO) 0.5 K/uL (0.8-1.0); MONOCYTES % (AUTO) 4.8 % (1.7-9.3); NEUTROPHILS # (AUTO) 7.4 K/uL (1.8-7.7); NEUTROPHILS % (AUTO) 79.4 % (42.2-75.2); PLATELET COUNT (AUTO) 82 K/uL (140-450); RED BLOOD CELL COUNT(AUTO) 3.89 MIL/uL (4.20-5.40); RED CELL DISTRIBUTION WIDTH 16.2 % (11.6-13.7); WHITE BLOOD COUNT (AUTO) 9.3 K/uL (4.8-10.8)
[2022-09-23] MEDS: ALBUTEROL SULFATE/IPRATROPIU 3 ML SOL IH SCH ×3 (06:53→19:38)
--- NOTE | 2022-09-23 06:59 | NUR ---
0600: given pt a cool bath. gown and linen changed. 0650: no significant changes from previous shift assessment. Latonia fairly. Feeding latonia.no gastric residual. No falls and no injury during shift. will endorse to am rn to assume plan of care.
--- NOTE | 2022-09-23 07:10 | NUR ---
RECEIVED BEDSIDE REPORT FROM LANNY NURSES SUPERINTENDENT, FOR CONTINUITY OF CARE. PT A/OX0, SEDATED. ETT TO VENT, AC/PRVC FIO2 50%, VT 450, R 20, PEEP 5. SR ON MONITOR. PICC TO KATELYN INFUSING PROPOFOL AT 35 MCG/KG/MIN, FENTANYL AT 1 MCG/KG/HR AND NS TKO. NGT TO R NARE, GLUCERNA TUBE FEEDING AT 35 ML/HR WITH FWF 125 ML Q4H. F/C TO GRAVITY DRAINING DARK OMI URINE WITH SEDIMENT. FLEXI SEAL IN PLACE DRAINING LIQUID STOOL. GENERALIZED WEAKNESS. SOFT WRIST RESTRAINTS IN PLACE FOR SAFETY, NO S/SX OF INJURY. BED LOCKED AND IN LOWEST POSITION. CONTACT PRECAUTIONS FOR MRSA.
--- NOTE | 2022-09-23 07:20 | NUR ---
RECEIVED PT ON PRVC 450,20,+5,55% VENT PLUGGED INTO RED OUTLET, WHEELS LOCKED, AMBUBAG AT BEDSIDE, ALARMS ARE SET AND AUDIBLE.
[2022-09-23 08:03] LABS: ANION GAP 15.4 (8-16); CARBON DIOXIDE 30.3 mmol/L (21-32); CREATININE 0.5 mg/dL (0.6-1.3)
[2022-09-23 08:11] LABS: MAGNESIUM 2.3 mg/dL (1.8-2.4); PHOSPHORUS 3.4 mg/dL (2.5-4.9)
[2022-09-23 08:28] LABS: POTASSIUM 2.7 mmol/L (3.5-5.1)
[2022-09-23] MEDS: glipiZIDE 5 MG TAB PO SCH ×2 (08:30→17:13)
[2022-09-23] MEDS: POTASSIUM CHLORIDE 20% 40 MEQ/15 ML UDC GT PRN (08:51)
[2022-09-23] MEDS: ATORVASTATIN 20 MG TAB PO SCH (09:02)
[2022-09-23] MEDS: PANTOPRAZOLE 40 MG INJ VIAL IVP SCH (09:02)
[2022-09-23] MEDS: methylPREDNISolone SS 40 MG/ML VIAL IVP SCH ×2 (09:02→21:23)
[2022-09-23] MEDS: Z-GUARD PASTE TP SCH (09:03)
[2022-09-23] MEDS: KCL 20 MEQ/WATER INJ PREMIX 200 ML IV SCH ×2 (09:16→12:16)
--- NOTE | 2022-09-23 11:00 | NUR ---
WOUND CARE DONE WITH MANUAL QA TESTER NURSE. PHOTO TAKEN, SEE CHART AND WOUND ASSESSMENT.
[2022-09-23] MEDS: VANCOMYCIN 750 MG in NACL 0.9% 250 ML IV SCH ×2 (11:22→23:16)
--- NOTE | 2022-09-23 12:03 | NUR ---
WOUND CARE RE-EVALUATION NOTE: SKIN ASSESSMENT DONE WITH PRIMARY RN KARLA ON THIS 52 Y/O PT. WITH CHANGE OF SKIN CONDITION. PT. HAS FEVER FOR PAST FEW DAYS, TRACH AND PEG PROCEDURES PENDING AGAIN FOR ANOTHER WEEK. PT IS INTUBATED, EYES OPEN WHEN TOUCHED AND TURNED. PT. WITH TF, SKIN IS WARM AND MOIST, BILATERAL LOWER EXTREMITY TRACE EDEMA. DORSAL PEDAL PULSES PRESENT AND NORMAL. F/C PATENT WITH OMI COLOR URINE OUT PUT OBSERVED. FLEXI SEAL PATENT LOOSE BROWN STOOL OUTPUT OBSERVED. PT. ON BILATERAL SOFT RESTRAINTS. WOUND CX OBTAINED AND WOUND PHOTO OBTAINED. PLAN OF CARE DISCUSSED WITH PRIMARY RN. POC DISCUSSED WITH DR. ESTRADA. COMORBIDITIES RELATED TO DELAY WOUND HEALING AND FURTHER SKIN BREAKS ACUTE HYPOXEMIC DECREASE TISSUE PERFUSION, TISSUE ISCHEMIA, DECREASE MOBILITY AND FUNCTIONAL ABILITIES, FEVER, OBESITY BMI 59.4 AND HOB ELEVATED THE MAJORITY OF TIMES DUE TO MEDICAL REASONS. INTEGUMENTARY: -LIPS AND ORAL MUCOSA DRY AND CLEAN. SKIN INTACT. -ABDOMEN DISTENDED, SOFT -INTERTRIGO TO BILATERAL BREASTS FOLDS AND ABDOMINAL FOLDS IMPROVING WITH NYSTATIN. SKIN MOIST, NOT RED. -MOISTURE ASSOCIATED SKIN DAMAGE(MASD) TO : B/L GROINS, MEDIAL THIGHS AND PEBBLES-ANAL SKIN REDNESS -PRESSURE INJURY STAGE 2, SACROCOCCYX 6X8X0.1CM, WOUND BED 50% RED GRANULATION TISSUE, AND 50% DTI, MOIST, NO ODOR, WOUND EDGE FLAT, PEBBLES-WOUND WITH DENUDED SKIN, MOIST SURROUNDING NON-BLANCHABLE REDNESS INDICATED FURTHER DAMAGE RECOMMENDATIONS: -PEBBLES CARE Q2H AND PRN IF SOILING, APPLY Z GUARD TO: B/L GROINS, MEDIAL THIGHS AND PEBBLES-ANAL BID AND PRN IF SOILING -SACROCOCCYX CLEANSE WITH WOUND CLEANSING SOLUTION PAT DRY, APPLY THERAHONEY GEL AND COVER WITH FOAM DRESSING QD AND PRN IF SOILING -CONTINUE NYSTATIN TO INTERTRIGO AREA -POSITIONING: TURN AND REPOSITION PATIENT Q 2H OR SOONER USE PILLOWS TO KEEP BONY PROMINENCES FROM DIRECT CONTACT WITH SURFACES USE REPOSITIONING WEDGES TO PROVIDE 30-DEGREE ANGLE FOR SIDE LYING POSITIONS OFFLOADING OR FOAM DRESSING TO ALL TUBING TO PREVENT MEDICAL DEVICES RELATED PRESSURE INJURY -RE-EVALUATING AND MANAGING INCONTINENCE MONITOR SKIN CONDITION DURING POSITION CHANGE DO NOT MASSAGE REDNESS, BONY PROMINENCES, DO NOT USE DONUT-TYPE DEVICES FREQUENT PEBBLES-CARE AND PROVIDE BARRIER CREAMS PRN IF SOILING MOISTURE CONTROL BY OFFER BED CALI/URINAL /ABSORBENT PAD TO WICK AND HOLD MOISTURE. KEEP SKIN DRY AND PROTECT FROM FRICTION -MANAGE FRICTION/SHEAR/MOBILITY KEEP HOB AT THE LOWEST LEVEL OF ELEVATION NO MORE THAN 30 DEGREES UNLESS OTHERWISE CONTRAINDICATED USE LIFT SHEET OR TRANSFER DEVICE TO MOVE PATIENT AND PREVENT LATERAL SHEER. CONSIDER TRAPEZE IF APPROPRIATE PROTECT HEELS, ELBOWS BONY PROMINENCES WITH SKIN BERRIES OR FOAM DRESSING IF EXPOSED TO FRICTION OFFLOAD BILATERAL HEELS BY PLACING PILLOWS UNDER CALVES AT ALL TIMES, UNLESS OTHERWISE CONTRAINDICATED -PRESSURE REDISTRIBUTION SURFACE THERAPY JORGE ISOFLEX TERRY MATTRESS -NUTRITION: PLEASE FOLLOW RD RECOMMENDATIONS AND OFFER NUTRITION SUPPLEMENTS IF ORDERED.
--- NOTE | 2022-09-23 13:33 | NUR ---
MOTHER, ZURI, CALLED. WAS UPDATED ON POC. NO FURTHER QUESTIONS AT THIS TIME.
--- NOTE | 2022-09-23 13:42 | NUR ---
PER DR. RIGGS PEEP CHANGED FROM +5 TO +8.
--- NOTE | 2022-09-23 16:23 | NUR ---
09/23/22 RD FOLLOW UP COMPLETED PLEASE REFER TO NUTRITION ASSESSMENT UNDER CARE ACTIVITY FOR ESTIMATED NUTRITIONAL NEEDS. 1. RECOMMEND SWITCHING TF FORMULA TO VITAL AF 1.2 D/T GLUCERNA 1.2 CURRENTLY UNAVAILABLE 2. RECOMMEND VITAL AF 1.2 @30 ML/HR; FWF 150 ML Q4H OR PER MD, PROSOURCE BID - WITH PROPOFOL @ 28 ML/HR (PROVIDES 739 KCAL/DAY) AND PROSOURCE BID (PROVIDES 120 KCAL AND 30 GM PROTEIN DAILY), THIS PROVIDES 720 ML TOTAL VOLUME, 1723 KCAL, 84 GM PROTEIN, AND 1484 ML FREE WATER DAILY MEETING 100% OF ESTIMATED CALORIE AND PROTEIN NEEDS; ADEQUATE. -START @ 20 ML/HR AND INCREASE BY 10 ML Q4H UNTIL GOAL RATE IS REACHED PT TOLERATES. 3. MONITOR GI SYMPTOMS AND NUTRITION RELATED LAB VALUES 4. CONSULT RD PRN 5. RD TO FOLLOW-UP 3-5 DAYS, MODERATE RISK REVIEWED BY RINA SEWELL RD
--- NOTE | 2022-09-23 16:59 | NUR ---
PT MOVED TO ICU 6 AND SWITCHED ONTO BARIATRIC BED PER ORDERS WITH ASSIST OF RT AND RN'S. TOLERATED FAIRLY. ALL BELONGINGS WITH PT.
[2022-09-23 19:10] LABS: ANION GAP 11.4 (8-16); CREATININE 0.6 mg/dL (0.6-1.3); POTASSIUM 4.4 mmol/L (3.5-5.1)
--- NOTE | 2022-09-23 19:12 | NUR ---
ENDORSED BEDSIDE REPORT TO LILIANA GAS PIPE LAYER MECHANICAL INTEGRITY ENGINEER FOR CONTINUITY OF CARE.
--- NOTE | 2022-09-23 20:15 | NUR ---
@1908 report received LILIAM RICKS met pt intubated ongoing Fentanyl and Porpofol drip still able to follow command no acute distress noted tolerating ventilator O2 sat 98% oral care done and inline suction for airway clearance. Pt moved to room 7 because positive for MRSA AND C DIFF contact isolation. SKin checked repositioned for comfort af to prevent further skin breakdown. NGT placement checked/verified by auscultation residual less than 30cc rectal tube to gravity brown stool. all iv site dry and intact infusing. Will contijnue to monitor and treat as per care plan.
[2022-09-23] MEDS: metroNIDAZOLE 500 MG/NS PREMIX 100 ML IV SCH (21:25)
--- NOTE | 2022-09-23 23:10 | NUR ---
Dr NICHOLS called updates given over the phone concerning pt's fever 98.5 rectally vent settings A/C PRVC rate 20 rate 450, peep 8 FIO2 60% no new order received as this time
[2022-09-24] VITALS (27 sets, daily range): BP systolic 91–119; BP diastolic 49–74
[2022-09-24] MEDS: PROPOFOL 1000 MG/100 ML PREMIX 100 ML IV PRN ×7 (01:39→20:48)
[2022-09-24] MEDS ORDERED: GABAPENTIN 100 MG CAP ONE ×3 (04:14→20:07)
[2022-09-24] MEDS ORDERED: GABAPENTIN 300 MG CAP ONE ×4 (04:14→20:08)
[2022-09-24] MEDS: LEVOTHYROXINE 0.088 MG TAB PO SCH (05:06)
[2022-09-24] MEDS: GABAPENTIN 600 MG, GABAPENTIN 200 MG PO SCH ×6 (05:09→20:23)
[2022-09-24] MEDS: metroNIDAZOLE 500 MG/NS PREMIX 100 ML IV SCH ×3 (05:09→20:22)
[2022-09-24] MEDS: VANCOMYCIN HCL 25 MG/ML SOLN GT SCH ×3 (05:11→17:58)
[2022-09-24] MEDS: FUROSEMIDE 40 MG/4 ML VIAL IVP SCH ×3 (05:12→17:58)
[2022-09-24 05:24] LABS: BASOPHILS % (AUTO) 0.3 % (0.0-2.0); HEMATOCRIT 30.9 % (36-48); HEMOGLOBIN 10.1 g/dL (12.0-16.0); LYMPHOCYTES # (AUTO) 0.3 K/uL (2.5-16.5); MEAN CORPUSCULAR HEMOGLOBIN 27 pg (27-31); MEAN CORPUSCULAR HGB CONC 33 g/dL (33-37); MEAN CORPUSCULAR VOLUME 83.6 fL (80-94); MONOCYTES # (AUTO) 0.1 K/uL (0.8-1.0); MONOCYTES % (AUTO) 2.3 % (1.7-9.3); NEUTROPHILS # (AUTO) 4.2 K/uL (1.8-7.7); NEUTROPHILS % (AUTO) 90.4 % (42.2-75.2); PLATELET COUNT (AUTO) 81 K/uL (140-450); RED BLOOD CELL COUNT(AUTO) 3.69 MIL/uL (4.20-5.40); RED CELL DISTRIBUTION WIDTH 15.8 % (11.6-13.7); WHITE BLOOD COUNT (AUTO) 4.7 K/uL (4.8-10.8)
[2022-09-24] MEDS: INSULIN LISPRO SLIDING SCALE 100 UNITS/ML VIAL SUBQ PRN ×3 (05:24→18:02)
[2022-09-24] MEDS: BLOOD GLUCOSE MONITORING 1 DEV DEV FS SCH ×3 (05:45→17:59)
[2022-09-24 06:36] LABS: ANION GAP 18.3 (8-16); CARBON DIOXIDE 28.4 mmol/L (21-32); CREATININE 0.5 mg/dL (0.6-1.3); POTASSIUM 3.7 mmol/L (3.5-5.1)
[2022-09-24 06:43] LABS: MAGNESIUM 2.6 mg/dL (1.8-2.4); PHOSPHORUS 4.3 mg/dL (2.5-4.9)
--- NOTE | 2022-09-24 07:29 | NUR ---
Change of shift repirt given to Miriam RN for continuity of pt care as at this tie pt's vitals signs stable no sign of distress and no changes in care plan.
[2022-09-24] MEDS: glipiZIDE 5 MG TAB PO SCH ×2 (07:30→16:51)
[2022-09-24] MEDS: methylPREDNISolone SS 40 MG/ML VIAL IVP SCH (08:43)
[2022-09-24] MEDS: PANTOPRAZOLE 40 MG INJ VIAL IVP SCH (08:43)
[2022-09-24] MEDS: ATORVASTATIN 20 MG TAB PO SCH (08:43)
[2022-09-24] MEDS: Z-GUARD PASTE TP SCH (08:43)
[2022-09-24] MEDS: VANCOMYCIN 750 MG in NACL 0.9% 250 ML IV SCH ×2 (11:15→23:39)
[2022-09-24 13:29] LABS: ALBUMIN 3.3 g/dL (3.4-5.0); ANION GAP 13.8 (8-16); CARBON DIOXIDE 30.7 mmol/L (21-32); CREATININE 0.6 mg/dL (0.6-1.3); POTASSIUM 3.5 mmol/L (3.5-5.1); TOTAL BILIRUBIN 0.6 mg/dL (0.0-1.0)
[2022-09-24] MEDS: fentaNYL citrate - 50mL vial 2.5 MG in NACL 0.9% 200 ML IV PRN (14:19)
[2022-09-24] MEDS: ALBUTEROL SULFATE/IPRATROPIU 3 ML SOL IH SCH ×2 (14:26→23:58)
[2022-09-25] VITALS (26 sets, daily range): BP systolic 92–121; BP diastolic 51–73
[2022-09-25] MEDS: VANCOMYCIN HCL 25 MG/ML SOLN GT SCH ×5 (00:28→23:43)
[2022-09-25] MEDS: BLOOD GLUCOSE MONITORING 1 DEV DEV FS SCH ×4 (00:28→18:00)
[2022-09-25] MEDS: FUROSEMIDE 40 MG/4 ML VIAL IVP SCH ×5 (00:29→23:42)
[2022-09-25] MEDS: INSULIN LISPRO SLIDING SCALE 100 UNITS/ML VIAL SUBQ PRN ×3 (00:32→17:57)
[2022-09-25] MEDS: POTASSIUM CHLORIDE 20% 40 MEQ/15 ML UDC GT PRN ×2 (01:28→08:24)
[2022-09-25] MEDS: fentaNYL citrate - 50mL vial 2.5 MG in NACL 0.9% 200 ML IV PRN ×2 (03:27→11:10)
[2022-09-25] MEDS: PROPOFOL 1000 MG/100 ML PREMIX 100 ML IV PRN ×3 (03:29→17:47)
[2022-09-25] MEDS: GABAPENTIN 600 MG, GABAPENTIN 200 MG PO SCH ×6 (05:00→21:00)
[2022-09-25] MEDS: metroNIDAZOLE 500 MG/NS PREMIX 100 ML IV SCH ×3 (05:00→21:00)
[2022-09-25] MEDS ORDERED: GABAPENTIN 100 MG CAP ONE ×3 (05:21→21:17)
[2022-09-25] MEDS ORDERED: GABAPENTIN 300 MG CAP ONE ×3 (05:21→21:17)
[2022-09-25 05:48] LABS: BASOPHILS % (AUTO) 0.7 % (0.0-2.0); EOSINOPHILS % (AUTO) 0.2 % (0.0-4.0); HEMATOCRIT 31.9 % (36-48); HEMOGLOBIN 10.3 g/dL (12.0-16.0); LYMPHOCYTES # (AUTO) 0.6 K/uL (2.5-16.5); LYMPHOCYTES % (AUTO) 11.4 % (20.5-51.1); MEAN CORPUSCULAR HEMOGLOBIN 27 pg (27-31); MEAN CORPUSCULAR HGB CONC 32 g/dL (33-37); MEAN CORPUSCULAR VOLUME 83.7 fL (80-94); MONOCYTES # (AUTO) 0.3 K/uL (0.8-1.0); MONOCYTES % (AUTO) 4.9 % (1.7-9.3); NEUTROPHILS # (AUTO) 4.4 K/uL (1.8-7.7); NEUTROPHILS % (AUTO) 82.8 % (42.2-75.2); PLATELET COUNT (AUTO) 89 K/uL (140-450); RED BLOOD CELL COUNT(AUTO) 3.81 MIL/uL (4.20-5.40); RED CELL DISTRIBUTION WIDTH 15.6 % (11.6-13.7); WHITE BLOOD COUNT (AUTO) 5.3 K/uL (4.8-10.8)
[2022-09-25 06:05] LABS: MAGNESIUM 2.3 mg/dL (1.8-2.4); PHOSPHORUS 3.1 mg/dL (2.5-4.9)
[2022-09-25 06:19] LABS: ANION GAP 11.4 (8-16); CARBON DIOXIDE 32.8 mmol/L (21-32); CREATININE 0.4 mg/dL (0.6-1.3); POTASSIUM 3.2 mmol/L (3.5-5.1)
[2022-09-25] MEDS: LEVOTHYROXINE 0.088 MG TAB PO SCH (06:56)
[2022-09-25] MEDS: glipiZIDE 5 MG TAB PO SCH ×2 (06:56→16:30)
[2022-09-25] MEDS: ALBUTEROL SULFATE/IPRATROPIU 3 ML SOL IH SCH (07:20)
--- NOTE | 2022-09-25 07:20 | NUR ---
RECEIVED PATIENT FROM NIGHT MILLICENT MARINA. PT.ORALLY INTUBATED AC/PRVC f20, +8, 450 MLS, 55%. SEDATED PROPOFOL AT 55 MCG/KG/MINUTE, FENTANYL AT 3 MCG/KG/HR. RIGHT NGT TUBE FEEDING GLUCERNA 1.2 AT 30 MLS/HR. NSR NOW, WAS BRADYCARDIC AT 50s WITH CERTIFIED PESTICIDE APPLICATOR. K+ WAS REPLACED LAST NIGHT WITH 40 mEq BY NGT, NOW K+ 3.2, REPLACING WITH I.V. 40 mEq FROM PHARMACY. PT. OBESE. ON CONTACT ISOLATION FOR C.DIFFICILE. 0830 AM: DECREASED FENTANYL DRIP TO 1.2 MCG/KG/HR. MAXIMUM AT 20 MLS/HR.
--- NOTE | 2022-09-25 07:50 | NUR ---
DR. JOHN MADE ROUNDS INFORMED ABOUT K+ 3.2, REPLACING WITH PRN I.V. KCl 40mEq AND SINCE LEVEL IS EVEN LOWER AFTER REPLACING BY NGT 40 mEq LAST NIGHT, OKAYED TO GIVE ANOTHER 40 mEq ANOTHER IN ADDITION TO I.V. PT. HAS DIARRHEA AND GETS LASIX.
[2022-09-25] MEDS: POTASSIUM CHLORIDE 40 MEQ, LIDOCAINE 1% 25 MG in NACL 0.9% 250 ML IV PRN (08:00)
[2022-09-25] MEDS: PANTOPRAZOLE 40 MG INJ VIAL IVP SCH (08:08)
[2022-09-25] MEDS: ATORVASTATIN 20 MG TAB PO SCH (08:09)
[2022-09-25] MEDS: Z-GUARD PASTE TP SCH (08:21)
--- NOTE | 2022-09-25 09:00 | NUR ---
PT. HAS VENTILATOR ALARM, ERRATIC TV, PT. HAD MAXIMUM DOSE OF FENTANYL, INFORMED PATIENT THAT HER BREATHING WAS ERRATIC WITH ERRATIC TV, ADVISED TO CALM DOWN AND SYNCHRONIZE HER BREATHS WITH THE VENTILATOR, HER PAIN MEDICATION WAS SO HIGH. FENTANYL GTT WAS DECREASED FROM 3 MCG/KG/HR TO 1.2 MCG/KG/HR.
--- NOTE | 2022-09-25 10:30 | NUR ---
DR. RIGGS ([facility]) MADE ROUNDS, NOTED THAT PATIENT NEEDS TO BE WEANED FROM THE VENTILATOR, AND THAT FiO2 DECREASED FROM L55% TO 40% AND PEEP FROM +8 TO +5. NO NEW ORDERS. Addendum: 09/25/22 at 1338 by Agency 07 RN RN 1100 AM MADE ROUNDS, NOT 1337 HRS.
--- NOTE | 2022-09-25 10:45 | NUR ---
VENTILATOR WEANING PT.WAS SLEEPING AND CALM NOW. RT JEF CAME AND SAID THAT THE PATIENT WILL BE WEANED FROM THE VENTILATOR, AND NEEDS TO BE WEANED WITH O2 & PEEP FIRST. FiO2 DECREASED FROM 55% TO 40% AND PEEP FROM +8 TO +6 cm H20.
--- NOTE | 2022-09-25 11:15 | NUR ---
WOUND CARE NOTE: SURGEON NO PLAN FOR TRACHEOSTOMY YET, PER NOTE "We will evaluate on a daily basis regarding tracheostomy. For now, Dr. Zelaya has requested that we hold off on trach until the C. diff is under control, the vent settings can be improved, and continue diuresis on the patient as well too." NOTICE FLEX SEAL LITTLE STOOL OBSERVED, POC DISCUSSED WITH PRIMARY RN TO CHECK TUBING PLACEMENT AND FLUSH IF NEEDED, POC DISCUSSED TO KEEP PT. DRY AND CLEAN TO PREVENT WOUND CONTAMINATION AND KEEP PT.OFFLOADING ALL BONY PERMANENCES.
[2022-09-25] MEDS: VANCOMYCIN 750 MG in NACL 0.9% 250 ML IV SCH (11:45)
--- NOTE | 2022-09-25 12:10 | NUR ---
SISTER LORETA WILLIAM CAME AND INQUIRED ABOUT VENTILATOR SETTINGS, INFORMED THAT THE FiO2 WAS DECREASED FROM 55% TO 40%, SAME WITH PEEP. AROUND 1100 AM. PATIENT'S MOM ZURI DOBBS CALLED UP AND ASKED ABOUT THE VENTILATOR SETTINGS AND THE LABORATORY RESULTS, INFORMED THAT WE ARE REPLACING THE PATIENT'S LOW K+ 3.2. NO FURTHER QUESTIONS.
[2022-09-25] MEDS: ALBUTEROL 0.083% 2.5 MG/3 ML NEBU INH SCH ×2 (14:15→19:07)
--- NOTE | 2022-09-25 14:45 | NUR ---
K+ 3.[address] LANDA (NEURO INTENSIVIST PHYSICIAN) CAME. NOTED THAT K+ REPLACED WITH 40 mEq I.V. + 40 mEq BY NGT. NO OTHER ORDERS.
--- NOTE | 2022-09-25 18:35 | NUR ---
NO VISITOR LIST RESTRICTIONS PER SECURITY FLORENCIO (& DAVIDE) VISITOR GADIEL SIMMONS CAME AND CALLED UP SECURITY SINCE THE PATIENT HAS 7 PATIENTS ONLY WHO ARE ALLOWED TO VISIT. CALLED UP PRECISION INSTRUMENT AND TOOL MAKER ALSO. FLORENCIO (SECURITY)CAME AND SAID THAT THE MOM ZURI DOBBS SAID THAT THE VISITORS HAS NO LIST RESTRICTION ANYMORE, BUT LIMIT 1 VISITOR AT A TIME. IF ANY QUESTIONS CALL , FLORENCIO OR THE THE HEAD DAVIDE.
--- NOTE | 2022-09-25 19:20 | NUR ---
PT. HANDED OVER TO NIGHT MILLICENT YAN. PT. INTUBATED, NOW ON PEEP +6 & FiO2 40%. TUBE FEEDING, PROPOFOL AT 15 MCG/KG/MINUTE & FENTANYL AT 1.2 MCG/KG/HR. FOR TRACHE AND PEG WITH CONSENT, NO SCHEDULE YET.
--- NOTE | 2022-09-25 19:20 | NUR ---
RECEIVED REPORT FROM ZURI RICKS FOR CONTINUITY OF CARE FOR THIS PATIENT . PT IS AWAKE AND APPEARS TO BE ALERT AND SHE IS TRACKING. SHE WATCHES EVERYTHING THAT IS BEING DONE. I EXPLAIN EVERYTHING TO HER. SHE HAS A NGT IN PLACE IN HER RIGHT NARE , SHE IS RECEIVING VITAL AF AT 50 CC /HOUR AND FREE WATER 150 Q 4 HOURS HER RESIDUAL IS 100CC. GILL CHECK AGAIN AT 2100. . SHE IS ETT TO VENT WITH SETTINGS AC/PRVC FIO2 40% TV 400, RATE 20, AND PEEP 6. SHE IS TOLERATING THE SETTINGS WELL. ORAL CARE GIVEN. HE LUNG SOUNDS ARE CLEAR . HER TEMPERATURE IS 99.1 OTHER VIRAL SIGNS ARE WITHIN NORMAL LIMITS. SHE HAS RECRAL TUBE IN PLACE THE BAG WAS CHANGED ON THR AM SHIFT BECAUSE IT WAS FULL. SHE HAS A NEWBY CATH IN PLACE AND THE URINE IS SLIGHTLY CONCENTRATED, BUT CLEAR. HSE PAS THE PRESSURE RELIEF FOAM WRAPS IN PLACE TO PROTECR THE HEELS. PT APPEARS WITHPOT DISTRESS PRESENTLY.
--- NOTE | 2022-09-25 20:30 | NUR ---
PT'S NEPHEW CAME INTO VIVIT AND WAS INSTRUCTED HOW TO PROTECT HIMSELF FROM C-DIFF . HE WASRELUCTANT TO PUT ON THE GOWN AND GLOVES. WHEN HE WAS TOLD HE COULD GET INFECTED AND SPREAD IT TO OTHERS; HE CONSENTED TO PUT ON THE GOWN AND GLOVES. HE REQUESTED INFORMATION ON THE PT ,BUT WAS INFORMED THAT WE HAD WRITTEN INSTRUCTION ON WHO TO GIVE INFORMATION TO.
--- NOTE | 2022-09-25 21:00 | NUR ---
NIECE AND NEPHEW INTO VISIT PT . RTHEY WERE ASKING FOR INFORMATION AND WASTOLD AGAIN THAT WE HAD WRITTEN INSTRUCTION NOT TO GIVE INFORMATION TO ZURI AND SANKET ONLY. THEY THEN ASKED IF SANKET AND ZURI HAD THE INFORMATION AND WAS ASSURED THAT THEY DID .
--- NOTE | 2022-09-25 21:00 | NUR ---
HEPARIN PREPARED AND SIGNGED ADMIN BUT DISCRDED DUE TOLOW PLATELET COUNT OF ONLY 89.
[2022-09-26] VITALS (29 sets, daily range): BP systolic 93–157; BP diastolic 50–78
[2022-09-26] MEDS: BLOOD GLUCOSE MONITORING 1 DEV DEV FS SCH ×4 (00:44→18:17)
[2022-09-26] MEDS: PROPOFOL 1000 MG/100 ML PREMIX 100 ML IV PRN ×3 (00:47→20:00)
--- NOTE | 2022-09-26 01:04 | NUR ---
NEW BOTTLE OF PROPOFOL HUNG WITH NEW TUBING. PT BLOOD SUGAR WAS ONLY 130; NO INSULIN GIVEN. STARTED TO LOWER THE FENTANYL BUT PT AWAKENED.
[2022-09-26] MEDS: fentaNYL citrate - 50mL vial 2.5 MG in NACL 0.9% 200 ML IV PRN ×2 (02:21→20:05)
[2022-09-26] MEDS: metroNIDAZOLE 500 MG/NS PREMIX 100 ML IV SCH ×3 (05:00→21:33)
[2022-09-26] MEDS: GABAPENTIN 600 MG, GABAPENTIN 200 MG PO SCH ×6 (05:00→21:36)
[2022-09-26 05:36] LABS: BASOPHILS % (AUTO) 0.4 % (0.0-2.0); EOSINOPHILS # (AUTO) 0.1 K/uL (0-0.4); EOSINOPHILS % (AUTO) 2.6 % (0.0-4.0); HEMATOCRIT 32.3 % (36-48); HEMOGLOBIN 10.6 g/dL (12.0-16.0); LYMPHOCYTES # (AUTO) 0.8 K/uL (2.5-16.5); LYMPHOCYTES % (AUTO) 17.1 % (20.5-51.1); MEAN CORPUSCULAR HEMOGLOBIN 28 pg (27-31); MEAN CORPUSCULAR HGB CONC 33 g/dL (33-37); MEAN CORPUSCULAR VOLUME 84.1 fL (80-94); MONOCYTES # (AUTO) 0.2 K/uL (0.8-1.0); MONOCYTES % (AUTO) 4.3 % (1.7-9.3); NEUTROPHILS # (AUTO) 3.7 K/uL (1.8-7.7); NEUTROPHILS % (AUTO) 75.6 % (42.2-75.2); PLATELET COUNT (AUTO) 103 K/uL (140-450); RED BLOOD CELL COUNT(AUTO) 3.84 MIL/uL (4.20-5.40); RED CELL DISTRIBUTION WIDTH 16.1 % (11.6-13.7); WHITE BLOOD COUNT (AUTO) 4.9 K/uL (4.8-10.8)
[2022-09-26] MEDS ORDERED: GABAPENTIN 100 MG CAP ONE ×3 (05:59→20:30)
[2022-09-26] MEDS ORDERED: GABAPENTIN 300 MG CAP ONE ×4 (05:59→20:30)
[2022-09-26] MEDS: FUROSEMIDE 40 MG/4 ML VIAL IVP SCH ×3 (06:09→18:18)
[2022-09-26] MEDS: VANCOMYCIN HCL 25 MG/ML SOLN GT SCH ×3 (06:10→18:17)
[2022-09-26] MEDS: LEVOTHYROXINE 0.088 MG TAB PO SCH (06:11)
[2022-09-26 06:27] LABS: CARBON DIOXIDE 28.3 mmol/L (21-32); CREATININE 0.3 mg/dL (0.6-1.3)
[2022-09-26 06:34] LABS: MAGNESIUM 1.9 mg/dL (1.8-2.4); PHOSPHORUS 3.9 mg/dL (2.5-4.9)
[2022-09-26 06:36] LABS: ANION GAP 13.3 (8-16)
[2022-09-26 06:40] LABS: POTASSIUM 2.6 mmol/L (3.5-5.1)
[2022-09-26] MEDS: INSULIN LISPRO SLIDING SCALE 100 UNITS/ML VIAL SUBQ PRN ×3 (06:41→18:17)
[2022-09-26] MEDS ORDERED: KCL 20 MEQ/WATER INJ PREMIX 200 ML IV ONE ×2 (06:47→18:30)
[2022-09-26] MEDS: POTASSIUM CHLORIDE 20% 40 MEQ/15 ML UDC GT PRN (06:47)
[2022-09-26] MEDS: POTASSIUM CHLORIDE 40 MEQ, LIDOCAINE 1% 25 MG in NACL 0.9% 250 ML IV PRN (06:50)
--- NOTE | 2022-09-26 07:15 | NUR ---
RECEIVED PATIENT FROM NIGHT MILLICENT YAN. PT. INTUBATED, TUBE FEEDING, PROPOFOL AT 15 MCG/KG/MIN, FENTANYL GTT AT 1 MCG. FLEXISEAL. FLEXISEAL, NEWBY CATHETER.
[2022-09-26] MEDS: ALBUTEROL 0.083% 2.5 MG/3 ML NEBU INH SCH ×3 (08:02→19:57)
[2022-09-26] MEDS: PANTOPRAZOLE 40 MG INJ VIAL IVP SCH (08:25)
[2022-09-26] MEDS: glipiZIDE 5 MG TAB PO SCH ×2 (08:25→16:24)
[2022-09-26] MEDS: ATORVASTATIN 20 MG TAB PO SCH (08:26)
[2022-09-26] MEDS: Z-GUARD PASTE TP SCH (08:26)
--- NOTE | 2022-09-26 09:00 | NUR ---
DR. JOSE MANUEL COLVIN, NOTED K+ 2.6 REPLACED WITH KCL 40 mEq I.V. + 40 mEq BY NGT. ORDERED TO REPEAT K+ AFTER 6 HOURS TODAY, AND IF STILL LOW REPLACED WITH 40 mEq P.O.
[2022-09-26] MEDS: ACETAMINOPHEN 325 MG TAB PO PRN ×2 (12:13→21:40)
--- NOTE | 2022-09-26 15:30 | NUR ---
PATIENT'S MOM ZURI CAME WITH THE , UPDATED AGAIN SHE CALLED UP EARLIER, BEFORE THE PATIENT'S SISTER SANKET CALLED. INFORMED THAT THE PATIENT IS BEING WEANED FROM THE VENTILATOR, THIS MORNING DOWN TO 35%. INFORMED THAT THERE IS NO SCHEDULE YET FOR TRACHE AND PEG. PT. INFORMED THAT THE SISTER SANKET CALLED, MOM CALLED, AND MOM WITH CAME TO VISIT.
[2022-09-26 16:58] LABS: ALBUMIN 3.2 g/dL (3.4-5.0); ANION GAP 13.6 (8-16); CARBON DIOXIDE 28.7 mmol/L (21-32); CREATININE 0.5 mg/dL (0.6-1.3); POTASSIUM 3.3 mmol/L (3.5-5.1); TOTAL BILIRUBIN 0.9 mg/dL (0.0-1.0)
--- NOTE | 2022-09-26 17:30 | NUR ---
DR. HARRIS (I&D) CAME, ?SAC COMPLETE MICROBIO NOTED THAT THE PATIENT IS BEING WEANED, PLAN FOR TRACHE AND PEG. TEMP. STILL SAME AT 99's, LATEST 99.8F AXILLARY. WOULD LIKE TO FIND OUT WHAT WAS THE MICROBIOLOGY RESULT ON 09/23/2022 1118 HRS. WHICH WAS 'SAC COMPLETE.' WILL FIND OUT.
--- NOTE | 2022-09-26 17:45 | NUR ---
REPEAT K+ 3.[address] RICHARD, PRN IS 40 mEq I.V. WITH LIDOCAINE NO MORE PHARMACIST. PT. GETS ANOTHER LASIX 40 MG. IV PUSH. OKAYED TO GIVE K-RIDER 40 mEq I.V. X 1.
--- NOTE | 2022-09-26 18:20 | NUR ---
GIVEN 20 mEq I.V. KCl/100 MLS. @ 50 MLS/HR THEN HAND OVER THE NEXT IV TO THE NEXT RN.
--- NOTE | 2022-09-26 19:42 | NUR ---
REPORT GIVEN TO NIGHT RETAIL SALES DIRECTORMILLICENT CORRALES SINCE SÁNCHEZ RICKS IS NOT AVAILABLE. RN TO GIVE SECOND 20 mEq I.V. KCL & TO FOLLOW UP LAB. ABOUT SAC COMPLETE SPECIMEN SITE DONE 09/23/2022 ATR 1118 AM.
[2022-09-27] VITALS (33 sets, daily range): BP systolic 81–124; BP diastolic 51–76
[2022-09-27] MEDS: FUROSEMIDE 40 MG/4 ML VIAL IVP SCH ×4 (00:50→18:16)
[2022-09-27 04:43] LABS: BASOPHILS # (AUTO) 0.1 K/uL (0.00-0.22); EOSINOPHILS # (AUTO) 0.2 K/uL (0-0.4); EOSINOPHILS % (AUTO) 3.3 % (0.0-4.0); HEMATOCRIT 31.4 % (36-48); HEMOGLOBIN 10.5 g/dL (12.0-16.0); LYMPHOCYTES # (AUTO) 0.8 K/uL (2.5-16.5); LYMPHOCYTES % (AUTO) 14.2 % (20.5-51.1); MEAN CORPUSCULAR HEMOGLOBIN 28 pg (27-31); MEAN CORPUSCULAR HGB CONC 33 g/dL (33-37); MEAN CORPUSCULAR VOLUME 82.6 fL (80-94); MONOCYTES # (AUTO) 0.2 K/uL (0.8-1.0); MONOCYTES % (AUTO) 3.1 % (1.7-9.3); NEUTROPHILS # (AUTO) 4.6 K/uL (1.8-7.7); NEUTROPHILS % (AUTO) 78.4 % (42.2-75.2); PLATELET COUNT (AUTO) 116 K/uL (140-450); RED CELL DISTRIBUTION WIDTH 16.4 % (11.6-13.7); WHITE BLOOD COUNT (AUTO) 5.9 K/uL (4.8-10.8)
[2022-09-27] MEDS: metroNIDAZOLE 500 MG/NS PREMIX 100 ML IV SCH ×3 (05:00→20:59)
[2022-09-27] MEDS: BLOOD GLUCOSE MONITORING 1 DEV DEV FS SCH ×4 (06:00→18:16)
[2022-09-27] MEDS: VANCOMYCIN HCL 25 MG/ML SOLN GT SCH ×4 (06:00→18:16)
--- NOTE | 2022-09-27 06:00 | NUR ---
[id number] CONT. WITH STABLE VS. PT IS VERY OBESE. TEMP [id number]-60.7F. COOLING EDWARD DONE. SR/NO ECTOPY. PT CONT. ON SEDATION DRIPS WITH FENT. AND DIPRIVAN AND IS AWAKE OCCASS. PT SEEMS CONFUSED WHEN AWAKE BUT FOLLOWS FEW SIMPLE COMMDS. GISSELL. PT ALSO CONT. WITH ETT-VENT. PT GIOVANNI WELL BUT POX WAS SLIGHT LOW 90'S-90-91%. FIO2 INCREASED TO 40% BY RTX. PT GIOVANNI SX WELL-PT HAS MOD TO LARGE AMT OF PALE YELL. SPUT. IV I/P RIGHT ARM PICC-LINE. PT HAS F/C-U/O IS 1600CC. RECT.TUBE [id number] STOOL. HOB UP>30 DEGREES. PT HAS NGT WITH T.FEEDG OF AARON AT 30CC/HR. PT GIOVANNI WELL WITH 20CC RESID. PT HAS BEEN IN CONTACT ISOL. FOR C.DIFF. NO FAMILY CALLS OF VISITS THIS SHIFT. PT HAS DISPO FOR POSS. SURG. FOR TRACH AND PEG TOMORROW-ENDORSED TO MILLICENT KEATING THAT PT MAY NEED TO BE NPO AFTER MN. CONSENT HAS BEEN SIGNED AND IS IN PT'S CHART. CXR DONE LAST NIGHT ALSO. AM LABS PENDING. GEN. COND HAS BEEN STABLE/GUARDED. PT ENDORSED TO MILLICENT KEATING. JIMENEZ RICKS
[2022-09-27] MEDS: LEVOTHYROXINE 0.088 MG TAB PO SCH (06:30)
[2022-09-27 06:35] LABS: ANION GAP 15.4 (8-16); CARBON DIOXIDE 26.5 mmol/L (21-32); CREATININE 0.4 mg/dL (0.6-1.3)
[2022-09-27 06:38] LABS: MAGNESIUM 1.6 mg/dL (1.8-2.4); PHOSPHORUS 3.7 mg/dL (2.5-4.9)
[2022-09-27 06:39] LABS: POTASSIUM 2.9 mmol/L (3.5-5.1)
[2022-09-27] MEDS ORDERED: GABAPENTIN 300 MG CAP ONE ×4 (06:40→21:03)
[2022-09-27] MEDS ORDERED: GABAPENTIN 100 MG CAP ONE ×3 (06:40→21:02)
[2022-09-27] MEDS: GABAPENTIN 600 MG, GABAPENTIN 200 MG PO SCH ×6 (06:44→21:00)
--- NOTE | 2022-09-27 06:47 | NUR ---
K+LEVEL 2.9-POTASSIUM 40mEq with xylocaine1% prn IVPB WILL BE GIVEN -WILL ENDORSED TO BE GIVEN BY NEXT SHIFT. JIMENEZ RN
[2022-09-27] MEDS: POTASSIUM CHLORIDE 20% 40 MEQ/15 ML UDC GT PRN (07:07)
[2022-09-27] MEDS: INSULIN LISPRO SLIDING SCALE 100 UNITS/ML VIAL SUBQ PRN ×4 (07:24→18:16)
[2022-09-27] MEDS: PROPOFOL 1000 MG/100 ML PREMIX 100 ML IV PRN ×5 (07:27→22:00)
--- NOTE | 2022-09-27 07:35 | NUR ---
RECEIVED PATIENT FROM NIGHT MILLICENT Blackwell PT.STILL ORALLY INTUBATED, AC/VC 40%. SEDATED PROPOFOL 15 MCG/KG/MIN, FENTANYL 1 MCG/KG/HR. TUBE FEEDING, FLEXISEAL FOR INCONTINENCE. CONTACT ISOLATION FOR CLOSTRIDIUM DIFFICILE. FOR TRACHE AND PEG POSSIBLY ON WEDNESDAY. K+ 2.9 TODAY, SÁNCHEZ RICKS REPLACED WITH 40 mEq BY NGT. PRN I.V. IS WITH PHARMACY WHO IS CURRENTLY NOT OPEN. WILL MESSAGE MD OR MORE REPLACEMENT. Addendum: 09/27/22 at 0919 by Agency MILLICENT RICKS RECEIVED PROPOFOL 25 MCG/KG/MINUTE. NOW PT. STILL FULLY AWAKE. BUT KIND OF DAZED, WHEN THE DAUGHTER CAME IN TO SEE HER.
--- NOTE | 2022-09-27 07:50 | NUR ---
K+ 2.[address] RICHARD SINCE PRN IS WITH I.V. WITH LIDOCAINE, PHARMACY NOT AVAILABLE YET. GIVEN ONLY NGT PRN REPLACEMENT WHICH IS NOT ENOUGH, PT. GETS LASIX I.V.Q6HR.S
[2022-09-27] MEDS: PANTOPRAZOLE 40 MG INJ VIAL IVP SCH (08:14)
[2022-09-27] MEDS: glipiZIDE 5 MG TAB PO SCH ×2 (08:14→17:01)
[2022-09-27] MEDS: ATORVASTATIN 20 MG TAB PO SCH (08:15)
[2022-09-27] MEDS ORDERED: KCL 20 MEQ/WATER INJ PREMIX 200 ML IV PRN (08:30)
[2022-09-27] MEDS: POTASSIUM CHLORIDE 40 MEQ, LIDOCAINE 1% 25 MG in NACL 0.9% 250 ML IV PRN (08:50)
[2022-09-27] MEDS: Z-GUARD PASTE TP SCH (09:19)
[2022-09-27] MEDS: MAG SULF 2000 MG/WATER PREMIX 50 ML IV PRN (09:24)
[2022-09-27] MEDS ORDERED: DEXMEDETOMIDINE HCL 400 MCG in NACL 0.9% 96 ML IV PRN (09:50)
--- NOTE | 2022-09-27 10:00 | NUR ---
DR. SAVAGE (PULWI) CAME AND NOTED TEMP. 100.8F AXILLARY AND PT.FOR POSSIBLE TRACHE AND PEG WEDNESDAY. MD ORDERED FOR PRECEDEX GTT AFTER TRACHE/PEG TOMORROW AND POTASSIUM 2.9, REPLACED WITH 40 NGT BY NIGHT RN & REPLACING NOW WITH 40 I.V.
[2022-09-27] MEDS: ACETAMINOPHEN 325 MG TAB PO PRN (10:37)
--- NOTE | 2022-09-27 11:15 | NUR ---
DR. RICHARD CAME AND SEE PATIENT, NOTED FOR POSSIBLE TRACHE/PEG TOMORROW WEDNESDAY, TEMP. 100.8F. ORDERED FOR CHANGE PRN POTASSIUM TO K-RIDER 40 mEq I.V. FROM PERIPHERAL CONCENTRATION WITH LIDOCAINE, SAME PARAMETERS. NOTED BP 89/58 MAP 70 mmHg. MAP GOAL 65 AND ABOVE mmHg. WILL ORDER MIDODRINE IF BELOW MAP GOAL 65.
[2022-09-27] MEDS: ALBUTEROL 0.083% 2.5 MG/3 ML NEBU INH SCH ×3 (11:17→19:55)
[2022-09-27] MEDS ORDERED: KCL 20 MEQ/WATER INJ PREMIX 200 ML IV ONE (11:20)
[2022-09-27] MEDS: fentaNYL citrate - 50mL vial 2.5 MG in NACL 0.9% 200 ML IV PRN (14:01)
--- NOTE | 2022-09-27 15:03 | NUR ---
TURNED PATIENT WITH RT AND ANOTHER RN KOKO, PT.WAS AT PROPOFOL 25 MCG/KG/MINUTE. PT. GETS ANXIOUS AND FULLY AWAKE AFTER THE TURN. INCREASED PROPOFOL TO 35 MCG/KG/MIN. SINCE PT. WAS STILL HAS VENTILATOR ALARMS OF RR TO 31, LOW PEAK PRESSURE. SUCTIONED EARLIER ORALLY AND FROM ETT. WHEN AWAKE BP AND SATS BETTER AT SBP 110 TO 120s AND SpO2 95-96% AT FiO2 40%. WHEN ASLEEP SBP 88-90/50s, SpO2 92-93%.
--- NOTE | 2022-09-27 16:00 | NUR ---
RAMEZ MCKNIGHT (SURGEON) CAME NOTED TEMP. 100.8F IN THE MORNING. MD ORDERED TO HOLD HEPARIN FOR THE TRACHE/PEG TOMORROW, NPO POST MIDNIGHT.
--- NOTE | 2022-09-27 18:00 | NUR ---
DR. LANDA (CARDIO) CAME, NOTED THAT PT. FOR TRACHE AND PEG TOMORROW. NPO POST MIDNIGHT. LEVOPHED 1 MCG/MIN, SEDATED. NO ORDERS.
--- NOTE | 2022-09-27 18:10 | NUR ---
(I&D) CAME. INFORMED OF VANCO P.O.DUE FOR RENEWAL. TEMP.100.8F IN THE MORNING. NPO POST MIDNIGHT FOR TRACHE AND PEG TOMORROW.
[2022-09-27 18:59] LABS: ANION GAP 12.2 (8-16); CARBON DIOXIDE 28.3 mmol/L (21-32); CREATININE 0.4 mg/dL (0.6-1.3); POTASSIUM 3.5 mmol/L (3.5-5.1)
--- NOTE | 2022-09-27 19:35 | NUR ---
RECEIVED REPORT FROM DAY JOEL KEATING RN FOR CONTINUITY OF CARE. REPORT WILL BE GIVEN TO PRIMARY NURSE OF THE PT. WHEN SHE ARRIVED.
--- NOTE | 2022-09-27 19:35 | NUR ---
PT. HANDED OVER TO NIGHT COURT WORKERMILLICENT CORRALES FOR [facility] PT. NPO POST MIDNIGHT FOR TRACHE AND PEG TOMORROW. HEPARIN WAS HELD. LEVOPHED AT 1 MCG/MIN, PROPOFOL AT 35 MCG/KG/MIN, FENTANYL AT 1 MCG/KG/HR. FLEXISEAL LEAKS SMALL AMOUNT. TURNED, CLEANED WITH RT AND ANOTHER RN DUE TO WEIGHT AND SIZE.
--- NOTE | 2022-09-27 20:01 | NUR ---
ENDORSED PT. TO THE ASSIGNED NURSE, MILLICENT SNOWDEN FOR CONTINUITY OF CARE.
--- NOTE | 2022-09-27 20:30 | NUR ---
DR. SEWELL CALLED AND ASKED PT. MEDICAL REPORT, LABS, V/S AND ORDERED FOR CBC, CHEMISTRY IN AM, HAM SAWYER AND FREE LANCE MODEL CLEARANCE.
--- NOTE | 2022-09-27 22:01 | NUR ---
CALLED DR. SAVAGE AND REPORTED THAT DR. SEWELL ORDERED TO GET A CLEARANCE FROM [facility] [employer], BECAUSE PT. HAS SCHEDULE FOR TRACH AND PEG TOMORROW AND DR. SAVAGE STATED "SURE". WILL ENDORSE TO THE NEXT SHIFT.
--- NOTE | 2022-09-27 22:01 | NUR ---
SENT A MESSAGE TO DR. LANDA FOR FOOD ASSEMBLER COMMISSARY KITCHEN CLEARANCE PER DR. DONATO FRAGOSO. WILL WAIT FOR HIS RESPONSE.
--- NOTE | 2022-09-27 22:11 | NUR ---
DR. LANDA RESPONDED " YES,CLEARED AWHILE AGO, BUT TRACH WAS NOT DONE". WILL ENDORSE TO THE NEXT SHIFT.
--- NOTE | 2022-09-27 22:54 | NUR ---
PT. MOTHER, ZURI CALLED, RPOVIDED UPDATE WITH PT. CONDITION. SHE STATED THAT SHE WANTS TO BE NOTIFIED WITH THE TIME OF THE TRACH AND PEG PROCEDURE TOMORROW, BECAUSE SHE WANTS TO BE IN THE HOSPITAL DURING THE PROCEDURE. WILL ENDORSE TO THE NEXT SHIFT.
[2022-09-28] VITALS (23 sets, daily range): BP systolic 93–143; BP diastolic 52–96
[2022-09-28] MEDS: FUROSEMIDE 40 MG/4 ML VIAL IVP SCH ×5 (00:47→23:19)
[2022-09-28] MEDS: PROPOFOL 1000 MG/100 ML PREMIX 100 ML IV PRN ×9 (01:10→23:24)
[2022-09-28] MEDS: GABAPENTIN 600 MG, GABAPENTIN 200 MG PO SCH ×4 (05:00→13:46)
[2022-09-28] MEDS: metroNIDAZOLE 500 MG/NS PREMIX 100 ML IV SCH ×3 (05:00→20:29)
[2022-09-28] MEDS: VANCOMYCIN HCL 25 MG/ML SOLN GT SCH ×5 (05:40→23:18)
[2022-09-28 05:49] LABS: BASOPHILS % (AUTO) 0.4 % (0.0-2.0); EOSINOPHILS # (AUTO) 0.2 K/uL (0-0.4); EOSINOPHILS % (AUTO) 2.5 % (0.0-4.0); HEMATOCRIT 33.5 % (36-48); HEMOGLOBIN 10.7 g/dL (12.0-16.0); LYMPHOCYTES # (AUTO) 0.8 K/uL (2.5-16.5); LYMPHOCYTES % (AUTO) 13.8 % (20.5-51.1); MEAN CORPUSCULAR HEMOGLOBIN 27 pg (27-31); MEAN CORPUSCULAR HGB CONC 32 g/dL (33-37); MEAN CORPUSCULAR VOLUME 83.9 fL (80-94); MONOCYTES # (AUTO) 0.2 K/uL (0.8-1.0); NEUTROPHILS # (AUTO) 4.8 K/uL (1.8-7.7); NEUTROPHILS % (AUTO) 79.3 % (42.2-75.2); PLATELET COUNT (AUTO) 110 K/uL (140-450); RED CELL DISTRIBUTION WIDTH 16.8 % (11.6-13.7)
[2022-09-28] MEDS: fentaNYL citrate - 50mL vial 2.5 MG in NACL 0.9% 200 ML IV PRN ×2 (05:56→20:22)
[2022-09-28] MEDS: BLOOD GLUCOSE MONITORING 1 DEV DEV FS SCH ×4 (06:00→18:15)
--- NOTE | 2022-09-28 06:00 | NUR ---
[id number] CONT. ON VENT VIA ETT. PT GIOVANNI WELL WITH FIO2 OF 50%. PT HAS MOD-LARGE AMT OF LIPSCOMB/THICK SPUT. POX HAS BEEN 92-96%. PT HAS DISPO FOR TRACH AND PEG TODAY. CONSENT FOR SURGERY HAS BEEN SIGNED. PT HAS BEEN NPO AFTER MN FOR SURGERY. FURNACE PROCESS SUPERVISOR SHOWS SR. VS HAVEN BEEN STABLE/GUARDED. IV I/P VIA RIGHT ARM PICC-LINE. PT HAS BEEN ON FENT. AND DIPRIVAN DRIPS FOR SEDATION. PT WAS ON LEVOPHED DRIP BUT HAS BEEN TAPERED OFF WITH BP SYST OF 130-140. PT HAS BEEN IN SR/NO ECTOPY. PT ALSO HAS SOFT RESTRNTS(ATTEMPTS TO PULL TUBES AND LINES). PT HAS F/C-UO IS 2000CC/OMI-CLR. PT HAS 150CC FROM RECTAL TUBE. BATH AND LINEN CHANGE DONE. PT HAS MORBID OBESITY. AM LABS DONE. K+LEVEL IS LOW THIS AM. K+RIDER STARTED BY MILLICENT CORRALES. PT ENDORSED TO MILLICENT WHEATLEY. GEN. COND HAS BEEN STABLE/GUARDED. JIMENEZ RICKS
[2022-09-28] MEDS: LEVOTHYROXINE 0.088 MG TAB PO SCH (06:30)
[2022-09-28 06:38] LABS: ANION GAP 12.3 (8-16); CARBON DIOXIDE 28.4 mmol/L (21-32); CREATININE 0.3 mg/dL (0.6-1.3)
[2022-09-28 06:42] LABS: POTASSIUM 2.7 mmol/L (3.5-5.1)
--- NOTE | 2022-09-28 07:15 | NUR ---
RECEIVED BESIDE REPORT FROM NUCLEAR MEDICINE OFFICER CRAY RICKS. PT ETT TO VENT, AC PRVC FIO2 45%, VT 450, RR 20, PEEP 6. SR ON MONITOR. NPO AFTER MIDNIGHT DUE TO SCHEDULED SURGERY. PICC LINE TO KATELYN, RUNNING FENTANYL @1.0 MCG/KG/HR, PROPOFOL @ 35 MCG/KG/MIN.NEWBY IN PLACE TO GRAVITY. RECTAL TUBE IN PLACE. BILAT SOFT WRIST RESTRAINT. SKIN SEE WOUND ASSESSMENT. BED TO LOWEST POSITION, CALL LIGHT WITHIN REACH, WILL CONTINUE TO MONITOR.
--- NOTE | 2022-09-28 07:35 | NUR ---
DR DORA FLANNERY AT BEDSIDE. UPDATED PT INFORMATION.
[2022-09-28] MEDS: glipiZIDE 5 MG TAB PO SCH ×2 (07:58→16:53)
[2022-09-28] MEDS: ATORVASTATIN 20 MG TAB PO SCH (08:08)
[2022-09-28] MEDS: PANTOPRAZOLE 40 MG INJ VIAL IVP SCH (08:09)
[2022-09-28] MEDS: Z-GUARD PASTE TP SCH (08:09)
--- NOTE | 2022-09-28 09:49 | NUR ---
DR SAVAGE ROUNDRENEA AT BEDSIDE. UPDATED PT INFORMATION.
--- NOTE | 2022-09-28 12:53 | NUR ---
WOUND CARE RE-EVALUATION NOTE: SKIN ASSESSMENT DONE WITH PRIMARY RN AND RT AT BEDSIDE. PT EASILY TO DESAT WHILE TURNING AND REPOSITION. PT. WITH NEW SKIN BREAKS AND PREVIOUS SACRALCOCCYX STAGE 2 PROGRESS TO STAGE 3 WITH SLOUGH TISSUE. POC DISCUSSED WITH CNO AND DR. JOHN. PER DR. JOHN WILL HAVE DR. NICHOLS,SURGEON,TO CONSULT SACRAL SLOUGH TISSUE. PT. PENDING TRACH AND PEG, LOW POTASSIUM THIS MORNING PER CHARGE NURSE HILLARY. -INTERTRIGO TO BILATERAL BREASTS FOLDS AND ABDOMINAL FOLDS IMPROVING WITH NYSTATIN. SKIN DRY, NO REDNESS -INTERTRIGO POSTERIOR TRUNK OF BODY SKIN FOLD WITH A PARTIAL THICKNESS SKIN LOSS 2.5X5X0.1CM WOUND BED MOIST, DTI, NO ODOR, PEBBLES WOUND SKIN DRY AND PINK -MOISTURE ASSOCIATED SKIN DAMAGE(MASD) TO: B/L GROINS, MEDIAL THIGHS AND PEBBLES-ANAL SKIN REDNESS -PRESSURE INJURY STAGE 3, SACROCOCCYX 6X8CM, WOUND BED 80% RED GRANULATION TISSUE, AND 20% SOFT BROWN SLOUGH TISSUE, MOIST, NO ODOR, WOUND EDGE FLAT, PEBBLES-WOUND WITH DENUDED SKIN IMPROVING, MOIST SURROUNDING WITH NON-BLANCHABLE REDNESS RECOMMENDATIONS: -PENDING SURGEON CONSULT -PEBBLES CARE Q2H AND PRN IF SOILING, APPLY Z GUARD TO: B/L GROINS, MEDIAL THIGHS AND PEBBLES-ANAL BID AND PRN IF SOILING -POSTERIOR, TRUNK OF BODY SKIN FOLD AND SACROCOCCYX CLEANSE WITH WOUND CLEANSING SOLUTION PAT DRY, APPLY THERAHONEY GEL AND COVER WITH FOAM DRESSING QD AND PRN IF SOILING -CONTINUE NYSTATIN TO INTERTRIGO TO BILATERAL BREASTS FOLDS AND ABDOMINAL FOLDS AREAS Addendum: 09/28/22 at 1329 by Isabel Schumacher (Grace) RN CALL TO ZURI [phone] MESSAGE LEFT TO CALL BACK TO ICU SO WILL UPDATE CLINT ON SKIN/WOUND CONDITION.
--- NOTE | 2022-09-28 13:00 | NUR ---
CLINT on skin report to Dr. Galarza and CNO.
[2022-09-28] MEDS ORDERED: GABAPENTIN 100 MG CAP ONE (13:45)
[2022-09-28] MEDS: KCL 20 MEQ/WATER INJ PREMIX 200 ML IV PRN (15:32)
[2022-09-28] MEDS: ALBUTEROL 0.083% 2.5 MG/3 ML NEBU INH SCH ×3 (15:47→20:20)
--- NOTE | 2022-09-28 16:46 | NUR ---
09/28/22 RD FOLLOW UP COMPLETED PLEASE REFER TO NUTRITION ASSESSMENT UNDER CARE ACTIVITY FOR ESTIMATED NUTRITIONAL NEEDS. 1. CONTINUE NPO, PER MD. 2. WHEN MEDICALLY APPROPRIATE, RECOMMEND VITAL AF 1.2 D/T GLUCERNA 1.2 CURRENTLY UNAVAILABLE 3. RECOMMEND VITAL AF 1.2 @30 ML/HR; FWF 150 ML Q4H OR PER MD, PROSOURCE BID - WITH PROPOFOL @ 32 ML/HR (PROVIDES 844 KCAL/DAY) AND PROSOURCE BID (PROVIDES 120 KCAL AND 30 GM PROTEIN DAILY), THIS PROVIDES 720 ML TOTAL VOLUME, 1828 KCAL, 84 GM PROTEIN, AND 1484 ML FREE WATER DAILY MEETING 100% OF ESTIMATED CALORIE AND PROTEIN NEEDS; ADEQUATE. -IF PT IS NOT ON PROPOFOL, RECOMMEND VITAL AF 1.2@ 50 ML/HR, FWF 80 ML Q4H OR PER MD, WITH KORINA BID (PROVIDES 160 KCAL, 5 G PROTEIN), WILL PROVIDE 1200 ML TOTAL VOLUME, 1600 KCAL, 95 G PROTEIN, AND 1873 ML FREE WATER DAILY MEETING 100% OF ESTIMATED CALORIE AND PROTEIN NEEDS; ADEQUATE. -START @ 10 ML/HR AND INCREASE BY 10 ML Q4H UNTIL GOAL RATE IS REACHED PT TOLERATES. 4. MONITOR GI SYMPTOMS AND NUTRITION RELATED LAB VALUES 5. CONSULT RD PRN 6. RD TO FOLLOW-UP 2-3 DAYS, MODERATE RISK REVIEWED BY RINA SEWELL RD
[2022-09-28] MEDS: POTASSIUM CHLORIDE 20% 40 MEQ/15 ML UDC GT PRN (16:58)
[2022-09-28] MEDS: INSULIN LISPRO SLIDING SCALE 100 UNITS/ML VIAL SUBQ PRN (18:16)
--- NOTE | 2022-09-28 19:15 | NUR ---
ENDORSED TO PYROTECHNIST CATRACHITA RN FOR CONTINUITY OF CARE. ALL QUESTION ANSWERED.
[2022-09-28] MEDS: GABAPENTIN 300 MG CAP GT SCH (20:27)
[2022-09-28] MEDS: GABAPENTIN 100 MG CAP GT SCH (20:28)
[2022-09-29] VITALS (19 sets, daily range): BP systolic 86–150; BP diastolic 45–88
[2022-09-29] MEDS: PROPOFOL 1000 MG/100 ML PREMIX 100 ML IV PRN ×7 (02:22→21:17)
[2022-09-29] MEDS: GABAPENTIN 100 MG CAP GT SCH ×3 (04:14→21:00)
[2022-09-29] MEDS: metroNIDAZOLE 500 MG/NS PREMIX 100 ML IV SCH ×3 (04:14→21:18)
[2022-09-29] MEDS: GABAPENTIN 300 MG CAP GT SCH ×3 (04:15→21:00)
[2022-09-29] MEDS: FUROSEMIDE 40 MG/4 ML VIAL IVP SCH ×4 (05:11→23:05)
[2022-09-29] MEDS: VANCOMYCIN HCL 25 MG/ML SOLN GT SCH ×4 (06:00→23:05)
--- NOTE | 2022-09-29 06:10 | NUR ---
pt's anxious, increased diprivan drip. same vent settings latonia fairly. am care rendered. linen and gown changed. same drip. NPO since midnight. oral care rendered. afebrile, stable vital signs. 0600: will endorse to am rn to assume plan of care. no falls and no injury during shift
[2022-09-29] MEDS: BLOOD GLUCOSE MONITORING 1 DEV DEV FS SCH ×5 (06:22→23:14)
[2022-09-29] MEDS: LEVOTHYROXINE 0.088 MG TAB PO SCH (06:24)
[2022-09-29 08:08] LABS: ANION GAP 13.7 (8-16); BASOPHILS % (AUTO) 0.4 % (0.0-2.0); CARBON DIOXIDE 28.7 mmol/L (21-32); CREATININE 0.4 mg/dL (0.6-1.3); EOSINOPHILS # (AUTO) 0.1 K/uL (0-0.4); EOSINOPHILS % (AUTO) 1.6 % (0.0-4.0); HEMATOCRIT 34.2 % (36-48); HEMOGLOBIN 10.9 g/dL (12.0-16.0); LYMPHOCYTES # (AUTO) 0.8 K/uL (2.5-16.5); LYMPHOCYTES % (AUTO) 14.2 % (20.5-51.1); MEAN CORPUSCULAR HEMOGLOBIN 27 pg (27-31); MEAN CORPUSCULAR HGB CONC 32 g/dL (33-37); MEAN CORPUSCULAR VOLUME 84.1 fL (80-94); MONOCYTES # (AUTO) 0.3 K/uL (0.8-1.0); MONOCYTES % (AUTO) 5.2 % (1.7-9.3); NEUTROPHILS # (AUTO) 4.3 K/uL (1.8-7.7); NEUTROPHILS % (AUTO) 78.6 % (42.2-75.2); PLATELET COUNT (AUTO) 128 K/uL (140-450); POTASSIUM 3.4 mmol/L (3.5-5.1); RED BLOOD CELL COUNT(AUTO) 4.07 MIL/uL (4.20-5.40); RED CELL DISTRIBUTION WIDTH 16.9 % (11.6-13.7); WHITE BLOOD COUNT (AUTO) 5.5 K/uL (4.8-10.8)
[2022-09-29] MEDS: ATORVASTATIN 20 MG TAB PO SCH (08:27)
[2022-09-29] MEDS: PANTOPRAZOLE 40 MG INJ VIAL IVP SCH (08:27)
[2022-09-29] MEDS: glipiZIDE 5 MG TAB PO SCH ×2 (08:28→17:29)
[2022-09-29] MEDS: ALBUTEROL 0.083% 2.5 MG/3 ML NEBU INH SCH ×3 (08:29→19:28)
[2022-09-29] MEDS: fentaNYL citrate - 50mL vial 2.5 MG in NACL 0.9% 200 ML IV PRN (08:42)
[2022-09-29] MEDS ORDERED: BUPIVACAINE-MPF 0.25% 30 ML VIAL INJ ONE (09:36)
[2022-09-29] MEDS ORDERED: ROCURONIUM 50 MG/5 ML VIAL IV ONE (09:45)
--- NOTE | 2022-09-29 10:00 | NUR ---
PT ENDORSED TO OR NURSE AND TAKEN TO OR FOR TRACH AND PEG PROCEDURE. PT.'S MOTHER INFORMED BY SURGEON DR. Hernandez
[2022-09-29] MEDS ORDERED: fentaNYL citrate 0.05 MG/ML VIAL ONE (10:12)
--- NOTE | 2022-09-29 10:20 | NUR ---
RT HELPED WELDER PIPE MAKING PT TO OR FOR SURGERY. NO DISTRESS NOTED, PT STABLE THROUGHOUT TRANSFER.
[2022-09-29] MEDS ORDERED: HYDROmorphone 1 MG/ML AMP IVP PRN (11:05)
--- NOTE | 2022-09-29 11:05 | NUR ---
PT RETURNED FROM OR AFTER SUCCESSFUL PEG AND TRACH PROCEDURE. PT PRESENTS TO BED 7 WITH RT AND WOOL TAMPER. PT. PRESENTS IN NO ACUTE DISTRESS. PT RECONNECTED TO PROPOFOL AND FENTANYL DRIPS, LINENS AND GOWN CHANGED.
--- NOTE | 2022-09-29 11:09 | NUR ---
PT RETURNED FROM OR NEWLY PLACED TRACH PORTEX 8. PT PLACED BACK ON VENTILATOR WITH ORIGINAL SETTINGS. WILL CONTINUE TO MONITOR.
[2022-09-29] MEDS: THERAHONEY GEL 42.5 GM TP SCH (13:00)
[2022-09-29] MEDS: Z-GUARD PASTE TP SCH (14:31)
--- NOTE | 2022-09-29 15:56 | NUR ---
PT FAMILY VISITED PT FROM OUTSIDE THE ROOM. PT REMAINS IN STABLE CONDITION. PT TO NOT BEGIN FEEDINGS UNTIL TOMORROW PER SURGEON. PT IS SEDATED WITH FENTANYL AND PROPOFOL CONTINUOUSLY.
[2022-09-29] MEDS: INSULIN LISPRO SLIDING SCALE 100 UNITS/ML VIAL SUBQ PRN ×2 (17:30→23:12)
[2022-09-30] VITALS (20 sets, daily range): BP systolic 98–120; BP diastolic 41–74
[2022-09-30] MEDS: PROPOFOL 1000 MG/100 ML PREMIX 100 ML IV PRN ×5 (00:24→21:14)
[2022-09-30] MEDS: fentaNYL citrate - 50mL vial 2.5 MG in NACL 0.9% 200 ML IV PRN ×3 (02:07→18:27)
[2022-09-30] MEDS: metroNIDAZOLE 500 MG/NS PREMIX 100 ML IV SCH ×3 (05:16→20:52)
[2022-09-30] MEDS: GABAPENTIN 100 MG CAP GT SCH ×3 (05:17→20:53)
[2022-09-30] MEDS: GABAPENTIN 300 MG CAP GT SCH ×3 (05:18→20:52)
[2022-09-30] MEDS: INSULIN LISPRO SLIDING SCALE 100 UNITS/ML VIAL SUBQ PRN ×3 (05:20→17:57)
[2022-09-30] MEDS: VANCOMYCIN HCL 25 MG/ML SOLN GT SCH ×3 (05:24→18:00)
[2022-09-30] MEDS: FUROSEMIDE 40 MG/4 ML VIAL IVP SCH ×3 (05:24→17:55)
[2022-09-30] MEDS: BLOOD GLUCOSE MONITORING 1 DEV DEV FS SCH ×3 (05:25→17:50)
[2022-09-30] MEDS: LEVOTHYROXINE 0.088 MG TAB PO SCH (06:35)
--- NOTE | 2022-09-30 06:38 | NUR ---
NO SIGNIFICANT CHANGES FROM PREVIOUS SHIFT ASSESSMENT. SAME VENT SETTINGS, POSTOP DAY 1 PEG AND TRACH. NO RESP DISTRESS, NO SIGNS OF DISCOMFORT. TRACH TO VENT GIOVANNI FAIRLY. FEEDING 350 CC/HR GASTRIC RESIDUAL GREENISH COLOR. NO FALLS AND NO INJURY DURING SHIFT. CONTINUE BILAT SWR FOR SAFETY. WILL ENDORSE TO AM RN TO ASSUME PLAN OF CARE.
[2022-09-30] MEDS: glipiZIDE 5 MG TAB PO SCH ×2 (07:30→16:39)
--- NOTE | 2022-09-30 07:30 | NUR ---
Received report from night shift manager, made rounds. Pt. is awake and responded to pain while drawing labs. Cont. with propofol 35 mcg and fentanyl 1mcg. Stable VS with tachycardia. Reposition Q2HRS and PRN. On isolation for C.diff. Rectal tube intact and patent. GT is intact and patent, as per PM shift last night gastric residual was 350cc/ greenish color. GT on hold at this time. Primary MD made aware. Cont. on monitoring. Surgeon made aware.
[2022-09-30] MEDS: ALBUTEROL 0.083% 2.5 MG/3 ML NEBU INH SCH ×3 (08:19→19:09)
[2022-09-30] MEDS: PANTOPRAZOLE 40 MG INJ VIAL IVP SCH (08:21)
[2022-09-30 08:24] LABS: ANION GAP 13.2 (8-16); CARBON DIOXIDE 31.2 mmol/L (21-32); CREATININE 0.5 mg/dL (0.6-1.3); POTASSIUM 3.4 mmol/L (3.5-5.1)
[2022-09-30 08:43] LABS: BASOPHILS # (AUTO) 0.1 K/uL (0.00-0.22); EOSINOPHILS # (AUTO) 0.1 K/uL (0-0.4); HEMOGLOBIN 11.1 g/dL (12.0-16.0); LYMPHOCYTES # (AUTO) 1.8 K/uL (2.5-16.5); MEAN CORPUSCULAR VOLUME 84.1 fL (80-94)
[2022-09-30 08:45] LABS: BASOPHILS % (AUTO) 0.7 % (0.0-2.0); EOSINOPHILS % (AUTO) 0.9 % (0.0-4.0); HEMATOCRIT 34.7 % (36-48); MEAN CORPUSCULAR HEMOGLOBIN 27 pg (27-31); MEAN CORPUSCULAR HGB CONC 32 g/dL (33-37); MONOCYTES # (AUTO) 0.6 K/uL (0.8-1.0); MONOCYTES % (AUTO) 4.9 % (1.7-9.3); NEUTROPHILS # (AUTO) 9.3 K/uL (1.8-7.7); NEUTROPHILS % (AUTO) 78.5 % (42.2-75.2); PLATELET COUNT (AUTO) 84 K/uL (140-450); RED BLOOD CELL COUNT(AUTO) 4.13 MIL/uL (4.20-5.40); RED CELL DISTRIBUTION WIDTH 17.1 % (11.6-13.7); WHITE BLOOD COUNT (AUTO) 11.9 K/uL (4.8-10.8)
[2022-09-30] MEDS: ATORVASTATIN 20 MG TAB PO SCH (09:00)
[2022-09-30] MEDS: KCL 20 MEQ/WATER INJ PREMIX 200 ML IV PRN (09:34)
[2022-09-30] MEDS: THERAHONEY GEL 42.5 GM TP SCH (12:27)
[2022-09-30] MEDS: Z-GUARD PASTE TP SCH (12:27)
--- NOTE | 2022-09-30 13:43 | NUR ---
Contacted surgeon and made aware that GT residual is 10cc bu5t still greenish color. acknowledged and gave order to resume GTF if pt. is stable. Order noted and carried out.
--- NOTE | 2022-09-30 20:00 | NUR ---
Received with enteral feedings of Vital AF @ 30 ml/hr., residual feeding >300 ml, yellow in color, feeding held w/o incident
[2022-10-01] VITALS (19 sets, daily range): BP systolic 93–131; BP diastolic 54–92
[2022-10-01] MEDS: INSULIN LISPRO SLIDING SCALE 100 UNITS/ML VIAL SUBQ PRN ×4 (00:11→17:43)
[2022-10-01] MEDS: FUROSEMIDE 40 MG/4 ML VIAL IVP SCH ×4 (00:12→17:26)
[2022-10-01] MEDS: BLOOD GLUCOSE MONITORING 1 DEV DEV FS SCH ×4 (00:12→17:53)
[2022-10-01] MEDS: ACETAMINOPHEN 325 MG TAB PO PRN ×2 (00:26→20:36)
[2022-10-01] MEDS: PROPOFOL 1000 MG/100 ML PREMIX 100 ML IV PRN ×3 (02:48→11:51)
[2022-10-01] MEDS: GABAPENTIN 100 MG CAP GT SCH ×3 (04:55→20:35)
[2022-10-01] MEDS: GABAPENTIN 300 MG CAP GT SCH ×3 (04:58→20:35)
[2022-10-01] MEDS: LEVOTHYROXINE 0.088 MG TAB PO SCH (05:31)
[2022-10-01] MEDS: ALBUTEROL 0.083% 2.5 MG/3 ML NEBU INH SCH ×3 (06:54→19:09)
--- NOTE | 2022-10-01 07:10 | NUR ---
RECEIVED PT ON PRVC 450, 20, 0.80,+6, 35% VENT WHEELS ARE LOCKED, PLUGGED INTO RED OUTLET, AMBUBAG AT BEDSIDE, ALARMS ARE SET AND AUDIBLE. PT SATURATION WAS 96%. BREATH SOUNDS WERE CLEAR AND DIMINISHED AT THE BASES. WILL CONTINUE TO MONITOR.
--- NOTE | 2022-10-01 07:50 | NUR ---
Received report from night shift supervisor nurse Nazanin that tube feeding has been turned off since 8pm yesterday. Received pt awake and able to nod to questions. Trach to vent settings AC PRVC TV 450 Rate 20 Peep 6 FiO@@35%. Sinus rhythm on monitor. G-tube intact with 100ml of gastric greenish residual. Resumed feeding with Vital AF @30ml/hr with FWF 150 Q4hr. Laura catheter intact and draining to gravity. Flexiseal in place. PICC line on right upper arm intact and infusing Propofol @20mcg/kg/min and fentanyl @0.25mcg/kg/hr, and NS@TKO. Bilat soft wrist restraints in place with no sign or symptom of injury. Safety precautions in place.
--- NOTE | 2022-10-01 07:55 | NUR ---
Dr. Galarza at bedside examining patient. Reported high gastric green residual to Dr. Galarza. New order for Regaln 5mg TID IVP.
[2022-10-01] MEDS: ATORVASTATIN 20 MG TAB PO SCH (08:42)
[2022-10-01] MEDS: PANTOPRAZOLE 40 MG INJ VIAL IVP SCH (08:42)
[2022-10-01] MEDS: glipiZIDE 5 MG TAB PO SCH ×2 (08:42→16:28)
[2022-10-01 09:10] LABS: BASOPHILS % (AUTO) 0.4 % (0.0-2.0); EOSINOPHILS # (AUTO) 0.1 K/uL (0-0.4); EOSINOPHILS % (AUTO) 0.8 % (0.0-4.0); HEMATOCRIT 32.1 % (36-48); HEMOGLOBIN 10.4 g/dL (12.0-16.0); LYMPHOCYTES # (AUTO) 1.1 K/uL (2.5-16.5); LYMPHOCYTES % (AUTO) 14.8 % (20.5-51.1); MEAN CORPUSCULAR HEMOGLOBIN 27 pg (27-31); MEAN CORPUSCULAR HGB CONC 33 g/dL (33-37); MEAN CORPUSCULAR VOLUME 83.9 fL (80-94); MONOCYTES # (AUTO) 0.5 K/uL (0.8-1.0); MONOCYTES % (AUTO) 6.3 % (1.7-9.3); NEUTROPHILS % (AUTO) 77.7 % (42.2-75.2); PLATELET COUNT (AUTO) 100 K/uL (140-450); RED BLOOD CELL COUNT(AUTO) 3.83 MIL/uL (4.20-5.40); RED CELL DISTRIBUTION WIDTH 17.2 % (11.6-13.7); WHITE BLOOD COUNT (AUTO) 7.7 K/uL (4.8-10.8)
[2022-10-01 09:45] LABS: ANION GAP 11.9 (8-16); CARBON DIOXIDE 30.8 mmol/L (21-32); CREATININE 0.5 mg/dL (0.6-1.3)
[2022-10-01 09:54] LABS: POTASSIUM 2.7 mmol/L (3.5-5.1)
--- NOTE | 2022-10-01 09:55 | NUR ---
Received phone call from lab regarding critical potassium of 2.7. Dr. Galarza notified with new order received.
[2022-10-01] MEDS: KCL 20 MEQ/WATER INJ PREMIX 200 ML IV PRN (09:59)
[2022-10-01] MEDS ORDERED: POTASSIUM CHLORIDE 20% 40 MEQ/15 ML UDC GT SCH (10:15)
--- NOTE | 2022-10-01 12:00 | NUR ---
Seen and examined by Dr. Rodriguez. New order received for urine culture, blood culture, and urinalysis.
[2022-10-01] MEDS: THERAHONEY GEL 42.5 GM TP SCH (12:31)
[2022-10-01] MEDS: METOCLOPRAMIDE 10 MG/2 ML INJ VIAL IVP SCH ×2 (12:31→20:36)
[2022-10-01] MEDS: Z-GUARD PASTE TP SCH (12:32)
--- NOTE | 2022-10-01 12:52 | NUR ---
Chest Xray done at bedside.
--- NOTE | 2022-10-01 13:05 | NUR ---
Seen and examined by Dr. Worthington.
[2022-10-01 13:16] LABS: APPEARANCE,URINE HAZY (CLEAR); BILIRUBIN,URINE NEGATIVE (NEGATIVE); BLOOD, URINE 2+ (NEGATIVE); COLOR,URINE YELLOW (YELLOW); LEUKOCYTE ESTERASE ,URINE TRACE (NEGATIVE); NITRITE, URINE NEGATIVE (NEGATIVE); UGLUCOSE NEGATIVE (NEGATIVE)
[2022-10-01 13:43] LABS: RBC,URINE 0-5 /HPF (0-5)
[2022-10-01 13:44] LABS: YEAST,URINE Many /HPF (None Seen)
[2022-10-01] MEDS: MORPHINE SULFATE 4 MG/ML SYR IV PRN ×2 (15:02→20:32)
--- NOTE | 2022-10-01 19:05 | NUR ---
Received report from MADYSON Lieberman APPLICATION MANAGER. Questions answered. Initial Assessment done. Please see Flowsheet.
--- NOTE | 2022-10-01 19:30 | NUR ---
Endorsed to third shift lieutenant nurse Aissatou for continuity of care.
--- NOTE | 2022-10-01 21:00 | NUR ---
Due medications given. Tolerated medications well. Tylenol given for Temp= 100.8, Will continue monitoring for any possible adverse reactions.
[2022-10-02] VITALS (24 sets, daily range): BP systolic 84–105; BP diastolic 48–68
[2022-10-02] MEDS: FUROSEMIDE 40 MG/4 ML VIAL IVP SCH ×4 (00:04→18:01)
--- NOTE | 2022-10-02 00:15 | NUR ---
AT BEDSIDE PT DESATURATING IN LOW 80s. SUCTION SMALL AMOUNT OF WHITE/YELLOW THIN SECRETIONS WITH NO IMPROVEMENT. TITRATED FiO2 FROM 35% TO 40%. SPO2 95%. PT TOLERATING WELL AT THIS TIME. RN NOTIFIED. WILL CONTINUE TO MONITOR PT.
[2022-10-02] MEDS: INSULIN LISPRO SLIDING SCALE 100 UNITS/ML VIAL SUBQ PRN ×4 (00:53→18:16)
[2022-10-02] MEDS: GABAPENTIN 100 MG CAP GT SCH ×3 (05:18→20:38)
[2022-10-02] MEDS: GABAPENTIN 300 MG CAP GT SCH ×3 (05:19→20:37)
[2022-10-02] MEDS: METOCLOPRAMIDE 10 MG/2 ML INJ VIAL IVP SCH ×3 (05:19→20:39)
[2022-10-02] MEDS: LEVOTHYROXINE 0.088 MG TAB PO SCH (05:50)
[2022-10-02 05:56] LABS: CREATININE 0.5 mg/dL (0.6-1.3)
[2022-10-02] MEDS: BLOOD GLUCOSE MONITORING 1 DEV DEV FS SCH ×4 (06:01→18:01)
[2022-10-02] MEDS: ALBUTEROL 0.083% 2.5 MG/3 ML NEBU INH SCH ×3 (06:53→19:30)
--- NOTE | 2022-10-02 07:20 | NUR ---
SBAR REPORT RECEIVED FROM DARWIN RICKS, ALL CARES ASSUMED. PT RESTING IN BED WITH EYES CLOSED. TRACH TO VENT. AC PRVC 20,450,40%, 6. NEWBY CATHETER AND FLEXISEAL DRAINING TO GRAVITY. BED IN LOW AND LOCKED POSITION.
--- NOTE | 2022-10-02 07:25 | NUR ---
RECEIVED PT ON PRVC 450,RR20,40%,+6. VENT WHEELS ARE LOCKED, PLUGGED INTO RED OUTLET, AMBUBAG AT BEDSIDE, ALARMS ARE SET AND AUDIBLE. TRACH; PROTEX 8. SATURATION 94%, COARSE BREATH SOUNDS, SUCTIONED MOD AMOUNT OF THICK CREAM SECRETIONS. WILL CONTINUE TO MONITOR.
[2022-10-02 07:39] LABS: BASOPHILS # (AUTO) 0.1 K/uL (0.00-0.22); BASOPHILS % (AUTO) 1.3 % (0.0-2.0); EOSINOPHILS % (AUTO) 0.3 % (0.0-4.0); HEMATOCRIT 29.2 % (36-48); HEMOGLOBIN 9.3 g/dL (12.0-16.0); LYMPHOCYTES # (AUTO) 0.9 K/uL (2.5-16.5); LYMPHOCYTES % (AUTO) 11.1 % (20.5-51.1); MEAN CORPUSCULAR HEMOGLOBIN 27 pg (27-31); MEAN CORPUSCULAR HGB CONC 32 g/dL (33-37); MEAN CORPUSCULAR VOLUME 85.1 fL (80-94); MONOCYTES # (AUTO) 0.4 K/uL (0.8-1.0); MONOCYTES % (AUTO) 5.5 % (1.7-9.3); NEUTROPHILS # (AUTO) 6.3 K/uL (1.8-7.7); NEUTROPHILS % (AUTO) 81.8 % (42.2-75.2); PLATELET COUNT (AUTO) 67 K/uL (140-450); RED BLOOD CELL COUNT(AUTO) 3.43 MIL/uL (4.20-5.40); RED CELL DISTRIBUTION WIDTH 17.6 % (11.6-13.7); WHITE BLOOD COUNT (AUTO) 7.8 K/uL (4.8-10.8)
[2022-10-02 07:47] LABS: MAGNESIUM 1.3 mg/dL (1.8-2.4); PHOSPHORUS 3.4 mg/dL (2.5-4.9)
[2022-10-02] MEDS: ATORVASTATIN 20 MG TAB PO SCH (08:16)
[2022-10-02] MEDS: glipiZIDE 5 MG TAB PO SCH ×2 (08:16→16:30)
[2022-10-02] MEDS: PANTOPRAZOLE 40 MG INJ VIAL IVP SCH (08:16)
[2022-10-02] MEDS: ACETAMINOPHEN 325 MG TAB PO PRN (10:45)
[2022-10-02] MEDS: POTASSIUM CHLORIDE 20% 40 MEQ/15 ML UDC GT PRN (10:45)
[2022-10-02] MEDS: LORazepam 2 MG/ML VIAL IVP PRN ×2 (10:46→18:03)
--- NOTE | 2022-10-02 11:04 | NUR ---
WOUND CARE NOTE: PT WITH TRACH AND PEG. PER PRIMARY RN PT. WITH FEVER ON AND OFF, SKIN MOIST AT TIMES. ASSIST IN TURNING, PT. DESAT EASILY TO MID 8O'S AND QUICK BACK TO LOW 90'S WHEN PLACE BACK TO SUPINE POSITION. TRACH AND PEG PEBBLES-STOMA SKIN DRY AND INTACT. POC DISCUSSED WITH PRIMARY RN.
[2022-10-02] MEDS: MAG SULF 2000 MG/WATER PREMIX 50 ML IV PRN (12:18)
[2022-10-02] MEDS: THERAHONEY GEL 42.5 GM TP SCH (13:44)
[2022-10-02] MEDS: Z-GUARD PASTE TP SCH (13:44)
--- NOTE | 2022-10-02 16:30 | NUR ---
PT CLEANED, LINEN CHANGED. FLEXISEAL BALLOON OUT OF RECTUM, NOT REPLACED AT THIS TIME. OXYGEN DESATURATED WHILE TURNING. RT YAZAN AND RT JOHN AT BEDSIDE ASSISTING. ONCE REPOSITIONED AND SUCTIONED OXYGEN SATURATION IMPROVED. VSS.
--- NOTE | 2022-10-02 19:29 | NUR ---
SBAR REPORT GIVEN TO CHASTITY RICKS, ALL CARES ENDORSED.
--- NOTE | 2022-10-02 19:51 | NUR ---
Received in semi fowlers position, awake, alert, tracks, follow simple commands, no signs of pain or discomfort, in no distress, trach to vent, tolerating vent settings, GT feeding with Glucerna held, gastric residual > 200 ml, Dr. Cano notified, no new order
[2022-10-02] MEDS: MEROPENEM 1,000 MG in NACL 0.9% 50 ML IV SCH (20:42)
[2022-10-02] MEDS: COLISTIMETHATE SODIUM 150 MG in NACL 0.9% 100 ML IV SCH (20:43)
--- NOTE | 2022-10-02 22:45 | NUR ---
5440 CLIPPED PATIENTS STITCHES ON TRACH. CLEANED TRACH SITE AND REPLACED WITH NEW TRACH TIE AND GAUZE
[2022-10-03] VITALS (21 sets, daily range): BP systolic 93–121; BP diastolic 52–66
[2022-10-03] MEDS: BLOOD GLUCOSE MONITORING 1 DEV DEV FS SCH ×4 (00:01→18:42)
--- NOTE | 2022-10-03 00:16 | NUR ---
Enteral feeding remains on hold, residual > 200 ml
--- NOTE | 2022-10-03 01:37 | NUR ---
0130 SXNED PT FOR SPUTUM SAMPLE AND SENT TO LAB.
[2022-10-03] MEDS: ACETAMINOPHEN 325 MG TAB PO PRN (04:27)
[2022-10-03] MEDS: METOCLOPRAMIDE 10 MG/2 ML INJ VIAL IVP SCH ×3 (04:27→20:47)
[2022-10-03] MEDS: MEROPENEM 1,000 MG in NACL 0.9% 50 ML IV SCH ×3 (04:28→20:49)
[2022-10-03] MEDS: GABAPENTIN 300 MG CAP GT SCH ×3 (04:28→20:46)
[2022-10-03] MEDS: GABAPENTIN 100 MG CAP GT SCH ×3 (04:29→20:46)
[2022-10-03 05:14] LABS: BASOPHILS % (AUTO) 0.2 % (0.0-2.0); EOSINOPHILS # (AUTO) 0.1 K/uL (0-0.4); EOSINOPHILS % (AUTO) 0.7 % (0.0-4.0); HEMATOCRIT 31.2 % (36-48); HEMOGLOBIN 9.9 g/dL (12.0-16.0); LYMPHOCYTES # (AUTO) 0.9 K/uL (2.5-16.5); LYMPHOCYTES % (AUTO) 11.9 % (20.5-51.1); MEAN CORPUSCULAR HEMOGLOBIN 27 pg (27-31); MEAN CORPUSCULAR HGB CONC 32 g/dL (33-37); MEAN CORPUSCULAR VOLUME 84.5 fL (80-94); MONOCYTES # (AUTO) 0.4 K/uL (0.8-1.0); MONOCYTES % (AUTO) 5.6 % (1.7-9.3); NEUTROPHILS # (AUTO) 6.4 K/uL (1.8-7.7); NEUTROPHILS % (AUTO) 81.6 % (42.2-75.2); PLATELET COUNT (AUTO) 123 K/uL (140-450); RED BLOOD CELL COUNT(AUTO) 3.69 MIL/uL (4.20-5.40); RED CELL DISTRIBUTION WIDTH 17.6 % (11.6-13.7); WHITE BLOOD COUNT (AUTO) 7.9 K/uL (4.8-10.8)
[2022-10-03] MEDS: FUROSEMIDE 40 MG/4 ML VIAL IVP SCH ×4 (05:41→18:19)
[2022-10-03] MEDS: LEVOTHYROXINE 0.088 MG TAB PO SCH (05:42)
[2022-10-03 06:29] LABS: ANION GAP 13.1 (8-16); CARBON DIOXIDE 29.8 mmol/L (21-32); CREATININE 0.5 mg/dL (0.6-1.3)
[2022-10-03 06:35] LABS: MAGNESIUM 1.9 mg/dL (1.8-2.4); PHOSPHORUS 3.5 mg/dL (2.5-4.9)
[2022-10-03] MEDS: ALBUTEROL 0.083% 2.5 MG/3 ML NEBU INH SCH ×3 (07:00→19:26)
[2022-10-03 07:13] LABS: POTASSIUM 2.9 mmol/L (3.5-5.1)
--- NOTE | 2022-10-03 07:14 | NUR ---
Received critical lab potassium 2.9. Reported to Dr. Colunga that standing order of K-Lexa 40 meQ being given. New order for additional 40meQ K Lexa.
[2022-10-03] MEDS: KCL 20 MEQ/WATER INJ PREMIX 200 ML IV PRN (07:18)
[2022-10-03] MEDS: glipiZIDE 5 MG TAB PO SCH ×2 (07:18→16:30)
--- NOTE | 2022-10-03 07:30 | NUR ---
Received pt in bed with eyes closed, aroused to touch. Trach to vent settings AC PRVC TV 450 RATE 20 PEEP 6 FIO2@40%. Sinus rhythm on monitor. G-tube intact on left upper abdomen. Laura catheter draining to gravity. PICC line on right upper arm intact and infusing K-Lexa@50ml/hr. Safety precautions in place.
[2022-10-03] MEDS: COLISTIMETHATE SODIUM 150 MG in NACL 0.9% 100 ML IV SCH ×2 (08:47→20:48)
[2022-10-03] MEDS: PANTOPRAZOLE 40 MG INJ VIAL IVP SCH (08:48)
--- NOTE | 2022-10-03 09:49 | NUR ---
Seen and examined by Dr. Kat. New order received to increase Reglan 10mg TID IVP.
[2022-10-03] MEDS ORDERED: KCL 20 MEQ/WATER INJ PREMIX 200 ML IV ONE (12:00)
[2022-10-03] MEDS: Z-GUARD PASTE TP SCH (12:11)
[2022-10-03] MEDS: THERAHONEY GEL 42.5 GM TP SCH (12:11)
--- NOTE | 2022-10-03 12:38 | NUR ---
Seen and examined by Dr. Cano. New order received for CAT scan without contrast.
--- NOTE | 2022-10-03 13:57 | NUR ---
Received phone call from CT that measurements were done and pt does not fit CT scan. Dr. Cano made aware and cancelled order with new order for small bowel series.
--- NOTE | 2022-10-03 14:55 | NUR ---
SB series done at bedside.
--- NOTE | 2022-10-03 17:00 | NUR ---
Glucotrol not given due to feeding on hold due to ongoing small bowel series.
--- NOTE | 2022-10-03 19:29 | NUR ---
Endorsed to material handler 1st shift nurse Nazanin for continuity of care.
--- NOTE | 2022-10-03 20:00 | NUR ---
Received in semi fowlers position, awake, opens eyes spontaneously, follow simple commands, trach/vent, in no distress, tolerating vent settings, denies pain or discomfort, initial asseessment done & recorded
[2022-10-04] VITALS (19 sets, daily range): BP systolic 90–115; BP diastolic 51–66
[2022-10-04] MEDS: FUROSEMIDE 40 MG/4 ML VIAL IVP SCH ×4 (00:33→17:28)
[2022-10-04] MEDS: BLOOD GLUCOSE MONITORING 1 DEV DEV FS SCH ×4 (00:44→17:43)
[2022-10-04] MEDS: GABAPENTIN 100 MG CAP GT SCH ×3 (05:22→21:47)
[2022-10-04] MEDS: GABAPENTIN 300 MG CAP GT SCH ×3 (05:23→21:47)
[2022-10-04] MEDS: MEROPENEM 1,000 MG in NACL 0.9% 50 ML IV SCH ×3 (05:25→21:49)
[2022-10-04] MEDS: METOCLOPRAMIDE 10 MG/2 ML INJ VIAL IVP SCH ×3 (05:26→21:49)
[2022-10-04] MEDS: LEVOTHYROXINE 0.088 MG TAB PO SCH (07:26)
--- NOTE | 2022-10-04 07:30 | NUR ---
Received pt awake, mouth words, and able to follow simple commands. Afebrile. Trach to vent settings AC PRVC TV 450 Rate 20 PEEP 6 FiO2@40%. Sinus rhythm on monitor. G-tube intact and started tube feeding. Pt with 30ml of gastric residual. Laura catheter intact and draining to gravity. PICC line on right upper arm intact and infusing NS@TKO. Safety precautions in place.
[2022-10-04 07:46] LABS: BASOPHILS % (AUTO) 0.4 % (0.0-2.0); EOSINOPHILS # (AUTO) 0.1 K/uL (0-0.4); HEMATOCRIT 32.3 % (36-48); HEMOGLOBIN 10.2 g/dL (12.0-16.0); LYMPHOCYTES # (AUTO) 0.8 K/uL (2.5-16.5); LYMPHOCYTES % (AUTO) 12.4 % (20.5-51.1); MEAN CORPUSCULAR HEMOGLOBIN 27 pg (27-31); MEAN CORPUSCULAR HGB CONC 31 g/dL (33-37); MEAN CORPUSCULAR VOLUME 85.6 fL (80-94); MONOCYTES # (AUTO) 0.3 K/uL (0.8-1.0); MONOCYTES % (AUTO) 5.2 % (1.7-9.3); NEUTROPHILS # (AUTO) 5.3 K/uL (1.8-7.7); PLATELET COUNT (AUTO) 148 K/uL (140-450); RED BLOOD CELL COUNT(AUTO) 3.78 MIL/uL (4.20-5.40); RED CELL DISTRIBUTION WIDTH 17.6 % (11.6-13.7); WHITE BLOOD COUNT (AUTO) 6.5 K/uL (4.8-10.8)
[2022-10-04 07:59] LABS: ANION GAP 13.2 (8-16); CARBON DIOXIDE 31.8 mmol/L (21-32); CREATININE 0.4 mg/dL (0.6-1.3)
[2022-10-04] MEDS: MORPHINE SULFATE 2 MG/ML SYR IVP PRN (08:13)
[2022-10-04] MEDS: PANTOPRAZOLE 40 MG INJ VIAL IVP SCH (08:13)
[2022-10-04] MEDS: glipiZIDE 5 MG TAB PO SCH ×2 (08:13→16:09)
[2022-10-04] MEDS: COLISTIMETHATE SODIUM 150 MG in NACL 0.9% 100 ML IV SCH ×2 (08:58→21:50)
--- NOTE | 2022-10-04 09:30 | NUR ---
Seen by Dr. Kat. No new orders.
--- NOTE | 2022-10-04 09:50 | NUR ---
Seen and examined by Dr. Colunga. New order received for Midodrine 10mg TID.
[2022-10-04] MEDS: MIDODRINE 5 MG TAB GT SCH ×2 (12:08→16:08)
[2022-10-04] MEDS: THERAHONEY GEL 42.5 GM TP SCH (12:09)
[2022-10-04] MEDS: Z-GUARD PASTE TP SCH (12:09)
--- NOTE | 2022-10-04 14:16 | NUR ---
10/04/22 RD FOLLOW UP COMPLETED. PLEASE REFER TO NUTRITION ASSESSMENT UNDER CARE ACTIVITY FOR ESTIMATED NUTRITIONAL NEEDS. 1. RECOMMEND INCREASING GOAL RATE OF GLUCERNA 1.2 TO @50 ML/HR GRADUALLY PT TOLERATES WITH PROSOURCE BID TO MEET ESTIMATED ENERGY NEEDS. -INCREASE Q4H BY 10 ML PT TOLERATES -FWF 150 ML Q6H OR PER MD -WITH PROSOURCE BID (PROVIDES 120 KCALS, 30 G PROTEIN DAILY), THIS PROVIDES 1200 ML VOLUME, 1560 KCAL, AND 102 GRAMS OF PROTEIN, MEETING 100% ESTIMATED CALORIE AND PROTEIN NEEDS, ADEQUATE - IF PT IS PUT BACK ON PROPOFOL @18.67 ML/HR, RECOMMEND GLUCERNA 1.2 @ 35 ML/HR, FWF 150 ML Q4H, WITH PROSOURCE BID. 2. IF RESIDUALS CONTINUE TO BE HIGH >500 ML, HOLD TF AND/OR RECOMMEND MEDICATION FOR GI MOTILITY. 3. MONITOR RESIDUALS AND LAB VALUES. 4. CONSULT RD PRN 5. RD TO FOLLOW-UP 2-3 DAYS, HIGH RISK SHIRLENE ALMAZAN RD
--- NOTE | 2022-10-04 16:30 | NUR ---
Called lab regarding sputum culture and they said it has not been collected yet. Informed them that it was collected on 10/03, but they did not find sputum. Called [facility] for sputum collection for sputum culture per Dr. Worthington ordered on 10/03.
--- NOTE | 2022-10-04 16:44 | NUR ---
Seen and examined by Dr. Worthington. No new orders.
[2022-10-04] MEDS: ALBUTEROL 0.083% 2.5 MG/3 ML NEBU INH SCH ×3 (17:18→19:29)
--- NOTE | 2022-10-04 19:36 | NUR ---
Endorsed to overnight caregiver nurse Anabel for continuity of care.
--- NOTE | 2022-10-04 20:30 | NUR ---
Received in semi fowlers position, awake, alert, follow simple commands, in no ditress, tolerating trach/vent settings, enteral feedings with Glucerna held, gastric residual > 200 ml, rectal tube in place(flexiseal) leaking with greenish yellow liquid pasty stool, scanty amount
[2022-10-05] VITALS (20 sets, daily range): BP systolic 85–113; BP diastolic 41–83
[2022-10-05] MEDS: FUROSEMIDE 40 MG/4 ML VIAL IVP SCH ×4 (00:04→17:04)
[2022-10-05] MEDS: BLOOD GLUCOSE MONITORING 1 DEV DEV FS SCH ×4 (00:13→17:18)
[2022-10-05] MEDS: GABAPENTIN 100 MG CAP GT SCH ×3 (05:14→21:11)
[2022-10-05] MEDS: GABAPENTIN 300 MG CAP GT SCH ×3 (05:15→21:12)
[2022-10-05] MEDS: METOCLOPRAMIDE 10 MG/2 ML INJ VIAL IVP SCH ×3 (05:16→21:12)
[2022-10-05] MEDS: MEROPENEM 1,000 MG in NACL 0.9% 50 ML IV SCH ×3 (05:17→21:12)
[2022-10-05] MEDS: LEVOTHYROXINE 0.088 MG TAB PO SCH (05:32)
[2022-10-05 05:54] LABS: BASOPHILS % (AUTO) 0.4 % (0.0-2.0); EOSINOPHILS # (AUTO) 0.1 K/uL (0-0.4); EOSINOPHILS % (AUTO) 1.4 % (0.0-4.0); HEMATOCRIT 31.1 % (36-48); HEMOGLOBIN 9.8 g/dL (12.0-16.0); LYMPHOCYTES # (AUTO) 1.4 K/uL (2.5-16.5); LYMPHOCYTES % (AUTO) 21.6 % (20.5-51.1); MEAN CORPUSCULAR HEMOGLOBIN 27 pg (27-31); MEAN CORPUSCULAR HGB CONC 32 g/dL (33-37); MEAN CORPUSCULAR VOLUME 85.2 fL (80-94); MONOCYTES # (AUTO) 0.4 K/uL (0.8-1.0); MONOCYTES % (AUTO) 6.6 % (1.7-9.3); NEUTROPHILS # (AUTO) 4.4 K/uL (1.8-7.7); PLATELET COUNT (AUTO) 158 K/uL (140-450); RED BLOOD CELL COUNT(AUTO) 3.65 MIL/uL (4.20-5.40); RED CELL DISTRIBUTION WIDTH 17.7 % (11.6-13.7); WHITE BLOOD COUNT (AUTO) 6.2 K/uL (4.8-10.8)
[2022-10-05 06:03] LABS: MAGNESIUM 1.7 mg/dL (1.8-2.4); PHOSPHORUS 4.8 mg/dL (2.5-4.9)
[2022-10-05 06:27] LABS: ANION GAP 15.6 (8-16); CARBON DIOXIDE 32.3 mmol/L (21-32); CREATININE 0.4 mg/dL (0.6-1.3)
[2022-10-05] MEDS: ALBUTEROL 0.083% 2.5 MG/3 ML NEBU INH SCH ×3 (06:49→19:04)
--- NOTE | 2022-10-05 07:00 | NUR ---
RECEIVED PATIENT ON PRVC 450,20,.8,+6,40%. VENT WHEELS ARE LOCKED, PLUGGED INTO RED OUTLET, AMBUBAG AT BEDSIDE, ALARMS ARE SET AND AUDIBLE. PATIENT SATURATION 97%, BREATH SOUNDS WERE COARSE. SUCTIONED THICK MODERATE AMOUNT OF YELLOW/WHITE SECRETIONS. WILL CONTINUE TO MONITOR.
--- NOTE | 2022-10-05 07:21 | NUR ---
Reported critical potassium to Dr. Mayen. New order received.
[2022-10-05] MEDS: KCL 20 MEQ/WATER INJ PREMIX 200 ML IV PRN (07:25)
[2022-10-05] MEDS: glipiZIDE 5 MG TAB PO SCH ×2 (07:26→16:30)
--- NOTE | 2022-10-05 07:30 | NUR ---
Received pt awake, able to mouth words. Trach to vent settings AC PRVC TV 450 rate 20 PEEP 6 FiO2@40%. Sinus rhythm on monitor. G-tube intact with no gastric residual. Feeding resumed. Laura catheter intact and draining to gravity. Flexiseal in place. PICC line on right upper arm intact and patent. Safety precautions in place.
[2022-10-05] MEDS: MAG SULF 2000 MG/WATER PREMIX 50 ML IV PRN (07:47)
--- NOTE | 2022-10-05 08:00 | NUR ---
Dr. Kat at bedside examining patient.
[2022-10-05] MEDS ORDERED: POTASSIUM CHLORIDE 20% 40 MEQ/15 ML UDC GT SCH (08:27)
[2022-10-05] MEDS: MIDODRINE 5 MG TAB GT SCH ×3 (08:32→17:04)
[2022-10-05] MEDS: PANTOPRAZOLE 40 MG INJ VIAL IVP SCH (08:32)
[2022-10-05] MEDS: COLISTIMETHATE SODIUM 150 MG in NACL 0.9% 100 ML IV SCH ×2 (08:35→21:00)
--- NOTE | 2022-10-05 08:45 | NUR ---
Seen and examined by Dr. Mayen.
[2022-10-05 10:28] LABS: POTASSIUM 2.9 mmol/L (3.5-5.1)
[2022-10-05] MEDS: Z-GUARD PASTE TP SCH (12:18)
[2022-10-05] MEDS: THERAHONEY GEL 42.5 GM TP SCH (12:18)
--- NOTE | 2022-10-05 14:46 | NUR ---
WOUND CARE RE-EVALUATION NOTE: SKIN ASSESSMENT DONE WITH PRIMARY RN FRACNE. SISTER SANKET AT BED SIDE VISIT. EXPLAIN CLINT ON SKIN WITH WOUND PHOTO REVIEWED AND PLAN OF CARE DISCUSSED WITH COMORBIDITIES EXPLAINED. SANKET VERBALIZES UNDERSTANDING. WOUNDS RESPONDING TO TX PLAN AND WILL CONTINUE THE SAME. POC DISCUSSED WITH FRUIT GRADING SUPERVISOR TAJ. PT. WILL BE DOWNGRADE TO [facility]. -TRACH AND PEG PEBBLES-STOMA SKIN DRY, CLEAN ,INTACT. -INTERTRIGO TO BILATERAL BREASTS FOLDS AND ABDOMINAL FOLDS IMPROVING WITH NYSTATIN. SKIN DRY, NO REDNESS -INTERTRIGO POSTERIOR TRUNK OF BODY SKIN FOLD WITH A PARTIAL THICKNESS SKIN LOSS 2.5X5X0.1CM WOUND BED MOIST, WOUND BED PREVIOUSLY DTI TODAY ASSESSMENT WOUND BED IS 100% RED GRANULATION TISSUE, MOIST, NO ODOR, PEBBLES WOUND SKIN DRY AND PINK -MOISTURE ASSOCIATED SKIN DAMAGE(MASD) TO: B/L GROINS, MEDIAL THIGHS AND PEBBLES-ANAL SKIN MOIST, REDNESS IMPROVING -PRESSURE INJURY STAGE 3, SACROCOCCYX TWO SITES: LEFT 5X3X0.2CM, RIGHT 6X5.2X0.1CM. BOTH WOUND BEDS 100% RED GRANULATION TISSUE, MOIST, NO ODOR, WOUND EDGE FLAT, PEBBLES-WOUND WITH DENUDED SKIN IMPROVING, MOIST SURROUNDING WITH NON-BLANCHABLE REDNESS
--- NOTE | 2022-10-05 15:40 | NUR ---
Seen and examined by Dr. Campbell. No new orders.
[2022-10-05] MEDS: MORPHINE SULFATE 2 MG/ML SYR IVP PRN (17:21)
--- NOTE | 2022-10-05 17:50 | NUR ---
RT at bedside collecting sputum for sputum culture.
--- NOTE | 2022-10-05 18:35 | NUR ---
Seen and examined by Dr. Worthington.
--- NOTE | 2022-10-05 19:35 | NUR ---
RECEIVED PT. FROM DAY SHIFT RNFRANCE. PT. WIDE AWAKE, ALERT AND FOLLOW SIMPLE COMMANDS. PT. WAVE HANDS TO SAY HI IF YOU GREET HER. PT. TRACH TO VENT A/C PRVC RATE 20, TV 450, FIO2 35%,PEEP 5 AND O2 SAT 93%. BILATERAL LUNGS CLEAR. EYES REACTIVE TO LIGHT AND ACCOMODATION. SINUS RHYTHM ON THE MONITOR. IV TO RIGHT UPPER ARM PICC LINE PATENT AND INTACT, INFUSING NS TKO. GT HOLD DUE TO GASTRIC RESIDUAL OF 160 ML PER DAY SHIFT. NEWBY CATHETER TO GRAVITY WITH CLEAR OMI COLOR URINE. FELXISEAL IN PLACED. SKIN NOT INTACT.PLEASE SEE WOUND DOCUMENTATION. VAP ORAL CARE PROVIDED. REPOSITIONED AND PLACED IN COMFORTABLE POSITION. NO S/S OF RESPIRATORY DISTRESS. NO S/S OF PAIN. WILL CONT. TO MONITOR.
--- NOTE | 2022-10-05 19:36 | NUR ---
Endorsed to night shift manager nurse Denise for continuity of care.
--- NOTE | 2022-10-05 20:34 | NUR ---
PT. MOTHER CALLED AND PROVIDED UPDATE WITH PT. CONDITION.
--- NOTE | 2022-10-05 22:17 | NUR ---
2145 PT SATS DROPPED TO 87%. INCREASED FIO2 TO 40%
[2022-10-06] VITALS (20 sets, daily range): BP systolic 82–114; BP diastolic 34–75
[2022-10-06] MEDS: BLOOD GLUCOSE MONITORING 1 DEV DEV FS SCH ×4 (00:17→17:22)
[2022-10-06] MEDS: FUROSEMIDE 40 MG/4 ML VIAL IVP SCH ×4 (00:23→17:22)
--- NOTE | 2022-10-06 04:20 | NUR ---
LAB CAME AND DRAWN BLOOD.
--- NOTE | 2022-10-06 04:33 | NUR ---
0420 TRACH CARE DONE. CLEANED TRACH SITE AND CHANGED TIE AND GAUZE
[2022-10-06 05:29] LABS: BASOPHILS % (AUTO) 0.7 % (0.0-2.0); EOSINOPHILS # (AUTO) 0.1 K/uL (0-0.4); EOSINOPHILS % (AUTO) 2.3 % (0.0-4.0); HEMOGLOBIN 9.9 g/dL (12.0-16.0); LYMPHOCYTES # (AUTO) 1.3 K/uL (2.5-16.5); LYMPHOCYTES % (AUTO) 23.3 % (20.5-51.1); MEAN CORPUSCULAR HEMOGLOBIN 27 pg (27-31); MEAN CORPUSCULAR HGB CONC 32 g/dL (33-37); MEAN CORPUSCULAR VOLUME 84.9 fL (80-94); MONOCYTES # (AUTO) 0.5 K/uL (0.8-1.0); MONOCYTES % (AUTO) 8.2 % (1.7-9.3); NEUTROPHILS # (AUTO) 3.7 K/uL (1.8-7.7); NEUTROPHILS % (AUTO) 65.5 % (42.2-75.2); PLATELET COUNT (AUTO) 198 K/uL (140-450); RED BLOOD CELL COUNT(AUTO) 3.65 MIL/uL (4.20-5.40); RED CELL DISTRIBUTION WIDTH 17.7 % (11.6-13.7); WHITE BLOOD COUNT (AUTO) 5.6 K/uL (4.8-10.8)
[2022-10-06] MEDS: GABAPENTIN 100 MG CAP GT SCH ×3 (05:49→21:12)
[2022-10-06] MEDS: GABAPENTIN 300 MG CAP GT SCH ×3 (05:50→21:11)
[2022-10-06] MEDS: MEROPENEM 1,000 MG in NACL 0.9% 50 ML IV SCH ×3 (05:50→21:13)
[2022-10-06] MEDS: METOCLOPRAMIDE 10 MG/2 ML INJ VIAL IVP SCH ×3 (05:51→21:12)
[2022-10-06] MEDS: LEVOTHYROXINE 0.088 MG TAB PO SCH (05:59)
[2022-10-06 06:01] LABS: ANION GAP 15.8 (8-16); CARBON DIOXIDE 31.5 mmol/L (21-32); CREATININE 0.4 mg/dL (0.6-1.3); POTASSIUM 3.3 mmol/L (3.5-5.1)
[2022-10-06] MEDS: glipiZIDE 5 MG TAB PO SCH ×2 (07:30→17:21)
--- NOTE | 2022-10-06 07:30 | NUR ---
RECEIVED REPORT FROM AIRPORT OPERATIONS DUTY MANAGER. TRACH TO VENT ACPRVC FIO2 35% TV 450 R 20 PEEP 5.OPENS EYES AND TRACKS TO VERBAL AND PHYSICAL STIMULI. ABLE TO FOLLOW SIMPLE COMMANDS. WITH KATELYN PICC RUNNING NS AT TKO. NEWBY CATHETER INTACT AND PATENT, DRAINING CLEAR OMI URINE. FLEXISEAL INTACT, DRAINING LOOSE BROWN STOOL.
[2022-10-06] MEDS: ALBUTEROL 0.083% 2.5 MG/3 ML NEBU INH SCH ×3 (08:40→22:58)
[2022-10-06] MEDS: COLISTIMETHATE SODIUM 150 MG in NACL 0.9% 100 ML IV SCH ×2 (08:45→21:13)
[2022-10-06] MEDS: MIDODRINE 5 MG TAB GT SCH ×3 (08:45→17:22)
--- NOTE | 2022-10-06 08:45 | NUR ---
DUE MEDS GIVEN. WITH 80CC RESIDUALS FROM GT. ORAL CARE AND NEWBY CARE DONE. TURNED AND REPOSITIONED
[2022-10-06] MEDS: PANTOPRAZOLE 40 MG INJ VIAL IVP SCH (08:47)
[2022-10-06] MEDS: POTASSIUM CHLORIDE 20% 40 MEQ/15 ML UDC GT PRN (08:47)
[2022-10-06] MEDS: Z-GUARD PASTE TP SCH (12:25)
[2022-10-06] MEDS: THERAHONEY GEL 42.5 GM TP SCH (12:25)
[2022-10-06] MEDS: MORPHINE SULFATE 2 MG/ML SYR IVP PRN (14:16)
--- NOTE | 2022-10-06 15:00 | NUR ---
PT'S MOTHER, ZURI, AT BEDSIDE. SPOKE TO ANALOG DEVICE DESIGNER REGARDING PLAN OF CARE
--- NOTE | 2022-10-06 16:42 | NUR ---
10/06/22 RD FOLLOW UP COMPLETED PLEASE REFER TO NUTRITION ASSESSMENT UNDER CARE ACTIVITY FOR ESTIMATED NUTRITIONAL NEEDS. 1. CONTINUE GLUCERNA 1.2 @50 ML/HR GRADUALLY PT TOLERATES, WITH PROSOURCE BID TO MEET ESTIMATED ENERGY NEEDS. -INCREASE Q4H BY 10 ML PT TOLERATES -FWF 150 ML Q6H OR PER MD -WITH PROSOURCE BID (PROVIDES 120 KCALS, 30 G PROTEIN DAILY), THIS PROVIDES 1200 ML VOLUME, 1580 KCAL, 102 GRAMS OF PROTEIN, AND 1566 ML FREE WATER, MEETING 78% ESTIMATED CALORIE AND 100% PROTEIN NEEDS, ADEQUATE - IF PT IS PUT BACK ON PROPOFOL @18.67 ML/HR, RECOMMEND GLUCERNA 1.2 @ 35 ML/HR, FWF 150 ML Q4H, WITH PROSOURCE BID (PROVIDES 120 KCALS, 30 G PROTEIN DAILY), THIS PROVIDES 840 ML TOTAL VOLUME, 1620 KCALS, 80 G PROTEIN, AND 1676 ML FREE WATER DAILY MEETING 81% ESTIMATED CALORIE AND 96% PROTEIN NEEDS, ADEQUATE 2. IF RESIDUALS CONTINUE TO BE HIGH >500 ML, HOLD TF AND/OR RECOMMEND MEDICATION FOR GI MOTILITY. 3. RECOMMEND BANATROL TID 4. MONITOR RESIDUALS AND LAB VALUES. 5. CONSULT RD PRN 6. RD TO FOLLOW-UP 2-3 DAYS, HIGH RISK REVIEWED BY RINA SEWELL RD
--- NOTE | 2022-10-06 20:00 | NUR ---
Received in semi fowlers position, awake, alert, follow simple commands, denies pain or discomfort, SR on monitor with occasional PVC's, trach/vent, tolerating vent settings, , in no distress, abdomen soft, non tender, GT intact with feedings of Glucerna FS @ 30 ml/hr., gastric residual @ 150 ml, to hold feeding if gastric residual > 200, mcgrath cath intact draining, cirilo urine with few sediments, rectal tube in place draining pasty brown LBM scanty amount, oral & perineal care done, repositioned to sides q 2 hours & PRN
[2022-10-07] VITALS (25 sets, daily range): BP systolic 87–123; BP diastolic 47–74
[2022-10-07] MEDS: FUROSEMIDE 40 MG/4 ML VIAL IVP SCH ×4 (00:15→18:00)
[2022-10-07] MEDS: BLOOD GLUCOSE MONITORING 1 DEV DEV FS SCH ×4 (00:16→18:45)
[2022-10-07] MEDS: METOCLOPRAMIDE 10 MG/2 ML INJ VIAL IVP SCH ×3 (05:00→20:20)
[2022-10-07] MEDS: MEROPENEM 1,000 MG in NACL 0.9% 50 ML IV SCH ×3 (05:50→20:24)
[2022-10-07 05:51] LABS: BASOPHILS % (AUTO) 0.8 % (0.0-2.0); EOSINOPHILS # (AUTO) 0.1 K/uL (0-0.4); EOSINOPHILS % (AUTO) 2.4 % (0.0-4.0); HEMATOCRIT 30.6 % (36-48); HEMOGLOBIN 9.6 g/dL (12.0-16.0); LYMPHOCYTES # (AUTO) 1.3 K/uL (2.5-16.5); LYMPHOCYTES % (AUTO) 23.7 % (20.5-51.1); MEAN CORPUSCULAR HEMOGLOBIN 27 pg (27-31); MEAN CORPUSCULAR HGB CONC 31 g/dL (33-37); MEAN CORPUSCULAR VOLUME 85.6 fL (80-94); MONOCYTES # (AUTO) 0.4 K/uL (0.8-1.0); MONOCYTES % (AUTO) 8.1 % (1.7-9.3); NEUTROPHILS # (AUTO) 3.5 K/uL (1.8-7.7); PLATELET COUNT (AUTO) 219 K/uL (140-450); RED BLOOD CELL COUNT(AUTO) 3.58 MIL/uL (4.20-5.40); RED CELL DISTRIBUTION WIDTH 17.3 % (11.6-13.7); WHITE BLOOD COUNT (AUTO) 5.4 K/uL (4.8-10.8)
[2022-10-07] MEDS: GABAPENTIN 300 MG CAP GT SCH ×3 (05:51→20:20)
[2022-10-07] MEDS: GABAPENTIN 100 MG CAP GT SCH ×3 (05:52→20:21)
[2022-10-07 05:55] LABS: ANION GAP 14.7 (8-16); CARBON DIOXIDE 32.5 mmol/L (21-32); CREATININE 0.5 mg/dL (0.6-1.3); POTASSIUM 3.2 mmol/L (3.5-5.1)
[2022-10-07 06:00] LABS: MAGNESIUM 1.6 mg/dL (1.8-2.4); PHOSPHORUS 4.6 mg/dL (2.5-4.9)
--- NOTE | 2022-10-07 06:00 | NUR ---
Enteral feedings on hold, gastric residual > 200
[2022-10-07] MEDS: LEVOTHYROXINE 0.088 MG TAB PO SCH (06:02)
[2022-10-07] MEDS: ALBUTEROL 0.083% 2.5 MG/3 ML NEBU INH SCH ×3 (06:18→20:01)
--- NOTE | 2022-10-07 07:00 | NUR ---
RECEIVED PT ON PRVC 450,F18, 1.0,+6, 35%. VENT IS PLUGGED INTO RES OUTLET, WHEELS ARE LOCKED, AMBUBAG AT BEDSIDE, ALARMS ARE SET AND AUDIBLE. ORAL CARE DONE. WILL CONTINUE TO MONITOR.
[2022-10-07] MEDS: glipiZIDE 5 MG TAB PO SCH ×2 (07:30→16:05)
--- NOTE | 2022-10-07 07:30 | NUR ---
Endorsed to Chika RICKS
--- NOTE | 2022-10-07 07:30 | NUR ---
Received report on pt. Pt asleep, arousable, no signs of pain or distress. Trach to vent FiO2 35%. Laura draining urine to gravity. Flexiseal with loose liquid brown stool.
[2022-10-07] MEDS: COLISTIMETHATE SODIUM 150 MG in NACL 0.9% 100 ML IV SCH ×2 (09:24→20:22)
[2022-10-07] MEDS: MIDODRINE 5 MG TAB GT SCH ×2 (09:24→12:23)
[2022-10-07] MEDS: PANTOPRAZOLE 40 MG INJ VIAL IVP SCH (09:25)
[2022-10-07] MEDS: MAG SULF 2000 MG/WATER PREMIX 50 ML IV PRN (10:53)
[2022-10-07] MEDS: THERAHONEY GEL 42.5 GM TP SCH (12:21)
[2022-10-07] MEDS: Z-GUARD PASTE TP SCH (12:21)
[2022-10-07] MEDS: LORazepam 2 MG/ML VIAL IVP PRN (12:25)
--- NOTE | 2022-10-07 12:50 | NUR ---
PRIMARY RN NOT AVAILABLE AT THIS TIME. SPOKE TO CHARGE NURSE CAMERON, POC DISCUSSED AND INFORM TO DISCUSS POC TO AGENCY NURSE.
[2022-10-07] MEDS: KCL 20 MEQ/WATER INJ PREMIX 200 ML IV PRN (13:49)
[2022-10-07] MEDS ORDERED: POTASSIUM CHLORIDE 20% 40 MEQ/15 ML UDC GT SCH (16:00)
--- NOTE | 2022-10-07 17:00 | NUR ---
Wound care dressing change done; pt tolerated well
--- NOTE | 2022-10-07 19:22 | NUR ---
TRANSFER OF CARE FROM [facility], REPORT RECIEVED FROM GODWIN Gonzalez RN. PATIENT RECIEVED AWAKE AND ALERT, LYING IN BED. PATIENT IS ABLE TO MOUTH WORDS FOR COMMUNICATION. PATIENT IS TRACH TO VENT WITH THE CURRENT VENT SETTINGS: AC/PRVC, FIO2 = 35%, VT = 450, R = 20, PEEP = 6. PATIENT HAS NEWBY CATHETER AND RECTAL TUBE IN PLACE. CURRENT VITALS AT START OF SHIFT, HR = 91, R = 28, O2 SAT = 94%, BP = 98/60, TEMP = 97.8F. PATIENT IS RECIEVING ENTERAL NUTRITION VIA GTUBE (GLUCERNA 1.2 AT A RATE OF 30ML/HR). HAS PICC LINE KATELYN.
--- NOTE | 2022-10-07 19:28 | NUR ---
No acute changes during shift, still awaiting placement at [facility]. Endorsed plan of care to Katie RICKS.
[2022-10-07] MEDS: MIDODRINE 5 MG TAB PO SCH (20:22)
--- NOTE | 2022-10-07 20:30 | NUR ---
PROVIDED ORAL CARE TO PATIENT WHO WAS ABLE TO ASSIST, ALSO WAS ABLE TO WASH HER OWN FACE.
[2022-10-08] VITALS (22 sets, daily range): BP systolic 89–129; BP diastolic 49–70
[2022-10-08] MEDS: BLOOD GLUCOSE MONITORING 1 DEV DEV FS SCH ×4 (00:57→17:51)
[2022-10-08] MEDS: FUROSEMIDE 40 MG/4 ML VIAL IVP SCH ×5 (00:57→18:00)
[2022-10-08] MEDS: MEROPENEM 1,000 MG in NACL 0.9% 50 ML IV SCH ×3 (05:37→21:56)
[2022-10-08] MEDS: GABAPENTIN 100 MG CAP GT SCH ×3 (05:38→21:54)
[2022-10-08] MEDS: MIDODRINE 5 MG TAB PO SCH ×3 (05:39→21:57)
[2022-10-08] MEDS: GABAPENTIN 300 MG CAP GT SCH ×3 (05:39→21:55)
[2022-10-08] MEDS: METOCLOPRAMIDE 10 MG/2 ML INJ VIAL IVP SCH ×3 (05:40→21:57)
[2022-10-08] MEDS: LEVOTHYROXINE 0.088 MG TAB PO SCH (05:49)
[2022-10-08 05:56] LABS: HEMOGLOBIN 9.4 g/dL (12.0-16.0); MEAN CORPUSCULAR HEMOGLOBIN 27 pg (27-31); MEAN CORPUSCULAR HGB CONC 31 g/dL (33-37); MEAN CORPUSCULAR VOLUME 85.2 fL (80-94); PLATELET COUNT (AUTO) 225 K/uL (140-450); RED BLOOD CELL COUNT(AUTO) 3.52 MIL/uL (4.20-5.40); RED CELL DISTRIBUTION WIDTH 17.5 % (11.6-13.7); WHITE BLOOD COUNT (AUTO) 5.5 K/uL (4.8-10.8)
[2022-10-08 06:10] LABS: PHOSPHORUS 4.3 mg/dL (2.5-4.9)
[2022-10-08] MEDS: ALBUTEROL 0.083% 2.5 MG/3 ML NEBU INH SCH ×2 (06:32→19:11)
[2022-10-08 06:42] LABS: ANION GAP 12.1 (8-16); CARBON DIOXIDE 31.5 mmol/L (21-32); CREATININE 0.6 mg/dL (0.6-1.3); POTASSIUM 3.6 mmol/L (3.5-5.1)
[2022-10-08 06:44] LABS: EOSINOPHILS % (MANUAL) 2 % (0-4); LYMPHOCYTES % (MANUAL) 24 % (20-46); MONOCYTES % (MANUAL) 7 % (5-12)
[2022-10-08 06:45] LABS: PROMYELOCYTES % 1 % (0-0)
--- NOTE | 2022-10-08 07:00 | NUR ---
RECEIVED PT ON PRVC 4501,F20,0.9, +6, 35%. VENT WHEELS ARE LOCKED ,PLUGGED INTO RED OUTLET, AMBUBAG AT BEDSIDE, ALARMS ARE SET AND AUDIBLE. SATURATION 94%, BREATH SOUNDS WERE COARSE, SUCTIONED OUT THICK YELLOW SECRETIONS. WILL CONTINUE TO MONITOR.
--- NOTE | 2022-10-08 07:15 | NUR ---
RECEIVED BEDSIDE REPORT FROM SHOEMAKER CUSTOM LAINA RICKS. PT IS SLEEP. TRACH TO VENT, AC PRVC FIO2 35%, VT 450, RR 20, PEEP 6. SR ON MONITOR. PICC LINE TO KATELYN, RECEIVING NS @3MLS/HR. TUBE FEEDING THROUGH G TUBE, GLUCERNA 1.2, RATE AT 30MLS, FWF 150 [address] Q [address]BY IN [address] TO GRAVITY, URINE CLOUDY AND DARK OMI. SEE WOUND ASSESSMENT. BED TO LOWEST POSITION, CALL LIGHT WITHIN REACH, WILL CONTINUE TO MONITOR.
--- NOTE | 2022-10-08 07:26 | NUR ---
TRANSFER OF CARE TO DAY SHIFT, REPORT ENDORSED TO Lisa WHEATLEY RN.
--- NOTE | 2022-10-08 08:16 | NUR ---
DR DORA FLANNERY AT BEDSIDE. UPDATED PT INFORMATION.
[2022-10-08] MEDS: COLISTIMETHATE SODIUM 150 MG in NACL 0.9% 100 ML IV SCH ×2 (09:06→22:00)
[2022-10-08] MEDS: glipiZIDE 5 MG TAB PO SCH ×2 (09:06→16:22)
[2022-10-08] MEDS: PANTOPRAZOLE 40 MG INJ VIAL IVP SCH (09:07)
[2022-10-08] MEDS: POTASSIUM CHLORIDE 20% 40 MEQ/15 ML UDC GT PRN (09:34)
[2022-10-08] MEDS: MAG SULF 2000 MG/WATER PREMIX 50 ML IV PRN (09:35)
[2022-10-08] MEDS: MORPHINE SULFATE 2 MG/ML SYR IVP PRN ×2 (09:51→23:56)
--- NOTE | 2022-10-08 10:28 | NUR ---
RECEIVED PHONE CALL FROM FAMILY/MOM. UPDATED PT INFORMATION.
[2022-10-08] MEDS ORDERED: COLI150P9 IV (10:38)
[2022-10-08] MEDS ORDERED: PRO5 PO (10:38)
[2022-10-08] MEDS ORDERED: GABA300C1 GT (10:38)
[2022-10-08] MEDS ORDERED: MERO1VIA15 IV (10:38)
[2022-10-08] MEDS ORDERED: ACET-1182 PO (10:38)
[2022-10-08] MEDS ORDERED: LAS20I IVP (10:38)
[2022-10-08] MEDS: THERAHONEY GEL 42.5 GM TP SCH (12:24)
[2022-10-08] MEDS: Z-GUARD PASTE TP SCH (12:25)
--- NOTE | 2022-10-08 14:45 | NUR ---
DR LANDA ROUNDING AT BEDSIDE. UPDATED PT INFORMATION.
--- NOTE | 2022-10-08 18:00 | NUR ---
DR HARRIS ROUNDING AT BEDSIDE. UPDATED PT INFORMATION.
--- NOTE | 2022-10-08 19:25 | NUR ---
ENDORSED TO BOILER TUBE BLOWER PEPPI RN FOR CONTINUITY OF CARE. ALL QUESTIONS ANSWERED.
[2022-10-09] VITALS (12 sets, daily range): BP systolic 91–106; BP diastolic 48–62
[2022-10-09] MEDS: FUROSEMIDE 40 MG/4 ML VIAL IVP SCH ×3 (00:13→12:00)
[2022-10-09] MEDS: MORPHINE SULFATE 2 MG/ML SYR IVP PRN (05:19)
[2022-10-09] MEDS: GABAPENTIN 100 MG CAP GT SCH (05:22)
[2022-10-09] MEDS: GABAPENTIN 300 MG CAP GT SCH (05:23)
[2022-10-09] MEDS: MIDODRINE 5 MG TAB PO SCH (05:25)
[2022-10-09] MEDS: METOCLOPRAMIDE 10 MG/2 ML INJ VIAL IVP SCH (05:26)
[2022-10-09] MEDS: LEVOTHYROXINE 0.088 MG TAB PO SCH (05:35)
[2022-10-09] MEDS: MEROPENEM 1,000 MG in NACL 0.9% 50 ML IV SCH (05:36)
[2022-10-09] MEDS: BLOOD GLUCOSE MONITORING 1 DEV DEV FS SCH ×3 (06:00→12:41)
[2022-10-09] MEDS: ALBUTEROL 0.083% 2.5 MG/3 ML NEBU INH SCH (06:49)
--- NOTE | 2022-10-09 07:15 | NUR ---
RECEIVED BEDSIDE REPORT FROM NEW CAR MAKE READY WORKER MERCEDEZ RN. PT IS AWAKE. TRACH TO VENT, AC PRVC FIO2 35%, VT 450, RR 20, PEEP 6. SR ON MONITOR. PICC LINE TO KATELYN, RECEIVING NS @3MLS/HR. TUBE FEEDING THROUGH G TUBE, GLUCERNA 1.2, RATE AT 30MLS, FWF [address] Q [address]. NEWBY IN PL[address] TO GRAVITY, URINE CLOUDY AND OMI. SEE WOUND ASSESSMENT. BED TO LOWEST POSITION, CALL LIGHT WITHIN REACH, WILL CONTINUE TO MONITOR.
[2022-10-09] MEDS: glipiZIDE 5 MG TAB PO SCH (07:38)
[2022-10-09 08:43] LABS: BASOPHILS % (AUTO) 0.6 % (0.0-2.0); EOSINOPHILS # (AUTO) 0.2 K/uL (0-0.4); EOSINOPHILS % (AUTO) 2.6 % (0.0-4.0); HEMATOCRIT 34.1 % (36-48); HEMOGLOBIN 10.7 g/dL (12.0-16.0); LYMPHOCYTES # (AUTO) 1.5 K/uL (2.5-16.5); LYMPHOCYTES % (AUTO) 20.8 % (20.5-51.1); MEAN CORPUSCULAR HEMOGLOBIN 27 pg (27-31); MEAN CORPUSCULAR HGB CONC 32 g/dL (33-37); MEAN CORPUSCULAR VOLUME 86.3 fL (80-94); MONOCYTES # (AUTO) 0.5 K/uL (0.8-1.0); MONOCYTES % (AUTO) 6.7 % (1.7-9.3); NEUTROPHILS % (AUTO) 69.3 % (42.2-75.2); PLATELET COUNT (AUTO) 320 K/uL (140-450); RED BLOOD CELL COUNT(AUTO) 3.95 MIL/uL (4.20-5.40); WHITE BLOOD COUNT (AUTO) 7.2 K/uL (4.8-10.8)
[2022-10-09 08:53] LABS: ANION GAP 13.3 (8-16); CARBON DIOXIDE 29.1 mmol/L (21-32); CREATININE 0.5 mg/dL (0.6-1.3); POTASSIUM 3.4 mmol/L (3.5-5.1)
[2022-10-09 09:06] LABS: PHOSPHORUS 4.9 mg/dL (2.5-4.9)
[2022-10-09] MEDS: PANTOPRAZOLE 40 MG INJ VIAL IVP SCH (09:08)
[2022-10-09] MEDS: COLISTIMETHATE SODIUM 150 MG in NACL 0.9% 100 ML IV SCH (09:09)
[2022-10-09] MEDS: POTASSIUM CHLORIDE 20% 40 MEQ/15 ML UDC GT PRN (09:30)
[2022-10-09] MEDS: MAG SULF 2000 MG/WATER PREMIX 50 ML IV PRN (09:31)
--- NOTE | 2022-10-09 11:20 | NUR ---
REPORT GIVEN TO [facility], VIA PHONE. ALL QUESTIONS ANSWERED.
--- NOTE | 2022-10-09 11:45 | NUR ---
PT REFUSED TRANSFER. RISK AND BENEFIT EXPLAINED FOR LONG-TERM CARE. PT REFUSE TO TAKE WOUND PICTURE.
--- NOTE | 2022-10-09 13:05 | NUR ---
PT WAS PICKED UP BY TOXICOLOGY SUPERVISOR. VS STABLE.
--- NOTE | 2022-10-09 17:45 | NUR ---
BARIATRIC BED WAS PIKED UP BY AMIE FROM [facility]# [id number], [facility], .
== END 2022-10-09 17:45 | disposition home or self-care (01) | DRG 5 ==
LOC: MED 15:59 → MTU 17:51 → MIC 09-02 18:50 → MTU 10-05 21:45 → MIC 10-05 21:58
PROVIDERS: ADMIT Student in an Organized Health Care Education/Training Program; ATTEND Student in an Organized Health Care Education/Training Program
PROC: 0B110F4 Bypass Trachea to Cutaneous with Tracheostomy Device, Open Approach (ICD-10-PCS; 2022-08-29)
PROC: 0DH63UZ Insertion of Feeding Device into Stomach, Percutaneous Approach (ICD-10-PCS; 2022-08-29)
PROC: 0T9B70Z Drainage of Bladder with Drainage Device, Via Natural or Artificial Opening (ICD-10-PCS; 2022-09-01)
PROC: 0BH17EZ Insertion of Endotracheal Airway into Trachea, Via Natural or Artificial Opening (ICD-10-PCS; 2022-09-02)
PROC: 5A1935Z Respiratory Ventilation, Less than 24 Consecutive Hours (ICD-10-PCS; 2022-09-02)
PROC: 0DH68UZ Insertion of Feeding Device into Stomach, Via Natural or Artificial Opening Endoscopic (ICD-10-PCS; 2022-09-02)
PROC: 5A1955Z Respiratory Ventilation, Greater than 96 Consecutive Hours (ICD-10-PCS; principal; 2022-09-03)
PROC: 0BH17EZ Insertion of Endotracheal Airway into Trachea, Via Natural or Artificial Opening (ICD-10-PCS; 2022-09-03)
PROC: 02HV33Z Insertion of Infusion Device into Superior Vena Cava, Percutaneous Approach (ICD-10-PCS; 2022-09-03)
PROC: B548ZZA Ultrasonography of Superior Vena Cava, Guidance (ICD-10-PCS; 2022-09-03)
PROC: 0B9F8ZX Drainage of Right Lower Lung Lobe, Via Natural or Artificial Opening Endoscopic, Diagnostic (ICD-10-PCS; 2022-09-22)
DX: I11.0 Hypertensive heart disease with heart failure (principal); J15.1 Pneumonia due to Pseudomonas; E44.0 Moderate protein-calorie malnutrition; J96.21 Acute and chronic respiratory failure with hypoxia; I42.9 Cardiomyopathy, unspecified; A04.72 Enterocolitis due to Clostridium difficile, not specified as recurrent; I95.9 Hypotension, unspecified; Z68.43 Body mass index [BMI] 50.0-59.9, adult; E66.2 Morbid (severe) obesity with alveolar hypoventilation; L89.153 Pressure ulcer of sacral region, stage 3; J96.22 Acute and chronic respiratory failure with hypercapnia; I50.33 Acute on chronic diastolic (congestive) heart failure; J44.1 Chronic obstructive pulmonary disease with (acute) exacerbation; T14.8XXA Other injury of unspecified body region, initial encounter; D64.9 Anemia, unspecified; R13.10 Dysphagia, unspecified; I87.8 Other specified disorders of veins; Z20.822 Contact with and (suspected) exposure to COVID-19; N39.0 Urinary tract infection, site not specified; E03.9 Hypothyroidism, unspecified; E87.6 Hypokalemia; E78.1 Pure hyperglyceridemia; X58.XXXA Exposure to other specified factors, initial encounter; R73.9 Hyperglycemia, unspecified; Z88.8 Allergy status to other drugs, medicaments and biological substances; Z79.899 Other long term (current) drug therapy; Z90.49 Acquired absence of other specified parts of digestive tract; Y93.89 Activity, other specified; Y92.89 Other specified places as the place of occurrence of the external cause; Y99.8 Other external cause status
CPT/HCPCS: 31500; 36415; 36600; 70450; 71045; 71275; 74018; 74250; 80048; 80053; 80202; 80305; 81001; 81025; 82150; 82607; 82728; 82746; 82803; 82948; 83540; 83605; 83690; 83735; 83880; 84100; 84132; 84436; 84443; 84478; 84484; 85025; 85045; 85610; 85730; 87040; 87070; 87081; 87086; 87186; 87205; 87635-QW; 89220; 93005; 93970; 94002; 94003; 94640; 96374; 97112; 99291; C9113; J0282; J0692; J0770; J1450; J1644; J1815; J1940; J1956; J2001; J2060; J2185; J2250; J2270; J2405; J2543; J2704; J2765; J2920; J2930; J3010; J3370; J3475; J3480; J3490; J7030; J7060; J7613; Q0092; Q9967